=== PATIENT | male | born 1940 | race Caucasian/White ===

== ENCOUNTER 2016-09-06 14:10 | Inpatient (IN) | payer OTHER, MEDICARE ==
[~2016-09-06] VITALS: Ht 167.6 cm; Wt 117.9 kg
[~2016-09-06 14:10] MED LIST: ACTOS30 M1 PO; COMPAZINE10 M1 PO; FERROUS SULFAT325 M3 PO; FLOMAX0.4 M1 PO; FLUOCINONIDE15 G2 TOP; LIPITOR10 M1 PO; LOMOTIL 2.5-0.1 EACH PO; LUBRIDERM DAIL177 ML EXT; METFORMIN HCL1000 M1 PO; MICARDIS40 M1 PO; NYSTATIN15 G1 TOP; OMEPRAZOLE20 M2 PO; ZOFRAN8 M1 PO
--- NOTE | 2016-09-06 14:14 | ED DYSPNEA/ASTHMA COMPLAINT ---
History of Present Illness General Chief Complaint: Dyspnea (COPD, CHF, Other) Stated Complaint: BIBA FOR EVAL DIFF BREATHER Source: patient Exam Limitations: no limitations Vital Signs & Intake/Output Vital Signs & Intake/Output Vital Signs Date Time Temp Pulse Resp B/P Pulse O2 O2 Flow FiO2 Ox Delivery Rate 09/06 1815 97.6 104 18 128/68 99 Nasal 2.0L Cannula 09/06 1433 96 Nasal 2.0L Cannula 09/06 1418 98.8 103 18 123/63 97 Nasal 2.0L Cannula Allergies Coded Allergies: NO KNOWN ALLERGIES (11/29/15) Reconcile Medications Atorvastatin Calcium (Lipitor) 10 MG TABLET 1 TAB PO DAILY HIGH CHOLESTORL ( Reported) Calcium Carbonate/Vitamin D3 (Oyster Shell 500 MG + Vit D Tb) 500 MG-200 TABLET 1 TAB PO TID SUPPLEMENT (Reported) Doxycycline Hyclate 100 MG TABLET 1 TAB PO BID RASH (Reported) Emollient Combination No.92 (Lubriderm Daily Moisture) 177 ML LOTION 1 MEHUL EXT TID RASH/DRY SKIN Ferrous Sulfate 325 MG TABLET 1 TAB PO BID VITAMIN SUPPORT (Reported) Finasteride 5 MG TABLET 1 TAB PO DAILY PROSTATE (Reported) Fluocinonide 15 GM CREAM..G. 1 MEHUL TOP BID PSORIASIS/RASH Fluorometholone (Fml S.o.p.) 0.1 % OINT...G. 1 MEHUL OPH TID EYE (Reported) Magnesium Oxide (Magox 400) 400 MG TABLET 3 TAB PO BID SUPPLEMENT (Reported) Metformin HCl 1,000 MG TABLET 1 TAB PO BID DIABETES (Reported) Metronidazole 1 % GEL..GRAM. 1 MEHUL TOP DAILY RASH (Reported) Mupirocin 2 % OINT...G. 1 MEHUL TOP DAILY RASH (Reported) apply to affected area(s) Nystatin 15 GM CREAM..G. 1 MEHUL TOP BID SKIN FUNGAL INFECTION Ondansetron HCl (Zofran) 8 MG TABLET 1 TAB PO TID PRN NAUSEA/VOMITING ( Reported) Pioglitazone HCl (Actos) 30 MG TABLET 1 TAB PO DAILY DIABETES (Reported) Potassium Chloride (K-Tab ER) 10 MEQ TABLET.ER 1 TAB PO DAILY DEHYDRATION ( Reported) Tamsulosin HCl (Flomax) 0.4 MG CAP.ER.24H 1 CAP PO DAILY UNKNOWN (Reported) Telmisartan (Micardis) 40 MG TABLET 1 TAB PO DAILY HEART HEALTH (Reported) Triage Nurses Notes Reviewed? yes Onset: Gradual Duration: constant Timing: single episode today Severity: severe HPI: Patient is a 76-year-old male with a past medical history of BPH, diabetes type 2, hypertension, hyperlipidemia and colonic adenocarcinoma and sigmoid resection who is currently every other week receiving chemotherapy, oncologist is who states that for the past month patient has had a nonproductive persistent cough however last night while in bed patient was woke up with significant dyspnea. Patient states that the dyspnea has been worsened and has noted audible wheezing. Patient denies any fever, chills, chest pain arm pain jaw pain nausea vomiting but does have a gradual onset of a one-day history of left- sided lower extremity swelling. Denies any hemoptysis. It is noted that patient was brought in by ambulance for shortness of breath fingerstick glucose EMS states was 59 on arrival receiving D5 in which this improved to 103 on arrival. Patient does not have a significant history of smoking or RESPIRATORY disease (LAKEISHA LYN) Past History Travel History Traveled to [place] past 21 day No Medical History Any Pertinent Medical History? 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 No (LAKEISHA LYN) Review of Systems Review of Systems Constitutional: Reports: no symptoms. EENTM: Reports: no symptoms. Respiratory: Reports: see HPI, cough, short of breath, wheezing. Cardiovascular: Reports: see HPI, peripheral edema. GI: Reports: no symptoms. Genitourinary: Reports: no symptoms. Musculoskeletal: Reports: no symptoms. Skin: Reports: no symptoms. Neurological/Psychological: Reports: no symptoms. Hematologic/Endocrine: Reports: no symptoms. Immunologic/Allergic: Reports: no symptoms. All Other Systems: Reviewed and Negative (LAKEISHA LYN) Physical Exam Physical Exam General Appearance: no apparent distress, comfortable, obese Head: atraumatic Eyes: Bilateral: normal appearance. Ears, Nose, Throat: normal pharynx Neck: normal inspection Respiratory: no respiratory distress, wheezing Cardiovascular: regular rate/rhythm Peripheral Pulses: 2+ dorsalis pedis (R), 2+ dorsalis pedis (L) Gastrointestinal: normal bowel sounds, soft, non-tender Extremities: LEFT LOWER EXTREMITY +1 PITTING EDEMA Neurologic/Psych: no motor/sensory deficits Skin: intact, normal color, warm/dry Comments: Insert full exam Core Measures ACS in differential dx? Yes Severe Sepsis Present: No Septic Shock Present: No (LAKEISHA LYN) Progress Differential Diagnosis: asthma, AMI, bronchitis, costochondritis, CHF, COPD, musculoskeletal pain, pericarditis, pulmonary embolism, pneumonia, pneumothorax, rib fracture, unstable angina Diagnostic Imaging: Viewed by Me: Radiology Read, CT Scan, Ultrasound. CXR Impression: no acute abnormality Initial ED EKG: SINUS RHYTHM NOTED AT 95 BPM Prior EKG: unchanged Comments: PATIENT: ROSIO GRAFF PRESENT AGE: 76 PATIENT ACCOUNT NO: [id number] : 42 LOCATION: [facility] ORDERING PHYSICIAN: LAKEISHA SCOTT SERVICE DATE: 09/06/16 EXAM TYPE: CAT - CTA CHEST-PULMONARY EMBOLISM EXAMINATION: CT ANGIOGRAM OF THE CHEST WITH AND WITHOUT CONTRAST (CT PULMONARY ANGIOGRAM FOR PE) CLINICAL INFORMATION: Shortness of breath. Elevated d-dimer. History of colon cancer COMPARISON: Chest CT from 04/30/2013 TECHNIQUE: Prior to contrast administration, noncontrast localization images were obtained. Subsequently, multidetector volumetric imaging was performed from the thoracic inlet to below the diaphragms following the administration of 80 mL Omnipaque 350 intravenous contrast. No contrast reaction reported Sagittal, coronal, and MIP oblique sagittal reformatted images were obtained on the CT workstation, uploaded to PACS, and reviewed. Total exam dose-length product 573 mGy-cm FINDINGS: QUALITY OF STUDY/CONTRAST BOLUS: Suboptimal. The aorta is more densely opacified than the pulmonary arteries. PULMONARY ARTERIES: No central or segmental pulmonary emboli. THORACIC AORTA: No aneurysm or dissection. LUNG: There is mild diffuse peribronchial thickening. There is a 2 cm platelike opacity within the right base peripherally. There is a stable 2 mm nodule along the right minor fissure. PLEURA: No pleural effusion or pneumothorax. MEDIASTINUM: Normal heart size. No pericardial effusion. No hilar or mediastinal lymphadenopathy. No evidence of septal bowing or right heart strain. CHEST WALL/AXILLA: A left sided port is visualized with tip extending into the superior vena cava. OSSEOUS STRUCTURES: No compression deformities. There is multilevel spondylosis. No acute osseous abnormalities are evident. UPPER ABDOMEN: Unremarkable. No reflux of contrast into the hepatic veins to suggest elevated right heart pressures. IMPRESSION: Although the contrast bolus timing is slightly delayed, there is no evidence of central or segmental pulmonary embolism. There is mild diffuse peribronchial thickening as well as a platelike opacity in the periphery of the right lower lobe which may be atelectasis or scar although a small consolidative focus is not entirely excluded. Left-sided port with tip in the superior vena cava. VTE: negative PATIENT: ROSIO GRAFF PRESENT AGE: 76 PATIENT ACCOUNT NO: [id number] : 42 LOCATION: [facility] ORDERING PHYSICIAN: LAKEISHA SCOTT SERVICE DATE: 09/06/16 EXAM TYPE: CAT - CTA CHEST-PULMONARY EMBOLISM EXAMINATION: CT ANGIOGRAM OF THE CHEST WITH AND WITHOUT CONTRAST (CT PULMONARY ANGIOGRAM FOR PE) CLINICAL INFORMATION: Shortness of breath. Elevated d-dimer. History of colon cancer COMPARISON: Chest CT from 04/30/2013 TECHNIQUE: Prior to contrast administration, noncontrast localization images were obtained. Subsequently, multidetector volumetric imaging was performed from the thoracic inlet to below the diaphragms following the administration of 80 mL Omnipaque 350 intravenous contrast. No contrast reaction reported Sagittal, coronal, and MIP oblique sagittal reformatted images were obtained on the CT workstation, uploaded to PACS, and reviewed. Total exam dose-length product 573 mGy-cm FINDINGS: QUALITY OF STUDY/CONTRAST BOLUS: Suboptimal. The aorta is more densely opacified than the pulmonary arteries. PULMONARY ARTERIES: No central or segmental pulmonary emboli. THORACIC AORTA: No aneurysm or dissection. LUNG: There is mild diffuse peribronchial thickening. There is a 2 cm platelike opacity within the right base peripherally. There is a stable 2 mm nodule along the right minor fissure. PLEURA: No pleural effusion or pneumothorax. MEDIASTINUM: Normal heart size. No pericardial effusion. No hilar or mediastinal lymphadenopathy. No evidence of septal bowing or right heart strain. CHEST WALL/AXILLA: A left sided port is visualized with tip extending into the superior vena cava. OSSEOUS STRUCTURES: No compression deformities. There is multilevel spondylosis. No acute osseous abnormalities are evident. UPPER ABDOMEN: Unremarkable. No reflux of contrast into the hepatic veins to suggest elevated right heart pressures. IMPRESSION: Although the contrast bolus timing is slightly delayed, there is no evidence of central or segmental pulmonary embolism. There is mild diffuse peribronchial thickening as well as a platelike opacity in the periphery of the right lower lobe which may be atelectasis or scar although a small consolidative focus is not entirely excluded. Left-sided port with tip in the superior vena cava. VTE: negative PATIENT: ROSIO GRAFF PRESENT AGE: 76 PATIENT ACCOUNT NO: [id number] : 42 LOCATION: ER ORDERING PHYSICIAN: LAKEISHA SCOTT SERVICE DATE: 09/06/16 EXAM TYPE: RAD - XRY-PORTABLE CHEST XRAY EXAMINATION: XR PORTABLE CHEST CLINICAL INFORMATION: Shortness of breath. COMPARISON: CT chest with contrast 04/30/2013. TECHNIQUE: Portable AP view of the chest was obtained. FINDINGS: The lungs are hypoinflated, without focal airspace consolidation. No pleural effusions or pneumothoraces are identified. Cardiomediastinal contours are stable. There is a left subclavian Port-A-Cath, with the catheter tip visualized terminating in the mid SVC. Soft tissues are unremarkable. No acute osseous abnormality is identified. IMPRESSION: No acute pulmonary process. PATIENT: ROSIO GRAFF PRESENT AGE: 76 PATIENT ACCOUNT NO: [id number] : 42 LOCATION: ER ORDERING PHYSICIAN: LAKEISHA SCOTT SERVICE DATE: 09/06/16 EXAM TYPE: US - US-UNILATERAL VENOUS DOPPLER EXAMINATION: US TRIPLEX LOWER EXTREMITY, LEFT CLINICAL INFORMATION: Left lower extremity swelling. COMPARISON: None. TECHNIQUE: Color-flow triplex imaging with spectral analysis and compression Doppler were performed on the left lower extremity. FINDINGS: Respiratory variation, normal compression and augmented flow are noted throughout the lower extremity. The visualized common femoral vein, femoral vein, profunda femoral vein, popliteal vein and midcalf peroneal and posterior tibial venous segments show no evidence of deep venous thrombosis. There is no Chairez's cyst. IMPRESSION: Normal triplex scan without evidence of deep venous thrombosis involving the left lower extremity. (ROSAURA SCOTT,LAKEISHA) Plan of Care: Orders Procedure Date/time Status Heart Healthy Diet 09/07 B Active Admit to inpatient 09/06 1854 Active Patient Data 09/06 1854 Active Add-on Test (ER Only) 09/06 1633 Active PHOSPHORUS 09/06 1549 Complete EKG 09/06 1519 Active BLOOD CULTURE 09/06 1428 Active Telemetry/Arc Welder 09/06 1426 Active RAPID VIRAL INFLUENZA A 09/06 1426 Complete TROPONIN LEVEL 09/06 1426 Complete MAGNESIUM 09/06 1426 Complete D-DIMER 09/06 1426 Complete COMPREHENSIVE METABOLIC PANEL 09/06 1426 Complete CBC WITHOUT DIFFERENTIAL 09/06 142 Complete B-TYPE NATRIURETIC PEP (BNP) 09/06 142 Complete Current Medications Sig/Brennon Start time Last Medication Dose Stop Time Status Admin Magnesium Sulfate 1 GM ONCE ONE 09/06 1845 AC (Mag Sulfate in D5) 09/06 2244 Dextrose/Water 100 ML (D5W) Laboratory Tests 09/06/16 1549: Anion Gap 8, Estimated GFR > 60, BUN/Creatinine Ratio 17.5, Glucose 80, Calcium 7.3 L, Phosphorus 3.4, Magnesium 0.6 *L, Total Bilirubin 0.4, AST 14 L, ALT 25 , Alkaline Phosphatase 109, Troponin I < 0.01, Yfj-A-Rodugmajidv Pept 197 H, Total Protein 6.3, Albumin 2.9 L, Globulin 3.4, Albumin/Globulin Ratio 0.9 L, D-Dimer 673 H, CBC w Diff NO MAN DIFF REQ, RBC 3.84 L, MCV 94.3 H, MCH 29.8, RDW 15.5 H, MPV 9.3, Gran % 61.8, Lymphocytes % 21.5, Monocytes % 6.6, Eosinophils % 8.9 H, Basophils % 1.2, Absolute Granulocytes 4.5, Absolute Lymphocytes 1.6, Absolute Monocytes 0.5, Absolute Eosinophils 0.7, Absolute Basophils 0.1, PUBS MCHC 31.5 L Microbiology 09/06 1530 NASOPHARYN: Influenza Virus A & B Rapid Smear - COMP 09/06 1530 BLOOD: Blood Culture - RECD 09/06 1520 BLOOD: Blood Culture - RECD Patient currently is in no apparent distress however does have significant expiratory wheezing in bilateral lung morales. Patient was given 2 L of nasal cannula supplementation of oxygen in which he was satting at approximately 93% room air. No respiratory distress. Patient does have critical findings of hypo -magnesium which she does take outpatient magnesium supplementation and when he receives chemotherapy he receives IV magnesium afterwards however he has not received this in approximately 10 days. 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 CT scan currently is pending for rule out pulmonary embolism. Patient did have no improvement of wheezing in which a second albuterol will be administered Patient will receive IV magnesium for critical findings of hypo-magnesium Patient shows no EKG changes Dr. Trotter was made aware telemetry admission and agrees with disposition plan (LAKEISHA LYN) Departure Departure Disposition: STILL A PATIENT Condition: Guarded Clinical Impression Primary Impression: Hypomagnesemia Secondary Impressions: Wheezing Referrals: BRIGID BALLARD MD (PCP/Family) Departure Forms: Customer Survey General Discharge Information Admission Note Spoke With: CELSO DOOLEY MD Documentation of Exam: Documentation of any treatments & extenuating circumstances including Concerns Regarding Discharge (functional status, medication knowledge or non-compliance, living conditions, etc.) that warrant an admission rather than observation: [ Discussed patient with Dr. COLLINS who agrees a telemetry admission for concerns of hypo-magnesium. Patient cries IV magnesium, repeat labs, telemetry monitoring and repeat EKG. Patient also requires IV steroids and nebulizer treatments and pulmonary consultation for concerns of wheezing. Outpatient treatment at this time due to critical findings of hypo-magnesia would be medically harmful] (LAKEISHA LYN) PA/BODY AND FENDER WORKER Co-Sign Statement Statement: ED Attending supervision documentation- [X] I saw and evaluated the patient. I have also reviewed all the pertinent lab results and diagnostic results. I agree with the findings and the plan of care as documented in the PA's/BODY AND FENDER WORKER's documentation. [X] I have reviewed the ED Record and agree with the PA's/BODY AND FENDER WORKER's documentation. [] Additions or exceptions (if any) to the PAs/BODY AND FENDER WORKER's note and plan are summarized below: [Patient has chronic hypomagnesemia however today it is down to 0.6. Patient to be admitted for magnesium repletion via IV. Patient is also wheezing which is not normal for him. His CT CURIEL shows no pneumonia or evidence of metastatic disease. Patient should have a pulmonary consult. Patient to go to telemetry.] (JOSÉ PANDEY,ANGI Jin) Critical Care Note Critical Care Note Critical Care Time: 30-74 min (ROSAURA SCOTT,LAKEISHA)
--- NOTE | 2016-09-06 14:17 | NUR ---
76 Y/O MALE WITH HX OF COLON CA BIBA FOR SOB THRU THE NIGHT AND WITH EXERTION. 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 PT ARRIVES AND IS ON D5 DRIP BECAUSE OF HIS BS OF 59 AT HIS HOUSE AND NOW HIS GLUCOSE 103. PT IS ALSO ON 2L OF NC AND SATURATING AT 96%. PT STS SOME EDEMA TO YUE GIRON AND TYLER KAPLAN AT BEDSIDE TO EVAL PT THAT
[2016-09-06] MEDS ORDERED: FINASTERIDE5 M1 PO (14:33)
[2016-09-06] MEDS ORDERED: MAGOX 400400 MG PO (14:35)
[2016-09-06] MEDS ORDERED: FML S.O.P.3.5 GM OPH (14:35)
[2016-09-06] MEDS ORDERED: METRONIDAZOLE60 GM TOP (14:36)
[2016-09-06] MEDS ORDERED: MUPIROCIN22 GM TOP (14:37)
[2016-09-06] MEDS ORDERED: OYSTER SHELL 51 EACH PO (14:37)
[2016-09-06] MEDS ORDERED: K-TAB ER10 MEQ PO (14:38)
[2016-09-06] MEDS ORDERED: DOXYCYCLINE HY100 M4 PO (14:40)
--- NOTE | 2016-09-06 15:19 | RADIOLOGY REPORT ---
EXAMINATION: XR PORTABLE CHEST CLINICAL INFORMATION: Shortness of breath. COMPARISON: CT chest with contrast 04/30/2013. TECHNIQUE: Portable AP view of the chest was obtained. FINDINGS: The lungs are hypoinflated, without focal airspace consolidation. No pleural effusions or pneumothoraces are identified. Cardiomediastinal contours are stable. There is a left subclavian Port-A-Cath, with the catheter tip visualized terminating in the mid SVC. Soft tissues are unremarkable. No acute osseous abnormality is identified. IMPRESSION: No acute pulmonary process.
[2016-09-06 16:19] LABS: ABSOLUTE BASOPHIL COUNT 0.1 /CUMM (0.0-0.2); ABSOLUTE EOSINOPHIL COUNT 0.7 /CUMM (0.0-0.7); ABSOLUTE GRANULOCYTE CT 4.5 /CUMM (1.4-6.5); ABSOLUTE LYMPH COUNT 1.6 /CUMM (1.2-3.4); ABSOLUTE MONOCYTE COUNT 0.5 /CUMM (0.10-0.60); BASOPHIL % 1.2 % (0.0-2.0); EOSINOPHIL % 8.9 % (0-5); GRANULOCYTE % 61.8 % (42.2-75.2); HEMATOCRIT 36.2 % (42-52); MEAN CORPUSCULAR HGB 29.8 PG (27.0-31.0); MEAN CORPUSCULAR HGB CONC 31.5 G/DL (33.0-37.0); MEAN CORPUSCULAR VOLUME 94.3 FL (80.0-94.0); MEAN PLATELET VOLUME 9.3 FL (7.4-10.4); PLATELET COUNT 151 /CUMM (130-400); RBC DISTRIBUTION WIDTH 15.5 % (11.5-14.5); RED BLOOD CELL CT 3.84 /CUMM (4.70-6.10); WHITE BLOOD CELL COUNT 7.3 /CUMM (4.8-10.8)
--- NOTE | 2016-09-06 16:27 | NUR ---
CRITICAL TEST RESULTS [id number] ROSIO GRAFF 76 M TESTS AND RESULTS: MAGNESIUM 0.6 Results received and read back by: INDER WALSH Results received date and time: 09/06/16 9747 The following provider was notified of the results, and read the results back: TYLER KAPLAN Notified date and time: 09/06/16 at [id number]
--- NOTE | 2016-09-06 16:33 | ULTRASOUND REPORT ---
EXAMINATION: US TRIPLEX LOWER EXTREMITY, LEFT CLINICAL INFORMATION: Left lower extremity swelling. COMPARISON: None. TECHNIQUE: Color-flow triplex imaging with spectral analysis and compression Doppler were performed on the left lower extremity. FINDINGS: Respiratory variation, normal compression and augmented flow are noted throughout the lower extremity. The visualized common femoral vein, femoral vein, profunda femoral vein, popliteal vein and midcalf peroneal and posterior tibial venous segments show no evidence of deep venous thrombosis. There is no Chairez's cyst. IMPRESSION: Normal triplex scan without evidence of deep venous thrombosis involving the left lower extremity.
--- NOTE | 2016-09-06 17:55 | NUR ---
PER TYLER KAPLAN OK TO RUN MAG OVER 2HRS NOT 4 FOR BOTH
--- NOTE | 2016-09-06 18:03 | NUR ---
PT HAS IV MAG INFUSING AND SOLUMEDROL ADMINISTERED
--- NOTE | 2016-09-06 18:14 | NUR ---
PT ALSO GIVEN MEAL TRAY
--- NOTE | 2016-09-06 18:38 | CT SCAN REPORT ---
EXAMINATION: CT ANGIOGRAM OF THE CHEST WITH AND WITHOUT CONTRAST (CT PULMONARY ANGIOGRAM FOR PE) CLINICAL INFORMATION: Shortness of breath. Elevated d-dimer. History of colon cancer COMPARISON: Chest CT from 04/30/2013 TECHNIQUE: Prior to contrast administration, noncontrast localization images were obtained. Subsequently, multidetector volumetric imaging was performed from the thoracic inlet to below the diaphragms following the administration of 80 mL Omnipaque 350 intravenous contrast. No contrast reaction reported Sagittal, coronal, and MIP oblique sagittal reformatted images were obtained on the CT workstation, uploaded to PACS, and reviewed. Total exam dose-length product 573 mGy-cm FINDINGS: QUALITY OF STUDY/CONTRAST BOLUS: Suboptimal. The aorta is more densely opacified than the pulmonary arteries. PULMONARY ARTERIES: No central or segmental pulmonary emboli. THORACIC AORTA: No aneurysm or dissection. LUNG: There is mild diffuse peribronchial thickening. There is a 2 cm platelike opacity within the right base peripherally. There is a stable 2 mm nodule along the right minor fissure. PLEURA: No pleural effusion or pneumothorax. MEDIASTINUM: Normal heart size. No pericardial effusion. No hilar or mediastinal lymphadenopathy. No evidence of septal bowing or right heart strain. CHEST WALL/AXILLA: A left sided port is visualized with tip extending into the superior vena cava. OSSEOUS STRUCTURES: No compression deformities. There is multilevel spondylosis. No acute osseous abnormalities are evident. UPPER ABDOMEN: Unremarkable. No reflux of contrast into the hepatic veins to suggest elevated right heart pressures. IMPRESSION: Although the contrast bolus timing is slightly delayed, there is no evidence of central or segmental pulmonary embolism. There is mild diffuse peribronchial thickening as well as a platelike opacity in the periphery of the right lower lobe which may be atelectasis or scar although a small consolidative focus is not entirely excluded. Left-sided port with tip in the superior vena cava. VTE: negative
--- NOTE | 2016-09-06 18:55 | History & Physical ---
FAY HOBBS MD 09/06/16 8225: General Information and HPI MD Statement: I have seen and personally examined ROSIO GRAFF and documented this H&P. The patient is a 76 year old M who presented with a patient stated chief complaint of [shortness of breath ]. Source of Information: patient, old records Exam Limitations: no limitations History of Present Illness: This 76-year-old male with a past medical history of hypertension, hyperlipidemia, iron deficiency anemia, adenocarcinoma of the colon stage IV with metastatic lesions to the liver status post palliative sigmoid resection in September 2013, currently on chemotherapy with which is scheduled every 2 weeks [facility] under the supervision of Dr. Dash. The patient is done with 16 cycles of the chemotherapy so far and is scheduled for the next PRETTY therapy cycle on 09/10/2016 The patient has been having persistent shortness of breath and mild dyspnea which is more pronounced on exertion. He lives at an assisted living. He ambulates with a walker in his room and when he has to cross the other always he uses a scooter for ambulation. He denies any fever, chills, productive cough. He also denies any pulmonary or cardiac symptoms including chest pain, no internal dyspnea, orthopnea. Noticed 1+ leg swelling in the left leg without any tenderness. He recently had told inflammation and infection which was improved with topical antibiotics and he was completed the course of cephalexin for a total of 10 days in the last 2 weeks for the cellulitis. The patient takes doxycycline every day prophylactically as per the recommendations by the ONCOLOGIST Allergies/Medications Allergies: Coded Allergies: NO KNOWN ALLERGIES (11/29/15) Past History Travel History Traveled to [place] past 21 day No Medical History Neurological: NONE EENT: NONE Cardiovascular: hypertension, hyperlipidemia Respiratory: NONE Gastrointestinal: colon cancer with liver mets Hepatic: NONE Renal: NONE Musculoskeletal: NONE Psychiatric: NONE Endocrine: diabetes Blood Disorders: anemia Cancer(s): colon/rectal cancer RESOLUTE PROFESSIONAL/Reproductive: BPH Other Medical Hx: Psoriasis History of MRSA: No History of VRE: No History of CDIFF: No Influenza Vaccine: 05/14/11 Surgical History Surgical History: sigmoid resection 2013 Past Family/Social History Family History Relations & Conditions if any MOTHER FH: heart failure FH: hyperthyroidism FATHER FH: diabetes mellitus FH: heart failure MOTHER Psychosocial History Who Do You Live With? self Services at Home: None Primary Language: Ukrainian ETOH Use: denies use Illicit Drug Use: denies illicit drug use Functional Ability ADLs Independent: dressing, eating, toileting, bathing. Ambulation: cane, scooter Review of Systems Review of Systems Constitutional: Reports: see HPI. Cardiovascular: Reports: orthopena. Denies: see HPI, chest pain, edema, palpitations, peripheral edema. Exam & Diagnostic Data Last 24 Hrs of Vital Signs/I&O Vital Signs Date Time Temp Pulse Resp B/P Pulse O2 O2 Flow FiO2 Ox Delivery Rate 09/06 2001 98.0 100 18 130/70 99 Nasal 2.0L Cannula 09/06 1815 97.6 104 18 128/68 99 Nasal 2.0L Cannula 09/06 1433 96 Nasal 2.0L Cannula 09/06 1418 98.8 103 18 123/63 97 Nasal 2.0L Cannula Intake & Output 09/06 1600 09/06 0800 09/06 0000 Intake Total 100 Output Total Balance 100 Intake, IV 100 Patient 260 lb Weight Physical Exam General Appearance Alert, Oriented X3, Cooperative Skin DRY SCALY SKIN HEENT REDDNESS ADN MUCOPURULENT DISCHARGE FROM THE EYELIDS Neck No JVD, No thryomegaly Lymphatic Cervical nl Cardiovascular Normal S1, Normal S2 Lungs B/L EXPIRATORY WHEEZING Diagnostic Data EKG Results Normal sinus rhythm CXR Results No acute pulmonary process Assessment/Plan Assessment: This is a 76-year-old male with a past medical history of adenocarcinoma of the colon, hypertension, hyperlipidemia and diabetes mellitus who presents to the [facility] with persistent wheezing and shortness of breath. Vitals at the time of admission showed blood pressure of 110/70, respiration rate of 18, saturation of 92% on 2 L of oxygen, afebrile, Labs shows hypomagnesemia, 0.6 with the rest of the labs within normal limits No acute EKG changes Chest CTA done in the ER did not show any evidence of primary embolism or pneumonia Assessment 1. Hypomagnesemia 2. History of asbestos exposure in the past 3. History of adenocarcinoma of the colon 4. History of hypertension 5. History of diabetes mellitus 6. Currently on chemotherapy Plan Admit to telemetry floor due to persistent hypomagnesemia We will replete magnesium 4 g Recheck basic electrolyte panel and magnesium in the next 6 hours Solu-Medrol 40 mg every 8 Hold off azithromycin this point as the patient is on doxycycline prophylactically for the chemotherapy TRC nebulization Accu-Cheks 3 times a day at bedtime NovoLog sliding scale for the diabetes Pulmonology consult in the morning Oncology consult for Friday DVT prophylaxis with subcutaneous Lovenox FULL Code As Ranked By This Provider Problem List: 1. Hypomagnesemia 2. Wheezing 3. Colon cancer Core Measures/Miscellaneous Acute Coronary Syndrome ACS Diagnosis: No Cerebrovascular Accident CVA/TIA Diagnosis: No Congestive Heart Failure CHF Diagnosis: No Venous Thromboembolism VTE Risk Factors: Acute medical illness, Age > 40 VTE Prophylaxis Ordered Inpt: Pharm- Lovenox No Mech VTE prophylaxis d/t: No contraindications No VTE Pharm Prophylaxis d/t: No contraindications VTE Diagnosis: No VTE Type: NONE VTE Confirmed by (Test): NONE Severe Sepsis Severe Sepsis Present: No Septic Shock Septic Shock Present: No Miscellaneous Documentation Attending Case Discussed With: CELSO DOOLEY MD Primary Care Physician: BRIGID BALLARD MD Patient sees these Specialists [facility] Level of Patient Care: Telemetry ALEJANDRO DOOLEY MD 09/06/161923: General Information and HPI Allergies/Medications Home Med list Calcium Carbonate/Vitamin D3 (Oyster Shell 500 MG + Vit D Tb) 500 MG-200 TABLET 1 TAB PO TID SUPPLEMENT (Reported) Doxycycline Hyclate 100 MG TABLET 1 TAB PO BID RASH (Reported) Emollient Combination No.92 (Lubriderm Daily Moisture) 177 ML LOTION 1 MEHUL EXT TID RASH/DRY SKIN Ferrous Sulfate 325 MG TABLET 1 TAB PO BID VITAMIN SUPPORT (Reported) Finasteride 5 MG TABLET 1 TAB PO DAILY PROSTATE (Reported) Fluocinonide 15 GM CREAM..G. 1 MEHUL TOP BID PSORIASIS/RASH Fluorometholone (Fml S.o.p.) 0.1 % OINT...G. 1 MEHUL OPH TID EYE (Reported) Magnesium Oxide (Magox 400) 400 MG TABLET 3 TAB PO BID SUPPLEMENT (Reported) Metformin HCl 1,000 MG TABLET 1 TAB PO BID DIABETES (Reported) Metronidazole 1 % GEL..GRAM. 1 MEHUL TOP DAILY RASH (Reported) Mupirocin 2 % OINT...G. 1 MEHUL TOP DAILY RASH (Reported) apply to affected area(s) Nystatin 15 GM CREAM..G. 1 MEHUL TOP BID SKIN FUNGAL INFECTION Ondansetron HCl (Zofran) 8 MG TABLET 1 TAB PO TID PRN NAUSEA/VOMITING ( Reported) Pioglitazone HCl (Actos) 30 MG TABLET 1 TAB PO DAILY DIABETES (Reported) Potassium Chloride (K-Tab ER) 10 MEQ TABLET.ER 1 TAB PO DAILY DEHYDRATION ( Reported) Tamsulosin HCl (Flomax) 0.4 MG CAP.ER.24H 1 CAP PO DAILY UNKNOWN (Reported) Telmisartan (Micardis) 40 MG TABLET 1 TAB PO DAILY HEART HEALTH (Reported) Attending MD Review Statement Attending Statement Attending MD Statement: examined this patient, discuss w/resident/PA/TELEVISION NEWS PHOTOGRAPHER, agreed w/resident/PA/TELEVISION NEWS PHOTOGRAPHER Attending Assessment/Plan: 76 yo morbidly obese M, lives at [facility], with h/o colonic adenocarcinoma s/p sigmoid resection (2013) with liver mets now on chemo (previously was on Avastin/ Camptosar but developed severe THEO, now on Panitumumab Q2 weeks x 16 sessions), HTN, ROBERTO, pw 1 month h/o nonproductive cough, and significant dyspnea with wheezing that started 1 day prior to admission. No fever/ chills, chest discomfort or orthopnea. He has a h/o asbestos exposure worked part-time @ [employer] for almost 10 yrs when he was in college. Smoker for 4 years during college, but quit ever since. He reports good appetite. He has diffuse psoriatic skin rash all over the body. He has developed an eye allergy from the chemo with diffuse redness of the lower eyelids with mucopurulent discharge. Vitals stable except for tachycardia. Chest b/l expiratory wheeze, air entry good. Left chest port C/D/I. Labs: macrocytic anemia, K 4.8, Mag 0.6, trop neg, CXR neg, LE dopplers neg, CTA chest: no PE, mild diffuse peribronchial thickening and RLL atelectasis vs. Consolidation. EKG: SR. Flu swab nag. 1. Dyspnea, wheezing and nonproductive cough, with e/o peribronchial thickening on CT, ?chronic bronchitis. Aspiration and asbestosis are the other differentials. No evidence of PE or CHF. Tele admit, TRC nebs, O2 supplementation, incentive spirometry, IV steroids, no acute need for antibiotics. Patient is on Doxycycline per Onc, will continue with that. Pulm consult in AM. Rule out ACS with serial EKG and troponin. Check TSH, free T4. 2. Recurrent hypomagnesemia in the setting of chemotherapy. Patient receives magnesium repletion on the day of chemo. Continue repletion with IV mag, recheck in AM. Monitor for arrhythmias. 3. Adenocarcinoma of colon with liver mets. Oncology consult (Dr. Alvarado), patient is due to chemo on 09/10. 4. Decubitus stage 1 skin peeling. Local care with zinc oxide and vit A ointment. DVT ppx Lovenox. Full code.
--- NOTE | 2016-09-06 19:24 | Admission Certification ---
Admission Certification Certification Statement - As attending physician, I certify that at the time of - admission, based on clinical presentation, severity of - symptoms, need for further diagnostic testing and - therapeutic interventions, and risk of adverse outcomes - without in-hospital treatment, in my clinical assessment, - this patient requires an acute hospital stay for a minimum - of two nights or longer. I have also considered psychsocial - factors such as support system, advanced age, financial - issues, cognitive issues, and failed out-patient treatments, - past re-admission history, safety of patient, and lack of - compliance as applicable. Specific rationale supporting this admission is: Hypomagnesemia. Sudden onset dyspnea with wheezing needs further evaluation.
--- NOTE | 2016-09-06 19:44 | NUR ---
PT COMPLETED FIRST DOSE OF MAG AND SECOND INFUSING AT PRESENT AND HOUSE STAFF AT BEDSIDE TO LINDA PT
--- NOTE | 2016-09-06 20:38 | NUR ---
REPORT CALLED AND TRANSPORT NOTIFIED
--- NOTE | 2016-09-06 20:38 | NUR ---
PT ASSIGNED TO ROOM 180 BED 1
[2016-09-06 22:00] VITALS: BP 124/80
--- NOTE | 2016-09-07 07:09 | PN- Housestaff ---
Subjective Follow-up For: Hypomagnesemia Subjective: The patient is doing well. He remained asymptomatic overnight. No cardiac events noted on telemetry Review of Systems Constitutional: Reports: see HPI. EENTM: Reports: see HPI. Objective Last 24 Hrs of Vital Signs/I&O Vital Signs Date Time Temp Pulse Resp B/P Pulse O2 O2 Flow FiO2 Ox Delivery Rate 09/07 0000 Room Air 09/06 2199 Nasal 1.0L Cannula 09/06 2199 98.0 98 20 124/80 94 Room Air 09/06 2001 98.0 100 18 130/70 99 Nasal 2.0L Cannula 09/06 1815 97.6 104 18 128/68 99 Nasal 2.0L Cannula 09/06 1433 96 Nasal 2.0L Cannula 09/06 1418 98.8 103 18 123/63 97 Nasal 2.0L Cannula Intake & Output 09/07 0800 09/07 0000 09/06 1600 Intake Total 520 440 100 Output Total 300 400 Balance 220 40 100 Intake, IV 400 200 100 Intake, Oral 120 240 Output, Urine 300 400 Patient 260 lb 260 lb Weight Physical Exam General Appearance: Alert, Oriented X3, Cooperative Skin: No Rashes, No Breakdown HEENT: Atraumatic, PERRLA, EOMI Neck: Supple, No JVD, No thryomegaly Cardiovascular: Normal S1, Normal S2, No Murmurs Extremities: 1+ leg edema Assessment/Plan Assessment: This is a 76-year-old male with a past medical history of adenocarcinoma of the colon, currently Panitumumab therapy The patient is being admitted to the telemetry floor for hypomagnesemia on the labs but remained asymptomatic Assessment 1. Hypomagnesemia secondary to chemotherapy 2. 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 History of hypertension 4. History of diabetes mellitus 5. History of new onset bilateral blepharitis and conjunctivitis secondary to chemotherapy 6. History of asbestos exposures in the past Plan Continue telemetry monitoring until may need a level greater than 2 Recheck basic electrolyte panel and magnesium at 8 AM today, if all within normal limits and magnesium greater than 2 patient can be discontinued from telemetry monitoring Continue with by mouth doxycycline which is recommended by the oncologist for chemotherapy prophylaxis Continue with IV Solu-Medrol 40 mg every 8 and follow-up with pulmonology input and recommendations TRC evaluation Patient is full code Dvt to prophylaxis at all times Problem List: 1. Hypomagnesemia 2. Wheezing Pain Ratin Pain Location: back pain Pain Goal: Remain pain free Pain Plan: po tlenol as needed Tomorrow's Labs & Rationales: none
[2016-09-07 07:51] VITALS: BP 130/82
--- NOTE | 2016-09-07 10:44 | Cons- Pulmonary ---
See Addendum General Information and HPI Consulting Request Date of Consult: 09/07/16 Requested By: Dr. Mathew Reason for Consult: Dyspnea Source of Information: patient Exam Limitations: no limitations History of Present Illness: 76 year old man. History of colon ca. S/p 4 years of chemotherapy. Has had issues with questionable mucositis and eyelid inflammation. Has had persistent dyspnea primarily on exertion over past month. Has happened years ago and was treated with inhalers. Does not carry any pulmonary disease. Worked with asbestos in past. CT chest with evidence of peribronchial thickening suggestive of bronchitis and a miniscule atelectatic RLL area. No evidence of asbestos related or parenchymal lung disease. Off o2 this am. Overall significantly improved. At assisted living facility. Recent flu/viral outbreaks. No fevers, no n/v/d/c. No hemoptysis. Leg edema has been chronic as well. Remote smoking in 60's. 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 Allergies/Medications Allergies: Coded Allergies: NO KNOWN ALLERGIES (11/29/15) Home Med List: Calcium Carbonate/Vitamin D3 (Oyster Shell 500 MG + Vit D Tb) 500 MG-200 TABLET 1 TAB PO TID SUPPLEMENT (Reported) Doxycycline Hyclate 100 MG TABLET 1 TAB PO BID RASH (Reported) Emollient Combination No.92 (Lubriderm Daily Moisture) 177 ML LOTION 1 MEHUL EXT TID RASH/DRY SKIN Ferrous Sulfate 325 MG TABLET 1 TAB PO BID VITAMIN SUPPORT (Reported) Finasteride 5 MG TABLET 1 TAB PO DAILY PROSTATE (Reported) Fluocinonide 15 GM CREAM..G. 1 MEHUL TOP BID PSORIASIS/RASH Fluorometholone (Fml S.o.p.) 0.1 % OINT...G. 1 MEHUL OPH TID EYE (Reported) Magnesium Oxide (Magox 400) 400 MG TABLET 3 TAB PO BID SUPPLEMENT (Reported) Metformin HCl 1,000 MG TABLET 1 TAB PO BID DIABETES (Reported) Metronidazole 1 % GEL..GRAM. 1 MEHUL TOP DAILY RASH (Reported) Mupirocin 2 % OINT...G. 1 MEHUL TOP DAILY RASH (Reported) apply to affected area(s) Nystatin 15 GM CREAM..G. 1 MEHUL TOP BID SKIN FUNGAL INFECTION Ondansetron HCl (Zofran) 8 MG TABLET 1 TAB PO TID PRN NAUSEA/VOMITING ( Reported) Pioglitazone HCl (Actos) 30 MG TABLET 1 TAB PO DAILY DIABETES (Reported) Potassium Chloride (K-Tab ER) 10 MEQ TABLET.ER 1 TAB PO DAILY DEHYDRATION ( Reported) Tamsulosin HCl (Flomax) 0.4 MG CAP.ER.24H 1 CAP PO DAILY UNKNOWN (Reported) Telmisartan (Micardis) 40 MG TABLET 1 TAB PO DAILY HEART HEALTH (Reported) Current Medications: Current Medications Sig/Brennon Start time Last Medication Dose Route Stop Time Status Admin Acetaminophen 650 MG Q6P PRN 09/06 2014 AC PO Acetaminophen 1,000 MG Q6P PRN 09/06 2014 AC IV Albuterol Sulfate 3 ML ONCE ONE 09/06 1630 DC 09/06 INH 09/06 1631 1655 Albuterol Sulfate 3 ML ONCE ONE 09/06 1430 DC 09/06 INH 09/06 1431 1655 Doxycycline Hyclate 100 MG BID 09/06 2200 AC 09/07 PO 0928 Enoxaparin Sodium 40 MG DAILY 09/06 2030 AC 09/07 SC 0927 Ferrous Sulfate 325 MG BID 09/06 2200 AC 09/07 PO 0928 Finasteride 5 MG DAILY 09/07 1000 AC 09/07 PO 0928 Fluorometholone 0.1 ML TID 09/06 2330 AC 09/07 OPH 0927 Insulin Aspart 0 TIDAC 09/07 0800 AC 09/07 SC 0856 Ipratropium Petty 2.5 ML ONCE ONE 09/06 1430 DC 09/06 INH 09/06 1431 1655 Losartan Potassium 50 MG DAILY 09/07 1000 AC 09/07 PO 0928 Magnesium Sulfate 2 GM ONCE ONE 09/07 0430 CAN Dextrose/Water 250 ML IV 09/07 0829 Magnesium Sulfate 1 GM Q2H 09/07 0400 DC 09/07 Dextrose/Water 100 ML IV 09/07 0759 0639 Magnesium Sulfate 1 GM Q2H 09/06 1930 DC 09/06 Dextrose/Water 100 ML IV 09/06 2329 2348 Magnesium Sulfate 1 GM ONCE ONE 09/06 1845 DC 09/06 Dextrose/Water 100 ML IV 09/06 2244 1947 Magnesium Sulfate 1 GM ONCE ONE 09/06 1645 DC 09/06 Dextrose/Water 100 ML IV 09/06 2044 1802 Methylprednisolone 40 MG Q8 09/07 0600 AC 09/07 IV 0639 Methylprednisolone 0 .STK-MED ONE 09/06 1726 DC .ROUTE Methylprednisolone 125 MG ONCE ONE 09/06 1430 DC 09/06 IV 09/06 1431 1802 Mupirocin 1 MEHUL DAILY 09/07 1000 AC 09/07 TOP 0927 Nystatin 1 MEHUL BID 09/06 2200 AC 09/07 TOP 0933 Tamsulosin HCl 0.4 MG DAILY 09/07 1000 AC 09/07 PO 0928 Zinc Oxide 1 MEHUL BID 09/07 1000 AC 09/07 TOP 0927 Past History Travel History Traveled to [place] past 21 day No Medical History Blood Transfusion Hx: Yes Neurological: NONE EENT: NONE Cardiovascular: hypertension, hyperlipidemia Respiratory: NONE Gastrointestinal: colon cancer with liver mets Hepatic: NONE Renal: benign prost hyperplasia Musculoskeletal: NONE Psychiatric: NONE Endocrine: diabetes, PSORIASIS Blood Disorders: anemia Cancer(s): colon/rectal cancer 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 Assisted Living Who Do You Live With? self Services at Home: Nursing Primary Language: Icelandic Smoking Status: Former Smoker ETOH Use: denies use Illicit Drug Use: denies illicit drug use Functional Ability ADLs Independent: dressing, eating, toileting, bathing. Ambulation: cane, scooter Exam & Diagnostic Data Last 24 Hrs of Vital Signs/I&O Vital Signs Date Time Temp Pulse Resp B/P Pulse O2 O2 Flow FiO2 Ox Delivery Rate 09/07 0928 93 130/82 09/07 0928 93 130/82 09/07 0800 Room Air 09/07 0751 97.7 93 16 130/82 95 Room Air 09/07 0000 Room Air 09/06 2199 Nasal 1.0L Cannula 09/06 2199 98.0 98 20 124/80 94 Room Air 09/06 2001 98.0 100 18 130/70 99 Nasal 2.0L Cannula 09/06 1815 97.6 104 18 128/68 99 Nasal 2.0L Cannula 09/06 1433 96 Nasal 2.0L Cannula 09/06 1418 98.8 103 18 123/63 97 Nasal 2.0L Cannula Intake & Output 09/07 1600 09/07 0800 09/07 0000 Intake Total 520 440 Output Total 300 400 Balance 220 40 Intake, IV 400 200 Intake, Oral 120 240 Output, Urine 300 400 Patient 260 lb Weight Last 48 Hrs of Labs/Desmond: Laboratory Tests 09/07/16 0845: Anion Gap 9, Estimated GFR > 60, BUN/Creatinine Ratio 21.3, Magnesium 1.7, Troponin I < 0.01 09/07/16 0205: Anion Gap 7, Estimated GFR > 60, BUN/Creatinine Ratio 21.3, Magnesium 1.5 L, Troponin I < 0.01, TSH 1.210, Thyroxine (T4) 8.6 09/06/16 1549: Anion Gap 8, Estimated GFR > 60, BUN/Creatinine Ratio 17.5, Glucose 80, Calcium 7.3 L, Phosphorus 3.4, Magnesium 0.6 *L, Total Bilirubin 0.4, AST 14 L, ALT 25 , Alkaline Phosphatase 109, Troponin I < 0.01, Yaf-[id number]-Cjghnbmlqko Pept 197 H, Total Protein 6.3, Albumin 2.9 L, Globulin 3.4, Albumin/Globulin Ratio 0.9 L, D-Dimer 673 H, CBC w Diff NO MAN DIFF REQ, RBC 3.84 L, MCV 94.3 H, MCH 29.8, RDW 15.5 H, MPV 9.3, Gran % 61.8, Lymphocytes % 21.5, Monocytes % 6.6, Eosinophils % 8.9 H, Basophils % 1.2, Absolute Granulocytes 4.5, Absolute Lymphocytes 1.6, Absolute Monocytes 0.5, Absolute Eosinophils 0.7, Absolute Basophils 0.1, PUBS MCHC 31.5 L Microbiology 09/06 1530 NASOPHARYN: Influenza Virus A & B Rapid Smear - COMP Assessment/Plan Impression/Plan: Impression 76 year old man. History of colon ca. S/p 4 years of chemotherapy. Has had issues with questionable mucositis and eyelid inflammation. Has had persistent dyspnea primarily on exertion over past month. Has happened years ago and was treated with inhalers. Does not carry any pulmonary disease. Worked with asbestos in past. CT chest with evidence of peribronchial thickening suggestive of bronchitis and a miniscule atelectatic RLL area. No evidence of asbestos related or parenchymal lung disease. Off o2 this am. Overall significantly improved. At assisted living facility. Recent flu/viral outbreaks. No fevers, no n/v/d/c. No hemoptysis. Leg edema has been chronic as well. Remote smoking in s. 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 Dyspnea is significantly improved, likely underlying bronchitis, perhaps mucositis is not unreasonable, although there is no phlegm or hemoptysis. Given leg edema we can consider pulmonary htn. Plan -ECHO to rule out pulmonary htn -steroid taper to 40mg iv q12h solumedrol today -if does well prednisone 40mg starting tomorrow with a quick taper -TRC/Nebs -outpatient PFTs when better -incentive spirometry DVT prophylaxis at all times Consult Acknowledgment - Thank you for your consult request.
--- NOTE | 2016-09-07 11:25 | PN- Att Addend ---
Attending Addendum Attending Brief Note Patient seen and examined. Resting comfortably and not in any acute distress. No Events on telemetry overnight. Reports productive cough for states that this has been going on for about a month. Recently treated with antibiotics for cellulitis of the lower extremity. He is currently growing gram-positive cocci in 2 sets of cultures however he is afebrile with no leukocytosis. Vital Signs Date Time Temp Pulse Resp B/P Pulse O2 O2 Flow FiO2 Ox Delivery Rate 09/07 0928 93 130/82 09/07 0928 93 130/82 09/07 0800 Room Air 09/07 0751 97.7 93 16 130/82 95 Room Air 09/07 0000 Room Air 09/06 2200 Nasal 1.0L Cannula 09/06 220 98.0 98 20 124/80 94 Room Air 09/06 2002 98.0 100 18 130/70 99 Nasal 2.0L Cannula 09/06 1815 97.6 104 18 128/68 99 Nasal 2.0L Cannula 09/06 1433 96 Nasal 2.0L Cannula 09/06 1418 98.8 103 18 123/63 97 Nasal 2.0L Cannula Gen. appearance: Obese, not in acute distress Heart: S1-S2 regular Lungs: Good entry bilaterally, clear to auscultation Abdomen: Soft, nontender with normal bowel sounds. Extremities: Trace pedal edema bilaterally. Skin: Small perianal decubitus ulcer. Port site appears healthy with no erythema discharge or tenderness. Laboratory Tests 09/07/16 0845: Anion Gap 9, Estimated GFR > 60, BUN/Creatinine Ratio 21.3, Magnesium 1.7, Troponin I < 0.01 09/07/16 0205: Anion Gap 7, Estimated GFR > 60, BUN/Creatinine Ratio 21.3, Magnesium 1.5 L, Troponin I < 0.01, TSH 1.210, Thyroxine (T4) 8.6 09/06/16 1549: Anion Gap 8, Estimated GFR > 60, BUN/Creatinine Ratio 17.5, Glucose 80, Calcium 7.3 L, Phosphorus 3.4, Magnesium 0.6 *L, Total Bilirubin 0.4, AST 14 L, ALT 25 , Alkaline Phosphatase 109, Troponin I < 0.01, Ixt-W-Drcpszabxos Pept 197 H, Total Protein 6.3, Albumin 2.9 L, Globulin 3.4, Albumin/Globulin Ratio 0.9 L, D-Dimer 673 H, CBC w Diff NO MAN DIFF REQ, RBC 3.84 L, MCV 94.3 H, MCH 29.8, RDW 15.5 H, MPV 9.3, Gran % 61.8, Lymphocytes % 21.5, Monocytes % 6.6, Eosinophils % 8.9 H, Basophils % 1.2, Absolute Granulocytes 4.5, Absolute Lymphocytes 1.6, Absolute Monocytes 0.5, Absolute Eosinophils 0.7, Absolute Basophils 0.1, PUBS MCHC 31.5 L Microbiology 09/06 1530 NASOPHARYN: Influenza Virus A & B Rapid Smear - COMP 09/06 1530 BLOOD: Blood Culture - RES GRAM POSITIVE COCCI 09/06 1520 BLOOD: Blood Culture - RES GRAM POSITIVE COCCI Problems: 1. Bacteremia 2. Hypomagnesemia; resolved 3. Colon cancer 4. Chronic productive cough 5. Dyspnea on exertion. Plan: -Administer vancomycin 1 g daily. -Follow complete blood culture he reported. -Focus of infection is not Present. His port site though chronic looks healthy. There is no swelling erythema or tenderness. He does have ulcerations on the perineal area however they are healing with no significant opening. Recommend evaluation by the computer technical support specialist. -Further workup will be determined by results of the organism isolated from blood culture. -Magnesium level has been appropriately repleted. Discontinue telemetry and transfer patient to the general medical service. -Obtain echocardiogram for further evaluation of his dyspnea on exertion. -Please ensure that the patient's oncologist Israel Alvarado MD is aware of the patient's admission to the hospital. -Discontinue telemetry and transfer to the general medical floor.
[2016-09-07 15:43] VITALS: BP 138/80
[2016-09-08 00:12] VITALS: BP 126/76
[2016-09-08 07:41] VITALS: BP 120/80
[2016-09-08 08:11] LABS: ABSOLUTE BASOPHIL COUNT 0 /CUMM (0.0-0.2); ABSOLUTE EOSINOPHIL COUNT 0 /CUMM (0.0-0.7); ABSOLUTE GRANULOCYTE CT 11.5 /CUMM (1.4-6.5); ABSOLUTE LYMPH COUNT 0.8 /CUMM (1.2-3.4); ABSOLUTE MONOCYTE COUNT 0.3 /CUMM (0.10-0.60); BASOPHIL % 0 % (0.0-2.0); EOSINOPHIL % 0 % (0-5); GRANULOCYTE % 91.3 % (42.2-75.2); MEAN CORPUSCULAR HGB CONC 33.2 G/DL (33.0-37.0); MEAN CORPUSCULAR VOLUME 93.3 FL (80.0-94.0); MEAN PLATELET VOLUME 9.6 FL (7.4-10.4); PLATELET COUNT 154 /CUMM (130-400); RBC DISTRIBUTION WIDTH 14.9 % (11.5-14.5); RED BLOOD CELL CT 3.54 /CUMM (4.70-6.10)
[2016-09-08 09:26] LABS: WHITE BLOOD CELL COUNT 12.6 /CUMM (4.8-10.8)
--- NOTE | 2016-09-08 12:05 | PN- Att Addend ---
Attending Addendum Attending Brief Note Patient seen and examined. Resting comfortably and not in acute distress. He reports feeling better today. Denies any dyspnea at rest. Denies chest pain. No overnight events on telemetry monitoring. Blood cultures have returned positive for MRSA input sets. Blood was drawn peripherally. He remains afebrile. He remains hemodynamically stable. Vital Signs Date Time Temp Pulse Resp B/P Pulse O2 O2 Flow FiO2 Ox Delivery Rate 09/08 0929 90 120/80 09/08 0929 90 120/80 09/08 0800 Room Air 09/08 0741 97.7 90 16 120/80 94 Room Air 09/08 0012 97.6 100 20 126/76 94 Room Air 09/08 0000 Room Air 09/07 1543 96.8 113 16 138/80 95 Room Air Gen. appearance: Well-developed, not in acute distress Heart: S1-S2 regular Lungs: Good entry bilaterally, clear to auscultation. Port site is intact with no erythema or tenderness. Abdomen: Soft, nontender with normal bowel sounds Extremities: Trace peripheral edema. He has no erythematous macules on his palms or soles. He has no tender nodules on his digits. There are no hemorrhagic lesions on the pupils. He has extremely dry lower extremities with no open areas Problems: 1. Hypo-magnesium; resolved 2. MRSA bacteremia; unknown source. 3. Dyspnea on exertion. 4. Colon cancer. 5. Stage I decubitus ulcer. Recommendations: -Adjust vancomycin dose as recommended by the pharmacist to 1.5 mg IV twice daily. -Currently no obvious source of infection at present. He does have an implanted vascular access that has been present for a few years. Externally there is no presence of infection. -Follow-up echocardiogram initially ordered to assess his dyspnea on exertion. -Obtain ID consultation to discuss need for removal of his port. Case discussed with Dr Abhilash Alvarado who will se the patient in the am. -Apply moisturizer to lower extremities twice daily to prevent cracking of the skin and entry point for infection. -Repeat magnesium milligrams in a.m. Discontinue telemetry monitoring. -Follow-up with the wound service for management of his decubitus ulcer. -Pulmoinary follow up appreciatred. Dyspnea is probably due to bronchitis. Cotinue on steroid therapy.
--- NOTE | 2016-09-08 12:09 | PN- Pulmonary ---
See Addendum Subjective HPI/Critical Care Issues: pt seen and examined on room air saturating 94% leukocytosis likely steroid related feeling well and returning to respiratory baseline Objective Current Medications: Current Medications Sig/Brennon Start time Last Medication Dose Route Stop Time Status Admin Acetaminophen 650 MG Q6P PRN 09/06 2014 AC PO Acetaminophen 1,000 MG Q6P PRN 09/06 2014 AC IV Docusate Sodium 100 MG BID 09/08 1000 AC 09/08 PO 1117 Doxycycline Hyclate 100 MG BID 09/06 220 AC 09/08 PO 0930 Enoxaparin Sodium 40 MG DAILY 09/06 2030 AC 09/08 SC 0930 Ferrous Sulfate 325 MG BID 09/06 2200 AC 09/08 PO 0929 Finasteride 5 MG DAILY 09/07 1000 AC 09/08 PO 0929 Fluorometholone 0.1 ML TID 09/06 2330 AC 09/08 OPH 0930 Insulin Aspart 0 TIDAC 09/07 0800 AC 09/08 SC 0829 Losartan Potassium 50 MG DAILY 09/07 1000 AC 09/08 PO 0929 Methylprednisolone 40 MG Q12 09/07 2200 AC 09/08 IV 0930 Methylprednisolone 40 MG Q8 09/07 0600 DC 09/07 IV 1306 Mupirocin 1 MEHUL DAILY 09/07 1000 AC 09/08 TOP 0930 Nystatin 1 MEHUL BID 09/06 2200 AC 09/08 TOP 0931 Tamsulosin HCl 0.4 MG DAILY 09/07 1000 AC 09/08 PO 0929 Vancomycin HCl 1,500 MG Q12H 09/08 1100 AC Dextrose/Water 250 ML IV Vancomycin HCl 1,000 MG ONCE ONE 09/07 1130 DC 09/07 Dextrose/Water 250 ML IV 09/07 1229 1244 Zinc Oxide 1 MEHUL BID 09/07 1000 AC 09/08 TOP 0930 Vital Signs & I&O Last 24 Hrs of Vitals and I&O: Vital Signs Date Time Temp Pulse Resp B/P Pulse O2 O2 Flow FiO2 Ox Delivery Rate 09/08 09 90 120/80 09/08 09 90 120/80 09/08 0800 Room Air 09/08 0741 97.7 90 16 120/80 94 Room Air 09/08 0012 97.6 100 20 126/76 94 Room Air 09/08 0000 Room Air 09/07 1543 96.8 113 16 138/80 95 Room Air Intake & Output 09/08 1600 09/08 0800 09/08 0000 Intake Total 130 502 Output Total 300 525 Balance -170 -23 Intake, IV 10 22 Intake, Oral 120 480 Output, Urine 300 525 Exam Other Physical Findings: gen awake and alert heent ncat cvs s1, s2 lungs rare bibasilar rhonchi abd soft, bs+ ext trace edema Results Last 24 Hrs of Lab Results: Laboratory Tests 09/08/16 0656: Anion Gap 10, Estimated GFR > 60, BUN/Creatinine Ratio 27.8 H, CBC w Diff NO MAN DIFF REQ, RBC 3.54 L, MCV 93.3, MCH 31.0, RDW 14.9 H, MPV 9.6, Gran % 91.3 H, Lymphocytes % 6.3 L, Monocytes % 2.4, Eosinophils % 0, Basophils % 0 L, Absolute Granulocytes 11.5 H, Absolute Lymphocytes 0.8 L, Absolute Monocytes 0.3, Absolute Eosinophils 0, Absolute Basophils 0, PUBS MCHC 33.2 Impression/Plan Impression/Plan Impression/Plan: Impression 76 year old man. History of colon ca. Dyspnea is significantly improved, likely underlying bronchitis, perhaps mucositis is not unreasonable, although there is no phlegm or hemoptysis. Given leg edema we can consider pulmonary htn. Plan -ECHO to rule out pulmonary htn -dc solumedrol -begin prednisone 40mg x 5 days total and stop -TRC/Nebs -outpatient PFTs when better -incentive spirometry DVT prophylaxis at all times
[2016-09-08 15:56] VITALS: BP 118/68
[2016-09-09 00:36] VITALS: BP 128/72
[2016-09-09 07:59] LABS: ABSOLUTE BASOPHIL COUNT 0 /CUMM (0.0-0.2); ABSOLUTE EOSINOPHIL COUNT 0 /CUMM (0.0-0.7); ABSOLUTE LYMPH COUNT 1.8 /CUMM (1.2-3.4); ABSOLUTE MONOCYTE COUNT 0.6 /CUMM (0.10-0.60); BASOPHIL % 0.3 % (0.0-2.0); EOSINOPHIL % 0 % (0-5); GRANULOCYTE % 80.9 % (42.2-75.2); HEMATOCRIT 36.7 % (42-52); MEAN CORPUSCULAR HGB 30.5 PG (27.0-31.0); MEAN CORPUSCULAR HGB CONC 32.5 G/DL (33.0-37.0); MEAN CORPUSCULAR VOLUME 93.7 FL (80.0-94.0); MEAN PLATELET VOLUME 9.5 FL (7.4-10.4); PLATELET COUNT 160 /CUMM (130-400); RED BLOOD CELL CT 3.92 /CUMM (4.70-6.10); WHITE BLOOD CELL COUNT 12.3 /CUMM (4.8-10.8)
--- NOTE | 2016-09-09 07:59 | Cons- Oncology ---
General Information and HPI Consulting Request Date of Consult: 09/09/16 Requested By: SOUMYA PANDEY,CELSO History of Present Illness: 76-year-old man with stage IV rectal cancer early being treated with Vectibix complicated by echo hypomagnesemia now admitted with dyspnea and low magnesium. Patient is now found to have MRSA sepsis. The patient is no longer short of breath is generally well. Patient also has been treated sacral decubiti. Allergies/Medications Allergies: Coded Allergies: NO KNOWN ALLERGIES (11/29/15) Home Med List: Calcium Carbonate/Vitamin D3 (Oyster Shell 500 MG + Vit D Tb) 500 MG-200 TABLET 1 TAB PO TID SUPPLEMENT (Reported) Doxycycline Hyclate 100 MG TABLET 1 TAB PO BID RASH (Reported) Emollient Combination No.92 (Lubriderm Daily Moisture) 177 ML LOTION 1 MEHUL EXT TID RASH/DRY SKIN Ferrous Sulfate 325 MG TABLET 1 TAB PO BID VITAMIN SUPPORT (Reported) Finasteride 5 MG TABLET 1 TAB PO DAILY PROSTATE (Reported) Fluocinonide 15 GM CREAM..G. 1 MEHUL TOP BID PSORIASIS/RASH Fluorometholone (Fml S.o.p.) 0.1 % OINT...G. 1 MEHUL OPH TID EYE (Reported) Magnesium Oxide (Magox 400) 400 MG TABLET 3 TAB PO BID SUPPLEMENT (Reported) Metformin HCl 1,000 MG TABLET 1 TAB PO BID DIABETES (Reported) Metronidazole 1 % GEL..GRAM. 1 MEHUL TOP DAILY RASH (Reported) Mupirocin 2 % OINT...G. 1 MEHUL TOP DAILY RASH (Reported) apply to affected area(s) Nystatin 15 GM CREAM..G. 1 MEHUL TOP BID SKIN FUNGAL INFECTION Ondansetron HCl (Zofran) 8 MG TABLET 1 TAB PO TID PRN NAUSEA/VOMITING ( Reported) Pioglitazone HCl (Actos) 30 MG TABLET 1 TAB PO DAILY DIABETES (Reported) Potassium Chloride (K-Tab ER) 10 MEQ TABLET.ER 1 TAB PO DAILY DEHYDRATION ( Reported) Tamsulosin HCl (Flomax) 0.4 MG CAP.ER.24H 1 CAP PO DAILY UNKNOWN (Reported) Telmisartan (Micardis) 40 MG TABLET 1 TAB PO DAILY HEART HEALTH (Reported) Current Medications: Current Medications Sig/Brennon Start time Last Medication Dose Route Stop Time Status Admin Acetaminophen 650 MG Q6P PRN 09/06 2014 AC PO Acetaminophen 1,000 MG Q6P PRN 09/06 2014 AC IV Docusate Sodium 100 MG BID 09/08 1000 AC 09/08 PO 2105 Doxycycline Hyclate 100 MG BID 09/06 2200 AC 09/08 PO 2105 Enoxaparin Sodium 40 MG DAILY 09/06 2030 AC 09/08 SC 0930 Ferrous Sulfate 325 MG BID 09/06 2200 AC 09/08 PO 2105 Finasteride 5 MG DAILY 09/07 1000 AC 09/08 PO 0929 Fluorometholone 0.1 ML TID 09/06 2330 AC 09/08 OPH 2105 Insulin Aspart 0 TIDAC 09/07 0800 AC 09/08 SC 1659 Losartan Potassium 50 MG DAILY 09/07 1000 AC 09/08 PO 0929 Methylprednisolone 40 MG Q12 09/07 2200 DC 09/08 IV 0930 Mupirocin 1 MEHUL DAILY 09/07 1000 AC 09/08 TOP 0930 Nystatin 1 MEHUL BID 09/06 2200 AC 09/08 TOP 210 Prednisone 40 MG DAILY 09/09 1000 AC PO 09/13 1001 Tamsulosin HCl 0.4 MG DAILY 09/07 1000 AC 09/08 PO 0929 Vancomycin HCl 1,500 MG Q12H 09/09 0700 AC 09/09 Dextrose/Water 250 ML IV 0601 Vancomycin HCl 1,500 MG Q12H 09/08 1100 DC 09/08 Dextrose/Water 250 ML IV 1442 Zinc Oxide 1 MEHUL BID 09/07 1000 AC 09/08 TOP 2104 Review of Systems Review of Systems: Patient denies headaches or dizziness. denies chest pain or hemoptysis. Patient denies nausea vomiting abdominal pain or diarrhea. Patient denies new bone aches or focal neurologic deficit. Past History Travel History Traveled to [place] past 21 day No Medical History Blood Transfusion Hx: Yes Neurological: NONE EENT: NONE Cardiovascular: hypertension, hyperlipidemia Respiratory: NONE Gastrointestinal: colon cancer with liver mets Hepatic: NONE Renal: benign prost hyperplasia Musculoskeletal: NONE Psychiatric: NONE Endocrine: diabetes, PSORIASIS Blood Disorders: anemia Cancer(s): colon/rectal cancer PUMP TECHNICIAN/Reproductive: NONE Other Medical Hx: Psoriasis Surgical History Surgical History: sigmoid resection 2013 Family History Relations & Conditions If Any: MOTHER FH: heart failure FH: hyperthyroidism FATHER FH: diabetes mellitus FH: heart failure MOTHER Psychosocial History Where Do You Live? Assisted Living Who Do You Live With? self Services at Home: Nursing Primary Language: Chinese Smoking Status: Former Smoker ETOH Use: denies use Illicit Drug Use: denies illicit drug use Functional Ability ADLs Independent: dressing, eating, toileting, bathing. Ambulation: cane, scooter Exam & Diagnostic Data Vital Signs and I&O Vital Signs Date Time Temp Pulse Resp B/P Pulse O2 O2 Flow FiO2 Ox Delivery Rate 09/09 0036 97.8 95 16 128/72 95 Room Air 09/09 0000 96 09/08 1556 97.5 103 16 118/68 95 Room Air 09/08 0929 90 120/80 09/08 0929 90 120/80 09/08 0800 Room Air Intake & Output 09/09 0800 09/09 0000 09/08 1600 Intake Total 480 1015 900 Output Total 700 450 550 Balance -220 565 350 Intake, IV 295 Intake, Oral 480 720 900 Number 1 Bowel Movements Output, Urine 700 450 550 Gen.: in NAD ENT: Sclera anicteric, significant conjunctivitis bilaterally (chronic) Chest: Normal respiratory effort, clear breath sounds Cor: RRR, no extra sounds Abdomen: Soft, bowel sounds present, no tenderness, no rebound Extremities: Without clubbing, cyanosis, or asymmetric edema Neurology: Alert and oriented 3, no gross deficit Skin: No rashes, small decubitus, no port site erythema or tenderness Last 48 Hours of Lab Results: Laboratory Tests 09/09 09/08 09/07 0610 0656 0845 Chemistry Sodium (137 - 145 mmol/L) 144 142 142 Potassium (3.5 - 5.1 mmol/L) 4.8 4.9 4.8 Chloride (98 - 107 mmol/L) 109 H 107 106 Carbon Dioxide (22 - 30 mmol/L) 25 24 27 Anion Gap (5 - 16) 10 10 9 BUN (9 - 20 mg/dL) 29 H 25 H 17 Creatinine (0.7 - 1.2 mg/dL) 0.8 0.9 0.8 Estimated GFR (>60 ml/min) > 60 > 60 > 60 BUN/Creatinine Ratio (7 - 25 %) 36.3 H 27.8 H 21.3 Magnesium (1.6 - 2.3 mg/dL) Pending 1.7 Troponin I (<0.11 ng/ml) < 0.01 Coagulation PT Pending INR Pending APTT Pending Hematology CBC w Diff Pending NO MAN DIFF REQ WBC (4.8 - 10.8 /CUMM) Pending 12.6 H RBC (4.70 - 6.10 /CUMM) Pending 3.54 L Hgb (14.0 - 18.0 G/DL) Pending 10.9 L Hct (42 - 52 %) Pending 33.0 L MCV (80.0 - 94.0 FL) Pending 93.3 MCH (27.0 - 31.0 PG) Pending 31.0 RDW (11.5 - 14.5 %) Pending 14.9 H Plt Count (130 - 400 /CUMM) Pending 154 MPV (7.4 - 10.4 FL) Pending 9.6 Gran % (42.2 - 75.2 %) 91.3 H Lymphocytes % (20.5 - 51.1 %) 6.3 L Monocytes % (1.7 - 9.3 %) 2.4 Eosinophils % (0 - 5 %) 0 Basophils % (0.0 - 2.0 %) 0 L Absolute Granulocytes (1.4 - 6.5 /CUMM) 11.5 H Absolute Lymphocytes (1.2 - 3.4 /CUMM) 0.8 L Absolute Monocytes (0.10 - 0.60 /CUMM) 0.3 Absolute Eosinophils (0.0 - 0.7 /CUMM) 0 Absolute Basophils (0.0 - 0.2 /CUMM) 0 PUBS MCHC (33.0 - 37.0 G/DL) Pending 33.2 Imaging/Other Studies: CTA-no pulmonary emboli Blood culture-MRSA Assessment/Plan Assessment: 1. MRSA sepsis-unclear primary site of infection Recommend- ID to see patient and discussion regarding port removal 2. Stage IV rectal cancer-therapy on hold 3. Decrease magnesium-secondary to Vectibix 4. Conjunctivitis-chronic, secondary to Vectibix Recommendations: .. Consult Acknowledgment - Thank you for your consult request.
[2016-09-09 08:00] VITALS: BP 130/70
[2016-09-09 08:22] LABS: PT 11.8 SEC (9.4-12.5); PTT 27 SEC (25-37)
--- NOTE | 2016-09-09 10:34 | PN- Pulmonary ---
Subjective HPI/Critical Care Issues: pt seen and examined doing well on room air comfortable no dyspnea at rest Objective Current Medications: Current Medications Sig/Brennon Start time Last Medication Dose Route Stop Time Status Admin Acetaminophen 650 MG Q6P PRN 09/06 2014 AC PO Acetaminophen 1,000 MG Q6P PRN 09/06 2014 AC IV Docusate Sodium 100 MG BID 09/08 1000 AC 09/08 PO 2105 Doxycycline Hyclate 100 MG BID 09/06 220 AC 09/09 PO 0916 Enoxaparin Sodium 40 MG DAILY 09/06 2030 AC 09/09 SC 0916 Ferrous Sulfate 325 MG BID 09/06 2200 AC 09/09 PO 0915 Finasteride 5 MG DAILY 09/07 1000 AC 09/09 PO 0916 Fluorometholone 0.1 ML TID 09/06 2330 AC 09/09 OPH 0916 Insulin Aspart 0 TIDAC 09/07 0800 AC 09/08 SC 1659 Losartan Potassium 50 MG DAILY 09/07 1000 AC 09/09 PO 0915 Magnesium Oxide 1,200 MG BID 09/09 1021 UNVr PO Magnesium Sulfate 1 GM Q2H 09/09 0900 AC 09/09 Dextrose/Water 100 ML IV 09/09 1259 0937 Methylprednisolone 40 MG Q12 09/07 2200 DC 09/08 IV 0930 Mupirocin 1 MEHUL DAILY 09/07 1000 AC 09/09 TOP 0923 Nystatin 1 MEHUL BID 09/06 2200 AC 09/09 TOP 0923 Prednisone 40 MG DAILY 09/09 1000 AC 09/09 PO 09/13 1001 0916 Tamsulosin HCl 0.4 MG DAILY 09/07 1000 AC 09/09 PO 0916 Vancomycin HCl 1,500 MG Q12H 09/09 0700 AC 09/09 Dextrose/Water 250 ML IV 0601 Vancomycin HCl 1,500 MG Q12H 09/08 1100 DC 09/08 Dextrose/Water 250 ML IV 1442 Zinc Oxide 1 MEHUL BID 09/07 1000 AC 09/09 TOP 0923 Vital Signs & I&O Last 24 Hrs of Vitals and I&O: Vital Signs Date Time Temp Pulse Resp B/P Pulse O2 O2 Flow FiO2 Ox Delivery Rate 09/09 0916 98 130/70 09/09 0915 98 130/70 09/09 0800 Room Air 09/09 0800 97.9 98 18 130/70 99 Room Air 09/09 0036 97.8 95 16 128/72 95 Room Air 09/09 0000 96 09/08 1556 97.5 103 16 118/68 95 Room Air Intake & Output 09/09 1600 09/09 0800 09/09 0000 Intake Total 480 1015 Output Total 700 450 Balance -220 565 Intake, IV 295 Intake, Oral 480 720 Output, Urine 700 450 Exam Other Physical Findings: gen awake and alert heent ncat cvs s1, s2 lungs rare bibasilar rhonchi abd soft, bs+ ext trace edema Results Last 24 Hrs of Lab Results: Laboratory Tests 09/09/16 0610: Anion Gap 10, Estimated GFR > 60, BUN/Creatinine Ratio 36.3 H, Phosphorus 3.1, Magnesium 0.9 *L, PT 11.8, INR 1.13, APTT 27, CBC w Diff NO MAN DIFF REQ, RBC 3.92 L, MCV 93.7, MCH 30.5, RDW 15.0 H, MPV 9.5, Gran % 80.9 H, Lymphocytes % 14.2 L, Monocytes % 4.6, Eosinophils % 0, Basophils % 0.3, Absolute Granulocytes 10.0 H, Absolute Lymphocytes 1.8, Absolute Monocytes 0.6, Absolute Eosinophils 0, Absolute Basophils 0, PUBS MCHC 32.5 L Impression/Plan Impression/Plan Impression/Plan: Impression 76 year old man. History of colon ca. Dyspnea is significantly improved, likely underlying bronchitis, perhaps mucositis is not unreasonable, although there is no phlegm or hemoptysis. Given leg edema we can consider pulmonary htn. MRSA blood cultures Plan -ECHO to rule out pulmonary htn - AWAITING results -begin prednisone 40mg x 5 days total and stop -TRC/Nebs -outpatient PFTs when better -incentive spirometry -MRSA per primary team DVT prophylaxis at all times
--- NOTE | 2016-09-09 10:42 | PN- Housestaff ---
BLANCA GOMES 09/09/16 1041: Subjective Follow-up For: Hypomagnesemia MRSA bacteremia Adenocarcinoma Tele-Events Since Last Visit: No overnight events Subjective: Seen and examined patient, offers no complaints. Denies myalgias, confusion, chest pain, shortness of breath, palpitations Review of Systems Constitutional: Denies: chills, diaphoresis, fever, malaise, weakness, unexplained weight loss. Cardiovascular: Denies: chest pain, edema, orthopena, palpitations, peripheral edema, syncope. Respiratory: Denies: cough, hemoptysis, orthopnea, short of breath, sputum production, stridor, wheezing. Gastrointestinal: Denies: abdominal pain, bloating, constipation, diarrhea, distention, bowel incontinence, melena, nausea, bloody stool, changes in stool, vomiting, steatorrhea. Objective Last 24 Hrs of Vital Signs/I&O Vital Signs Date Time Temp Pulse Resp B/P Pulse O2 O2 Flow FiO2 Ox Delivery Rate 09/09 1643 97.8 86 18 112/64 97 Room Air 09/09 1119 Room Air 09/09 0916 98 130/70 09/09 0915 98 130/70 09/09 0800 Room Air 09/09 0800 97.9 98 18 130/70 99 Room Air 09/09 0036 97.8 95 16 128/72 95 Room Air 09/09 0000 96 Intake & Output 09/09 1600 09/09 0800 09/09 0000 Intake Total 2684 366 9410 Output Total 650 700 450 Balance 445 -220 565 Intake, IV 255 295 Intake, Oral 840 480 720 Number 1 Bowel Movements Output, Urine 650 700 450 Patient 260 lb Weight Physical Exam General Appearance: Alert, Oriented X3, Cooperative, No Acute Distress Skin: sliver scaly lesions over trunks, shakira-cath area, no increased warmth, erythema noted , reddish discoloration over b/l cubital fossa Cardiovascular: Regular Rate, Normal S1, Normal S2 Lungs: Clear to Auscultation, Normal Air Movement Abdomen: Normal Bowel Sounds, Soft, No Tenderness Current Medications: Current Medications Sig/Brennon Start time Last Medication Dose Route Stop Time Status Admin Acetaminophen 650 MG Q6P PRN 09/06 2014 AC PO Acetaminophen 1,000 MG Q6P PRN 09/06 2014 AC IV Docusate Sodium 100 MG BID 09/08 1000 AC 09/08 PO 2105 Doxycycline Hyclate 100 MG BID 09/06 2200 AC 09/09 PO 0916 Enoxaparin Sodium 40 MG DAILY 09/06 2030 DC 09/09 SC 0916 Ferrous Sulfate 325 MG BID 09/06 2200 AC 09/09 PO 0915 Finasteride 5 MG DAILY 09/07 1000 AC 09/09 PO 0916 Fluorometholone 0.1 ML TID 09/06 2330 AC 09/09 OPH 1635 Insulin Aspart 0 TIDAC 09/07 0800 AC 09/09 SC 1241 Losartan Potassium 50 MG DAILY 09/07 1000 AC 09/09 PO 0915 Magnesium Oxide 1,200 MG BID 09/09 1021 AC 09/09 PO 1241 Magnesium Sulfate 1 GM Q2H 09/09 0900 DC 09/09 Dextrose/Water 100 ML IV 09/09 1259 1122 Mupirocin 1 MEHUL DAILY 09/07 1000 AC 09/09 TOP 0923 Nystatin 1 MEHUL BID 09/06 2200 AC 09/09 TOP 0923 Prednisone 40 MG DAILY 09/09 1000 AC 09/09 PO 09/13 1001 0916 Tamsulosin HCl 0.4 MG DAILY 09/07 1000 AC 09/09 PO 0916 Vancomycin HCl 1,500 MG Q12H 09/09 0700 AC 09/09 Dextrose/Water 250 ML IV 0601 Vancomycin HCl 1,500 MG Q12H 09/08 1100 DC 09/08 Dextrose/Water 250 ML IV 1442 Zinc Oxide 1 MEHUL BID 09/07 1000 AC 09/09 TOP 0923 Last 24 Hrs of Lab/[place] Results Last 24 Hrs of Labs/Mics: Laboratory Tests 09/09/16 1000: Vancomycin Trough Cancelled 09/09/16 0610: Anion Gap 10, Estimated GFR > 60, BUN/Creatinine Ratio 36.3 H, Phosphorus 3.1, Magnesium 0.9 *L, PT 11.8, INR 1.13, APTT 27, CBC w Diff NO MAN DIFF REQ, RBC 3.92 L, MCV 93.7, MCH 30.5, RDW 15.0 H, MPV 9.5, Gran % 80.9 H, Lymphocytes % 14.2 L, Monocytes % 4.6, Eosinophils % 0, Basophils % 0.3, Absolute Granulocytes 10.0 H, Absolute Lymphocytes 1.8, Absolute Monocytes 0.6, Absolute Eosinophils 0, Absolute Basophils 0, PUBS MCHC 32.5 L Microbiology 09/09 1053 CATH TIP: Catheter Tip Culture - COLB 09/09 0937 BLOOD: Blood Culture - RECD Assessment/Plan Assessment: 76-year-old gentleman with a past medical history of adenocarcinoma of the colon on Panitumumab therapy found to be hypomagnesemic and positive for MRSA bacteremia. CTA of the chest revealed mild diffuse peribronchial thickening with platelike opacity in the periphery of the right lower lobe Continues to be afebrile, WBC 12.3 today. Assessment 1. Hypomagnesemia secondary to chemotherapy 2. 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 History of hypertension 4. History of diabetes mellitus 5. History of new onset bilateral blepharitis and conjunctivitis secondary to chemotherapy 6. History of asbestos exposures in the past 7. MRSA bacteremia 8. Psoriasis Plan: Hypermagnesemia secondary to chemotherapy Continue telemetry monitoring, magnesium level 0.9 today we'll replete with IV magnesium and continue to replete by mouth as well Continue with by mouth doxycycline, this is prescribed to him by his fruit grader. Multiple attempts made to contact his office as to the reason to continue. We'll continue to contact him. Pulmonary board appreciate recommendations, will transition to by mouth prednisone today, will get outpatient PFTs Continue IV vancomycin day 3, will obtain trough levels with 5th dose. ID on board appreciated recommendations, patient is nothing by mouth for removal of the Port-A-Cath tomorrow. Lovenox on hold for procedure Blood cultures, culture from Port-A-Cath from September 09 pending. Catheter tip to be sent for culture. Echo pending Continue losartan, Proscar Patient is full code. Dvt with mechanical ALPS Problem List: 1. Diabetes mellitus Pain Ratin Pain Location: na Pain Goal: Pain 4 or less Pain Plan: current regimen Tomorrow's Labs & Rationales: bep/cbc/mag/ca WHITNEY PANDEY,RENE 09/09/16 1117: Attending MD Review Statement Attending Statement Attending MD Statement: examined this patient, discuss w/resident/PA/FISH HATCHERY MANAGER, agreed w/resident/PA/FISH HATCHERY MANAGER, reviewed EMR data (avail), discussed with nursing, discussed with case mgmt Attending Assessment/Plan: Patient seen and examined. Plan of care discussed with the medical team and the patient. Available lab work and radiology test reports were reviewed. Patient feels much better and he is lying in bed comfortably. He denies any chest pain or difficulty breathing. No recent fevers been reported. He is currently afebrile with stable vital signs. He is currently on room air. Chest exam is clear. Abdomen soft nontender. Eyes show signs of chronic conjunctivitis. WBC count is 12.3. Chemistry labs are within normal limits except for a magnesium of 0.9. Assessment and plan * Severe hypomagnesemia still not improved- repeat IV mag dose today. In addition start oral magnesium 400-600 milligrams 3 times a day. * MRSA sepsis- agree with removing Port-A-Cath and sent for culture. Continue vancomycin. Await echocardiogram to rule out endocarditis. Patient may need KEE echocardiogram is negative. * Continue prednisone as recommended by Dr. Ford.
--- NOTE | 2016-09-09 11:03 | Cons- Infect Disease ---
General Information and HPI Consulting Request Date of Consult: 09/09/16 Requested By: SOUMYA PANDEY,CELSO Reason for Consult: Positive blood cultures for MRSA Source of Information: patient, old records History of Present Illness: This is a 76-year-old man with metastatic rectal cancer, maintained on Vectibex for the past 8 months, given every 2 weeks via a Port-A-Cath that was placed 3 years prior to admission, with complications of hypomagnesemia and conjunctivitis and maintained on Doxycycline prophylaxis, with history also positive for psoriasis and BPH, treated with a one week course of Keflex 2 weeks prior to admission by his engraver steel plate for a left ingrown toenail, admitted on September 06 with a one-month history of a cough, productive of yellow sputum, and the acute onset of shortness of breath with no chest pain. On admission he was afebrile with an O2 sat of 96% on 2 L. Laboratory data revealed a white blood cell count of 7000, BUN/creatinine 14 and 0.8, with normal liver enzymes. Chest x-ray was negative. Doppler of the left leg was negative. CTA of the chest revealed mild diffuse peribronchial thickening with platelike opacity in the periphery of the right lower lobe. He was begun on Solumedrol and followed off antibiotics. On September 07 blood cultures 2 were reported positive for gram-positive cocci in clusters and he was begun on Vancomycin. He has remained afebrile (on steroids) with white blood cell count up to 13,000 on September 08. He feels improved with no further shortness of breath and offers no complaints at this time. Allergies/Medications Allergies: Coded Allergies: NO KNOWN ALLERGIES (11/29/15) Home Med List: Calcium Carbonate/Vitamin D3 (Oyster Shell 500 MG + Vit D Tb) 500 MG-200 TABLET 1 TAB PO TID SUPPLEMENT (Reported) Doxycycline Hyclate 100 MG TABLET 1 TAB PO BID RASH (Reported) Emollient Combination No.92 (Lubriderm Daily Moisture) 177 ML LOTION 1 MEHUL EXT TID RASH/DRY SKIN Ferrous Sulfate 325 MG TABLET 1 TAB PO BID VITAMIN SUPPORT (Reported) Finasteride 5 MG TABLET 1 TAB PO DAILY PROSTATE (Reported) Fluocinonide 15 GM CREAM..G. 1 MEHUL TOP BID PSORIASIS/RASH Fluorometholone (Fml S.o.p.) 0.1 % OINT...G. 1 MEHUL OPH TID EYE (Reported) Magnesium Oxide (Magox 400) 400 MG TABLET 3 TAB PO BID SUPPLEMENT (Reported) Metformin HCl 1,000 MG TABLET 1 TAB PO BID DIABETES (Reported) Metronidazole 1 % GEL..GRAM. 1 MEHUL TOP DAILY RASH (Reported) Mupirocin 2 % OINT...G. 1 MEHUL TOP DAILY RASH (Reported) apply to affected area(s) Nystatin 15 GM CREAM..G. 1 MEHUL TOP BID SKIN FUNGAL INFECTION Ondansetron HCl (Zofran) 8 MG TABLET 1 TAB PO TID PRN NAUSEA/VOMITING ( Reported) Pioglitazone HCl (Actos) 30 MG TABLET 1 TAB PO DAILY DIABETES (Reported) Potassium Chloride (K-Tab ER) 10 MEQ TABLET.ER 1 TAB PO DAILY DEHYDRATION ( Reported) Tamsulosin HCl (Flomax) 0.4 MG CAP.ER.24H 1 CAP PO DAILY UNKNOWN (Reported) Telmisartan (Micardis) 40 MG TABLET 1 TAB PO DAILY HEART HEALTH (Reported) Past History Travel History Traveled to [place] past 21 day No Medical History Blood Transfusion Hx: Yes Neurological: NONE EENT: NONE Cardiovascular: hypertension, hyperlipidemia Respiratory: NONE Gastrointestinal: colon cancer with liver mets Hepatic: NONE Renal: benign prost hyperplasia Musculoskeletal: NONE Psychiatric: NONE Endocrine: diabetes Blood Disorders: anemia Cancer(s): colon/rectal cancer KEY ACCOUNT REPRESENTATIVE/Reproductive: NONE Other Medical Hx: Psoriasis History of MRSA: Yes History of VRE: No History of CDIFF: No Isolation History: Contact Influenza Vaccine: 05/14/16 Surgical History Surgical History: sigmoid resection 2013, Port-A-Cath placement left upper chest September 2012 Family History Relations & Conditions If Any: MOTHER FH: heart failure FH: hyperthyroidism FATHER FH: diabetes mellitus FH: heart failure MOTHER Psychosocial History Where Do You Live? Assisted Living Who Do You Live With? self Services at Home: Nursing Primary Language: [place]ian Smoking Status: Former Smoker ETOH Use: denies use Illicit Drug Use: denies illicit drug use Functional Ability ADLs Independent: dressing, eating, toileting, bathing. Ambulation: cane, scooter Review of Systems Review of Systems Cardiovascular: Denies: chest pain. Respiratory: Reports: cough (for 1 month). GI: Reports: no symptoms. Genitourinary: Reports: no symptoms. Skin: Reports: rash (breakdown of buttocks). All Other Systems: Reviewed and Negative Exam & Diagnostic Data Last 24 Hrs of Vital Signs/I&O Vital Signs Date Time Temp Pulse Resp B/P Pulse O2 O2 Flow FiO2 Ox Delivery Rate 09/09 0916 98 130/70 09/09 0915 98 130/70 09/09 0800 Room Air 09/09 0800 97.9 98 18 130/70 99 Room Air 09/09 0036 97.8 95 16 128/72 95 Room Air 09/09 0000 96 09/08 1556 97.5 103 16 118/68 95 Room Air Intake & Output 09/09 1600 09/09 0800 09/09 0000 Intake Total 480 1015 Output Total 700 450 Balance -220 565 Intake, IV 295 Intake, Oral 480 720 Output, Urine 700 450 Physical Exam Other Physical Findings: He is awake and alert in no acute distress. He is afebrile on steroids. Skin reveals psoriasis on his extremities and chest. HEENT exam is negative. Neck is supple with no adenopathy. Chest Port-A-Cath in the left upper chest with no inflammation at the site. Lungs are clear. Heart regular rhythm with no murmur. Abdomen is obese, soft, nontender with positive bowel sounds. Back no CVA tenderness; stage I decubiti both buttocks, with no surrounding inflammation. Extremities no cyanosis, clubbing or edema. Neuro is without focality. Last 24 Hours of Lab Results: Laboratory Tests 09/09 0610 Chemistry Sodium (137 - 145 mmol/L) 144 Potassium (3.5 - 5.1 mmol/L) 4.8 Chloride (98 - 107 mmol/L) 109 H Carbon Dioxide (22 - 30 mmol/L) 25 Anion Gap (5 - 16) 10 BUN (9 - 20 mg/dL) 29 H Creatinine (0.7 - 1.2 mg/dL) 0.8 Estimated GFR (>60 ml/min) > 60 BUN/Creatinine Ratio (7 - 25 %) 36.3 H Phosphorus (2.5 - 4.5 mg/dL) 3.1 Magnesium (1.6 - 2.3 mg/dL) 0.9 *L Coagulation PT (9.4 - 12.5 SEC) 11.8 INR (0.90 - 1.17) 1.13 APTT (25 - 37 SEC) 27 Hematology CBC w Diff NO MAN DIFF REQ WBC (4.8 - 10.8 /CUMM) 12.3 H RBC (4.70 - 6.10 /CUMM) 3.92 L Hgb (14.0 - 18.0 G/DL) 11.9 L Hct (42 - 52 %) 36.7 L MCV (80.0 - 94.0 FL) 93.7 MCH (27.0 - 31.0 PG) 30.5 RDW (11.5 - 14.5 %) 15.0 H Plt Count (130 - 400 /CUMM) 160 MPV (7.4 - 10.4 FL) 9.5 Gran % (42.2 - 75.2 %) 80.9 H Lymphocytes % (20.5 - 51.1 %) 14.2 L Monocytes % (1.7 - 9.3 %) 4.6 Eosinophils % (0 - 5 %) 0 Basophils % (0.0 - 2.0 %) 0.3 Absolute Granulocytes (1.4 - 6.5 /CUMM) 10.0 H Absolute Lymphocytes (1.2 - 3.4 /CUMM) 1.8 Absolute Monocytes (0.10 - 0.60 /CUMM) 0.6 Absolute Eosinophils (0.0 - 0.7 /CUMM) 0 Absolute Basophils (0.0 - 0.2 /CUMM) 0 PUBS MCHC (33.0 - 37.0 G/DL) 32.5 L Last 24 Hours of [place] Results: Blood cultures September 06 (venous) positive for MRSA Blood cultures September 08 (venous) negative so far Blood culture September 09 (drawn via the Port-A-Cath) pending Rapid flu swab September 06 negative Diagnostic Data Recent Imaging Findings: Chest x-ray September 06, personally reviewed, negative. Doppler of the left leg September 06 negative. CTA of the chest September 06 revealed mild diffuse peribronchial thickening with platelike opacity in the periphery of the right lower lobe. Assessment/Plan Assessment/Plan Impression: This is a 76-year-old man with metastatic rectal cancer, maintained on Vectibix over the past 8 months via a Port-A-Cath that has been in place for the past 3 years, admitted on September 06 with a one-month history of a cough and acute onset of shortness of breath, found to be afebrile with a normal white cell count, with blood cultures 2 positive for MRSA. The absence of fever and leukocytosis is unusual for infection, but this could be related to his immunocompromised status and, as MRSA would be an unusual contaminant, feel that this must be considered real and treated accordingly. He has no obvious source of sepsis; therefore the Port-A-Cath must be implicated and will need to be removed. He will require a minimum of 2 weeks of IV antibiotics and evaluation for endocarditis to help determine the optimal duration of treatment. He is apparently on Doxycycline for prophylaxis as part of a protocol for his Vectibix but this should be clarified. Suggestion: 1. Would have IR remove the Port-A-Cath and culture the tip 2. Echocardiogram 3. Obtain urinalysis 4. Vancomycin trough level with his fifth dose 5. Follow-up repeat blood cultures, with eventual placement of a PICC once they are negative 6. Continue steroid taper per Pulmonary 7. Clarify role of Doxycycline 8. Continue Vancomycin 1.5 g IV every 12 hours pending above Consult Acknowledgment - Thank you for your consult request.
[2016-09-09 16:43] VITALS: BP 112/64
--- NOTE | 2016-09-09 20:07 | ECHOCARDIOGRAM REPORT ---
ROSIO GRAFF Age: 76 : 1940 Gender: M Exam Date: 09/09/2016 15:32 Exam Location: [facility] Ht (in): 66 Wt (lb): 260 BSA: 2.40 BP: 130 / 70 Ordering Physician: FAY HOBBS MD Referring Physician: FAY HOBBS MD Technologist: Jackelyn James YIN Room Number: 181 Indications: HYPERTENSION Rhythm: Technical Quality: fair FINDINGS Left Ventricle Normal size left ventricle. Left ventricular wall thickness mildly increased. Normal left ventricular ejection fraction estimated at 60-65%. Right Ventricle Normal right ventricular size and function. Right Atrium Right atrium not well visualized, grossly normal. Left Atrium Left atrial size at the upper limits of normal. Mitral Valve Mild mitral annular calcification. Trace to mild mitral regurgitation. Aortic Valve Aortic valve not well visualized, grossly normal. Tricuspid Valve Tricuspid valve not well visualized, grossly normal. Trace to mild tricuspid regurgitation. Pulmonic Valve Pulmonic valve not well visualized, grossly normal. Pericardium No pericardial effusion. Great Vessels Normal size aortic root. CONCLUSIONS Normal left ventricular systolic function with mild concentric hypertrophy. Poor echo window.No significant valvular abnormalities noted. Alberto Guadalupe M.D. (Electronically Signed) Final Date: 09 September 2016 20:07 MEASUREMENTS (Male / Female) Normal Values 2D ECHO LV Diastolic Diameter PLAX 3.9 cm 4.2 - 5.9 / 3.9 - 5.3 cm LV Systolic Diameter PLAX 2.3 cm 2.1 - 4.0 cm LV Fractional Shortening PLAX 41.0 % 25 - 46 % LV Ejection Fraction 2D Teich 72.5 % IVS Diastolic Thickness 1.3 cm LVPW Diastolic Thickness 1.4 cm LV Relative Wall Thickness 0.7 RV Internal Dim ED PLAX 3.2 cm 1.9 - 3.8 cm LVOT Diameter 2.3 cm Aortic Root Diameter 3.8 cm LA Systolic Diameter LX 3.7 cm 3.0 - 4.0 / 2.7 - 3.8 cm LA Volume 44.0 cm 18 - 58 / 22 - 52 cm Ascending Aorta Diameter 3.2 cm DOPPLER AV Peak Velocity 151.0 cm/s AV Peak Gradient 9.1 mmHg AV Mean Velocity 103.0 cm/s AV Mean Gradient 5.0 mmHg AV Velocity Time Integral 29.0 cm LVOT Peak Velocity 140.0 cm/s LVOT Peak Gradient 7.8 mmHg LVOT Mean Velocity 90.8 cm/s LVOT Mean Gradient 4.0 mmHg LVOT Velocity Time Integral 26.2 cm LVOT Stroke Volume 108.9 cm AV Area Cont Eq vti 3.8 cm AV Area Cont Eq pk 3.9 cm MV Peak Velocity 113.0 cm/s MV Peak Gradient 5.1 mmHg MV Mean Velocity 64.4 cm/s MV Mean Gradient 2.0 mmHg Mitral E Point Velocity 59.7 cm/s Mitral A Point Velocity 94.8 cm/s Mitral E to A Ratio 0.6 MV PHT Velocity 90.8 cm/s MV Deceleration [place] 391.0 cm/s MV Pressure Half Time 69.7 ms MV Area PHT 3.2 cm MV Deceleration Time 217.0 ms PV Peak Velocity 135.0 cm/s PV Peak Gradient 7.3 mmHg PV Mean Velocity 92.5 cm/s PV Mean Gradient 4.0 mmHg PV Velocity Time Integral 23.9 cm LV E' Lateral Velocity 9.5 cm/s Mitral E to LV E' Lateral Ratio 6.3 LV E' Septal Velocity 6.7 cm/s Mitral E to LV E' Septal Ratio 8.9
[2016-09-09 23:03] VITALS: BP 110/68
--- NOTE | 2016-09-10 07:04 | PN- Oncology ---
Subjective Subjective: Feeling much better, back at baseline Review of Systems: 12 point review of systems otherwise negative Objective Vital Signs and I&Os Vital Signs Date Time Temp Pulse Resp B/P Pulse O2 O2 Flow FiO2 Ox Delivery Rate 09/09 2303 98.0 90 18 110/68 97 Room Air 09/09 1643 97.8 86 18 112/64 97 Room Air 09/09 1119 Room Air 09/09 0916 98 130/70 09/09 0915 98 130/70 09/09 0800 Room Air 09/09 0800 97.9 98 18 130/70 99 Room Air Intake & Output 09/10 0800 09/10 0000 09/09 1600 09/09 0800 09/09 0000 09/08 1600 Intake Total 60 1340 1756 178 0770 900 Output Total 500 675 650 700 450 550 Balance -440 665 445 -220 565 350 Intake, IV 10 380 255 295 Intake, Oral 50 960 840 480 720 900 Number 1 1 Bowel Movements Output, Urine 500 675 650 700 450 550 Patient 260 lb Weight Gen.: in NAD ENT: Sclera anicteric, conjunctivitis unchanged Chest: Normal respiratory effort, clear breath sounds Cor: RRR, no extra sounds Abdomen: Soft, bowel sounds present, no tenderness, no rebound Extremities: Without clubbing, cyanosis, or asymmetric edema Neurology: Alert and oriented 3, no gross deficit Current Medications: Current Medications Sig/Brennon Start time Last Medication Dose Route Stop Time Status Admin Acetaminophen 650 MG Q6P PRN 09/06 2014 AC PO Acetaminophen 1,000 MG Q6P PRN 09/06 2014 AC IV Docusate Sodium 100 MG BID 09/08 1000 AC 09/08 PO 210 Doxycycline Hyclate 100 MG BID 09/06 2199 AC 09/09 PO 2115 Enoxaparin Sodium 40 MG DAILY 09/06 2030 DC 09/09 SC 0916 Ferrous Sulfate 325 MG BID 09/06 2200 AC 09/09 PO 211 Finasteride 5 MG DAILY 09/07 1000 AC 09/09 PO 0916 Fluorometholone 0.1 ML TID 09/06 2330 AC 09/09 OPH 2115 Insulin Aspart 0 TIDAC 09/07 0800 AC 09/09 SC 1837 Losartan Potassium 50 MG DAILY 09/07 1000 AC 09/09 PO 0915 Magnesium Oxide 1,200 MG BID 09/09 1021 AC 09/09 PO 2116 Magnesium Sulfate 1 GM Q2H 09/09 0900 DC 09/09 Dextrose/Water 100 ML IV 09/09 1259 1122 Mupirocin 1 MEHUL DAILY 09/07 1000 AC 09/09 TOP 0923 Nystatin 1 MEHUL BID 09/06 2200 AC 09/09 TOP 2116 Prednisone 40 MG DAILY 09/09 1000 AC 09/09 PO 09/13 1001 0916 Tamsulosin HCl 0.4 MG DAILY 09/07 1000 AC 09/09 PO 0916 Vancomycin HCl 1,500 MG Q12H 09/09 0700 AC 09/10 Dextrose/Water 250 ML IV 0607 Zinc Oxide 1 MEHUL BID 09/07 1000 AC 09/09 TOP 2116 Results Last 24 Hours of Lab Results: Laboratory Tests 09/10 09/09 09/09 09/09 0610 1730 1722 1000 Chemistry Sodium Pending Potassium Pending Chloride Pending Carbon Dioxide Pending Anion Gap Pending BUN Pending Creatinine Pending BUN/Creatinine Ratio Pending Calcium Pending Magnesium Pending Hematology CBC w Diff Pending WBC Pending RBC Pending Hgb Pending Hct Pending MCV Pending MCH Pending RDW Pending Plt Count Pending MPV Pending PUBS MCHC Pending Toxicology Vancomycin Trough Cancelled Cancelled Digoxin Cancelled Assessment/Plan Assessment/Recommendations: 1. MRSA sepsis-patient has been on doxycycline as a result of dermatitis from Vectibix Recommend Agree with port removal As per ID 2. Metastatic rectal cancer-systemic therapy on hold 3. Decreased magnesium-secondary to Vectibix, replete
[2016-09-10 08:01] LABS: ABSOLUTE BASOPHIL COUNT 0 /CUMM (0.0-0.2); ABSOLUTE EOSINOPHIL COUNT 0 /CUMM (0.0-0.7); ABSOLUTE LYMPH COUNT 1.3 /CUMM (1.2-3.4); ABSOLUTE MONOCYTE COUNT 0.6 /CUMM (0.10-0.60)
--- NOTE | 2016-09-10 08:22 | PN- Housestaff ---
See Addendum Subjective Follow-up For: hypomag MRSA bacteremia Tele-Events Since Last Visit: SR, HR 67-83 Subjective: seen and examined patient, offer no complaints. Feels cold but states that he has been like that since starting chemotherapy. Denies fevers, chills. shortness of breath. Review of Systems Constitutional: Denies: chills, diaphoresis, fever, malaise, weakness, unexplained weight loss. Cardiovascular: Denies: chest pain, edema, orthopena, palpitations, peripheral edema, syncope. Respiratory: Denies: cough, hemoptysis, orthopnea, short of breath, sputum production, stridor, wheezing. Objective Last 24 Hrs of Vital Signs/I&O Vital Signs Date Time Temp Pulse Resp B/P Pulse O2 O2 Flow FiO2 Ox Delivery Rate 09/09 2303 98.0 90 18 110/68 97 Room Air 09/09 1643 97.8 86 18 112/64 97 Room Air 09/09 1119 Room Air 09/09 0916 98 130/70 09/09 0915 98 130/70 Intake & Output 09/10 1600 09/10 0800 09/10 0000 Intake Total 60 1340 Output Total 500 675 Balance -440 665 Intake, IV 10 380 Intake, Oral 50 960 Output, Urine 500 675 Physical Exam General Appearance: Alert, Oriented X3, Cooperative, No Acute Distress Cardiovascular: Regular Rate, Normal S1, Normal S2 Lungs: Clear to Auscultation, Normal Air Movement Abdomen: distended Extremities: No Edema Current Medications: Current Medications Sig/Brennon Start time Last Medication Dose Route Stop Time Status Admin Acetaminophen 650 MG Q6P PRN 09/06 2014 AC PO Acetaminophen 1,000 MG Q6P PRN 09/06 2014 AC IV Docusate Sodium 100 MG BID 09/08 1000 AC 09/08 PO 2104 Doxycycline Hyclate 100 MG BID 09/06 2199 AC 09/09 PO 2115 Enoxaparin Sodium 40 MG DAILY 09/06 2030 DC 09/09 SC 0916 Ferrous Sulfate 325 MG BID 09/06 2199 AC 09/09 PO 211 Finasteride 5 MG DAILY 09/07 1000 AC 09/09 PO 0916 Fluorometholone 0.1 ML TID 09/06 2330 AC 09/09 OPH 2115 Insulin Aspart 0 TIDAC 09/07 0800 AC 09/09 SC 1837 Losartan Potassium 50 MG DAILY 09/07 1000 AC 09/09 PO 0915 Magnesium Oxide 1,200 MG BID 09/09 1021 AC 09/09 PO 2116 Magnesium Sulfate 1 GM Q2H 09/09 0900 DC 09/09 Dextrose/Water 100 ML IV 09/09 1259 1122 Mupirocin 1 MEHUL DAILY 09/07 1000 AC 09/09 TOP 0923 Nystatin 1 MEHUL BID 09/06 2200 AC 09/09 TOP 211 Prednisone 40 MG DAILY 09/09 1000 AC 09/09 PO 09/13 1001 0916 Tamsulosin HCl 0.4 MG DAILY 09/07 1000 AC 09/09 PO 0916 Vancomycin HCl 1,500 MG Q12H 09/09 0700 AC 09/10 Dextrose/Water 250 ML IV 0607 Zinc Oxide 1 MEHUL BID 09/07 1000 AC 09/09 TOP 2115 Last 24 Hrs of Lab/[place] Results Last 24 Hrs of Labs/Mics: Laboratory Tests 09/10/16 0610: Anion Gap 3 L, Estimated GFR > 60, BUN/Creatinine Ratio 32.9 H, Calcium 7.6 L , Magnesium 1.1 L, CBC w Diff NO MAN DIFF REQ, RBC 3.29 L, MCV 93.5, MCH 30.3, RDW 15.4 H, MPV 9.5, Gran % 73.6, Lymphocytes % 18.3 L, Monocytes % 7.7, Eosinophils % 0.3, Basophils % 0.1, Absolute Granulocytes 5.4, Absolute Lymphocytes 1.3, Absolute Monocytes 0.6, Absolute Eosinophils 0, Absolute Basophils 0, PUBS MCHC 32.4 L 09/09/16 1730: Vancomycin Trough Cancelled 09/09/16 1722: Digoxin Cancelled 09/09/16 1000: Vancomycin Trough Cancelled Microbiology 09/09 1053 CATH TIP: Catheter Tip Culture - COLB 09/09 0937 BLOOD: Blood Culture - RES GRAM POSITIVE COCCI Assessment/Plan Assessment: 76-year-old gentleman with a past medical history of adenocarcinoma of the colon on Panitumumab therapy found to be hypomagnesemic and positive for MRSA bacteremia. CTA of the chest revealed mild diffuse peribronchial thickening with platelike opacity in the periphery of the right lower lobe Continues to be afebrile, WBC trended down to normal, Blood cultures from 09/06 growing MRSA, blood cultures from [facility] growing GPC in clusters, cultures from 09/08 prelim report show no growth. Assessment 1. Hypomagnesemia secondary to chemotherapy 2. 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 History of hypertension 4. History of diabetes mellitus 5. History of new onset bilateral blepharitis and conjunctivitis secondary to chemotherapy 6. History of asbestos exposures in the past 7. MRSA bacteremia 8. Psoriasis Plan: Hypermagnesemia secondary to chemotherapy Continue telemetry monitoring, magnesium level 1.1 today we'll replete with IV magnesium and continue to replete by mouth as well On mouth doxycycline, spoke to Dr. Lexa Zavlaa [phone] who stated that he did not start the doxycycline and is actually Dr. Etinene who prescribed it to him. Per [place] records he was started on doxycycline as he presented with dermatitis, a common side effect upon starting Vectibix and he will need to be on it till January 21 2017. Continue IV vancomycin day 4, will obtain trough levels with 5th dose. ID on board appreciate recommendations, patient is nothing by mouth for removal of the Port-A-Cath today. Echocardiogram shows no vegetation and normal EF of 60-65% Cardiology consulted for KEE Pulmonary on board appreciate recommendations, will transition to by mouth prednisone today, will get outpatient PFTs Continue losartan, Proscar Dvt prophylaxis subcutaneous Lovenox Patient is full code. Problem List: 1. Colon cancer 2. Hypomagnesemia 3. Psoriasis 4. MRSA bacteremia Pain Ratin Pain Location: na Pain Goal: Pain 4 or less Pain Plan: current regimen Tomorrow's Labs & Rationales: cbc/bep
[2016-09-10 08:28] LABS: ABSOLUTE GRANULOCYTE CT 5.4 /CUMM (1.4-6.5); BASOPHIL % 0.1 % (0.0-2.0); EOSINOPHIL % 0.3 % (0-5); GRANULOCYTE % 73.6 % (42.2-75.2); MEAN CORPUSCULAR HGB 30.3 PG (27.0-31.0); MEAN CORPUSCULAR HGB CONC 32.4 G/DL (33.0-37.0); MEAN CORPUSCULAR VOLUME 93.5 FL (80.0-94.0); MEAN PLATELET VOLUME 9.5 FL (7.4-10.4); PLATELET COUNT 123 /CUMM (130-400); RBC DISTRIBUTION WIDTH 15.4 % (11.5-14.5); RED BLOOD CELL CT 3.29 /CUMM (4.70-6.10); WHITE BLOOD CELL COUNT 7.4 /CUMM (4.8-10.8)
[2016-09-10 08:32] LABS: HEMATOCRIT 30.7 % (42-52)
[2016-09-10 09:02] VITALS: BP 108/62
--- NOTE | 2016-09-10 11:22 | PN- Infect Dx ---
Subjective Subjective: Afebrile. He feels well with no complaints. Objective Last 24 Hrs of Vital Signs/I&O Vital Signs Date Time Temp Pulse Resp B/P Pulse O2 O2 Flow FiO2 Ox Delivery Rate 09/10 0951 109 108/62 09/10 0951 109 108/62 09/10 0902 98.6 109 20 108/62 95 Room Air 09/10 0800 Room Air 09/09 2303 98.0 90 18 110/68 97 Room Air 09/09 1643 97.8 86 18 112/64 97 Room Air 09/09 1119 Room Air Intake & Output 09/10 1600 09/10 0800 09/10 0000 Intake Total 60 1340 Output Total 500 675 Balance -440 665 Intake, IV 10 380 Intake, Oral 50 960 Output, Urine 500 675 Physical Exam Other Physical Findings: He appears comfortable in no acute distress Lungs clear with mild audible wheezing Heart regular rhythm with no murmur Abdomen is obese, soft, nontender with positive bowel sounds Extremities no cyanosis, clubbing or edema Results Last 24 Hours of Lab Results: Laboratory Tests 09/10 09/09 09/09 0610 1730 1722 Chemistry Sodium (137 - 145 mmol/L) 143 Potassium (3.5 - 5.1 mmol/L) 4.0 Chloride (98 - 107 mmol/L) 110 H Carbon Dioxide (22 - 30 mmol/L) 30 Anion Gap (5 - 16) 3 L BUN (9 - 20 mg/dL) 23 H Creatinine (0.7 - 1.2 mg/dL) 0.7 Estimated GFR (>60 ml/min) > 60 BUN/Creatinine Ratio (7 - 25 %) 32.9 H Calcium (8.4 - 10.2 mg/dL) 7.6 L Magnesium (1.6 - 2.3 mg/dL) 1.1 L Hematology CBC w Diff NO MAN DIFF REQ WBC (4.8 - 10.8 /CUMM) 7.4 RBC (4.70 - 6.10 /CUMM) 3.29 L Hgb (14.0 - 18.0 G/DL) 10.0 L Hct (42 - 52 %) 30.7 L MCV (80.0 - 94.0 FL) 93.5 MCH (27.0 - 31.0 PG) 30.3 RDW (11.5 - 14.5 %) 15.4 H Plt Count (130 - 400 /CUMM) 123 L MPV (7.4 - 10.4 FL) 9.5 Gran % (42.2 - 75.2 %) 73.6 Lymphocytes % (20.5 - 51.1 %) 18.3 L Monocytes % (1.7 - 9.3 %) 7.7 Eosinophils % (0 - 5 %) 0.3 Basophils % (0.0 - 2.0 %) 0.1 Absolute Granulocytes (1.4 - 6.5 /CUMM) 5.4 Absolute Lymphocytes (1.2 - 3.4 /CUMM) 1.3 Absolute Monocytes (0.10 - 0.60 /CUMM) 0.6 Absolute Eosinophils (0.0 - 0.7 /CUMM) 0 Absolute Basophils (0.0 - 0.2 /CUMM) 0 PUBS MCHC (33.0 - 37.0 G/DL) 32.4 L Toxicology Vancomycin Trough Cancelled Digoxin Cancelled Last 24 Hours of [place] Results: Blood culture September 09 x 1 (drawn via the Port-A-Cath) positive for gram- positive cocci in clusters Blood cultures 2 September 08 (venous) negative Recent Imaging Studies: Echocardiogram September 09 negative Assessment/Plan Impression: MRSA bacteremia most likely secondary to the Port-A-Cath, which has been in for 3 years, with a repeat blood culture (drawn through the Port-A-Cath) positive today, but with repeat peripheral blood cultures, sent 2 days ago, after initiation of Vancomycin, remaining negative. He remains afebrile with white blood cell count now normal on Vancomycin. Given suspicion for line sepsis the Port-A-Cath will need to be removed, which is scheduled for later today. His echocardiogram was negative for any vegetations, but a KEE will likely be necessary for a more definitive diagnosis. Suggestion: 1. Await removal of the Port-A-Cath later today 2. Send Port-A-Cath tip for culture 3. Repeat blood cultures 2 today 4. Obtain urinalysis 5. Would pursue KEE 6. Vancomycin trough level with next dose of Vancomycin 7. Eventual placement of a PICC once blood cultures are negative 8. Clarify role of Doxycycline 9. Continue Vancomycin 1.5 grams IV every 12 hours pending above
--- NOTE | 2016-09-10 11:23 | PN- Pulmonary ---
Subjective HPI/Critical Care Issues: pt doing well afebrile at respiratory baseline awaitin removal of port Objective Current Medications: Current Medications Sig/Brennon Start time Last Medication Dose Route Stop Time Status Admin Acetaminophen 650 MG Q6P PRN 09/06 2014 AC PO Acetaminophen 1,000 MG Q6P PRN 09/06 2014 AC IV Bupivacaine HCl 0 .STK-MED ONE 09/10 1116 DC .ROUTE Docusate Sodium 100 MG BID 09/08 1000 AC 09/10 PO 0951 Doxycycline Hyclate 100 MG BID 09/06 2200 AC 09/10 PO 0951 Enoxaparin Sodium 40 MG DAILY 09/06 2030 DC 09/09 SC 0916 Ferrous Sulfate 325 MG BID 09/06 2200 AC 09/10 PO 0951 Finasteride 5 MG DAILY 09/07 1000 AC 09/10 PO 0951 Fluorometholone 0.1 ML TID 09/06 2330 AC 09/10 OPH 0952 Insulin Aspart 0 TIDAC 09/07 0800 AC 09/09 SC 1837 Lidocaine 0 .STK-MED ONE 09/10 1122 DC .ROUTE Lidocaine 0 .STK-MED ONE 09/10 1116 DC .ROUTE Lidocaine/Epinephrine 0 .STK-MED ONE 09/10 1122 DC .ROUTE Losartan Potassium 50 MG DAILY 09/07 1000 AC 09/10 PO 0951 Magnesium Oxide 1,200 MG BID 09/09 1021 AC 09/10 PO 0951 Magnesium Sulfate 1 GM Q2H 09/10 0930 AC 09/10 Dextrose/Water 100 ML IV 09/10 1329 1028 Magnesium Sulfate 1 GM Q2H 09/09 0900 DC 09/09 Dextrose/Water 100 ML IV 09/09 1259 1122 Methylprednisolone 0 .STK-MED ONE 09/10 1116 DC .ROUTE Mupirocin 1 MEHUL DAILY 09/07 1000 AC 09/10 TOP 0945 Nystatin 1 MEHUL BID 09/06 2200 AC 09/10 TOP 0945 Prednisone 40 MG DAILY 09/09 1000 AC 09/10 PO 09/13 1001 0951 Sodium Chloride 0 .STK-MED ONE 09/10 1116 DC IV Tamsulosin HCl 0.4 MG DAILY 09/07 1000 AC 09/10 PO 0951 Vancomycin HCl 1,500 MG Q12H 09/09 0700 AC 09/10 Dextrose/Water 250 ML IV 0607 Zinc Oxide 1 MEHUL BID 09/07 1000 AC 09/10 TOP 0945 Vital Signs & I&O Last 24 Hrs of Vitals and I&O: Vital Signs Date Time Temp Pulse Resp B/P Pulse O2 O2 Flow FiO2 Ox Delivery Rate 09/10 0951 109 108/62 09/10 0951 109 108/62 09/10 0902 98.6 109 20 108/62 95 Room Air 09/10 0800 Room Air 09/09 2303 98.0 90 18 110/68 97 Room Air 09/09 1643 97.8 86 18 112/64 97 Room Air Intake & Output 09/10 1600 09/10 0800 09/10 0000 Intake Total 60 1340 Output Total 500 675 Balance -440 665 Intake, IV 10 380 Intake, Oral 50 960 Output, Urine 500 675 Exam Other Physical Findings: General - Alert, awake and oriented HEENT - normocephalic, atraumatic, no thrush Cardiovascular - S1, S2 Lungs - ctab Abdomen - soft, bowel sounds positive, no tenderness Extremities - trace edema Results Last 24 Hrs of Lab Results: Laboratory Tests 09/10/16 0610: Anion Gap 3 L, Estimated GFR > 60, BUN/Creatinine Ratio 32.9 H, Calcium 7.6 L , Magnesium 1.1 L, CBC w Diff NO MAN DIFF REQ, RBC 3.29 L, MCV 93.5, MCH 30.3, RDW 15.4 H, MPV 9.5, Gran % 73.6, Lymphocytes % 18.3 L, Monocytes % 7.7, Eosinophils % 0.3, Basophils % 0.1, Absolute Granulocytes 5.4, Absolute Lymphocytes 1.3, Absolute Monocytes 0.6, Absolute Eosinophils 0, Absolute Basophils 0, PUBS MCHC 32.4 L 09/09/16 1730: Vancomycin Trough Cancelled 09/09/16 1722: Digoxin Cancelled Impression/Plan Impression/Plan Impression/Plan: Impression 76 year old man. History of colon ca. Dyspnea is significantly improved, likely underlying bronchitis, perhaps mucositis is not unreasonable, although there is no phlegm or hemoptysis. Given leg edema we can consider pulmonary htn. MRSA blood cultures Plan -plan for KEE, ID follow up -would stop steroids -TRC/Nebs -outpatient PFTs when better -incentive spirometry -MRSA per primary team DVT prophylaxis at all times
--- NOTE | 2016-09-10 13:43 | INTERVENTIONAL RADIOLOGY RPT ---
PROCEDURE PERFORMED: LEFT CHEST PORT REMOVAL HISTORY: Report has been in place for 4 years now with sepsis VASCULAR \T\ INTERVENTIONAL RADIOLOGIST: Pepe Gonzalez MD CONSENT: Informed consent was obtained from the patient prior to the procedure. During this process, the procedure and potential alternatives were explained, along with the intended outcome and benefits. The risks of the procedure, as well as the risks of not doing the procedure, were discussed. The patient was given the opportunity to ask questions regarding the procedure and appeared competent to make medical decisions. A signed consent form which documents this discussion was placed in the medical record. PROCEDURES DESCRIPTION: 1. The patient was placed in a supine position on the angiographic table 2. A multicut line operator image of the left chest was performed 3. The skin overlying the left chest wall was then prepped and draped using maximal sterile barrier technique. 4. 1% lidocaine with epinephrine was used for local anesthesia. 5. An incision was made with a #15 blade over the prior incision 6. Using sharp as well as blunt dissection, the chest port and catheter were removed in their entirety. 7. The subcutaneous pocket was then lavaged with normal saline. 8. The subcutaneous tissues were then closed using 3.0 Vicryl suture material. The skin was closed using Dermabond glue. 9. A post procedure multicut line operator image of the left chest region was then obtained documenting no retained foreign bodies. 10. The tip of the port was sent for culture and sensitivity COMPLICATIONS: None CONSCIOUS SEDATION: The patient received intravenous conscious sedation under my direct supervision. A registered nurse monitored the patient and the patient's vital signs throughout the procedure. The total sedation time was 15 minutes. A total of 1 mg of Versed and 50 mcg fentanyl was given for good effect. MEDICATIONS: The procedure was performed with conscious sedation and analgesia under my direct supervision administered by a registered interventional radiology nurse. In addition, lidocaine with epinephrine for local anesthesia RADIATION: 2.6 micro-darren per meter squared FLUOROSCOPY: 7 seconds IMPRESSION: Successful removal of implanted left chest wall port. The tip of the port was sent for culture.
[2016-09-10 15:30] VITALS: BP 138/70
[2016-09-10 22:57] VITALS: BP 124/70
[2016-09-11 08:08] VITALS: BP 144/92
[2016-09-11 08:11] LABS: ABSOLUTE BASOPHIL COUNT 0 /CUMM (0.0-0.2); ABSOLUTE EOSINOPHIL COUNT 0.1 /CUMM (0.0-0.7); ABSOLUTE GRANULOCYTE CT 6.4 /CUMM (1.4-6.5); ABSOLUTE MONOCYTE COUNT 0.7 /CUMM (0.10-0.60); BASOPHIL % 0.2 % (0.0-2.0); EOSINOPHIL % 1.4 % (0-5); GRANULOCYTE % 69.7 % (42.2-75.2); HEMATOCRIT 34.3 % (42-52); MEAN CORPUSCULAR HGB 30.6 PG (27.0-31.0); MEAN CORPUSCULAR VOLUME 92.6 FL (80.0-94.0); MEAN PLATELET VOLUME 9.4 FL (7.4-10.4); PLATELET COUNT 142 /CUMM (130-400); RBC DISTRIBUTION WIDTH 15.2 % (11.5-14.5); WHITE BLOOD CELL COUNT 9.2 /CUMM (4.8-10.8)
--- NOTE | 2016-09-11 11:37 | PN- Pulmonary ---
See Addendum Subjective HPI/Critical Care Issues: pt seen and examinded doing well no dyspnea port removed Objective Current Medications: Current Medications Sig/Brennon Start time Last Medication Dose Route Stop Time Status Admin Acetaminophen 650 MG Q6P PRN 09/06 2014 AC PO Acetaminophen 1,000 MG Q6P PRN 09/06 2014 AC IV Docusate Sodium 100 MG BID 09/08 1000 AC 09/10 PO 0951 Doxycycline Hyclate 100 MG BID 09/06 2200 DC 09/10 PO 2201 Enoxaparin Sodium 40 MG DAILY 09/10 1445 AC 09/11 SC 1108 Fentanyl Citrate 0 .STK-MED ONE 09/10 1146 DC .ROUTE Ferrous Sulfate 325 MG BID 09/06 2200 AC 09/11 PO 1113 Finasteride 5 MG DAILY 09/07 1000 AC 09/11 PO 1113 Fluorometholone 0.1 ML TID 09/06 2330 AC 09/11 OPH 1123 Glycerin/Mineral Oil 1 MEHUL TID PRN 09/10 1415 AC 09/10 TOP 1619 Insulin Aspart 0 TIDAC 09/07 0800 AC 09/10 SC 1800 Losartan Potassium 50 MG DAILY 09/07 1000 AC 09/11 PO 1113 Magnesium Oxide 1,200 MG BID 09/09 1021 AC 09/11 PO 1113 Magnesium Sulfate 1 GM Q2H 09/11 1015 AC Dextrose/Water 100 ML IV 09/11 1414 Magnesium Sulfate 1 GM Q2H 09/10 0930 DC 09/10 Dextrose/Water 100 ML IV 09/10 1329 1424 Midazolam HCl 0 .STK-MED ONE 09/10 1146 DC .ROUTE Mupirocin 1 MEHUL DAILY 09/07 1000 AC 09/11 TOP 1123 Nystatin 1 MEHUL BID 09/06 2200 DC 09/10 TOP 0945 Patient Medication 1 ED ONE ONE 09/10 1400 DC 09/10 Teaching ED 09/10 1401 1425 Prednisone 40 MG DAILY 09/09 1000 DC 09/10 PO 09/13 1001 0951 Tamsulosin HCl 0.4 MG DAILY 09/07 1000 AC 09/11 PO 1113 Vancomycin HCl 1,500 MG Q12H 09/09 0700 AC 09/11 Dextrose/Water 250 ML IV 0611 Zinc Oxide 1 MEHUL BID 09/07 1000 AC 09/11 TOP 1123 Vital Signs & I&O Last 24 Hrs of Vitals and I&O: Vital Signs Date Time Temp Pulse Resp B/P Pulse O2 O2 Flow FiO2 Ox Delivery Rate 09/11 1113 144/92 09/11 1113 144/92 09/11 0808 98.1 81 16 144/92 97 Room Air 09/11 0000 97 Room Air 09/10 2257 98.2 96 21 124/70 97 Room Air 09/10 1530 98.1 72 18 138/70 95 Room Air Intake & Output 09/11 1600 09/11 0800 09/11 0000 Intake Total 580 1475 Output Total 450 850 Balance 130 625 Intake, IV 100 170 Intake, Oral 480 1305 Number 0 Bowel Movements Output, Urine 450 850 Results Last 24 Hrs of Lab Results: Laboratory Tests 09/11/16 0620: Anion Gap 7, Estimated GFR > 60, BUN/Creatinine Ratio 30.0 H, Magnesium 1.2 L, CBC w Diff NO MAN DIFF REQ, RBC 3.70 L, MCV 92.6, MCH 30.6, RDW 15.2 H, MPV 9.4, Gran % 69.7, Lymphocytes % 21.4, Monocytes % 7.3, Eosinophils % 1.4, Basophils % 0.2, Absolute Granulocytes 6.4, Absolute Lymphocytes 2.0, Absolute Monocytes 0.7 H, Absolute Eosinophils 0.1, Absolute Basophils 0, PUBS MCHC 33.0 09/10/16 1726: Vancomycin Trough 19.8 09/10/16 1600: Urinalysis LIGHT H, Urine Color YEL, Urine Clarity HAZY H, Urine pH 7.0, Ur Specific Vincent 1.020, Urine Protein NEG, Urine Ketones NEG, Urine Nitrite NEG, Urine Bilirubin NEG, Urine Urobilinogen 0.2, Ur Leukocyte Esterase NEG, Ur Microscopic SEDIMENT EXAMINED, Urine RBC 15-25 H, Urine WBC 1-3 H, Ur Epithelial Cells FEW, Urine Hemoglobin MOD H, Urine Glucose NEG Impression/Plan Impression/Plan Impression/Plan: Impression 76 year old man. History of colon ca. Dyspnea is significantly improved, likely underlying bronchitis, perhaps mucositis is not unreasonable, although there is no phlegm or hemoptysis. Given leg edema we can consider pulmonary htn. MRSA blood cultures Plan -ID follow up, s/p port removal -off steroids -TRC/Nebs -outpatient PFTs when better -incentive spirometry -MRSA per primary team DVT prophylaxis at all times
--- NOTE | 2016-09-11 12:16 | PN- Att Addend ---
Attending Addendum Attending Brief Note 76M PMH colon cancer s/p sigmoidectomy now with liver metastases on panalimumab presenting with shortness of breath and dyspnea on exertion, found to have severe hypomagnesemia with initial Mg 0.6, has recently been 1.1-1.2 despite daily IV and PO supplementation. Found to incidentally have mRSA bacteremia. Had chemotherapy port but has been removed yesterday. Blood cultures from 09/09 continue to be positive for GPC. Afebrile, stable vitals, no complaints. AFVSS NAD Supple RRR CTAB Soft, NTND No c/c/e Pulses intact A&Ox3 no focal deficits Intake & Output 09/11 1600 09/11 0800 09/11 0000 Intake Total 580 1475 Output Total 450 850 Balance 130 625 Intake, IV 100 170 Intake, Oral 480 1305 Number 0 Bowel Movements Output, Urine 450 850 Current Medications Sig/Brennon Start time Last Medication Dose Route Stop Time Status Admin Acetaminophen 650 MG Q6P PRN 09/06 2014 AC PO Acetaminophen 1,000 MG Q6P PRN 09/06 2014 AC IV Docusate Sodium 100 MG BID 09/08 1000 AC 09/10 PO 0951 Doxycycline Hyclate 100 MG BID 09/06 2200 RI 09/10 PO 2201 Enoxaparin Sodium 40 MG DAILY 09/10 1445 09/11 SC 1108 Ferrous Sulfate 325 MG BID 09/06 2200 AC 09/11 PO 1113 Finasteride 5 MG DAILY 09/07 1000 AC 09/11 PO 1113 Fluorometholone 0.1 ML TID 09/06 2330 AC 09/11 OPH 1123 Glycerin/Mineral Oil 1 MEHUL TID PRN 09/10 1415 09/10 TOP 1619 Insulin Aspart 0 TIDAC 09/07 0800 09/10 SC 1800 Losartan Potassium 50 MG DAILY 09/07 1000 AC 09/11 PO 1113 Magnesium Oxide 1,200 MG BID 09/09 1021 AC 09/11 PO 1113 Magnesium Sulfate 1 GM Q2H 09/11 1015 AC Dextrose/Water 100 ML IV 09/11 1414 Magnesium Sulfate 1 GM Q2H 09/10 0930 RI 09/10 Dextrose/Water 100 ML IV 09/10 1329 1424 Mupirocin 1 MEHUL DAILY 09/07 1000 AC 09/11 TOP 1123 Nystatin 1 MEHUL BID 09/06 2200 DC 09/10 TOP 0945 Patient Medication 1 ED ONE ONE 09/10 1400 DC 09/10 Teaching ED 09/10 1401 1425 Prednisone 40 MG DAILY 09/09 1000 DC 09/10 PO 09/13 1001 0951 Tamsulosin HCl 0.4 MG DAILY 09/07 1000 AC 09/11 PO 1113 Vancomycin HCl 1,500 MG Q12H 09/09 0700 AC 09/11 Dextrose/Water 250 ML IV 0611 Zinc Oxide 1 MEHUL BID 09/07 1000 AC 09/11 TOP 1123 1. mRSA bacteremia 2. Hypomagnesemia 3. Stage IV colon cancer with liver metastases 4. Shortness of breath Plan - May go to general medicine when bed is available - Obtain KEE - Follow ID, oncology, cardiology recommendations - Follow culture results - IF fever spike, re-culture blood - Continue Magnesium repletion - Continue home medications - DVT PPx
--- NOTE | 2016-09-11 12:22 | PN- Infect Dx ---
Subjective Subjective: Afebrile without complaints Objective Last 24 Hrs of Vital Signs/I&O Vital Signs Date Time Temp Pulse Resp B/P Pulse O2 O2 Flow FiO2 Ox Delivery Rate 09/11 1113 144/92 09/11 1113 14492 09/11 0808 98.1 81 16 144/92 97 Room Air 09/11 0000 97 Room Air 09/10 2257 98.2 96 21 124/70 97 Room Air 09/10 1530 98.1 72 18 138/70 95 Room Air Intake & Output 09/11 1600 09/11 0800 09/11 0000 Intake Total 580 1475 Output Total 450 850 Balance 130 625 Intake, IV 100 170 Intake, Oral 480 1305 Number 0 Bowel Movements Output, Urine 450 850 Physical Exam Other Physical Findings: He appears comfortable in no acute distress Skin macular, nonpruritic rash on the extremities in addition to his psoriatic rash Lungs are clear Heart regular rhythm with no murmur Extremities no cyanosis, clubbing or edema Results Last 24 Hours of Lab Results: Laboratory Tests 09/11 09/10 0620 1726 Chemistry Sodium (137 - 145 mmol/L) 141 Potassium (3.5 - 5.1 mmol/L) 4.3 Chloride (98 - 107 mmol/L) 106 Carbon Dioxide (22 - 30 mmol/L) 27 Anion Gap (5 - 16) 7 BUN (9 - 20 mg/dL) 21 H Creatinine (0.7 - 1.2 mg/dL) 0.7 Estimated GFR (>60 ml/min) > 60 BUN/Creatinine Ratio (7 - 25 %) 30.0 H Magnesium (1.6 - 2.3 mg/dL) 1.2 L Hematology CBC w Diff NO MAN DIFF REQ WBC (4.8 - 10.8 /CUMM) 9.2 RBC (4.70 - 6.10 /CUMM) 3.70 L Hgb (14.0 - 18.0 G/DL) 11.3 L Hct (42 - 52 %) 34.3 L MCV (80.0 - 94.0 FL) 92.6 MCH (27.0 - 31.0 PG) 30.6 RDW (11.5 - 14.5 %) 15.2 H Plt Count (130 - 400 /CUMM) 142 MPV (7.4 - 10.4 FL) 9.4 Gran % (42.2 - 75.2 %) 69.7 Lymphocytes % (20.5 - 51.1 %) 21.4 Monocytes % (1.7 - 9.3 %) 7.3 Eosinophils % (0 - 5 %) 1.4 Basophils % (0.0 - 2.0 %) 0.2 Absolute Granulocytes (1.4 - 6.5 /CUMM) 6.4 Absolute Lymphocytes (1.2 - 3.4 /CUMM) 2.0 Absolute Monocytes (0.10 - 0.60 /CUMM) 0.7 H Absolute Eosinophils (0.0 - 0.7 /CUMM) 0.1 Absolute Basophils (0.0 - 0.2 /CUMM) 0 PUBS MCHC (33.0 - 37.0 G/DL) 33.0 Toxicology Vancomycin Trough (10.0 - 20.0 ug/mL) 19.8 09/10 1600 Urines Urinalysis LIGHT H Urine Color (YEL,AMB,STR) YEL Urine Clarity (CLEAR) HAZY H Urine pH (5.0 - 8.0) 7.0 Ur Specific [place] (1.001 - 1.035) 1.020 Urine Protein (NEG,<30 MG/DL) NEG Urine Ketones (NEG) NEG Urine Nitrite (NEG) NEG Urine Bilirubin (NEG) NEG Urine Urobilinogen (0.1 - 1.0 EU/dl) 0.2 Ur Leukocyte Esterase (NEG) NEG Ur Microscopic SEDIMENT EXAMINED Urine RBC (0 - 5 /HPF) 15-25 H Urine WBC (0 - 2 /HPF) 1-3 H Ur Epithelial Cells (NONE,FEW) FEW Urine Hemoglobin (NEG) MOD H Urine Glucose (N MG/DL) NEG Last 24 Hours of [place] Results: Blood cultures September 06 positive for MRSA and diphtheroids Blood culture September 09 (from the Port-A-Cath) positive for MRSA and coag- negative Staph Blood cultures September 08 (venous) negative Blood cultures September 10 (venous) negative Port-A-Cath tip culture September 10 less than 15 colonies of mixed alondra Urine culture September 10 negative Assessment/Plan Impression: Polymicrobial bacteremia, with MRSA, diphtheroids and coag-negative Staph isolated from several blood cultures, most likely secondary to the Port-A-Cath, with the tip culture so far less than 15 colonies, possibly due to the antibiotics he received prior to the removal of the Port-A-Cath. He remains afebrile with white blood cell count normal on Vancomycin. His Vancomycin trough level is borderline high and his dose should be adjusted. His echocardiogram was negative for any vegetations, but a KEE will be necessary to more definitively rule out endocarditis. His new rash is nonpruritic and he attributes it to Lubriderm. Suggestion: 1. Follow-up final Port-A-Cath tip culture 2. Would pursue KEE 3. Would pursue placement of PICC in the a.m. if recent blood cultures remain negative 4. Decrease Vancomycin to 1.25 grams IV every 12 hours
--- NOTE | 2016-09-11 13:02 | PN- Housestaff ---
See Addendum Subjective Follow-up For: hypomag MRSA bacteremia Subjective: Seen and examined patient offers no complaints. He status post Port-A-Cath removal from yesterday. Denies fever, chills, weakness, nausea , vomiting Review of Systems Constitutional: Denies: chills, diaphoresis, fever, malaise, weakness, unexplained weight loss. Cardiovascular: Denies: chest pain, edema, orthopena, palpitations, peripheral edema, syncope. Respiratory: Denies: cough, hemoptysis, orthopnea, short of breath, sputum production, stridor, wheezing. Gastrointestinal: Denies: abdominal pain, bloating, constipation, diarrhea, distention, bowel incontinence, melena, nausea, bloody stool, changes in stool, vomiting, steatorrhea. Objective Last 24 Hrs of Vital Signs/I&O Vital Signs Date Time Temp Pulse Resp B/P Pulse O2 O2 Flow FiO2 Ox Delivery Rate 09/11 1113 144/92 09/11 1113 144/92 09/11 0808 98.1 81 16 144/92 97 Room Air 09/11 0000 97 Room Air 09/10 2257 98.2 96 21 124/70 97 Room Air 09/10 1530 98.1 72 18 138/70 95 Room Air Intake & Output 09/11 1600 09/11 0800 09/11 0000 Intake Total 580 1475 Output Total 450 850 Balance 130 625 Intake, IV 100 170 Intake, Oral 480 1305 Number 0 Bowel Movements Output, Urine 450 850 Physical Exam General Appearance: Alert, Oriented X3, Cooperative, No Acute Distress Skin: psoriatic rash over trunk, site of catheter removal looks clean Cardiovascular: Regular Rate, Normal S1, Normal S2 Lungs: Clear to Auscultation, Normal Air Movement Current Medications: Current Medications Sig/Brennon Start time Last Medication Dose Route Stop Time Status Admin Acetaminophen 650 MG Q6P PRN 09/06 2014 AC PO Acetaminophen 1,000 MG Q6P PRN 09/06 2014 AC IV Docusate Sodium 100 MG BID 09/08 1000 AC 09/10 PO 0951 Doxycycline Hyclate 100 MG BID 09/06 2199 DC 09/10 PO 220 Enoxaparin Sodium 40 MG DAILY 09/10 1445 AC 09/11 SC 1108 Ferrous Sulfate 325 MG BID 09/06 2199 AC 09/11 PO 111 Finasteride 5 MG DAILY 09/07 1000 AC 09/11 PO 1113 Fluorometholone 0.1 ML TID 09/06 2330 AC 09/11 OPH 1123 Glycerin/Mineral Oil 1 MEHUL TID PRN 09/10 1415 AC 09/10 TOP 1619 Insulin Aspart 0 TIDAC 09/07 0800 AC 09/11 SC 1245 Losartan Potassium 50 MG DAILY 09/07 1000 AC 09/11 PO 1113 Magnesium Oxide 1,200 MG BID 09/09 1021 AC 09/11 PO 1113 Magnesium Sulfate 1 GM Q2H 09/11 1015 DC 09/11 Dextrose/Water 100 ML IV 09/11 1414 1405 Mupirocin 1 MEHUL DAILY 09/07 1000 AC 09/11 TOP 1123 Nystatin 1 MEHUL BID 09/06 2200 DC 09/10 TOP 0945 Tamsulosin HCl 0.4 MG DAILY 09/07 1000 AC 09/11 PO 1113 Vancomycin HCl 1,250 MG Q12H 09/11 1900 AC Dextrose/Water 250 ML IV Vancomycin HCl 1,500 MG Q12H 09/09 0700 AC 09/11 Dextrose/Water 250 ML IV 09/11 1859 0611 Zinc Oxide 1 MEHUL BID 09/07 1000 AC 09/11 TOP 1123 Last 24 Hrs of Lab/[place] Results Last 24 Hrs of Labs/Mics: Laboratory Tests 09/11/16 0620: Anion Gap 7, Estimated GFR > 60, BUN/Creatinine Ratio 30.0 H, Magnesium 1.2 L, CBC w Diff NO MAN DIFF REQ, RBC 3.70 L, MCV 92.6, MCH 30.6, RDW 15.2 H, MPV 9.4, Gran % 69.7, Lymphocytes % 21.4, Monocytes % 7.3, Eosinophils % 1.4, Basophils % 0.2, Absolute Granulocytes 6.4, Absolute Lymphocytes 2.0, Absolute Monocytes 0.7 H, Absolute Eosinophils 0.1, Absolute Basophils 0, PUBS MCHC 33.0 09/10/16 1726: Vancomycin Trough 19.8 09/10/16 1600: Urinalysis LIGHT H, Urine Color YEL, Urine Clarity HAZY H, Urine pH 7.0, Ur Specific [place] 1.020, Urine Protein NEG, Urine Ketones NEG, Urine Nitrite NEG, Urine Bilirubin NEG, Urine Urobilinogen 0.2, Ur Leukocyte Esterase NEG, Ur Microscopic SEDIMENT EXAMINED, Urine RBC 15-25 H, Urine WBC 1-3 H, Ur Epithelial Cells FEW, Urine Hemoglobin MOD H, Urine Glucose NEG Microbiology 09/10 1600 URINE ROUT: Urine Culture - RES Assessment/Plan Assessment: 76-year-old gentleman with a past medical history of adenocarcinoma of the colon on Panitumumab therapy found to be hypomagnesemic and positive for MRSA bacteremia. CTA of the chest revealed mild diffuse peribronchial thickening with platelike opacity in the periphery of the right lower lobe Continues to be afebrile, WBC trended down to normal, Blood cultures from 09/06 growing MRSA, blood cultures from [facility] growing GPC in clusters, cultures from 09/08 and 09/10 prelim report show no growth. Assessment 1. Hypomagnesemia secondary to chemotherapy 2. 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 History of hypertension 4. History of diabetes mellitus 5. History of new onset bilateral blepharitis and conjunctivitis secondary to chemotherapy 6. History of asbestos exposures in the past 7. MRSA bacteremia 8. Psoriasis Plan: Hypermagnesemia secondary to chemotherapy Continue telemetry monitoring, magnesium level 1.2 today we'll replete with IV magnesium and continue to replete by mouth as well On mouth doxycycline, for dermatitis he will need to be on it till January 21 2017. Continue IV vancomycin day 5, trough levels therapeutic. ID on board appreciate r Echocardiogram shows no vegetation and normal EF of 60-65% PICC to be placed kleechi. Cardiology consulted for KEE, will be NPO on for KEE on friday Pulmonary on board appreciate recommendations, will transition to by mouth prednisone today, will get outpatient PFTs Continue losartan, Proscar Dvt prophylaxis subcutaneous Lovenox Patient is full code. Telemonitoring to be discontinued and currently gen med hold. Problem List: 1. MRSA bacteremia 2. Hypomagnesemia Pain Ratin Pain Location: na Pain Goal: Pain 4 or less Pain Plan: current regimen Tomorrow's Labs & Rationales: cbc/bep/mg
--- NOTE | 2016-09-11 14:39 | Cons- Cardiology ---
General Information and HPI Consulting Request Date of Consult: 09/11/16 Requested By: SOUMYA PANDEY,CELSO Reason for Consult: Bacteremia, need for transesophageal echocardiogram. Source of Information: patient, old records Exam Limitations: no limitations History of Present Illness: The patient is a 76-year-old man who is receiving chemotherapy for metastatic colon cancer. He came in with generalized weakness and was noted to be severely hypomagnesemic, which has been somewhat refractory. He also has MRSA sepsis. His chemotherapy port was removed as the probable cause of this. Infectious disease has requested a transesophageal echocardiogram to rule out endocarditis, which will help determine the duration of his antibiotic therapy. The patient tells me he has had no underlying heart disease and is on no cardiac medications. He did already have a transthoracic echocardiogram which was a somewhat poor study but did not show any significant abnormalities. Allergies/Medications Allergies: Coded Allergies: chlorhexidine (Severe, RASH, SWELLING 09/09/16) Home Med List: Calcium Carbonate/Vitamin D3 (Oyster Shell 500 MG + Vit D Tb) 500 MG-200 TABLET 1 TAB PO TID SUPPLEMENT (Reported) Doxycycline Hyclate 100 MG TABLET 1 TAB PO BID RASH (Reported) Emollient Combination No.92 (Lubriderm Daily Moisture) 177 ML LOTION 1 MEHUL EXT TID RASH/DRY SKIN Ferrous Sulfate 325 MG TABLET 1 TAB PO BID VITAMIN SUPPORT (Reported) Finasteride 5 MG TABLET 1 TAB PO DAILY PROSTATE (Reported) Fluocinonide 15 GM CREAM..G. 1 MEHUL TOP BID PSORIASIS/RASH Fluorometholone (Fml S.o.p.) 0.1 % OINT...G. 1 MEHUL OPH TID EYE (Reported) Magnesium Oxide (Magox 400) 400 MG TABLET 3 TAB PO BID SUPPLEMENT (Reported) Metformin HCl 1,000 MG TABLET 1 TAB PO BID DIABETES (Reported) Metronidazole 1 % GEL..GRAM. 1 MEHUL TOP DAILY RASH (Reported) Mupirocin 2 % OINT...G. 1 MEHUL TOP DAILY RASH (Reported) apply to affected area(s) Nystatin 15 GM CREAM..G. 1 MEHUL TOP BID SKIN FUNGAL INFECTION Ondansetron HCl (Zofran) 8 MG TABLET 1 TAB PO TID PRN NAUSEA/VOMITING ( Reported) Pioglitazone HCl (Actos) 30 MG TABLET 1 TAB PO DAILY DIABETES (Reported) Potassium Chloride (K-Tab ER) 10 MEQ TABLET.ER 1 TAB PO DAILY DEHYDRATION ( Reported) Tamsulosin HCl (Flomax) 0.4 MG CAP.ER.24H 1 CAP PO DAILY UNKNOWN (Reported) Telmisartan (Micardis) 40 MG TABLET 1 TAB PO DAILY HEART HEALTH (Reported) Vancomycin/0.9 % Sod Chloride (Vanco 1.25 Gm/250 Ml-0.9% NaCl) 1.25 GRAM/250 ML PLAST..BAG 1 BAG IV Q12 MRSA BACTERIMIA COMPLETE THE ANTIBIOTICS TILL 09/24/16 vancomycin trough required on 09/14/16 Current Medications: Current Medications Sig/Brennon Start time Last Medication Dose Route Stop Time Status Admin Acetaminophen 650 MG Q6P PRN 09/06 2014 AC PO Acetaminophen 1,000 MG Q6P PRN 09/06 2014 AC IV Docusate Sodium 100 MG BID 09/08 1000 AC 09/10 PO 0951 Doxycycline Hyclate 100 MG BID 09/06 2200 DC 09/10 PO 2201 Enoxaparin Sodium 40 MG DAILY 09/10 1445 AC 09/11 SC 1108 Ferrous Sulfate 325 MG BID 09/06 2200 AC 09/11 PO 1113 Finasteride 5 MG DAILY 09/07 1000 AC 09/11 PO 1113 Fluorometholone 0.1 ML TID 09/06 2330 AC 09/11 OPH 1123 Glycerin/Mineral Oil 1 MEHUL TID PRN 09/10 1415 AC 09/10 TOP 1619 Insulin Aspart 0 TIDAC 09/07 0800 AC 09/11 SC 1245 Losartan Potassium 50 MG DAILY 09/07 1000 AC 09/11 PO 1113 Magnesium Oxide 1,200 MG BID 09/09 1021 AC 09/11 PO 1113 Magnesium Sulfate 1 GM Q2H 09/11 1015 DC Dextrose/Water 100 ML IV 09/11 1414 Mupirocin 1 MEHUL DAILY 09/07 1000 AC 09/11 TOP 1123 Nystatin 1 MEHUL BID 09/06 2200 DC 09/10 TOP 0945 Tamsulosin HCl 0.4 MG DAILY 09/07 1000 AC 09/11 PO 1113 Vancomycin HCl 1,250 MG Q12H 09/11 1900 AC Dextrose/Water 250 ML IV Vancomycin HCl 1,500 MG Q12H 09/09 0700 AC 09/11 Dextrose/Water 250 ML IV 09/11 1859 0611 Zinc Oxide 1 MEHUL BID 09/07 1000 AC 09/11 TOP 1123 Review of Systems Review of Systems: He is feeling much better and has no complaints in the review of systems at this time Past History Travel History Traveled to [place] past 21 day No Medical History Blood Transfusion Hx: Yes Neurological: NONE EENT: NONE Cardiovascular: hypertension, hyperlipidemia Respiratory: NONE Gastrointestinal: colon cancer with liver mets Hepatic: NONE Renal: benign prost hyperplasia Musculoskeletal: NONE Psychiatric: NONE Endocrine: diabetes Blood Disorders: anemia Cancer(s): colon/rectal cancer [employer]ING [employer]ENDER/Reproductive: NONE Other Medical Hx: Psoriasis Surgical History Surgical History: sigmoid resection 2013 Port-A-Cath placement left upper chest September 2012 Family History Relations & Conditions If Any: MOTHER FH: heart failure FH: hyperthyroidism FATHER FH: diabetes mellitus FH: heart failure MOTHER Psychosocial History Where Do You Live? Assisted Living Who Do You Live With? self Services at Home: Nursing Primary Language: Omani Smoking Status: Former Smoker ETOH Use: denies use Illicit Drug Use: denies illicit drug use Functional Ability ADLs Independent: dressing, eating, toileting, bathing. Ambulation: cane, scooter Exam & Diagnostic Data Vital Signs and I&O Vital Signs Date Time Temp Pulse Resp B/P Pulse O2 O2 Flow FiO2 Ox Delivery Rate 09/11 1113 144/92 09/11 1113 144/92 09/11 0808 98.1 81 16 144/92 97 Room Air 09/11 0000 97 Room Air 09/10 2257 98.2 96 21 124/70 97 Room Air 09/10 1530 98.1 72 18 138/70 95 Room Air Intake & Output 09/11 1600 09/11 0800 09/11 0000 09/10 1600 09/10 0800 09/10 0000 Intake Total 580 1475 179 41 3226 Output Total 450 850 425 500 675 Balance 130 625 -75 -440 665 Intake, IV 100 170 110 10 380 Intake, Oral 480 1305 240 50 960 Number 0 Bowel Movements Output, Urine 450 850 425 500 675 Physical Exam: He is an overweight late middle-aged male in no acute distress HEENT exam is normal Chest is clear Heart Reveals soft heart sounds, regular rhythm, no murmurs Extremities no edema, good pulses Labs/[place] Results: Laboratory Tests 09/11 09/10 0620 1726 Chemistry Sodium (137 - 145 mmol/L) 141 Potassium (3.5 - 5.1 mmol/L) 4.3 Chloride (98 - 107 mmol/L) 106 Carbon Dioxide (22 - 30 mmol/L) 27 Anion Gap (5 - 16) 7 BUN (9 - 20 mg/dL) 21 H Creatinine (0.7 - 1.2 mg/dL) 0.7 Estimated GFR (>60 ml/min) > 60 BUN/Creatinine Ratio (7 - 25 %) 30.0 H Magnesium (1.6 - 2.3 mg/dL) 1.2 L Hematology CBC w Diff NO MAN DIFF REQ WBC (4.8 - 10.8 /CUMM) 9.2 RBC (4.70 - 6.10 /CUMM) 3.70 L Hgb (14.0 - 18.0 G/DL) 11.3 L Hct (42 - 52 %) 34.3 L MCV (80.0 - 94.0 FL) 92.6 MCH (27.0 - 31.0 PG) 30.6 RDW (11.5 - 14.5 %) 15.2 H Plt Count (130 - 400 /CUMM) 142 MPV (7.4 - 10.4 FL) 9.4 Gran % (42.2 - 75.2 %) 69.7 Lymphocytes % (20.5 - 51.1 %) 21.4 Monocytes % (1.7 - 9.3 %) 7.3 Eosinophils % (0 - 5 %) 1.4 Basophils % (0.0 - 2.0 %) 0.2 Absolute Granulocytes (1.4 - 6.5 /CUMM) 6.4 Absolute Lymphocytes (1.2 - 3.4 /CUMM) 2.0 Absolute Monocytes (0.10 - 0.60 /CUMM) 0.7 H Absolute Eosinophils (0.0 - 0.7 /CUMM) 0.1 Absolute Basophils (0.0 - 0.2 /CUMM) 0 PUBS MCHC (33.0 - 37.0 G/DL) 33.0 Toxicology Vancomycin Trough (10.0 - 20.0 ug/mL) 19.8 09/10 09/10 1600 0610 Chemistry Sodium (137 - 145 mmol/L) 143 Potassium (3.5 - 5.1 mmol/L) 4.0 Chloride (98 - 107 mmol/L) 110 H Carbon Dioxide (22 - 30 mmol/L) 30 Anion Gap (5 - 16) 3 L BUN (9 - 20 mg/dL) 23 H Creatinine (0.7 - 1.2 mg/dL) 0.7 Estimated GFR (>60 ml/min) > 60 BUN/Creatinine Ratio (7 - 25 %) 32.9 H Calcium (8.4 - 10.2 mg/dL) 7.6 L Magnesium (1.6 - 2.3 mg/dL) 1.1 L Hematology CBC w Diff NO MAN DIFF REQ WBC (4.8 - 10.8 /CUMM) 7.4 RBC (4.70 - 6.10 /CUMM) 3.29 L Hgb (14.0 - 18.0 G/DL) 10.0 L Hct (42 - 52 %) 30.7 L MCV (80.0 - 94.0 FL) 93.5 MCH (27.0 - 31.0 PG) 30.3 RDW (11.5 - 14.5 %) 15.4 H Plt Count (130 - 400 /CUMM) 123 L MPV (7.4 - 10.4 FL) 9.5 Gran % (42.2 - 75.2 %) 73.6 Lymphocytes % (20.5 - 51.1 %) 18.3 L Monocytes % (1.7 - 9.3 %) 7.7 Eosinophils % (0 - 5 %) 0.3 Basophils % (0.0 - 2.0 %) 0.1 Absolute Granulocytes (1.4 - 6.5 /CUMM) 5.4 Absolute Lymphocytes (1.2 - 3.4 /CUMM) 1.3 Absolute Monocytes (0.10 - 0.60 /CUMM) 0.6 Absolute Eosinophils (0.0 - 0.7 /CUMM) 0 Absolute Basophils (0.0 - 0.2 /CUMM) 0 PUBS MCHC (33.0 - 37.0 G/DL) 32.4 L Urines Urinalysis LIGHT H Urine Color (YEL,AMB,STR) YEL Urine Clarity (CLEAR) HAZY H Urine pH (5.0 - 8.0) 7.0 Ur Specific [place] (1.001 - 1.035) 1.020 Urine Protein (NEG,<30 MG/DL) NEG Urine Ketones (NEG) NEG Urine Nitrite (NEG) NEG Urine Bilirubin (NEG) NEG Urine Urobilinogen (0.1 - 1.0 EU/dl) 0.2 Ur Leukocyte Esterase (NEG) NEG Ur Microscopic SEDIMENT EXAMINED Urine RBC (0 - 5 /HPF) 15-25 H Urine WBC (0 - 2 /HPF) 1-3 H Ur Epithelial Cells (NONE,FEW) FEW Urine Hemoglobin (NEG) MOD H Urine Glucose (N MG/DL) NEG 09/09 09/09 1730 1722 Toxicology Vancomycin Trough Cancelled Digoxin Cancelled Diagnostic Data EKG Results EKG on admission shows sinus rhythm rate of 95 with generalized low voltage, otherwise unremarkable electrocardiogram. CXR Results PATIENT: ROSIO GRAFF PRESENT AGE: 76 PATIENT ACCOUNT NO: [id number] : 42 LOCATION: [facility] ORDERING PHYSICIAN: LAKEISHA SCOTT SERVICE DATE: 09/06/16 EXAM TYPE: RAD - XRY-PORTABLE CHEST XRAY EXAMINATION: XR PORTABLE CHEST CLINICAL INFORMATION: Shortness of breath. COMPARISON: CT chest with contrast 04/30/2013. TECHNIQUE: Portable AP view of the chest was obtained. FINDINGS: The lungs are hypoinflated, without focal airspace consolidation. No pleural effusions or pneumothoraces are identified. Cardiomediastinal contours are stable. There is a left subclavian Port-A-Cath, with the catheter tip visualized terminating in the mid SVC. Soft tissues are unremarkable. No acute osseous abnormality is identified. IMPRESSION: No acute pulmonary process. DICTATED BY: SERA SAUCEDA MD DATE/TIME DICTATED:09/06/161513 SEASONAL GREENERY BUNDLER:EMILY DATE/TIME TRANSCRIBED:09/06/161513 CONFIDENTIAL, DO NOT COPY WITHOUT APPROPRIATE AUTHORIZATION. <Electronically signed in Other Vendor System> SIGNED BY: SERA SAUCEDA MD 09/06/16 [id number] Other Results CONCLUSIONS Normal left ventricular systolic function with mild concentric hypertrophy. Poor echo window.No significant valvular abnormalities noted. Alberto Guadalupe M.D. (Electronically Signed) Final Date: 09 September 2016 20:07 Assessment/Plan Assessment/Plan This unfortunate patient has MRSA sepsis in the setting of hypomagnesemia. He is on chemotherapy for metastatic colon cancer. His transthoracic echocardiogram was unremarkable but not high quality. He has no obvious underlying heart disease except hypertension and dyslipidemia. A transesophageal echocardiogram is indicated to look at his valves for evidence of endocarditis, which would probably have been seeded by the chemotherapy port, which is now removed. Because his transthoracic echocardiogram was of poor quality this will be very helpful in ruling out endocarditis. We will schedule this for September 13. Please keep the patient nothing by mouth after midnight tomorrow. Consult Acknowledgment - Thank you for your consult request.
[2016-09-11 15:46] VITALS: BP 114/69
[2016-09-12 00:26] VITALS: BP 132/80
[2016-09-12 08:01] LABS: ABSOLUTE BASOPHIL COUNT 0 /CUMM (0.0-0.2); ABSOLUTE EOSINOPHIL COUNT 0.8 /CUMM (0.0-0.7); ABSOLUTE GRANULOCYTE CT 5.9 /CUMM (1.4-6.5); ABSOLUTE LYMPH COUNT 1.4 /CUMM (1.2-3.4); ABSOLUTE MONOCYTE COUNT 0.6 /CUMM (0.10-0.60); BASOPHIL % 0.4 % (0.0-2.0); EOSINOPHIL % 9.6 % (0-5); GRANULOCYTE % 67.4 % (42.2-75.2); HEMATOCRIT 34.9 % (42-52); MEAN CORPUSCULAR HGB 30.6 PG (27.0-31.0); MEAN CORPUSCULAR HGB CONC 32.9 G/DL (33.0-37.0); MEAN CORPUSCULAR VOLUME 92.9 FL (80.0-94.0); MEAN PLATELET VOLUME 9.3 FL (7.4-10.4); PLATELET COUNT 152 /CUMM (130-400); RBC DISTRIBUTION WIDTH 14.9 % (11.5-14.5); RED BLOOD CELL CT 3.76 /CUMM (4.70-6.10); WHITE BLOOD CELL COUNT 8.7 /CUMM (4.8-10.8)
--- NOTE | 2016-09-12 08:07 | PN- Housestaff ---
KATIE GOMESTASHABiju 09/12/16 0807: Subjective Follow-up For: hypomag MRSA bacteremia Subjective: Seen and examined patient offers no complaints. Denies fever, chills, weakness , nausea , vomiting Review of Systems Constitutional: Denies: chills, diaphoresis, fever, malaise, weakness, unexplained weight loss. Cardiovascular: Denies: chest pain, edema, orthopena, palpitations, peripheral edema, syncope. Respiratory: Denies: cough, hemoptysis, orthopnea, short of breath, sputum production, stridor, wheezing. Objective Last 24 Hrs of Vital Signs/I&O Vital Signs Date Time Temp Pulse Resp B/P Pulse O2 O2 Flow FiO2 Ox Delivery Rate 09/12 08 99.5 93 18 152/88 97 Room Air 09/12 0026 97.8 96 17 132/80 96 Room Air 09/12 0000 Room Air 09/11 1546 97.9 89 16 114/69 95 Room Air 09/11 1113 144/92 09/11 1113 144/92 Intake & Output 09/12 1600 09/12 0800 09/12 0000 Intake Total 400 480 Output Total 600 375 Balance -200 105 Intake, IV 250 Intake, Oral 150 480 Output, Urine 600 375 Physical Exam General Appearance: Alert, Oriented X3, Cooperative, No Acute Distress Cardiovascular: Regular Rate, Normal S1, Normal S2 Lungs: Clear to Auscultation, Normal Air Movement Current Medications: Current Medications Sig/Brennon Start time Last Medication Dose Route Stop Time Status Admin Acetaminophen 650 MG Q6P PRN 09/06 2014 AC PO Acetaminophen 1,000 MG Q6P PRN 09/06 2014 AC IV Docusate Sodium 100 MG BID 09/08 1000 AC 09/10 PO 0951 Enoxaparin Sodium 40 MG DAILY 09/10 1445 AC 09/11 GA 1108 Ferrous Sulfate 325 MG BID 09/06 2200 AC 09/11 PO 2226 Finasteride 5 MG DAILY 09/07 1000 AC 09/11 PO 1113 Fluorometholone 0.1 ML TID 09/06 2330 AC 09/11 OPH 2227 Glycerin/Mineral Oil 1 MEHUL TID PRN 09/10 1415 AC 09/11 TOP 1757 Insulin Aspart 0 TIDAC 09/07 0800 AC 09/11 SC 1656 Losartan Potassium 50 MG DAILY 09/07 1000 AC 09/11 PO 1113 Magnesium Oxide 1,200 MG BID 09/09 1021 AC 09/11 PO 2226 Magnesium Sulfate 1 GM Q2H 09/11 1015 DC 09/11 Dextrose/Water 100 ML IV 09/11 1414 1612 Mupirocin 1 MEHUL DAILY 09/07 1000 AC 09/11 TOP 1123 Tamsulosin HCl 0.4 MG DAILY 09/07 1000 AC 09/11 PO 1113 Vancomycin HCl 1,250 MG 0900,2100 09/12 0900 AC 09/12 Dextrose/Water 250 ML IV 0821 Vancomycin HCl 1,250 MG Q12H 09/11 1900 DC 09/11 Dextrose/Water 250 ML IV 2226 Vancomycin HCl 1,500 MG Q12H 09/09 0700 DC 09/11 Dextrose/Water 250 ML IV 09/11 1859 0611 Zinc Oxide 1 MEHUL BID 09/07 1000 AC 09/11 TOP 2227 Last 24 Hrs of Lab/[place] Results Last 24 Hrs of Labs/Mics: Laboratory Tests 09/12/16 0635: Anion Gap 7, Estimated GFR > 60, BUN/Creatinine Ratio 26.3 H, Magnesium 1.1 L, CBC w Diff NO MAN DIFF REQ, RBC 3.76 L, MCV 92.9, MCH 30.6, RDW 14.9 H, MPV 9.3, Gran % 67.4, Lymphocytes % 15.9 L, Monocytes % 6.7, Eosinophils % 9.6 H, Basophils % 0.4, Absolute Granulocytes 5.9, Absolute Lymphocytes 1.4, Absolute Monocytes 0.6, Absolute Eosinophils 0.8, Absolute Basophils 0, PUBS MCHC 32.9 L Assessment/Plan Assessment: 76-year-old gentleman with a past medical history of adenocarcinoma of the colon on Panitumumab therapy found to be hypomagnesemic and positive for MRSA bacteremia. CTA of the chest revealed mild diffuse peribronchial thickening with platelike opacity in the periphery of the right lower lobe Continues to be afebrile, WBC trended down to normal, Blood cultures from 09/06 growing MRSA, blood cultures from [facility] growing GPC in clusters, cultures from 09/08 and 09/10 prelim report show no growth. Assessment 1. Hypomagnesemia secondary to chemotherapy 2. 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 History of hypertension 4. History of diabetes mellitus 5. History of new onset bilateral blepharitis and conjunctivitis secondary to chemotherapy 6. History of asbestos exposures in the past 7. MRSA bacteremia 8. Psoriasis Plan: Hypermagnesemia secondary to chemotherapy Continue telemetry monitoring, magnesium level 1.2 today mag 1.1 we'll replete with IV magnesium and continue to replete by mouth as well On mouth doxycycline, for dermatitis he will need to be on it till January 21 2017. Continue IV vancomycin day 6, trough levels therapeutic. ID on board appreciate recomendation Echocardiogram shows no vegetation and normal EF of 60-65% PICC to be placed Cardiology on board, appreciate recomendations, will be NPO on for KEE on friday Pulmonary on board appreciate recommendations, will get outpatient PFTs Continue losartan, Proscar Dvt prophylaxis subcutaneous Lovenox Patient is full code. Currently gen med hold. Problem List: 1. Hypomagnesemia 2. MRSA bacteremia 3. Colon cancer metastasized to liver Pain Ratin Pain Location: na Pain Goal: Pain 4 or less Pain Plan: current regimen Tomorrow's Labs & Rationales: BEP,MAG CECY PANDEY,[place] 09/12/16 1316: Attending MD Review Statement Attending Statement Attending MD Statement: examined this patient, discuss w/resident/PA/HEALTH CARE LEGAL ASSISTANT, agreed w/resident/PA/HEALTH CARE LEGAL ASSISTANT, reviewed EMR data (avail) Attending Assessment/Plan: 76M PMH colon cancer s/p sigmoidectomy now with liver metastases on panalimumab presenting with shortness of breath and dyspnea on exertion, found to have severe hypomagnesemia with initial Mg 0.6, has recently been 1.1-1.2 despite daily IV and PO supplementation. Found to incidentally have mRSA bacteremia. Had chemotherapy port but has been removed yesterday. Blood cultures from 09/09 continue to be positive for GPC. Afebrile, stable vitals, no complaints. AFVSS NAD Supple RRR CTAB Soft, NTND No c/c/e Pulses intact A&Ox3 no focal deficits 1. mRSA bacteremia 2. Hypomagnesemia 3. Stage IV colon cancer with liver metastases 4. Shortness of breath Plan - PICC line placed without complication - Obtain KEE, scheduled for tomorrow morning - NPO after midnight - Follow ID, oncology, cardiology recommendations - Follow culture results - IF fever spike, re-culture blood - Continue Magnesium repletion - Continue home medications - DVT PPx
[2016-09-12 08:19] VITALS: BP 152/88
--- NOTE | 2016-09-12 10:54 | PN- Pulmonary ---
Subjective HPI/Critical Care Issues: pt seen and examined awaiting picc line placement stable from respiratory perspective no new events no n/v/d/c Objective Current Medications: Current Medications Sig/Brennon Start time Last Medication Dose Route Stop Time Status Admin Acetaminophen 650 MG Q6P PRN 09/06 2014 AC PO Acetaminophen 1,000 MG Q6P PRN 09/06 2014 AC IV Docusate Sodium 100 MG BID 09/08 1000 AC 09/10 PO 0951 Enoxaparin Sodium 40 MG DAILY 09/10 1445 09/11 SC 1108 Ferrous Sulfate 325 MG BID 09/06 2200 AC 09/11 PO 2226 Finasteride 5 MG DAILY 09/07 1000 AC 09/11 PO 1113 Fluorometholone 0.1 ML TID 09/06 2330 AC 09/11 OPH 2227 Glycerin/Mineral Oil 1 MEHUL TID PRN 09/10 1415 09/11 TOP 1757 Insulin Aspart 0 TIDAC 09/07 0800 AC 09/11 SC 1656 Losartan Potassium 50 MG DAILY 09/07 1000 AC 09/11 PO 1113 Magnesium Oxide 1,200 MG BID 09/09 1021 AC 09/11 PO 2226 Magnesium Sulfate 1 GM Q2H 09/12 0845 AC Dextrose/Water 100 ML IV 09/12 1244 Magnesium Sulfate 1 GM Q2H 09/11 1015 DC 09/11 Dextrose/Water 100 ML IV 09/11 1414 1612 Mupirocin 1 MEHUL DAILY 09/07 1000 AC 09/11 TOP 1123 Tamsulosin HCl 0.4 MG DAILY 09/07 1000 AC 09/11 PO 1113 Vancomycin HCl 1,250 MG 0900,2100 09/12 0900 AC 09/12 Dextrose/Water 250 ML IV 0821 Vancomycin HCl 1,250 MG Q12H 09/11 1900 OK 09/11 Dextrose/Water 250 ML IV 2226 Vancomycin HCl 1,500 MG Q12H 09/09 0700 DC 09/11 Dextrose/Water 250 ML IV 09/11 1859 0611 Zinc Oxide 1 MEHUL BID 09/07 1000 09/11 TOP 2227 Vital Signs & I&O Last 24 Hrs of Vitals and I&O: Vital Signs Date Time Temp Pulse Resp B/P Pulse O2 O2 Flow FiO2 Ox Delivery Rate 09/12 0932 Room Air 1.0L 09/12 0914 Room Air 1.0L 09/12 0819 99.5 93 18 152/88 97 Room Air 09/12 0026 97.8 96 17 132/80 96 Room Air 09/12 0000 Room Air 09/11 1546 97.9 89 16 114/69 95 Room Air 09/11 1113 144/92 09/11 1113 144/92 Intake & Output 09/12 1600 / 0800 03 0000 Intake Total 400 480 Output Total 600 375 Balance -200 105 Intake, IV 250 Intake, Oral 150 480 Output, Urine 600 375 Exam Other Physical Findings: General - Alert, awake and oriented HEENT - normocephalic, atraumatic, no thrush Cardiovascular - S1, S2 Lungs - ctab Abdomen - soft, bowel sounds positive, no tenderness Extremities - trace edema Results Last 24 Hrs of Lab Results: Laboratory Tests 09/12/16 0635: Anion Gap 7, Estimated GFR > 60, BUN/Creatinine Ratio 26.3 H, Magnesium 1.1 L, CBC w Diff NO MAN DIFF REQ, RBC 3.76 L, MCV 92.9, MCH 30.6, RDW 14.9 H, MPV 9.3, Gran % 67.4, Lymphocytes % 15.9 L, Monocytes % 6.7, Eosinophils % 9.6 H, Basophils % 0.4, Absolute Granulocytes 5.9, Absolute Lymphocytes 1.4, Absolute Monocytes 0.6, Absolute Eosinophils 0.8, Absolute Basophils 0, PUBS MCHC 32.9 L Impression/Plan Impression/Plan Impression/Plan: Impression 76 year old man. History of colon ca. Dyspnea is significantly improved, likely underlying bronchitis, perhaps mucositis is not unreasonable, although there is no phlegm or hemoptysis. Given leg edema we can consider pulmonary htn. MRSA blood cultures Plan -ID follow up, s/p port removal, picc line placement pending -off steroids -TRC/Nebs -outpatient PFTs when better -incentive spirometry -MRSA per primary team DVT prophylaxis at all times
--- NOTE | 2016-09-12 11:23 | PN- Infect Dx ---
Subjective Subjective: Afebrile. He feels well with no complaints Objective Last 24 Hrs of Vital Signs/I&O Vital Signs Date Time Temp Pulse Resp B/P Pulse O2 O2 Flow FiO2 Ox Delivery Rate 09/12 0932 Room Air 1.0L 09/12 0914 Room Air 1.0L 09/12 818 99.5 93 18 152/88 97 Room Air 09/12 0026 97.8 96 17 132/80 96 Room Air 09/12 0000 Room Air 09/11 1546 97.9 89 16 114/69 95 Room Air Intake & Output 09/12 1600 09/12 0800 09/12 0000 Intake Total 400 480 Output Total 600 375 Balance -200 105 Intake, IV 250 Intake, Oral 150 480 Output, Urine 600 375 Physical Exam Other Physical Findings: He appears well in no acute distress Skin diffuse psoriatic lesions Lungs are clear Heart regular rhythm with no murmur Extremities no cyanosis, clubbing or edema Results Last 24 Hours of Lab Results: Laboratory Tests 09/12 0635 Chemistry Sodium (137 - 145 mmol/L) 141 Potassium (3.5 - 5.1 mmol/L) 4.2 Chloride (98 - 107 mmol/L) 105 Carbon Dioxide (22 - 30 mmol/L) 29 Anion Gap (5 - 16) 7 BUN (9 - 20 mg/dL) 21 H Creatinine (0.7 - 1.2 mg/dL) 0.8 Estimated GFR (>60 ml/min) > 60 BUN/Creatinine Ratio (7 - 25 %) 26.3 H Magnesium (1.6 - 2.3 mg/dL) 1.1 L Hematology CBC w Diff NO MAN DIFF REQ WBC (4.8 - 10.8 /CUMM) 8.7 RBC (4.70 - 6.10 /CUMM) 3.76 L Hgb (14.0 - 18.0 G/DL) 11.5 L Hct (42 - 52 %) 34.9 L MCV (80.0 - 94.0 FL) 92.9 MCH (27.0 - 31.0 PG) 30.6 RDW (11.5 - 14.5 %) 14.9 H Plt Count (130 - 400 /CUMM) 152 MPV (7.4 - 10.4 FL) 9.3 Gran % (42.2 - 75.2 %) 67.4 Lymphocytes % (20.5 - 51.1 %) 15.9 L Monocytes % (1.7 - 9.3 %) 6.7 Eosinophils % (0 - 5 %) 9.6 H Basophils % (0.0 - 2.0 %) 0.4 Absolute Granulocytes (1.4 - 6.5 /CUMM) 5.9 Absolute Lymphocytes (1.2 - 3.4 /CUMM) 1.4 Absolute Monocytes (0.10 - 0.60 /CUMM) 0.6 Absolute Eosinophils (0.0 - 0.7 /CUMM) 0.8 Absolute Basophils (0.0 - 0.2 /CUMM) 0 PUBS MCHC (33.0 - 37.0 G/DL) 32.9 L Last 24 Hours of [place] Results: Blood cultures 2 September 10 negative Port-A-Cath tip culture September 10 less than 15 colonies of mixed organisms Assessment/Plan Impression: Polymicrobial bacteremia, with MRSA, diphtheroids and coag-negative Staph isolated from several blood cultures, most likely secondary to the Port-A-Cath, with the tip culture less than 15 colonies, possibly due to the antibiotics he received prior to the removal of the Port-A-Cath. He remains afebrile with white blood cell count normal on Vancomycin. He is scheduled for a KEE in the a.m. which will be helpful in determining the optimal duration of therapy. Suggestion: 1. Await KEE in am 2. Proceed with placement of PICC 3. Continue Vancomycin
--- NOTE | 2016-09-12 11:49 | RADIOLOGY REPORT ---
EXAMINATION: XR PORTABLE CHEST CLINICAL INFORMATION: PICC line placement. COMPARISON: Chest 09/06/2016. TECHNIQUE: Portable AP view of the chest was obtained. FINDINGS: Left PICC line has been removed. A new right PICC line insertion with its tip in mid SVC. The lungs are expanded and clear. The heart size and pulmonary vascularity is normal. No gross bony abnormality seen. IMPRESSION: Left PICC line has been removed. New right PICC line tip is in mid SVC. The lungs are clear.
[2016-09-12 16:22] VITALS: BP 122/64
[2016-09-12 23:28] VITALS: BP 108/70
--- NOTE | 2016-09-13 07:28 | PN- Housestaff ---
KATIE GOMESTASHABiju 09/13/16 0728: Subjective Follow-up For: hypomag MRSA bacteremia Subjective: Seen and examined patient. Stated that he was tired today because he was unable to sleep last night due to some discomfort from his PICC line dressing, had come off yesterday, after it was redressed his arm feels better. Denies fevers, chills, shortness of breath. As far as his dermatitis is concerned he states that he is okay with having the emollient does not wish anything more. Review of Systems Constitutional: Denies: chills, diaphoresis, fever, malaise, weakness, unexplained weight loss. Cardiovascular: Denies: chest pain, edema, orthopena, palpitations, peripheral edema, syncope. Respiratory: Denies: cough, hemoptysis, orthopnea, short of breath, sputum production, stridor, wheezing. Objective Last 24 Hrs of Vital Signs/I&O Vital Signs Date Time Temp Pulse Resp B/P Pulse O2 O2 Flow FiO2 Ox Delivery Rate 09/13 0813 97.6 97 18 142/98 09/13 0813 97.6 97 18 142/98 09/13 0752 97.6 97 18 142/98 96 Room Air / 2328 97.5 72 18 108/70 97 Room Air / 1622 97.5 86 18 122/64 98 Room Air 09/12 1228 76 132/80 03/ 1228 76 132/80 09/12 0932 Room Air 1.0L 09/12 0914 Room Air 1.0L Intake & Output 09/13 1600 09/13 0800 09/13 0000 Intake Total 0 930 Output Total 300 600 Balance -300 330 Intake, IV 250 Intake, Oral 0 680 Number 1 Bowel Movements Output, Urine 300 600 Physical Exam General Appearance: Alert, Oriented X3, Cooperative Skin: dermatitis over trunk and upper extremities, PICC line in left arm Cardiovascular: Regular Rate, Normal S1, Normal S2 Lungs: Clear to Auscultation, Normal Air Movement Current Medications: Current Medications Sig/Brennon Start time Last Medication Dose Route Stop Time Status Admin Acetaminophen 650 MG Q6P PRN 09/06 2014 AC PO Acetaminophen 1,000 MG Q6P PRN 09/06 2014 AC IV Docusate Sodium 100 MG BID 09/08 1000 AC 09/13 PO 0813 Enoxaparin Sodium 40 MG DAILY 09/10 1445 AC 09/12 MN 1229 Ferrous Sulfate 325 MG BID 09/06 2200 AC 09/13 PO 0812 Finasteride 5 MG DAILY 09/07 1000 AC 09/13 PO 0813 Fluorometholone 0.1 ML TID 09/06 2330 AC 09/13 OPH 0814 Glycerin/Mineral Oil 1 MEHUL TID PRN 09/10 1415 AC 09/11 TOP 1757 Insulin Aspart 0 TIDAC 09/07 0800 AC 09/12 SC 1748 Losartan Potassium 50 MG DAILY 09/07 1000 AC 09/13 PO 0813 Magnesium Oxide 1,200 MG BID 09/09 1021 AC 09/13 PO 0813 Magnesium Sulfate 1 GM Q2H 09/12 0845 DC 09/12 Dextrose/Water 100 ML IV 09/12 1244 1447 Mupirocin 1 MEHUL DAILY 09/07 1000 AC 09/13 TOP 0818 Patient Medication 1 ED .STK-MED ONE 09/12 1348 SC Teaching ED 09/12 1349 Tamsulosin HCl 0.4 MG DAILY 09/07 1000 AC 09/13 PO 0813 Vancomycin HCl 1,250 MG 09,09/12 0900 AC 09/13 Dextrose/Water 250 ML IV 0753 Zinc Oxide 1 MEHUL BID 09/07 1000 AC 09/12 TOP 2056 Last 24 Hrs of Lab/[place] Results Last 24 Hrs of Labs/Mics: Laboratory Tests 09/13/16 0815: Sodium Pending, Potassium Pending, Chloride Pending, Carbon Dioxide Pending, Anion Gap Pending, BUN Pending, Creatinine Pending, BUN/Creatinine Ratio Pending , Magnesium Pending Assessment/Plan Assessment: 76-year-old gentleman with a past medical history of adenocarcinoma of the colon on Panitumumab therapy found to be hypomagnesemic and positive for MRSA bacteremia. CTA of the chest revealed mild diffuse peribronchial thickening with platelike opacity in the periphery of the right lower lobe Continues to be afebrile, WBC trended down to normal, Blood cultures from 09/06 growing MRSA, blood cultures from [facility] growing GPC in clusters, cultures from 09/08 and 09/10 prelim report show no growth. Assessment 1. Hypomagnesemia secondary to chemotherapy 2. 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 History of hypertension 4. History of diabetes mellitus 5. History of new onset bilateral blepharitis and conjunctivitis secondary to chemotherapy 6. History of asbestos exposures in the past 7. MRSA bacteremia 8. ? Dermatitis va Psoriasis Plan: Hypermagnesemia secondary to chemotherapy magnesium level, pending we'll replete with IV magnesium and continue to replete by mouth accordingly On mouth doxycycline, for dermatitis he will need to be on it till January 21 2017. Continue IV vancomycin day 7. ID on board appreciate recomendations: will Continue Vancomycin to complete a two-week course (until September 24), Vancomycin trough level with next dose, Recheck CBC, BUN/creatinine and Vancomycin trough level in the middle of next week Echocardiogram shows no vegetation and normal EF of 60-65%, KEE is negative for any vegetations s/p PICC placement. Cardiology on board, appreciate recomendations. Pulmonary on board appreciate recommendations, will get outpatient PFTs Continue losartan, Proscar Dvt prophylaxis subcutaneous Lovenox Patient is full code. Currently gen med hold. Problem List: 1. Diabetes mellitus 2. Hypomagnesemia 3. MRSA bacteremia Pain Ratin Pain Location: na Pain Goal: Pain 4 or less Pain Plan: current regimen Tomorrow's Labs & Rationales: none required ALEX SAM MD 09/13/16 1131: Attending MD Review Statement Attending Statement Attending MD Statement: examined this patient, discuss w/resident/PA/INTRAMURAL DIRECTOR, agreed w/resident/PA/INTRAMURAL DIRECTOR, reviewed EMR data (avail) Attending Assessment/Plan: 76M PMH colon cancer s/p sigmoidectomy now with liver metastases on panalimumab presenting with shortness of breath and dyspnea on exertion, found to have severe hypomagnesemia with initial Mg 0.6, has recently been 1.1-1.2 despite daily IV and PO supplementation. Found to incidentally have mRSA bacteremia. Had chemotherapy port but has been removed yesterday. Blood cultures from 09/09 continue to be positive for mRSA. Afebrile, stable vitals, no complaints. AFVSS NAD Supple RRR CTAB Soft, NTND No c/c/e Pulses intact A&Ox3 no focal deficits 1. mRSA bacteremia 2. Hypomagnesemia 3. Stage IV colon cancer with liver metastases 4. Shortness of breath Plan - PICC line placed, had to be repositioned, still in place and functional - KEE today - May resume diet after procedure - Follow ID, oncology, cardiology recommendations - Follow culture results - IF fever spike, re-culture blood - Continue Magnesium repletion, would increase PO dose - Continue home medications - DVT PPx - Pending KEE results, patient may be discharged to [facility] later today or tomorrow morning. Will defer to ID for duration of antibiotic treatment following KEE
--- NOTE | 2016-09-13 07:49 | NUR ---
WOUND CARE: PT SEEN 09/12/16 FOR AREAS OF SKIN ALTERATION PRESENT ON ADMISSION - HX OBTAINED FROM PT - PT REPORTS PSORIASIS WITH RECENT FLARE UP CAUSING ITCHING AND FLAKING WITH REDNESS - PT REFUSING WASHING, INCONTINTNENT CARE, AND REPOSITION REPORTED BY NURSING STAFF - AFTER EDUCATION OF RISKS TO INC EXPOSURE, PT AGREED TO WASHING - LARGE AMOUNT OF URINE INCONT. - INC CARE PROVIDED - BUTTOCKS NOTED WITH INCONT ASSOCIATED DERMATITIS WITH MACERATION OF TISSUE AND SUPERFICIAL PINPOINT AREAS OF BREAKDOWN WITH REDNESS - NO C/O VOICED RECOMMENDATION: CONT TO ENCOURAGE INC CARE TWICE PER SHIFT AND PRN - APPLY DESITIN OINTMENT TO BUTTOCKS AND COCCYX QS AND PRN AFTER INC EPISODES PLEASE - REMAIN ON SIZE ANGULO MATTRESS -
[2016-09-13 07:52] VITALS: BP 142/98
--- NOTE | 2016-09-13 09:16 | Patient Discharge Instructions ---
Discharge Instructions General Discharge Information Special Instructions: PLEASE CONTINUE ANTIBIOTICS TILL 09/24/16 pLEASE CHECK VANCO TROUGH LEVEL ON 09/14/16 AND ADJUST DOSE ACCORDIGLY IF REQUIRED. Please follow up with your PCP within 7 days of discharge Please follow up with Dr. Alvarado upon discharge Acute Coronary Syndrome Inclusion Criteria At DC or during hospital stay patient has or had the following: ACS DIAGNOSIS No Discharge Core Measures Meds if any: Prescribed or Continued at Discharge Meds if any: NOT Prescribed or Continued at Discharge Congestive Heart Failure Inclusion Criteria At DC or during hospital stay patient has or had the following: CHF DIAGNOSIS No Discharge Core Measures Meds if any: Prescribed or Continued at Discharge Meds if any: NOT Prescribed or Continued at Discharge Cerebrovascular accident Inclusion Criteria At DC or during hospital stay patient has or had the following: CVA/TIA Diagnosis No Discharge Core Measures Meds if any: Prescribed or Continued at Discharge Meds if any: NOT Prescribed or Continued at Discharge Venous thromboembolism Inclusion Criteria VTE Diagnosis No VTE Type NONE VTE Confirmed by (Test) NONE Discharge Core Measures - Per Current guidelines, there needs to be overlap - treatment for the first 5 days of Warfarin therapy. - If discharged on Warfarin prior to 5 days of - overlap therapy, the patient will need to be - assessed for post discharge needs including - *Post discharge parental anticoagulation - *Warfarin and/or parental anticoagulation education - *Follow up date to check INR post discharge At least 5 days overlap therapy as Inpatient No Meds if any: Prescribed or Continued at Discharge Note: Overlap Therapy is Warfarin and Anticoagulant Meds if any: NOT Prescribed or Continued at Discharge
--- NOTE | 2016-09-13 09:21 | Discharge Summary ---
Visit Information Visit Dates Admission Date: 09/06/16 Discharge Date: 09/13/16 Hospital Course Course Attending Physician: CELSO DOOLEY MD Primary Care Physician: BRIGID BALLARD MD Hospital Course: Patient is 76-year-old male with a past medical history of hypertension, hyperlipidemia, iron deficiency anemia, adenocarcinoma of the colon stage IV with metastatic lesions to the liver status post palliative sigmoid resection in September 2013, currently on chemotherapy with which is scheduled every 2 weeks [facility] [place] and [facility] [place] under the supervision of Dr. Dash (HELD INPATIENT). The patient is done with 16 cycles of the chemotherapy so far and is scheduled for the next PRETTY therapy cycle on 09/10/2016 On the day of presentation, the patient was having persistent shortness of breath and mild dyspnea which was more pronounced on exertion. He came from an assisted living. He ambulates with a walker in his room and when he has to cross the other always he uses a scooter for ambulation. Imaging on admission CTA of the chest revealed mild diffuse peribronchial thickening with platelike opacity in the periphery of the right lower lobe WBC trended down to normal, Blood cultures from 09/06 growing MRSA, Blood cultures from Shakira-cath growing GPC in clusters, Blood cultures from 09/08 and 09/10 no growth till 09/13/16. Patient was treated for the following conditions; MRSA bacteremia, the source was found to be Shakira Cath which was removed. Patient stated that he had the shakira cath since 4 years for chemotherapy for rectal cancer. Patient was staretd on IV vancomycin for MRSA bacterimia which resulted in resolution of leukocytosis. After removal of Portocath, blood cultures from 09/10 were negative for bacterimeia so patient ahd a PICC line inserted. TTE was done with was negative for any vegitations. His KEE is also negative for any vegetations; therefore he should only require a two-week course of antibiotics till September 24. He is on Vancomycin 1250 mg BID. Hypomagnesemia secondary to chemotherapy- Patient was repeatedly repleted with IV magnesium and PO magensium. Mg improved from 0.6 to 1.1. He continues to be on 1200 mg of Mg at home that will be continued. Adenocarcinoma of the colon with metastatic lesions to the liver currently on Panitumumab therapy. His chemotherapy was held as an inpatient by Dr. Christine who is his Oncologist. Please follow up with Dr. Christine upon discharge for decision on restaring chemotherapy. History of hypertension Patient was continued on his home dose of anti hypertensives, Losartan 50 mg daily. History of diabetes mellitus, patient was continued on Novolog SS as inpatient. He would be continued on Metformin and Pioglitazone as an outpatient History of new onset bilateral blepharitis and conjunctivitis secondary to chemotherapy, Patient was continued on his prophylactic dose of doxycycline. Dermatitis va Psoriasis probably secondary to chemotherapy. Allyn void topical steorids due to an immunosupressive state secondary to chemotherapy. Lubiderm that he uses ta home was continued. Please request evaluation by dermatology as an outpatient is rash worsens. Allergies: Coded Allergies: chlorhexidine (Severe, RASH, SWELLING 09/09/16) Disposition Summary Disposition Principal Diagnosis: MRRSA bactermia secondary to Shakira cath Additional Diagnosis: Hypomagnesemia Discharge Disposition: SNF Discharge Instructions General Discharge Information Code Status: Full Code Patient's Diet: Heart healthy Patient's Activity: as tolerated Follow-Up Instructions/Appts: Please get Vanco trough level checked on 09/14 and dose vanco accordingly. Please complete antibiotics course till 09/24. Please follow up with Dr. Christine within 7 days post discharge regarding when to re-start chemotherapy. Please follow up with PCP within 7 days of discharge. Medications at Discharge Discharge Medications: Continue taking these medications: Ferrous Sulfate (Ferrous Sulfate) 325 MG TABLET 1 Tablet ORAL TWICE DAILY Comments: Last Taken: 09/13/16 Time:8:13A.M Metformin HCl (Metformin HCl) 1,000 MG TABLET 1 Tablet ORAL TWICE DAILY Comments: NOT GIVEN IN HOSPITAL Ondansetron HCl (Zofran) 8 MG TABLET 1 Tablet ORAL THREE TIMES DAILY as needed for NAUSEA/VOMITING Comments: NOT GIVEN IN HOSPITAL Pioglitazone HCl (Actos) 30 MG TABLET 1 Tablet ORAL DAILY Comments: NOT GIVEN IN HOSPITAL Tamsulosin HCl (Flomax) 0.4 MG CAP.ER.24H 1 Capsule ORAL DAILY Comments: Last Taken: 09/13/16 Time: 08:13A.M Telmisartan (Micardis) 40 MG TABLET 1 Tablet ORAL DAILY Comments: NOT GIVEN IN HOSPITAL Nystatin (Nystatin) 15 GM CREAM..G. 1 Application On the skin TWICE DAILY Days = 30 Comments: Last Taken: 12/01/15 Time: 9AM Fluocinonide (Fluocinonide) 15 GM CREAM..G. 1 Application On the skin TWICE DAILY Days = 30 Comments: Last Taken: NOT GIVEN THIS ADMISSION Time: Emollient Combination No.92 (Lubriderm Daily Moisture) 177 ML LOTION 1 Application ON SKIN THREE TIMES DAILY Days = 30 Comments: Last Taken: 09/13/16 Time: 1200 Finasteride (Finasteride) 5 MG TABLET 1 Tablet ORAL DAILY Qty = 30 Comments: Last Taken:09/13/16 Time:8:13A.M Fluorometholone (Fml S.o.p.) 0.1 % OINT...G. 1 Application In the eye THREE TIMES DAILY Comments: Last Taken:09/13/16 Time:8:13A.M Magnesium Oxide (Magox 400) 400 MG TABLET 3 Tablet ORAL TWICE DAILY Comments: Last Taken:09/13/16 Time:8:13A.M Metronidazole (Metronidazole) 1 % GEL..GRAM. 1 Application On the skin DAILY Qty = 60 Comments: Last Taken:NOT GIVEN THIS ADMISSION Time: Mupirocin (Mupirocin) 2 % OINT...G. 1 Application On the skin DAILY Qty = 22 Instructions: apply to affected area(s) Calcium Carbonate/Vitamin D3 (Oyster Shell 500 MG + Vit D Tb) 500 MG-200 TABLET 1 Tablet ORAL THREE TIMES DAILY Comments: Last Taken:NOT GIVEN THIS ADMISSION Time: Potassium Chloride (K-Tab ER) 10 MEQ TABLET.ER 1 Tablet ORAL DAILY Comments: Last Taken:NOT GIVEN THIS ADMISSION Time: Doxycycline Hyclate (Doxycycline Hyclate) 100 MG TABLET 1 Tablet ORAL TWICE DAILY Qty = 60 Comments: Last Taken:NOT GIVEN THIS ADMISSION Time: Start taking the following new medications: Vancomycin/0.9 % Sod Chloride (Vanco 1.25 Gm/250 Ml-0.9% NaCl) 1.25 GRAM/250 ML PLAST..BAG 1 Bag INTRAVEN EVERY 12 HOURS Qty = 22 No Refills Instructions: COMPLETE THE ANTIBIOTICS TILL 09/24/16 vancomycin trough required on 09/14/16 Comments: Last Taken:09/13/16 Time:08:00A.M Copies To: CECY PANDEY,RUBEN CHRISTINE MD,KELSI Aguilera; NELLIE PANDEY,BRIGID Bone
--- NOTE | 2016-09-13 10:00 | NUR ---
PHYSICAL THERAPY: RECIEVED CONSULT ORDERS, REVIEWED CHART, ATTEMPTED TO EVALUATE PATIENT THIS A.M. PATIENT CURRENTLY JUANA; WILL F/U APPROPRIATE.
--- NOTE | 2016-09-13 13:36 | PN- Infect Dx ---
Subjective Subjective: Afebrile without complaints Objective Last 24 Hrs of Vital Signs/I&O Vital Signs Date Time Temp Pulse Resp B/P Pulse O2 O2 Flow FiO2 Ox Delivery Rate 09/13 1229 Room Air 1.0L 09/13 0813 97.6 97 18 142/98 09/13 0813 97.6 97 18 142/98 09/13 0752 97.6 97 18 142/98 96 Room Air 09/12 2328 97.5 72 18 108/70 97 Room Air 09/12 1622 97.5 86 18 122/64 98 Room Air Intake & Output 09/13 1600 09/13 0800 09/13 0000 Intake Total 0 930 Output Total 300 600 Balance -300 330 Intake, IV 250 Intake, Oral 0 680 Number 1 Bowel Movements Output, Urine 300 600 Physical Exam Other Physical Findings: He appears comfortable in no acute distress Lungs are clear Heart regular rhythm with no murmur Extremities PICC in place in the left upper extremity Results Last 24 Hours of Lab Results: Laboratory Tests 09/13 814 Chemistry Sodium (137 - 145 mmol/L) 141 Potassium (3.5 - 5.1 mmol/L) 4.4 Chloride (98 - 107 mmol/L) 106 Carbon Dioxide (22 - 30 mmol/L) 29 Anion Gap (5 - 16) 6 BUN (9 - 20 mg/dL) 17 Creatinine (0.7 - 1.2 mg/dL) 0.7 Estimated GFR (>60 ml/min) > 60 BUN/Creatinine Ratio (7 - 25 %) 24.3 Magnesium (1.6 - 2.3 mg/dL) 1.2 L Last 24 Hours of Desmond Results: Blood cultures 2 September 10 remain negative Recent Imaging Studies: KEE, performed today, negative for any vegetations Assessment/Plan Impression: Stable on Vancomycin for polymicrobial bacteremia (MRSA, coag-negative Staph and diphtheroids) most likely secondary to the Port-A-Cath, status post removal 3 days ago, with temperatures and white blood cell count remaining normal and with blood cultures from September 10 remaining negative. His KEE is negative for any vegetations; therefore he should only require a two-week course of antibiotics. Suggestion: 1. Continue Vancomycin to complete a two-week course (until September 24) 2. Recheck Vancomycin trough level with next dose 3. Recheck CBC, BUN/creatinine and Vancomycin trough level in the middle of next week
--- NOTE | 2016-09-13 13:37 | NUR ---
Physical Therapy: Orders for evaluation recieved. Chart reviewed. Patient refused PT, saying that he is going home today. Will reattempt as appropriate.
[2016-09-13] MEDS ORDERED: VANCO 1.251.25 GM/25 IV (13:51)
--- NOTE | 2016-09-13 15:03 | ECHOCARDIOGRAM REPORT ---
ROSIO GRAFF Age: 76 : Gender: M Exam Date: 09/13/2016 09:16 Exam Location: Outpatient Ht (in): 66 Wt (lb): 260 BSA: 2.40 BP: 128 / 68 Ordering Physician: SIDNEY FITZGERALD MD Referring Physician: SIDNEY FITZGERALD MD Technologist: Sin Fritz RDCS Room Number: Indications: INFECTIVE ENDOCARDITIS Rhythm: Sinus Technical Quality: Good Medications Propofol administered by Anesthesiology. Ease of Transducer Insertion No Difficulty Complications None. Technical Difficulty none FINDINGS Left Ventricle Normal left ventricular wall motion. Right Ventricle Normal right ventricular size and function. Right Atrium Normal right atrial size. Left Atrium Normal left atrial size. LA Appendage Normal left atrial appendage. IA Septum Normal interatrial septum. No shunting across the interatrial septum by color-flow imaging. Mitral Valve Structurally normal mitral valve. There is some hypermobility of the chordae tendineae but no definite vegetations are seen on the valve. Trace to mild mitral regurgitation. Aortic Valve The aortic valve is trileaflet. There is minimal thickening of the aortic valve leaflets. There is no evidence of vegetations on the aortic valve. trace aortic regurgitation. Tricuspid Valve Structurally normal tricuspid valve. Trace tricuspid regurgitation. No vegetations seen. Pulmonic Valve Structurally normal pulmonic valve. There is no evidence of vegetations on the pulmonic valve. Pericardium No pericardial or pleural effusion. Great Vessels There is grade 1 plaquing of the descending aorta. CONCLUSIONS Structurally normal mitral valve. There is some hypermobility of the chordae tendineae but no definite vegetations are seen on the valve. There is minimal thickening of the aortic valve leaflets. There is no evidence of vegetations on the aortic valve. No significant chamber abnormalities. Physiologic valvular regurgitation. No evidence of vegetations on the cardiac valves. Sidney Fitzgerald M.D. (Electronically Signed) Final Date: 13 September 2016 15:03 MEASUREMENTS (Male / Female) Normal Values
[2016-09-13 15:49] VITALS: BP 142/98
[2016-10-29] MEDS ORDERED: ACTOS15 M1 PO (09:27)
== END 2016-09-13 16:40 | DRG 314 ==
LOC: ENRESERVDT → ENRESERVTM → ERH 14:10 → ENPENDDIS 18:54 → ERHI 18:54 → 1NO 18:54
PROVIDERS: Internal Medicine; Internal Medicine Nephrology; Physician Assistant; Radiology Diagnostic Radiology; ADMIT Student in an Organized Health Care Education/Training Program
PROC: B246ZZ4 Ultrasonography of Right and Left Heart, Transesophageal (ICD-10-PCS; principal; 2016-09-13)
DX: T80.211A Bloodstream infection due to central venous catheter, initial encounter (principal); A41.02 Sepsis due to Methicillin resistant Staphylococcus aureus; L89.311 Pressure ulcer of right buttock, stage 1; C78.7 Secondary malignant neoplasm of liver and intrahepatic bile duct; L89.321 Pressure ulcer of left buttock, stage 1; E11.9 Type 2 diabetes mellitus without complications; E83.42 Hypomagnesemia; Z68.41 Body mass index [BMI] 40.0-44.9, adult; D64.9 Anemia, unspecified; I10 Essential (primary) hypertension; E78.5 Hyperlipidemia, unspecified; E66.01 Morbid (severe) obesity due to excess calories; N40.0 Benign prostatic hyperplasia without lower urinary tract symptoms; H10.409 Unspecified chronic conjunctivitis, unspecified eye; Z87.891 Personal history of nicotine dependence; Z85.038 Personal history of other malignant neoplasm of large intestine; L40.9 Psoriasis, unspecified; J40 Bronchitis, not specified as acute or chronic; Z79.84 Long term (current) use of oral hypoglycemic drugs
CPT/HCPCS: 04007; 1NP; 1NSP; 87070; 87184; 87205; 36415; 81001; 82436; 87040; 87071; 87086; 87147; 87804; 87804-59; 93005; 93010; 93325; 96365; 96366; 96375; 96376; 99291; C1769; C8929; J1030; J1650; J2920; J2930; J3370; J7060; Q9957

== ENCOUNTER → 2016-11-01 | Day surgery (SDC) | payer OTHER, MEDICARE ==
[~2016-11-01] VITALS: Ht 167.6 cm; Wt 115.7 kg
[~2016-11-01] MED LIST changes: +ACTOS15 M1 PO; +DOXYCYCLINE HY100 M4 PO; +FINASTERIDE5 M1 PO; +FML S.O.P.3.5 GM OPH; +K-TAB ER10 MEQ PO; +LUBRIDERM DAIL177 ML TOP; +MAGOX 400400 MG PO; +METRONIDAZOLE60 GM TOP; +MUPIROCIN22 GM TOP; +OYSTER SHELL 51 EACH PO; +PROAIR HFA8.5 GM INH; +VANCO 1.251.25 GM/25 IV
--- NOTE | 2016-11-01 16:09 | RADIOLOGY REPORT ---
EXAMINATION: XR PORTABLE CHEST CLINICAL INFORMATION: Post Port-A-Cath COMPARISON: 09/12/2016 TECHNIQUE: Portable AP view of the chest was obtained. FINDINGS: catheter terminating in the region of the superior vena cava, however it appears curled over the right apex. This would be in the region of the brachiocephalic vein. The lung volumes are low. There is no pneumothorax. Laterally the port appears in the axillary region and there may be another area of kinking overlying the scapula. IMPRESSION: There is no pneumothorax. Findings as described above. Catheter tip in superior vena cava. Catheter appears curled at the level of the lung apex which may be in the brachiocephalic vein and in addition the proximal port overlies the right axillary scapular region and there may be a kink proximally as well. Suggest repeat film as soft tissue from the chin is in the region and therefore the catheter is not completely defined at the level of the right lung apex This critical result was discussed with Dr. Zamora at 4:00 PM on 11/01/2016 and it was ascertained that the content and urgency of the report was understood at the time of direct communication.
--- NOTE | 2016-11-01 16:14 | RADIOLOGY REPORT ---
EXAMINATION:\H\ \N\XR CHEST CLINICAL INFORMATION: Port-A-Cath placement COMPARISON: Chest x-ray 09/12/2016 TECHNIQUE: Frontal view of the chest was obtained. FINDINGS: Interval placement of right-sided Port-A-Cath. The tip terminates within the distal SVC. The apex of the catheter is obscured by the patient's chin, however, there appears to be some redundancy before the catheters insertion into the SVC. Stable cardiac silhouette. Prominent central pulmonary vasculature without overt edema. Low lung volumes. No focal consolidation. No pneumothorax. IMPRESSION: Interval placement of right-sided Port-A-Cath with some redundancy of the catheter before its insertion into the SVC. This area is obscured by the patient's chin. If indicated, a repeat chest x-ray may be obtained. No pneumothorax.
--- NOTE | 2016-11-01 16:36 | Operative Report ---
Operative/Inv Procedure Report Surgery Date: 11/01/16 Name of Procedure: right internal jugular portacath placement with fluoroscopic and ultrasound guidance Pre-Operative Diagnosis: colon cancer Post-Operative Diagnosis: same Estimated Blood Loss: scant Surgeon/Assisted Living Coordinator: RADHA PANDEY,WILFRED Mclain Anesthesia: local monitored anesthesi Implants: power port Operative/Procedure Note Note: After consent, brought to OR and laid supine. sedation obtained and chest and neck prepped and draped. Using ultrasound the axillary portion of the subclavian vein was identified and attempt at percutaneous access carried out but was unsuccessful. Inadvertent subclavian arterial puncture created and hemostasis achieved with direct pressure. I then aborted the subclavian and went to jugular vein. It was very large by ultrasound and puncture obtained without difficulty. Wire placed to atrium and confirmed with fluoroscopy. An incision was made below the clavical and pocket created bluntly. The catheter was tunnelled to neck and measured under fluoro to 30cm. The dilator placed under fluoro. The catheter was placed into it and peel away sheath removed. Final fluoro images showed it was in the atrium. He went into atrial flutter during placement of the sheath to hr150 and persisted after removal. It responed to esmolol and carotid massage with conversion to sinus 80bpm. I retracted the catheter to SVC. Port aspirated and flushed with concentrated heparin. Port anchored to deep tissues with 0 vicryl. Skin closed in layers of vicryl. Steri strips applied and sterile dressing.
== END ==
LOC: STS 01:45
DX: C18.9 Malignant neoplasm of colon, unspecified (principal); E11.9 Type 2 diabetes mellitus without complications; Z79.84 Long term (current) use of oral hypoglycemic drugs; E78.00 Pure hypercholesterolemia, unspecified; I10 Essential (primary) hypertension; Z22.322 Carrier or suspected carrier of Methicillin resistant Staphylococcus aureus
CPT/HCPCS: C1788; J1644; J2250; J3370; J7040

== ENCOUNTER 2016-12-24 14:53 | Inpatient (IN) | payer OTHER, MEDICARE ==
[~2016-12-24] VITALS: Ht 167.6 cm; Wt 111.1 kg
[~2016-12-24 14:53] MED LIST changes: -LUBRIDERM DAIL177 ML TOP; -PROAIR HFA8.5 GM INH
--- NOTE | 2016-12-24 14:59 | NUR ---
PT BIBA FROM [facility]. PT SIB [facility] FOR WOUND CHECK ON HIS SCROTUM AND BUTTOCKS
--- NOTE | 2016-12-24 15:01 | NUR ---
PER [facility] PT SENT IN FOR INCREASED WEAKNESS AND WOUNDS THAT ARE BLEEDING
[2016-12-24] MEDS ORDERED: LUBRIDERM DAIL177 ML TOP (15:41)
[2016-12-24] MEDS ORDERED: PROAIR HFA8.5 GM INH (15:44)
--- NOTE | 2016-12-24 15:55 | NUR ---
LABS OBTAINED (BC #1, SST AND LAV) PT IS A DIFFICULT STICK. UNABLE TO FULLY FILL THE LAV TOP AND WAS UNABLE TO OBTAIN THE ANTUNEZ FOR A LACTIC ACID NURSE AWARE
[2016-12-24 16:11] LABS: ABSOLUTE BASOPHIL COUNT 0 /CUMM (0.0-0.2); ABSOLUTE EOSINOPHIL COUNT 0.2 /CUMM (0.0-0.7); ABSOLUTE GRANULOCYTE CT 13.5 /CUMM (1.4-6.5); ABSOLUTE LYMPH COUNT 1.1 /CUMM (1.2-3.4); ABSOLUTE MONOCYTE COUNT 1.3 /CUMM (0.10-0.60); BASOPHIL % 0.2 % (0.0-2.0); EOSINOPHIL % 1.1 % (0-5); GRANULOCYTE % 83.8 % (42.2-75.2); MEAN CORPUSCULAR HGB 27.1 PG (27.0-31.0); MEAN CORPUSCULAR HGB CONC 32.7 G/DL (33.0-37.0); MEAN CORPUSCULAR VOLUME 82.8 FL (80.0-94.0); MEAN PLATELET VOLUME 9.9 FL (7.4-10.4); PLATELET COUNT 173 /CUMM (130-400); RBC DISTRIBUTION WIDTH 18.8 % (11.5-14.5); WHITE BLOOD CELL COUNT 16.1 /CUMM (4.8-10.8)
--- NOTE | 2016-12-24 16:29 | ED GENERAL ADULT ---
See Addendum History of Present Illness General Chief Complaint: General Adult Stated Complaint: WOUND CHECK Source: patient, old records, EMS Exam Limitations: no limitations Vital Signs & Intake/Output Vital Signs & Intake/Output Vital Signs Date Time Temp Pulse Resp B/P B/P Pulse O2 O2 Flow FiO2 Mean Ox Delivery Rate 12/24 1843 98.3 118 20 141/84 95 Room Air 12/24 1659 98.4 117 24 98/60 97 Room Air 12/24 1509 95 Room Air 12/24 1504 97.8 113 24 84/56 99 Room Air Allergies Coded Allergies: chlorhexidine (Severe, RASH, SWELLING 09/09/16) Reconcile Medications Albuterol Sulfate (Proair Hfa) 90 MCG HFA.AER.AD 2 PUF INH AD PRN RESPIRATORY (Reported) Calcium Carbonate/Vitamin D3 (Oyster Shell 500 MG + Vit D Tb) 500 MG-200 TABLET 1 TAB PO TID SUPPLEMENT (Reported) Emollient Combination No.92 (Lubriderm Daily Moisture) 177 ML LOTION 1 MEHUL TOP PRN SKIN (Reported) Ferrous Sulfate 325 MG TABLET 1 TAB PO BID VITAMIN SUPPORT (Reported) Finasteride 5 MG TABLET 1 TAB PO DAILY PROSTATE (Reported) Magnesium Oxide (Magox 400) 400 MG TABLET 3 TAB PO BID SUPPLEMENT (Reported) Metformin HCl 1,000 MG TABLET 1 TAB PO BID DIABETES (Reported) Pioglitazone HCl (Actos) 30 MG TABLET 1 TAB PO DAILY DIABETES (Reported) Potassium Chloride (K-Tab ER) 10 MEQ TABLET.ER 1 TAB PO DAILY DEHYDRATION ( Reported) Tamsulosin HCl (Flomax) 0.4 MG CAP.ER.24H 1 CAP PO DAILY UNKNOWN (Reported) Telmisartan (Micardis) 40 MG TABLET 1 TAB PO DAILY HEART HEALTH (Reported) Triage Note: [facility] FROM [facility]. PT SIB [facility] FOR WOUND CHECK ON HIS SCROTUM AND BUTTOCKS Triage Nurses Notes Reviewed? yes Onset: Abrupt Duration: week(s):, constant, getting worse Timing: recent history Severity: moderate, severe No Modifying Factors: none HPI: 76-year-old male comes into emergency room for open wounds and pain to his genital and low back. Patient has had these wounds for months that started after his motor in his recliner chair was not functioning properly. Patient was sent in by his wound care nurse. He denies any chest pain shortness of breath cough. Denies any abdominal pain. Severe pain to private area. Patient has a history of colon cancer and was recently told by his cancer doctor that he has some new spots in the liver in the lungs. (KAYKAY JEONG) Past History Travel History Traveled to [place] past 21 day No Medical History Any Pertinent Medical History? see below for history Neurological: NONE EENT: NONE Cardiovascular: hypertension, hyperlipidemia Respiratory: NONE Gastrointestinal: colon cancer with liver mets Hepatic: NONE Renal: benign prost hyperplasia Musculoskeletal: NONE Psychiatric: NONE Endocrine: diabetes Blood Disorders: anemia Cancer(s): colon/rectal cancer CAB STARTER/Reproductive: NONE Other Medical Hx: Psoriasis History of MRSA: Yes History of VRE: No History of CDIFF: No Surgical History Surgical History: sigmoid resection 2013 Port-A-Cath placement left upper chest September 2012 Psychosocial History Who do you live with [facility] What is your primary language Georgian Tobacco Use: Quit >30 days ago ETOH Use: denies use Illicit Drug Use: denies illicit drug use Family History Family History, If Any: MOTHER FH: heart failure FH: hyperthyroidism FATHER FH: diabetes mellitus FH: heart failure MOTHER Hx Contributory? No (KAYKAY JEONG) Review of Systems Review of Systems Constitutional: Reports: see HPI. EENTM: Reports: no symptoms. Respiratory: Reports: no symptoms. Cardiovascular: Reports: no symptoms. GI: Reports: no symptoms. Genitourinary: Reports: no symptoms. Musculoskeletal: Reports: see HPI. Skin: Reports: see HPI. Neurological/Psychological: Reports: no symptoms. Hematologic/Endocrine: Reports: no symptoms. Immunologic/Allergic: Reports: no symptoms. All Other Systems: Reviewed and Negative (KAYKAY JEONG) Physical Exam Physical Exam General Appearance: mild distress, obese Head: atraumatic Eyes: Bilateral: normal appearance. Ears, Nose, Throat: normal ENT inspection Neck: normal inspection Respiratory: no respiratory distress Cardiovascular: regular rate/rhythm, tachycardia Gastrointestinal: soft, non-tender Back: open sores to rear end, open sores to genitalia, some associated bleeding, no black tissue, tenderness with palpation, Extremities: pedal edema, swelling, tenderness Neurologic/Psych: awake, alert, oriented x 3 Skin: rash (see above) Core Measures ACS in differential dx? Yes CVA/TIA Diagnosis: No Severe Sepsis Present: Yes BC x2: Yes Lactic Acid x2: Yes IV ABX Broad Spectrum: Yes NS/LR Started: Yes Septic Shock Present: No (KAYKAY JEONG) ED Sepsis Exam Date of Focused Sepsis Exam: 12/24/16 Time of Focused Sepsis Exam: 1743 Sepsis Cardiac Exam: Tachycardia Sepsis Resp Exam: CTA Sepsis Cap Refill Exam: <2 Sec Sepsis Peripheral Pulse Exam: Weak Sepsis Peripheral Pulse Location: Radial Sepsis Skin Color Exam: Normal for Ethnicity Skin Temp/Moisture Exam: Cool/Dry (KAYKAY JEONG) Progress Differential Diagnoses I considered the following diagnoses in my evaluation of the patient: Sepsis, necrotizing fasciitis, cellulitis, UTI, pneumonia, dehydration, metastatic colon cancer, Plan of Care: Orders Procedure Date/time Status VANCOMYCIN (VANCOCIN) LEVEL 12/25 0600 Active CBC WITHOUT DIFFERENTIAL 12/25 0600 Active BASIC ELECTROLYTES PLUS BUN&CR 12/25 0600 Active MAGNESIUM 12/25 0200 Active Consistent Carbohydrate 3 12/24 D Active LACTIC ACID 12/24 2200 Active Vital Signs 12/24 2114 Active Teach/Educate 12/24 2114 Active Pain Treatment and Response 12/24 2114 Active Nutritional Intake, Monitor 12/24 2114 Active Isolation 12/24 2114 Active Intake & Output 12/24 2114 Active Patient Care Conference 12/24 2114 Active Activity/Ambulation 12/24 2114 Active Pathway - chart 12/24 210 Active Code Status 12/24 210 Active Add-on Test (ER Only) 12/24 1933 Active LACTIC ACID 12/24 1821 Complete ED Holding Orders 12/24 1805 Active Admit to inpatient 12/24 1805 Active Vital Signs 12/24 1805 Active Patient Data 12/24 1737 Active LACTIC ACID 12/24 1603 Complete PHOSPHORUS 12/24 1550 Complete MAGNESIUM 12/24 1550 Complete CREATINE PHOSPHOKINASE 12/24 1550 Complete BLOOD CULTURE 12/24 1521 Active C-REACTIVE PROTEIN 12/24 1521 Complete COMPREHENSIVE METABOLIC PANEL 12/24 1521 Complete CBC WITHOUT DIFFERENTIAL 12/24 1521 Complete EKG 12/24 1521 Active Intake & Output 12/24 1508 Active House Staff 12/24 UNK Active FingerStick- Glucose 12/24 UNK Active Current Medications Sig/Brennon Start time Last Medication Dose Stop Time Status Admin Finasteride 5 MG DAILY 12/25 1000 AC (Proscar) Insulin Aspart 0 TIDAC 12/25 0800 AC (NovoLOG) Heparin Sodium 5,000 UNIT Q8 12/24 2199 AC (Porcine) Insulin Aspart 0 AT BEDTIME 12/24 2199 AC (NovoLOG) Acetaminophen 650 MG Q6 PRN 12/24 2100 AC (Tylenol) Magnesium Sulfate 1 GM Q2H 12/24 2030 AC (Mag Sulfate in D5) 12/25 0029 Dextrose/Water 100 ML (D5W) Sodium Chloride 1,000 ML ONCE ONE 12/24 1944 AC (Normal Saline 0.9%) 12/25 0224 Albuterol Sulfate 2 PUF Q4P PRN 12/24 1929 AC (Ventolin) Ampicillin Sodium/ 3,000 MG Q6 12/24 1929 AC Sulbactam Sodium (Unasyn) Sodium Chloride 100 ML (Normal Saline 0.9%) Laboratory Tests 12/24/16 1825: Lactic Acid 3.3 H 12/24/16 161: Lactic Acid 4.5 H 12/24/16 1550: Anion Gap 16, Estimated GFR 23 L, BUN/Creatinine Ratio 15.6, Glucose 139 H, Calcium 6.9 L, Phosphorus 4.2, Magnesium 0.7 *L, Total Bilirubin 1.6 H, AST 220 H, ALT 72, Alkaline Phosphatase 263 H, Creatine Kinase 255 H, C-Reactive Prot, Quant > 9.0 H, Total Protein 5.8 L, Albumin 2.4 L, Globulin 3.4, Albumin/Globulin Ratio 0.7 L, CBC w Diff NO MAN DIFF REQ, RBC 2.90 L, MCV 82.8 , MCH 27.1, RDW 18.8 H, MPV 9.9, Gran % 83.8 H, Lymphocytes % 7.1 L, Monocytes % 7.8, Eosinophils % 1.1, Basophils % 0.2, Absolute Granulocytes 13.5 H, Absolute Lymphocytes 1.1 L, Absolute Monocytes 1.3 H, Absolute Eosinophils 0.2, Absolute Basophils 0, PUBS MCHC 32.7 L Microbiology 12/24 161 BLOOD: Blood Culture - RECD 12/24 1549 BLOOD: Blood Culture - RECD PATIENT AND RESULTS DISCUSSED WITH DR CHRISTINE WHO WILL CONSULT ON THE PATIENT. IMPROVED BLOOD PRESSURE AFTER FLUID RESUSSCITATION. WILL ADMIT TO UNDER DR SAM SERVICE. (TORI PANDEY,NADIYA) Initial ED EKG: normal sinus rhythm, rate (118), nonspecific ST T wave chg (MARIANA SCOTT,KAYKAY) Differential Diagnoses I considered the following diagnoses in my evaluation of the patient: Comments: PATIENT: ROSIO GRAFF PRESENT AGE: 76 PATIENT ACCOUNT NO: [id number] : 42 LOCATION: [facility] ORDERING PHYSICIAN: KAYKAY SCOTT SERVICE DATE: 12/24/16 EXAM TYPE: CAT - CT ABD & PELVIS W/O IV CONTRAS EXAMINATION: CT ABDOMEN AND PELVIS WITHOUT CONTRAST CLINICAL INFORMATION: Rolled and scrotal region and lower buttocks. Evaluate for necrotizing fasciitis. COMPARISON: CT abdomen and pelvis 11/27/2015. CTA chest 09/06/2016. TECHNIQUE: Multidetector volumetric imaging was performed from the superior aspect of the liver through the pubic symphysis. Sagittal and coronal reformatted images were obtained on the technologist's workstation. DLP: 1503 mGy-cm FINDINGS: Limited evaluation of the solid abdominal viscera in the absence of intravenous contrast. LUNG BASES: Interval development of multiple pulmonary nodules within the bilateral lung bases, suspicious for pulmonary metastases. Specifically, there are multiple subpleural and parenchymal pulmonary nodules within the right lung base visualized measuring up to 1.8 x 2.4 cm along the right hemidiaphragm (series 2, image 12). There is a new pulmonary nodule within the left lower lobe measuring 1 cm (series 2, image 13). No pleural effusions. Trace pericardial effusion. LIVER, GALLBLADDER, AND BILIARY TREE: Evaluation of the liver parenchyma is again notable for diffuse heterogeneity within the liver, notably within the left hepatic lobe. Specifically, there are several ill-defined hypoattenuating lesions which are visualized scattered throughout the left hepatic lobe as well as within the right hepatic lobe. These lesions are difficult to accurately measure given lack of intravenous contrast but are suspicious for widespread liver metastases. There is a new ill-defined hypoattenuating lesion within the posterior right hepatic lobe measuring approximately 1.5 x 2.0 cm (series 2, image 35). The liver is normal in size but lobular in contour. No intrahepatic or extrahepatic biliary ductal dilatation is identified. The gallbladder is physiologically distended without gallstones, gallbladder wall thickening or pericholecystic inflammatory changes. PANCREAS: Unremarkable. SPLEEN: Unremarkable. ADRENAL GLANDS: Unremarkable. KIDNEYS AND URETERS: Mild bilateral renal cortical atrophy. Rodlike calcifications within the bilateral kidneys may reflect vascular calcifications versus nephrolithiasis. No appreciable hydroureteronephrosis of either kidney or renal collecting system. BLADDER: Unremarkable. GASTROINTESTINAL TRACT: Evaluation of the gastrointestinal system demonstrates postsurgical changes related to prior distal colonic surgery and anastomosis. Abdominal and pelvic bowel loops are normal in caliber, without findings indicative of small bowel obstruction or ileus. There is a minimal amount of retained stool within the cecum and ascending colon. No organizing intra-abdominal or pelvic fluid collections are identified and there is no free intraperitoneal air. A normal-appearing appendix is present within the right lower quadrant of the abdomen. ABDOMINAL WALL: Evaluation of the abdominal wall is notable for a small fat-containing umbilical hernia. There are moderate to large bilateral fat-containing inguinal scrotal hernia is. No loops of bowel are visualized within these inguinal scrotal hernias. LYMPH NODES: No significant abdominal or pelvic adenopathy. VASCULAR: Normal course and caliber of the abdominal aorta and its branching vessels, without aneurysmal dilatation. Limited evaluation for vascular patency in the absence of intravenous contrast. PELVIC VISCERA: The bilateral buttocks are included in the [id number]. However, the most caudal extent of the scrota are not included in the [id number]. There is a moderate amount of subcutaneous edema and soft tissue swelling involving the bilateral scrotum. There are no scattered foci of subcutaneous emphysema. There are no visible fluid collections within the imaged scrotum or within the bilateral buttocks. OSSEOUS STRUCTURES: No acute osseous abnormality. Moderate degenerative changes involving the bilateral hip joints. Moderate to severe multilevel degenerative disc disease and facet arthrosis of the thoracolumbar spine. Incidental note is made of a stable focal lucency within the L3 vertebral body measuring approximately 1.5 cm. IMPRESSION: 1. The bilateral buttocks are included in the [id number]. However, the most caudal extent of the bilateral scrota are excluded from the [id number]. There is a moderate amount of subcutaneous edema, soft tissue swelling and skin thickening involving the imaged portions of the bilateral scrota. There are no visible scattered foci of subcutaneous emphysema. There are no visible organizing fluid collections within the imaged portions of the scrota or within the bilateral buttocks. 2. Interval development of multiple pulmonary nodules within the bilateral lung bases, suspicious for pulmonary metastases given the patient's history of metastatic colon cancer. 3. Diffuse heterogeneity of the liver parenchyma, notably the left hepatic lobe, suspicious for liver metastases. Interval development of ill-defined hypoattenuating lesions within the right hepatic lobe, suspicious for worsening metastatic disease within the liver. 4. Moderate to large bilateral fat-containing inguinal hernias. Small fat-containing umbilical hernia. This critical result was discussed with Dr. Kaykay Gomez at 6:55 PM on 12/24/2016 and it was ascertained that the content and urgency of the report was understood at the time of direct communication. DICTATED BY: SERA SAUCEDA MD DATE/TIME DICTATED:12/24/161827 ROOM WORKER:EMILY DATE/TIME TRANSCRIBED:12/24/161827 CONFIDENTIAL, DO NOT COPY WITHOUT APPROPRIATE AUTHORIZATION. <Electronically signed in Other Vendor System> SIGNED BY: SERA SAUCEDA MD 12/24/16 1900 (NADIYA VALLE MD) Departure Departure Disposition: STILL A PATIENT Condition: Stable Clinical Impression Primary Impression: Sepsis Secondary Impressions: Acute renal failure, Colon cancer metastasized to liver Referrals: BRIGID BALLARD MD (PCP/Family) Departure Forms: Customer Survey General Discharge Information Admission Note Spoke With: ALEX SAM MD Documentation of Exam: Documentation of any treatments & extenuating circumstances including Concerns Regarding Discharge (functional status, medication knowledge or non-compliance, living conditions, etc.) that warrant an admission rather than observation: Patient will require IV fluids. IV antibiotics. Repeat labs. Oncology consultation. Wound care consultation. Patient was hypotensive. Elevated white count. Meets criteria for sepsis. Patient would do poorly as an outpatient. (KAYKAY JEONG) PA/BANANA RIPENING ROOM SUPERVISOR Co-Sign Statement Statement: ED Attending supervision documentation- [X] I saw and evaluated the patient. I have also reviewed all the pertinent lab results and diagnostic results. I agree with the findings and the plan of care as documented in the PA's/BANANA RIPENING ROOM SUPERVISOR's documentation. [X] I have reviewed the ED Record and agree with the PA's/BANANA RIPENING ROOM SUPERVISOR's documentation. [] Additions or exceptions (if any) to the PAs/BANANA RIPENING ROOM SUPERVISOR's note and plan are summarized below: [] (NADIYA VALLE MD) Critical Care Note Critical Care Note Critical Care Time: 30-74 min (45) (MARIANA SCOTT,KAYKAY)
--- NOTE | 2016-12-24 16:30 | NUR ---
SEVERAL NURSES UNABLE TO OBTAIN ACCESS, DR VALLE AT BEDSIDE, VERBAL TO ACCESS PORT. TO RIGHT CHEST WALL, SINGLE LUMEN. PORT ACCESSED WITH RODRIGUEZ NEEDLE, 20G X 0.75INCH. + BR,ACCESSED UNDER STERILE FIELD, PT TOLERATED PROCEDURE WELL. LABS OBTAINED.
--- NOTE | 2016-12-24 17:26 | NUR ---
CRITICAL TEST RESULTS [id number] ROSIO GRAFF 76 M TESTS AND RESULTS: LACTIC 4.5 Results received and read back by: OLGA LEUNG Results received date and time: 12/24/16 1727 The following provider was notified of the results, and read the results back: TYLER MCCRACKEN Notified date and time: 12/24/16 at 1700
--- NOTE | 2016-12-24 18:05 | NUR ---
PT TO CT
--- NOTE | 2016-12-24 18:17 | NUR ---
PT RETURNED FROM CT
--- NOTE | 2016-12-24 18:32 | NUR ---
PT HAS BED ASSIGNMENT 221-1. RN NOTIFIED.
--- NOTE | 2016-12-24 18:58 | NUR ---
CRITICAL TEST RESULTS [id number] ROSIO GRAFF 76 M TESTS AND RESULTS: LACTIC 3.3 Results received and read back by: OLGA LEUNG Results received date and time: 12/24/16 1858 The following provider was notified of the results, and read the results back: DR HATCH Notified date and time: 12/24/16 at 1900
--- NOTE | 2016-12-24 19:00 | CT SCAN REPORT ---
EXAMINATION: CT ABDOMEN AND PELVIS WITHOUT CONTRAST CLINICAL INFORMATION: Rolled and scrotal region and lower buttocks. Evaluate for necrotizing fasciitis. COMPARISON: CT abdomen and pelvis 11/27/2015. CTA chest 09/06/2016. TECHNIQUE: Multidetector volumetric imaging was performed from the superior aspect of the liver through the pubic symphysis. Sagittal and coronal reformatted images were obtained on the technologist's workstation. DLP: 1503 mGy-cm FINDINGS: Limited evaluation of the solid abdominal viscera in the absence of intravenous contrast. LUNG BASES: Interval development of multiple pulmonary nodules within the bilateral lung bases, suspicious for pulmonary metastases. Specifically, there are multiple subpleural and parenchymal pulmonary nodules within the right lung base visualized measuring up to 1.8 x 2.4 cm along the right hemidiaphragm (series 2, image 12). There is a new pulmonary nodule within the left lower lobe measuring 1 cm (series 2, image 13). No pleural effusions. Trace pericardial effusion. LIVER, GALLBLADDER, AND BILIARY TREE: Evaluation of the liver parenchyma is again notable for diffuse heterogeneity within the liver, notably within the left hepatic lobe. Specifically, there are several ill-defined hypoattenuating lesions which are visualized scattered throughout the left hepatic lobe as well as within the right hepatic lobe. These lesions are difficult to accurately measure given lack of intravenous contrast but are suspicious for widespread liver metastases. There is a new ill-defined hypoattenuating lesion within the posterior right hepatic lobe measuring approximately 1.5 x 2.0 cm (series 2, image 35). The liver is normal in size but lobular in contour. No intrahepatic or extrahepatic biliary ductal dilatation is identified. The gallbladder is physiologically distended without gallstones, gallbladder wall thickening or pericholecystic inflammatory changes. PANCREAS: Unremarkable. SPLEEN: Unremarkable. ADRENAL GLANDS: Unremarkable. KIDNEYS AND URETERS: Mild bilateral renal cortical atrophy. Rodlike calcifications within the bilateral kidneys may reflect vascular calcifications versus nephrolithiasis. No appreciable hydroureteronephrosis of either kidney or renal collecting system. BLADDER: Unremarkable. GASTROINTESTINAL TRACT: Evaluation of the gastrointestinal system demonstrates postsurgical changes related to prior distal colonic surgery and anastomosis. Abdominal and pelvic bowel loops are normal in caliber, without findings indicative of small bowel obstruction or ileus. There is a minimal amount of retained stool within the cecum and ascending colon. No organizing intra-abdominal or pelvic fluid collections are identified and there is no free intraperitoneal air. A normal-appearing appendix is present within the right lower quadrant of the abdomen. ABDOMINAL WALL: Evaluation of the abdominal wall is notable for a small fat-containing umbilical hernia. There are moderate to large bilateral fat-containing inguinal scrotal hernia is. No loops of bowel are visualized within these inguinal scrotal hernias. LYMPH NODES: No significant abdominal or pelvic adenopathy. VASCULAR: Normal course and caliber of the abdominal aorta and its branching vessels, without aneurysmal dilatation. Limited evaluation for vascular patency in the absence of intravenous contrast. PELVIC VISCERA: The bilateral buttocks are included in the [id number]. However, the most caudal extent of the scrota are not included in the [id number]. There is a moderate amount of subcutaneous edema and soft tissue swelling involving the bilateral scrotum. There are no scattered foci of subcutaneous emphysema. There are no visible fluid collections within the imaged scrotum or within the bilateral buttocks. OSSEOUS STRUCTURES: No acute osseous abnormality. Moderate degenerative changes involving the bilateral hip joints. Moderate to severe multilevel degenerative disc disease and facet arthrosis of the thoracolumbar spine. Incidental note is made of a stable focal lucency within the L3 vertebral body measuring approximately 1.5 cm. IMPRESSION: 1. The bilateral buttocks are included in the [id number]. However, the most caudal extent of the bilateral scrota are excluded from the [id number]-[id number]. There is a moderate amount of subcutaneous edema, soft tissue swelling and skin thickening involving the imaged portions of the bilateral scrota. There are no visible scattered foci of subcutaneous emphysema. There are no visible organizing fluid collections within the imaged portions of the scrota or within the bilateral buttocks. 2. Interval development of multiple pulmonary nodules within the bilateral lung bases, suspicious for pulmonary metastases given the patient's history of metastatic colon cancer. 3. Diffuse heterogeneity of the liver parenchyma, notably the left hepatic lobe, suspicious for liver metastases. Interval development of ill-defined hypoattenuating lesions within the right hepatic lobe, suspicious for worsening metastatic disease within the liver. 4. Moderate to large bilateral fat-containing inguinal hernias. Small fat-containing umbilical hernia. This critical result was discussed with Dr. Rupert Gomez at 6:55 PM on 12/24/2016 and it was ascertained that the content and urgency of the report was understood at the time of direct communication.
--- NOTE | 2016-12-24 19:30 | History & Physical ---
SONALI PANDEY,[facility] 12/24/161928: General Information and HPI MD Statement: I have seen and personally examined ROSIO STEELE and documented this H&P. The patient is a 76 year old M who presented with a patient stated chief complaint of weakness Source of Information: patient, family, old records Exam Limitations: no limitations History of Present Illness: Mr Steele is a 76-year-old male with a past medical history of hypertension, hyperlipidemia, iron deficiency anemia, adenocarcinoma of the colon stage IV with metastatic lesions to the liver status post palliative sigmoid resection in September 2013, who presented to the emergency department on the evening of 2016 after the patient found that he was unable to stand upright during the day. Over the last 6 months the patient who has an automated chair has developed chronic ulcers in the coccxy and scrotum area. Patient states since his automated chair was no longer functional he has had to get in and out of bed using his manual strength. As a result of this scrapes to his back and scrotum area have gradually worsened and over the last 3 months this is become noticeably uncomfortable. This afternoon prior to admission the patient noted a few drops of blood from his chronic wounds which when were being changed by the visiting nurse. He felt that while the dressing was being changed the prolonged duration of standing made him feel lightheaded and had to sit down multiple times. At the assisting living he requested for an ambulance to be called. Two nurses came to evaluate him and felt that there was no reason for him to come to the ER however he subsequently insisted that he should and was brought in for further workup. The patient is a patient of Dr. Dash and is currently taking break from chemotherapy. He recently had a PET scan at [facility]. He also has a PICC line in place. Allergies/Medications Allergies: Coded Allergies: chlorhexidine (Severe, RASH, SWELLING 09/09/16) Home Med list Albuterol Sulfate (Proair Hfa) 90 MCG HFA.AER.AD 2 PUF INH AD PRN RESPIRATORY (Reported) Calcium Carbonate/Vitamin D3 (Oyster Shell 500 MG + Vit D Tb) 500 MG-200 TABLET 1 TAB PO TID SUPPLEMENT (Reported) Emollient Combination No.92 (Lubriderm Daily Moisture) 177 ML LOTION 1 MEHUL TOP PRN SKIN (Reported) Ferrous Sulfate 325 MG TABLET 1 TAB PO BID VITAMIN SUPPORT (Reported) Finasteride 5 MG TABLET 1 TAB PO DAILY PROSTATE (Reported) Magnesium Oxide (Magox 400) 400 MG TABLET 3 TAB PO BID SUPPLEMENT (Reported) Metformin HCl 1,000 MG TABLET 1 TAB PO BID DIABETES (Reported) Pioglitazone HCl (Actos) 30 MG TABLET 1 TAB PO DAILY DIABETES (Reported) Potassium Chloride (K-Tab ER) 10 MEQ TABLET.ER 1 TAB PO DAILY DEHYDRATION ( Reported) Tamsulosin HCl (Flomax) 0.4 MG CAP.ER.24H 1 CAP PO DAILY UNKNOWN (Reported) Telmisartan (Micardis) 40 MG TABLET 1 TAB PO DAILY HEART HEALTH (Reported) Compliance With Home Meds: GOOD Past History Travel History Traveled to [place] past 21 day No Medical History Neurological: NONE EENT: NONE Cardiovascular: hypertension, hyperlipidemia Respiratory: NONE Gastrointestinal: colon cancer with liver mets Hepatic: NONE Renal: benign prost hyperplasia Musculoskeletal: NONE Psychiatric: NONE Endocrine: diabetes Blood Disorders: anemia Cancer(s): colon/rectal cancer SENIOR ASIC DESIGN ENGINEER/Reproductive: NONE Other Medical Hx: Psoriasis History of MRSA: Yes History of VRE: No History of CDIFF: No Surgical History Surgical History: sigmoid resection 2013 Port-A-Cath placement left upper chest September 2012 Past Family/Social History Family History Relations & Conditions if any MOTHER FH: heart failure FH: hyperthyroidism FATHER FH: diabetes mellitus FH: heart failure MOTHER Psychosocial History Where do you live? Extended Care Facility Who Do You Live With? self Services at Home: Nursing Primary Language: Setswana ETOH Use: denies use Illicit Drug Use: denies illicit drug use Functional Ability ADLs Independent: dressing, eating, toileting, bathing. Ambulation: cane, scooter Review of Systems Review of Systems Constitutional: Reports: malaise, weakness. Denies: chills, diaphoresis, fever. Cardiovascular: Denies: chest pain, edema, orthopena, palpitations, peripheral edema. Respiratory: Reports: short of breath. Denies: hemoptysis, orthopnea, sputum production, stridor. GI: Denies: abdominal pain, bloating, constipation, diarrhea. Genitourinary: Denies: discharge, dysuria, frequency, hematuria, hesitation. Musculoskeletal: Reports: back pain (WOund Site ). Exam & Diagnostic Data Last 24 Hrs of Vital Signs/I&O Vital Signs Date Time Temp Pulse Resp B/P B/P Pulse O2 O2 Flow FiO2 Mean Ox Delivery Rate 12/24 1843 98.3 118 20 141/84 95 Room Air 12/24 1659 98.4 117 24 98/60 97 Room Air 12/24 1509 95 Room Air 12/24 1504 97.8 113 24 84/56 99 Room Air Intake & Output 12/24 1600 12/24 0800 12/24 0000 Intake Total Output Total Balance Patient 111.13 kg Weight Weight Reported by Patient Measurement Method Physical Exam General Appearance Alert, Mild Distress Skin Stage III decubitous ulcer present on admission. Dressing over it. Multiple shallow ulcers oozing serosanguinous fluid. Extremetly tender. Skin Temp/Moisture Exam: Warm/Dry Sepsis Skin Exam (color): Normal for Ethnicity, Flushed Cardiovascular Normal S1, Normal S2, Tachycardic Lungs Clear to Auscultation, Normal Air Movement, Limited Exams due to body habitus Abdomen Normal Bowel Sounds, Soft, Distended Neurological Normal Speech Extremities Edema 2+ Vascular Normal Pulses Sepsis Peripheral Pulse Location: Dorsalis Pedis Sepsis Peripheral Pulse Exam: Normal Sepsis Cap Refill Exam: >2 sec Last 24 Hrs of Labs/Desmond: Laboratory Tests 12/24/16 1825: Lactic Acid 3.3 H 12/24/16 1615: Lactic Acid 4.5 H 12/24/16 1550: Anion Gap 16, Estimated GFR 23 L, BUN/Creatinine Ratio 15.6, Glucose 139 H, Calcium 6.9 L, Phosphorus 4.2, Magnesium 0.7 *L, Total Bilirubin 1.6 H, AST 220 H, ALT 72, Alkaline Phosphatase 263 H, Creatine Kinase 255 H, C-Reactive Prot, Quant > 9.0 H, Total Protein 5.8 L, Albumin 2.4 L, Globulin 3.4, Albumin/Globulin Ratio 0.7 L, CBC w Diff NO MAN DIFF REQ, RBC 2.90 L, MCV 82.8 , MCH 27.1, RDW 18.8 H, MPV 9.9, Gran % 83.8 H, Lymphocytes % 7.1 L, Monocytes % 7.8, Eosinophils % 1.1, Basophils % 0.2, Absolute Granulocytes 13.5 H, Absolute Lymphocytes 1.1 L, Absolute Monocytes 1.3 H, Absolute Eosinophils 0.2, Absolute Basophils 0, PUBS MCHC 32.7 L Microbiology 12/24 1615 BLOOD: Blood Culture - RECD 12/24 1550 BLOOD: Blood Culture - RECD Diagnostic Data EKG Results Rate 118 QTC 466 KS 140 Sinus Tachycardia Other Results SERVICE DATE: 12/24/16 EXAM TYPE: CAT - CT ABD & PELVIS W/O IV CONTRAS EXAMINATION: CT ABDOMEN AND PELVIS WITHOUT CONTRAST CLINICAL INFORMATION: Rolled and scrotal region and lower buttocks. Evaluate for necrotizing fasciitis. COMPARISON: CT abdomen and pelvis 11/27/2015. CTA chest 09/06/2016. TECHNIQUE: Multidetector volumetric imaging was performed from the superior aspect of the liver through the pubic symphysis. Sagittal and coronal reformatted images were obtained on the technologist's workstation. DLP: 1503 mGy-cm FINDINGS: Limited evaluation of the solid abdominal viscera in the absence of intravenous contrast. LUNG BASES: Interval development of multiple pulmonary nodules within the bilateral lung bases, suspicious for pulmonary metastases. Specifically, there are multiple subpleural and parenchymal pulmonary nodules within the right lung base visualized measuring up to 1.8 x 2.4 cm along the right hemidiaphragm (series 2, image 12). There is a new pulmonary nodule within the left lower lobe measuring 1 cm (series 2, image 13). No pleural effusions. Trace pericardial effusion. LIVER, GALLBLADDER, AND BILIARY TREE: Evaluation of the liver parenchyma is again notable for diffuse heterogeneity within the liver, notably within the left hepatic lobe. Specifically, there are several ill-defined hypoattenuating lesions which are visualized scattered throughout the left hepatic lobe as well as within the right hepatic lobe. These lesions are difficult to accurately measure given lack of intravenous contrast but are suspicious for widespread liver metastases. There is a new ill-defined hypoattenuating lesion within the posterior right hepatic lobe measuring approximately 1.5 x 2.0 cm (series 2, image 35). The liver is normal in size but lobular in contour. No intrahepatic or extrahepatic biliary ductal dilatation is identified. The gallbladder is physiologically distended without gallstones, gallbladder wall thickening or pericholecystic inflammatory changes. PANCREAS: Unremarkable. SPLEEN: Unremarkable. ADRENAL GLANDS: Unremarkable. KIDNEYS AND URETERS: Mild bilateral renal cortical atrophy. Rodlike calcifications within the bilateral kidneys may reflect vascular calcifications versus nephrolithiasis. No appreciable hydroureteronephrosis of either kidney or renal collecting system. BLADDER: Unremarkable. GASTROINTESTINAL TRACT: Evaluation of the gastrointestinal system demonstrates postsurgical changes related to prior distal colonic surgery and anastomosis. Abdominal and pelvic bowel loops are normal in caliber, without findings indicative of small bowel obstruction or ileus. There is a minimal amount of retained stool within the cecum and ascending colon. No organizing intra-abdominal or pelvic fluid collections are identified and there is no free intraperitoneal air. A normal-appearing appendix is present within the right lower quadrant of the abdomen. ABDOMINAL WALL: Evaluation of the abdominal wall is notable for a small fat-containing umbilical hernia. There are moderate to large bilateral fat-containing inguinal scrotal hernia is. No loops of bowel are visualized within these inguinal scrotal hernias. LYMPH NODES: No significant abdominal or pelvic adenopathy. VASCULAR: Normal course and caliber of the abdominal aorta and its branching vessels, without aneurysmal dilatation. Limited evaluation for vascular patency in the absence of intravenous contrast. PELVIC VISCERA: The bilateral buttocks are included in the [id number]. However, the most caudal extent of the scrota are not included in the [id number]. There is a moderate amount of subcutaneous edema and soft tissue swelling involving the bilateral scrotum. There are no scattered foci of subcutaneous emphysema. There are no visible fluid collections within the imaged scrotum or within the bilateral buttocks. OSSEOUS STRUCTURES: No acute osseous abnormality. Moderate degenerative changes involving the bilateral hip joints. Moderate to severe multilevel degenerative disc disease and facet arthrosis of the thoracolumbar spine. Incidental note is made of a stable focal lucency within the L3 vertebral body measuring approximately 1.5 cm. IMPRESSION: 1. The bilateral buttocks are included in the [id number]. However, the most caudal extent of the bilateral scrota are excluded from the [id number]. There is a moderate amount of subcutaneous edema, soft tissue swelling and skin thickening involving the imaged portions of the bilateral scrota. There are no visible scattered foci of subcutaneous emphysema. There are no visible organizing fluid collections within the imaged portions of the scrota or within the bilateral buttocks. 2. Interval development of multiple pulmonary nodules within the bilateral lung bases, suspicious for pulmonary metastases given the patient's history of metastatic colon cancer. 3. Diffuse heterogeneity of the liver parenchyma, notably the left hepatic lobe, suspicious for liver metastases. Interval development of ill-defined hypoattenuating lesions within the right hepatic lobe, suspicious for worsening metastatic disease within the liver. 4. Moderate to large bilateral fat-containing inguinal hernias. Small fat-containing umbilical hernia. Assessment/Plan Assessment: Mr Steele is a 76-year-old male with a past medical history of hypertension, hyperlipidemia, iron deficiency anemia, adenocarcinoma of the colon stage IV with metastatic lesions to the liver status post palliative sigmoid resection in September 2013, who presented to the emergency department complaining of weakness and lethargy and unable to stand. At the time of admission patient did meet sepsis criteria with white cell count been 16.1. Hypotension of 84/56, respiratory rate of 24 and pulse rate of 113. In emergency department the patient was given vancomycin and ceftazidime. Sepsis, source sacral and scrotal wound Begin the patient on vancomycin and Unasyn. Patient has had no history of pseudomonal growth coverage can be held for now. White cell at the time of admission 16.1. Repeat CBC in a.m. Patient did have an elevated lactic acid on admission. These have been trended. Continue trending till trend down. Ensure mean arterial pressure was maintained above 65. Patient becomes hypotensive consider transfer to ICU. May require pressors if does not respond well to fluids. Check BP, magnesium, phosphate, CPK in a.m. Check LFTs in a.m. Follow up Blood cultures. Strict I and Os. Hypomagnesemia. Level at the time of admission was 0.7. Patient does have a history of chronic hypomagnesemia. Repeat level at 10 PM. Aggressive magnesium repletion History of hypertension Blood pressure on admission: 84/56, has responded to fluid hydration and is currently BP 141/84. Hold antihypertensives. May consider resuming once patient's pressure is more elevated. History of diabetes Begin patient on insulin sliding scale. Maintain blood sugar between 140 and 180. Hold Metformin Sacral and scrotum wounds over last 6 months. Obtain wound consult in a.m. Obtain surgical consult to assess need for surgical intervention of wound. CT scan was negative for necrotizing fasciitis in the emergency department. History of adenocarcinoma of the colon. Courtesy call to Dr Alvarado in am that the patient has been admitted. DVT prophylaxis Subcutaneous Lovenox. Code Full code As Ranked By This Provider Problem List: 1. Sepsis 2. Acute renal failure 3. Shock 4. Renal failure 5. Colon cancer metastasized to liver Core Measures/Miscellaneous Acute Coronary Syndrome ACS Diagnosis: No Cerebrovascular Accident CVA/TIA Diagnosis: No Congestive Heart Failure CHF Diagnosis: No VTE (View Protocol) VTE Risk Factors: Acute medical illness, Age > 40 No Mech VTE prophylaxis d/t: LE Edema No VTE Pharm Prophylaxis d/t: No contraindications VTE Diagnosis: No VTE Type: NONE VTE Confirmed by (Test): NONE Sepsis (View Protocol) Severe Sepsis Present: Yes BC x2: Yes Lactic Acid x2: Yes IV ABX Broad Spectrum: Yes NS/LR Started: Yes Septic Shock Septic Shock Present: No Miscellaneous Documentation Attending Case Discussed With: Dr Kaufman Primary Care Physician: BRIGID BALLARD MD Patient sees these Specialists Dr Alvarado Level of Patient Care: General Medicine NAIDA PANDEY,[facility] 12/24/161935: Resident Review Statement Resident Statement: examined this patient, discussed with music industry intern, agreed with music industry intern Other Findings: Mr. Cormier is 76-year-old man with a past medical history of MRSA bacteremia with line sepsis in the past, hypertension, hyperlipidemia, iron deficiency anemia, adenocarcinoma of the colon stage IV with metastatic lesions to the liver status post palliative sigmoid resection in September 2013, and status post chemotherapy (PRETTY), with Dr. Alvarado. His oncologist recently discovered a new liver and pulmonary metastasis on follow, up and he was being planned for immunotherapy (?Vectibix). He is ambulant with a walker at baseline. He lives at an assisted living facility and has a sacral decubitus ulcer which was being dressed by a visiting nurse. However, for the past 3 months he has been experiencing recurrent trauma/ scraping to his buttock area whenever he tried to get up from his reclining chair (His chair recliner motor broke 3 months ago and could no longer go up from a reclining position to help him to stand up). However, he started to feel some generalized weakness over the past 3 weeks. He subsequently experienced some skin peeling and bleeding from his scrotum and groin region today when he was standing up for his visiting nurse to dress his sacral wound. In addition, he felt very weak and felt short of breath on standing up. He denied cough, wheeze, fevers, chills, nausea, vomiting, diarrhea, dysuria. On account of his weakness and shortness of breath he requested the staff at the assisted living bring him to the ER for evaluation. Vital signs on admission show temperature of 97.8F, pulse of 113 bpm, respiratory rate of 24, blood pressure of 84/56 mmHg, pulse oximetry of 99 on room air. Physical Exam General: Appearance Alert, Cooperative, Morbidly obese with generalized dry flaky skin/icthyosis HEENT: EOMI, Mucous Membranes moist Neck: Full range of motion Cardiovascular: Normal S1, Normal S2, no murmurs Lungs: Normal Air Movement, Diminshed breath sounds in the lung bases bilaterally Abdomen: Obese, soft, No Tenderness, Normal Bowel Sounds Back/groin: Decubitus ulcer stage 3 present on admission with duoderm dressing over it. Scrotum is edematous and inflamed with several shallow ulcers with oozing serosanguinous fluid Neurological: Nomal Speech, Strength 4/5 in bilateral lower and upper limbs. Extremities: Mild +1 bilateral pitting edema up to mid dove Vascular: Pulses Symmetrical, Skin is warm to touch Significant labs at admission CBC: WBC 16.1, No bands, hemoglobin 7.9, hematocrit 24%, platelet 173. Sodium 135, potassium 4.4, carbon dioxide 19, anion gap 19, BUN 42, creatinine 2.7, lactic acid 4.5 (Trended to 3.3 after IV fluids), magnesium 0.7, Total bili 1.6, AST 220, ALT 7, creatine Kinase 255.. Urinalysis-Pending Imaging CT abdomen: No subcutaneous emphysema. Moderate amount of subcutaneous edema, soft tissue swelling and skin thickening involving the imaged portions of the bilateral scrota.multiple pulmonary nodules (?mets) and and hepatic lesions suspicious for metastases. Patient received 3.55 L of IV normal saline in the ED along with IV vancomycin 1 gram. Problem list 1. Sepsis with hypotension likely secondary to perinea/scrotal l wound 2. Sacral decubitus ulcer present at admission 3. Hypomagnesemia 4. Metastatic colon cancer involving lungs and liver 5. Acute kidney injury 6. Diabetes mellitus 7. History of hypertension Plan * Admit to Gen Med * Blood cultures X2 * IV normal saline at 150 mL an hour * Check random vancomycin level in AM and redose IV vancomycin 1 g daily to keep vanco level btwn 15-20. Please adjust according to renal funcgtion * Begin IV Unasyn 3 g Q 6 hours for additional anerobic coverage * Trend lactic acid * Monitor blood pressure and vital signs closely * Hold antihypertensives (Micardis) due to hypotension * Monitor fluid input and output closely * Monitor BEP/Creatinine for improvement in renal function with hydration * Recheck magnesium and replete as needed * CT abdomen was negative for necrotizing fasciitis. * General surgery consult for debridement * Wound care consult * Please inform cam's engineering instructor, Dr. Alvaardo in the AM * Hold pioglitazone home medication * Accucheks TIDAC/HS * Novolog sliding scale TIDAC/HS * DVT prophylaxis with subcutaneous heparin * Patient is Full CODE STATUS NATHALY SPICER 12/25/16 0425: Attending MD Review Statement Attending Statement Attending MD Statement: examined this patient, discuss w/resident/PA/JET PIERCER OPERATOR, agreed w/resident/PA/JET PIERCER OPERATOR, reviewed EMR data (avail), reviewed images, amended to note Attending Assessment/Plan: Cc: Scrotum and buttock wound PMH:Cancer S/P sigmoid resection, chemotherapy, HTN, DM, and iron deficiency anemia Patient came to ER from assisted living for nonhealing wound on scrotum and buttocks. Patient states that his motorized recliner chair was not working since last 3 months so he had to get in and out of the chair often which scraped his bottom and developed a wound. He is pain getting care from visiting nurse with daily dressings. Today visiting nurse came in and observed that he had some bleeding around that wound the scrotum and buttocks so she suggested him to go to ER. He has severe pain in scrotum. States that he was feeling hot at home but did not check temperature. When the nurse was changing dressing for longer time, patient was getting very distressed, and shortness of breath. Otherwise he denies any chest pain, chest tightness, wheezing, cough, expectoration, loss of consciousness or trauma. Patient was discharged in September after treatment with MRSA bacteremia, removal of Port-A-Cath, followed by total 2 weeks of IV antibiotics outpatient which patient completed. Followed by it patient underwent another Port-A-Cath insertion on the right side. Patient has not re-started chemotherapy yet. He recently underwent PET scan and was found to have "spots in the lung and liver". Vitals: T max 98.4, pulse 113, RR 24, blood pressure 84/56 upon arrival, improved to 140/84, saturating well on room air. On exam: A O 3, cooperative, mild distress due to pain, neck supple, JVD normal , no lymphadenopathy, mucosa dry, no new focal neurological deficit, bilaterally lower extremity decreased strength, bilaterally pedal pitting edema, skin dry diffuse redness, CVS: S1-S2, RRR. RS: Clear to auscultate bilaterally. Abdomen: Soft, NT, ND, bowel sounds present. exam: Excoriated scrotum with multiple ulcers, sacral wound stage III. Peripheral pulses perfusion normal Labs: WBC 16.1, neutrophils 83%, hemoglobin 7.9, hematocrit 24.0, platelet 174, bicarbonate 19, anion gap 16, BUN 42, creatinine 2.7 (increased from 0.8), glucose 139, calcium 6.9, lactate 4.5, magnesium 0.7, total bilirubin 1.6, AST 220, ALT 76, alkaline phosphatase 263, albumin 2.4 CT abdomen and pelvis: 1. The bilateral buttocks are included in the [id number]. However, the most caudal extent of the bilateral scrota are excluded from the [id number]. There is a moderate amount of subcutaneous edema, soft tissue swelling and skin thickening involving the imaged portions of the bilateral scrota. There are no visible scattered foci of subcutaneous emphysema. There are no visible organizing fluid collections within the imaged portions of the scrota or within the bilateral buttocks. 2. Interval development of multiple pulmonary nodules within the bilateral lung bases, suspicious for pulmonary metastases given the patient's history of metastatic colon cancer. 3. Diffuse heterogeneity of the liver parenchyma, notably the left hepatic lobe, suspicious for liver metastases. Interval development of ill-defined hypoattenuating lesions within the right hepatic lobe, suspicious for worsening metastatic disease within the liver. 4. Moderate to large bilateral fat-containing inguinal hernias. Small fat-containing umbilical hernia. A and P 76-year-old male with a medical history significant for colon cancer status post sigmoid resection with recent development of liver and lung metastases, presented in ER for sacral and buttock wound after the bleeding. Patient had significant leukocytosis in ER with low blood pressure and lactic acidosis. He had multiple superficial wounds on scrotum with macerated appearance and stage [address] scan does not show any subcutaneous emphysema, no crepitus but very tender on examination. Patient responded to fluids in ER blood pressure improved, lactic acid trending down. Patient is also having acute kidney injury probably secondary to sepsis. + Sepsis secondary to scrotal and sacral wound + Hypomagnesemia + Acute kidney injury + Chronic anemia + Metabolic acidosis secondary to lactic acidosis + Transaminitis + History of hypertension and diabetes - Admit to general med - Continue vancomycin and Unasyn - Continue maintenance fluid at 150 after fourth liter of bolus if blood pressure maintaining - If blood pressure drops continue boluses and low threshold to transfer to ICU - Trend lactate - Adequate pain control - Wound care consult, surgical consult - Inform Dr. Dash about patient being here - Blood culture - CPK - Strict I's and O's - Repeat CBC, BMP, LFT in a.m. - Hold metformin, telmisartan - Replace magnesium - Continue sliding scale insulin - DVT prophylaxis with Alps: Patient is bleeding from scrotal and sacral wound.
--- NOTE | 2016-12-24 19:54 | NUR ---
report called to raul au. REPORTED THAT PT HAS DUODERM TO COCCYX ALONG WITH WOUNDS TO SCROTUM AND RED SPIDER VIENS TO BLAIR LOWER EXTREMITIES.
--- NOTE | 2016-12-24 20:23 | NUR ---
CRITICAL TEST RESULTS [id number] ROSIO GRAFF 76 M TESTS AND RESULTS: MAG 0.7 Results received and read back by: OLGA LEUNG Results received date and time: 12/24/162023 The following provider was notified of the results, and read the results back: DR ULLOA Notified date and time: 12/24/16 at 2024
[2016-12-24 23:02] VITALS: BP 90/40
[2016-12-25 04:00] VITALS: BP 60/40
--- NOTE | 2016-12-25 04:27 | Admission Certification ---
Admission Certification Certification Statement - As attending physician, I certify that at the time of - admission, based on clinical presentation, severity of - symptoms, need for further diagnostic testing and - therapeutic interventions, and risk of adverse outcomes - without in-hospital treatment, in my clinical assessment, - this patient requires an acute hospital stay for a minimum - of two nights or longer. I have also considered psychsocial - factors such as support system, advanced age, financial - issues, cognitive issues, and failed out-patient treatments, - past re-admission history, safety of patient, and lack of - compliance as applicable. Specific rationale supporting this admission is: Sepsis secondary to infected scrotal and sacral wound
[2016-12-25 05:10] LABS: ABSOLUTE BASOPHIL COUNT 0 /CUMM (0.0-0.2); ABSOLUTE EOSINOPHIL COUNT 0.3 /CUMM (0.0-0.7); ABSOLUTE GRANULOCYTE CT 10.8 /CUMM (1.4-6.5); ABSOLUTE MONOCYTE COUNT 0.9 /CUMM (0.10-0.60); BASOPHIL % 0.2 % (0.0-2.0); EOSINOPHIL % 2.4 % (0-5); GRANULOCYTE % 83.1 % (42.2-75.2); HEMATOCRIT 20.9 % (42-52); MEAN CORPUSCULAR HGB 26.9 PG (27.0-31.0); MEAN CORPUSCULAR HGB CONC 32.3 G/DL (33.0-37.0); MEAN CORPUSCULAR VOLUME 83.2 FL (80.0-94.0); MEAN PLATELET VOLUME 9.6 FL (7.4-10.4); PLATELET COUNT 155 /CUMM (130-400); RBC DISTRIBUTION WIDTH 18.8 % (11.5-14.5); RED BLOOD CELL CT 2.51 /CUMM (4.70-6.10)
--- NOTE | 2016-12-25 05:26 | NUR ---
NURSING NOTE: CRITICAL LAB VALUE TAKEN. H/H 6.7/20.9. THIS RN REPORTED LAB VALUE TO ASSIGNED RN ANTHONY Erwin. PER ANTHONY, SHE WILL NOTIFY MD AND ENTER LAB VALUE.
[2016-12-25 06:00] VITALS: BP 60/38
--- NOTE | 2016-12-25 06:28 | Event Note ---
Event Note Event Note: Around 3:30 AM we were alerted by nursing staff that patient's blood pressure had dropped down to 60/40. Patient was seen and examined at bedside. He was awake, alert, and oriented x3, in no acute distress and mentating well. Per attending Dr. John's recommendations, 1 L bolus of normal saline was ordered. 1 unit of pRBCs was ordered as well. Later patient's H/H at 4:45 AM came back at 6.7/20.9. The unit of blood was hung at 6:20 AM per nursing notes. Patient was rolled over with the assistance of nursing staff and the buttock area was inspected. He was noted to have pressure ulcers on his buttocks and scrotum. The larger one on the buttocks was at least stage 3. Patient's blood pressure remained low despite receiving the 1 L bolus. He continued to mentate well. Decision was made to transfer him to the ICU. Attempts were made to contact patient's cousin Ellen Debbie but were unsuccessful.
--- NOTE | 2016-12-25 07:37 | NUR ---
LATE ENTRY: PT ARRIVED TO FLOOR AT 2034 ACCOMPAINED BY HIS FAMILY. A&OX3, 2LNC, IN ER RCW PORT WAS ACCESSED. PT HAS WOUNDS TO HIS BUTTOCKS AND SCROTUM. SEE WOUND ASSESSMENT. COMPLAINING OF 8/10 PAIN, MEDICATED PER EMAR. ORIENTED TO ROOM, CALLBELL AND RN. 0200 ROUNDING ON PT, PT APPEARS TO BE SLEEPING, NO S/SX OF DISTRESS 0330 AWOKEN PT TO RECHECK BP AND TURN AND REPOSITION, BP 60/40, MD HORN AWARE. NS BOLUS ORDERED AND GIVEN. BLOOD TAKEN AND SENT TO LAB. DRESSING CHANGED ON BUTTOCKS. PT A&O, DENIES PAIN, DENIES DIZZINESS. MEDICATED PER EMAR WITH FLUID BOLUS. 0530 1 UNIT OF BLOOD ORDERED AND HUNG @0620. TRANSFER ORDER IN TO ICU. PT AWARE OR EVENTS. REPORT GIVEN TO SHAISTA IN ICU
--- NOTE | 2016-12-25 07:43 | Cons- CRCU ---
CHRISSY PANDEY,[facility] 12/25/16 0742: General Information and HPI Consulting Request Date of Consult: 12/25/16 Requested By: SRIDHAR TEMPLETON MD Reason for Consult: Hypotension refractory to Fluid resuscitation Source of Information: patient History of Present Illness: This is a 76-year-old very pleasant gentleman with a known past medical history of stage IV rectal cancer with recent PET scans showing progression with hepatic and pulmonary metastatic involvement, recently on therapy with Vectibix complicated by persistent skin breakdown around the perianal region, hypertension, hyperlipidemia, iron deficiency anemia, was admitted after presenting with complaints of generalized weakness and worsening sacral and scrotum wounds. His home visiting nurse who performs daily dressing noted that on the day of admission patient had some bleeding around the chronic ulcerated areas of the scrotum and sacral. Patient was in septic condition with blood pressure on admission being charted as 84/56, tachycardic with heart rates of 113 and elevated lactic acid. Even though patient was not afebrile at the ED, he is reported to having filling hot/staffing mgr the past few days at home. Patient SBP remianed low receiving a total of 6 L normal saline boluses, he was also started on vancomycin and Unasyn for possible sepsis presumed to be secondary to sacral and scrotal skin area. Patient was also found to be anemic (hgb 6.7) and was given 1 unit of PRBC. Patient blood pressure remained low despite aggressive IV hydration and therefore decision was made to transfer to ICU for pressor support. Allergies/Medications Allergies: Coded Allergies: chlorhexidine (Severe, RASH, SWELLING 09/09/16) Home Med List: Albuterol Sulfate (Proair Hfa) 90 MCG HFA.AER.AD 2 PUF INH AD PRN RESPIRATORY (Reported) Calcium Carbonate/Vitamin D3 (Oyster Shell 500 MG + Vit D Tb) 500 MG-200 TABLET 1 TAB PO TID SUPPLEMENT (Reported) Emollient Combination No.92 (Lubriderm Daily Moisture) 177 ML LOTION 1 MEHUL TOP PRN SKIN (Reported) Ferrous Sulfate 325 MG TABLET 1 TAB PO BID VITAMIN SUPPORT (Reported) Finasteride 5 MG TABLET 1 TAB PO DAILY PROSTATE (Reported) Magnesium Oxide (Magox 400) 400 MG TABLET 3 TAB PO BID SUPPLEMENT (Reported) Metformin HCl 1,000 MG TABLET 1 TAB PO BID DIABETES (Reported) Pioglitazone HCl (Actos) 30 MG TABLET 1 TAB PO DAILY DIABETES (Reported) Potassium Chloride (K-Tab ER) 10 MEQ TABLET.ER 1 TAB PO DAILY DEHYDRATION ( Reported) Tamsulosin HCl (Flomax) 0.4 MG CAP.ER.24H 1 CAP PO DAILY UNKNOWN (Reported) Telmisartan (Micardis) 40 MG TABLET 1 TAB PO DAILY HEART HEALTH (Reported) Review of Systems Review of Systems Constitutional: Reports: weakness. EENTM: Reports: no symptoms. Denies: blurred vision, double vision, visual changes. Cardiovascular: Denies: chest pain, edema, orthopena, palpitations. Respiratory: Denies: cough, hemoptysis, orthopnea. GI: Denies: abdominal pain, bloating, constipation. Genitourinary: Denies: discharge, dysuria, frequency, hematuria, pain. Musculoskeletal: Denies: joint pain, joint swelling. Skin: Reports: see HPI. Neurological/Psychological: Denies: cognitive dysfunction, depressed, dementia. Hematologic/Endocrine: Reports: bleeding. Immunologic/Allergic: Reports: no symptoms. Past History Travel History Traveled to [place] past 21 day No Medical History Blood Transfusion Hx: No Neurological: NONE EENT: NONE Cardiovascular: hypertension, hyperlipidemia Respiratory: NONE Gastrointestinal: colon cancer with liver mets Hepatic: NONE Renal: benign prost hyperplasia Musculoskeletal: NONE Psychiatric: NONE Endocrine: diabetes Blood Disorders: anemia Cancer(s): colon/rectal cancer FINANCIAL SYSTEMS ADMINISTRATOR/Reproductive: NONE Other Medical Hx: Psoriasis Surgical History Surgical History: sigmoid resection 2013 Port-A-Cath placement left upper chest September 2012 Family History Relations & Conditions If Any: MOTHER FH: heart failure FH: hyperthyroidism FATHER FH: diabetes mellitus FH: heart failure MOTHER Psychosocial History Where Do You Live? Extended Care Facility Who Do You Live With? self Services at Home: Nursing Primary Language: Nicarag[place] Smoking Status: Former Smoker ETOH Use: denies use Illicit Drug Use: denies illicit drug use Functional Ability ADLs Independent: dressing, eating, toileting, bathing. Ambulation: cane, scooter Exam & Diagnostic Data Last 24 Hrs of Vital Signs/I&O Vital Signs Date Time Temp Pulse Resp B/P B/P Pulse O2 O2 Flow FiO2 Mean Ox Delivery Rate 12/25 1019 104 87/51 12/25 0814 103 68/44 12/25 0810 105 51/44 12/25 0800 97.9 103 20 76/48 100 Nasal 2.0L Cannula 06/14 0000 Nasal 2.0L Cannula 12/24 2302 98.4 120 20 90/40 98 Nasal 2.0L Cannula 12/24 2215 98 Nasal 2.0L Cannula 12/24 1843 98.3 118 20 141/84 95 Room Air 12/24 1659 98.4 117 24 98/60 97 Room Air 12/24 1509 95 Room Air 12/24 1504 97.8 113 24 84/56 99 Room Air Intake & Output 12/25 1600 12/25 0800 12/25 0000 Intake Total 1740 2450 Output Total 125 Balance 1615 2450 Intake, IV 1500 2450 Intake, Oral 240 Number 1 Bowel Movements Output, Urine 125 Patient 111.13 kg Weight Weight Reported by Patient Measurement Method Physical Exam General Appearance: no apparent distress, alert, awake Other Physical Findings: Skin Stage III decubitous ulcer present on admission. Dressing over it. Multiple shallow ulcers oozing serosanguinous fluid. Extremetly tender. Skin Temp/Moisture Exam: Warm/Dry Sepsis Skin Exam (color): Normal for Ethnicity, Flushed Cardiovascular Normal S1, Normal S2, Tachycardic Lungs Clear to Auscultation, Normal Air Movement, Limited Exams due to body habitus Abdomen Normal Bowel Sounds, Soft, Distended Neurological Normal Speech Extremities Edema 2+ Vascular Normal Pulses Last 48 Hrs of Labs/[place]: Laboratory Tests 12/25/16 1200: Urinalysis MOD H, Urine Color KING, Urine Clarity CLDY H, Urine pH 5.5, Ur Specific Brice >= 1.030, Urine Protein 30 H, Urine Ketones TRACE H, Urine Nitrite NEG, Urine Bilirubin NEG, Urine Urobilinogen 0.2, Ur Leukocyte Esterase SMALL H, Ur Microscopic SEDIMENT EXAMINED, Urine RBC 1-3, Urine WBC 1-3 H, Ur Epithelial Cells MOD H, Urine Bacteria FEW H, Hyaline Casts 1-3 H, Urine Mucus RARE, Urine Hemoglobin MOD H, Urine Glucose NEG 12/25/16 1145: PT 26.9 H, INR 2.59 H, CBC w Diff MAN DIFF ORDERED, RBC 3.33 L, MCV 86.3, MCH 28.0, RDW 17.3 H, MPV 9.5, Gran % 86.6 H, Lymphocytes % 5.1 L, Monocytes % 6.6, Eosinophils % 1.6, Basophils % 0.1, Absolute Granulocytes 13.7 H, Segmented Neutrophils Pending, Absolute Lymphocytes 0.8 L, Absolute Monocytes 1.0 H, Absolute Eosinophils 0.2, Absolute Basophils 0, PUBS MCHC 32.5 L 12/25/16 0445: Anion Gap 10, Estimated GFR 25 L, BUN/Creatinine Ratio 17.2, Magnesium 1.3 L, Total Bilirubin 1.1, Direct Bilirubin 0.8 H, AST 173 H, ALT 59, Alkaline Phosphatase 203 H, Total Protein 4.7 L, Albumin 1.8 L, CBC w Diff MAN DIFF ORDERED, RBC 2.51 L, MCV 83.2, MCH 26.9 L, RDW 18.8 H, MPV 9.6, Gran % 83.1 H, Lymphocytes % 7.6 L, Monocytes % 6.7, Eosinophils % 2.4, Basophils % 0.2, Absolute Granulocytes 10.8 H, Segmented Neutrophils 71, Band Neutrophils 10 H, Absolute Lymphocytes 1.0 L, Lymphocytes 12 L, Monocytes 1 L, Absolute Monocytes 0.9 H, Eosinophils 5, Absolute Eosinophils 0.3, Absolute Basophils 0, Metamyelocytes 1, Platelet Estimate ADEQUATE, Polychromasia 1+, Hypochromic- Microcytic 1+, Poikilocytosis 2+, Target Cells 1+, Ovalocytes 1+, PUBS MCHC 32.3 L, Fld Total RBCs Counted 100, Random Vancomycin 6.8 12/25/16 0225: Magnesium 1.3 L 12/25/16 0225: Lactic Acid 1.7 12/24/16 2233: Urine Color Cancelled, Urine Clarity Cancelled, Urine pH Cancelled, Ur Specific Brice Cancelled, Urine Protein Cancelled, Urine Ketones Cancelled, Urine Nitrite Cancelled, Urine Bilirubin Cancelled, Urine Urobilinogen Cancelled, Ur Leukocyte Esterase Cancelled, Ur Microscopic Cancelled, Urine Hemoglobin Cancelled, Urine Glucose Cancelled 12/24/16 2200: Lactic Acid Cancelled 12/24/16 1825: Lactic Acid 3.3 H 12/24/16 1615: Lactic Acid 4.5 H 12/24/16 1550: Anion Gap 16, Estimated GFR 23 L, BUN/Creatinine Ratio 15.6, Glucose 139 H, Calcium 6.9 L, Phosphorus 4.2, Magnesium 0.7 *L, Total Bilirubin 1.6 H, AST 220 H, ALT 72, Alkaline Phosphatase 263 H, Creatine Kinase 255 H, C-Reactive Prot, Quant > 9.0 H, Total Protein 5.8 L, Albumin 2.4 L, Globulin 3.4, Albumin/Globulin Ratio 0.7 L, CBC w Diff NO MAN DIFF REQ, RBC 2.90 L, MCV 82.8 , MCH 27.1, RDW 18.8 H, MPV 9.9, Gran % 83.8 H, Lymphocytes % 7.1 L, Monocytes % 7.8, Eosinophils % 1.1, Basophils % 0.2, Absolute Granulocytes 13.5 H, Absolute Lymphocytes 1.1 L, Absolute Monocytes 1.3 H, Absolute Eosinophils 0.2, Absolute Basophils 0, PUBS MCHC 32.7 L Assessment/Plan Impression/Plan: This is a 76-year-old very pleasant gentleman with a medical history significant for 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 At admission patient's vitals were remarkable for hypertension and tachycardia with labs showing lactic acidosis. His worsening of his chronic sacral and testicular ulcers were thought to be the most likely source of his septic condition. Patient was also found to have acute drop in his H/H. Was started on vancomycin and Unasyn, 1 unit PRBC transfused, and fluid resuscitation of 6 L of normal saline. Patient had persistent hypotension despite the aggressive fluid resuscitation and was therefore transferred to ICU for pressor support. Impression and plan #Septic shock Refractory to about 6 L of normal saline requiring initiation of Levophed. currently running at 16mcg per hour with MAP at goal > 65. Started on vancomycin and Unasyn for possible skin infection around the sacral and scrotal area as the source of infection. His CXR unremarkable, blood cultures and UA pending. Examination of the skin area today, does not appear to be infected, however the scrotal area is tender on movement, will await ultrasound findings. Will defer to ID on the changes to antibiotic regimen and identification of source of infection (appreciated). #Acute on chronic anemia Very possibly secondary to acute blood loss as reported by patient's home nurse that the sacral and scrotum area recently were noted to be oozing blood. His anemia is also multifactorial with malignancy and iron deficiency(noncompliant with therapy) being contributory. Will receive a total of 2 units of PRBC will trend CBC. #Hypomagnesemia Patient is noted to have a history of hyperglycemia with his chemotherapy the possible cause. We'll continue to replenish and keep at all of 2 and above. #Skin ulcerations Patient has multiple stage III decubitus ulcer, and some skin maceration of the scrotum all present on admission. Wound consult was obtained and recommended [facility], . Surgery was consulted and did not recommend any emergent intervention because the affected area did not have any evidence of necrosis or deep infection. Will await scrotal ultrasound results. #History of colorectal cancer with metastasis Oncology was contacted, recommended to continue with the current medical plan. Consult Acknowledgment - Thank you for your consult request. RAYMUNDO BELL MD 12/25/16 1041: Assessment/Plan Other Findings/Comments: Raymundo Erwin M.D. have examined this patient, reviewed available EMR data, personally reviewed images, discussed with resident/PA/[employer], discussed management plan with housestaff and nursing staff, discussed managment plan all of healthcare providers, discussed management plan with patient and/or family, agreed with resident/PA/[employer]. The past history and parts of the chart have been autopopulated. Impression 76-year-old man * septic shock requiring iv vasopressors * blood loss anemia - likely multifactorial causes * hypomagnesemia * stage IV rectal ca Plan -f/u ID, surgical, oncology recommendations -cont abx -wound care consultation is appreciated -check coags, cxr, scrotal usg -replete magnesium -vasopressors - titrate to map of 65 DVT prophylaxis - ALPS given anemia TTS 50 min Consult Acknowledgment - Thank you for your consult request.
[2016-12-25 08:00] VITALS: BP 76/48
--- NOTE | 2016-12-25 08:12 | Cons- Oncology ---
General Information and HPI Consulting Request Date of Consult: 12/25/16 Requested By: ALEX SAM MD History of Present Illness: The patient is a 76-year-old gentleman well-known to me with stage IV rectal cancer. His most recent therapy has been Vectibix. This is been complicated by significant conjunctivitis, found hypomagnesemia and persistent skin breakdown in the perianal region. His recent past is also been complicated MRSA sepsis. Recent PET scan revealed progression of his disease with increased hepatic and pulmonary metastatic disease. The patient is anticipating beginning Regarofaneb next month. Patient is now admitted with hypotension and renal insufficiency. Currently his biggest complaint is perineal irritation. Allergies/Medications Allergies: Coded Allergies: chlorhexidine (Severe, RASH, SWELLING 09/09/16) Home Med List: Albuterol Sulfate (Proair Hfa) 90 MCG HFA.AER.AD 2 PUF INH AD PRN RESPIRATORY (Reported) Calcium Carbonate/Vitamin D3 (Oyster Shell 500 MG + Vit D Tb) 500 MG-200 TABLET 1 TAB PO TID SUPPLEMENT (Reported) Emollient Combination No.92 (Lubriderm Daily Moisture) 177 ML LOTION 1 MEHUL TOP PRN SKIN (Reported) Ferrous Sulfate 325 MG TABLET 1 TAB PO BID VITAMIN SUPPORT (Reported) Finasteride 5 MG TABLET 1 TAB PO DAILY PROSTATE (Reported) Magnesium Oxide (Magox 400) 400 MG TABLET 3 TAB PO BID SUPPLEMENT (Reported) Metformin HCl 1,000 MG TABLET 1 TAB PO BID DIABETES (Reported) Pioglitazone HCl (Actos) 30 MG TABLET 1 TAB PO DAILY DIABETES (Reported) Potassium Chloride (K-Tab ER) 10 MEQ TABLET.ER 1 TAB PO DAILY DEHYDRATION ( Reported) Tamsulosin HCl (Flomax) 0.4 MG CAP.ER.24H 1 CAP PO DAILY UNKNOWN (Reported) Telmisartan (Micardis) 40 MG TABLET 1 TAB PO DAILY HEART HEALTH (Reported) Current Medications: Current Medications Sig/Brennon Start time Last Medication Dose Route Stop Time Status Admin Acetaminophen 650 MG Q6 PRN 12/24 2100 AC PO Albuterol Sulfate 2 PUF Q4P PRN 12/24 1929 AC INH Ampicillin Sodium/ 3,000 MG Q6 12/24 1930 AC 12/25 Sulbactam Sodium IV 0519 Sodium Chloride 100 ML Ceftazidime 0 .STK-MED ONE 12/24 1642 DC .ROUTE Ceftazidime 1,000 MG ONCE ONE 12/24 1530 DC 12/24 IV 12/24 1531 1653 Finasteride 5 MG DAILY 12/25 1000 AC PO Heparin Sodium 5,000 UNIT Q8 12/24 2200 DC 12/25 (Porcine) SC 0520 Insulin Aspart 0 TIDAC 12/25 0800 AC SC Insulin Aspart 0 AT BEDTIME 12/24 2200 AC SC Magnesium Oxide 400 MG ONE ONE 12/25 0330 DC 12/25 PO 12/25 0331 0520 Magnesium Oxide 800 MG ONE ONE 12/24 2130 DC 12/24 PO 12/24 2131 2151 Magnesium Sulfate 1 GM Q2H 12/24 2030 DC 12/24 Dextrose/Water 100 ML IV 12/25 0029 2236 Morphine Sulfate 2 MG Q4P PRN 12/24 2100 DC IV Norepinephrine 4 MG Q24H 12/25 0800 AC Sodium Chloride 250 ML IV Sodium Chloride 1,000 ML BOLUS ONE 12/25 0415 DC 12/25 IV 12/25 0514 0440 Sodium Chloride 1,000 ML ONCE ONE 12/24 1945 DC 12/25 IV 12/25 0224 0014 Sodium Chloride 1,000 ML BOLUS ONE 12/24 1745 DC 12/24 IV 12/24 1844 1927 Sodium Chloride 500 ML BOLUS ONE 12/24 1745 DC 12/24 IV 12/24 1844 2152 Sodium Chloride 1,000 ML BOLUS ONE 12/24 1530 DC 12/24 IV 12/24 1629 1635 Sodium Chloride 1,000 ML BOLUS ONE 12/24 1530 DC 12/24 IV 12/24 1629 1738 Tramadol HCl 50 MG Q6 PRN 12/24 2245 AC 12/24 PO 2330 Vancomycin HCl 1,000 MG DAILY 12/25 1000 UNir Sodium Chloride 250 ML IV Vancomycin HCl 0 .STK-MED ONE 12/24 1642 DC .ROUTE Vancomycin HCl 1,000 MG ONCE ONE 12/24 1530 DC 12/24 Sodium Chloride 250 ML IV 12/24 1629 1706 Review of Systems Review of Systems: Patient denies headaches and has orthostatic dizziness. Patient denies new shortness of breath cough chest pain or hemoptysis. Patient denies nausea vomiting abdominal pain. Patient denies dysuria or hematuria. 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 Extended Care Facility Who Do You Live With? self Services at Home: Nursing Primary Language: Croatian Smoking Status: Former Smoker ETOH Use: denies use Illicit Drug Use: denies illicit drug use Functional Ability ADLs Independent: dressing, eating, toileting, bathing. Ambulation: cane, scooter Exam & Diagnostic Data Vital Signs and I&O Vital Signs Date Time Temp Pulse Resp B/P B/P Pulse O2 O2 Flow FiO2 Mean Ox Delivery Rate 12/25 0000 Nasal 2.0L Cannula 12/24 2302 98.4 120 20 90/40 98 Nasal 2.0L Cannula 12/24 2215 98 Nasal 2.0L Cannula 12/24 1843 98.3 118 20 141/84 95 Room Air 12/24 1659 98.4 117 24 98/60 97 Room Air 12/24 1509 95 Room Air 12/24 1504 97.8 113 24 84/56 99 Room Air Intake & Output 12/25 1600 12/25 0800 12/25 0000 Intake Total 1740 2450 Output Total 125 Balance 1615 2450 Intake, IV 1500 2450 Intake, Oral 240 Number 1 Bowel Movements Output, Urine 125 Patient 245 lb Weight Weight Reported by Patient Measurement Method Gen.: in NAD, on vasopressor agents ENT: Sclera anicteric, improved bilateral conjunctivitis Chest: Normal respiratory effort, decreased breath sounds Cor: RRR, no extra sounds Abdomen: Soft, bowel sounds present, no tenderness, no rebound Extremities: Without clubbing, cyanosis, or asymmetric edema Neurology: Alert and oriented 3, no gross deficit Skin: Significant perianal ulceration Last 48 Hours of Lab Results: Laboratory Tests 12/25 12/25 12/25 0445 0225 0225 Chemistry Sodium (137 - 145 mmol/L) 137 Potassium (3.5 - 5.1 mmol/L) 4.1 Chloride (98 - 107 mmol/L) 107 Carbon Dioxide (22 - 30 mmol/L) 20 L Anion Gap (5 - 16) 10 BUN (9 - 20 mg/dL) 43 H Creatinine (0.7 - 1.2 mg/dL) 2.5 H Estimated GFR (>60 ml/min) 25 L BUN/Creatinine Ratio (7 - 25 %) 17.2 Lactic Acid (0.7 - 2.1 mmol/L) 1.7 Magnesium (1.6 - 2.3 mg/dL) 1.3 L 1.3 L Total Bilirubin (0.2 - 1.3 mg/dL) 1.1 Direct Bilirubin (< 0.4 mg/dL) 0.8 H AST (17 - 59 U/L) 173 H ALT (21 - 72 U/L) 59 Alkaline Phosphatase (< 127 U/L) 203 H Total Protein (6.3 - 8.2 g/dL) 4.7 L Albumin (3.5 - 5.0 g/dL) 1.8 L Hematology CBC w Diff MAN DIFF ORDERED WBC (4.8 - 10.8 /CUMM) 13.0 H RBC (4.70 - 6.10 /CUMM) 2.51 L Hgb (14.0 - 18.0 G/DL) 6.7 *L Hct (42 - 52 %) 20.9 L MCV (80.0 - 94.0 FL) 83.2 MCH (27.0 - 31.0 PG) 26.9 L RDW (11.5 - 14.5 %) 18.8 H Plt Count (130 - 400 /CUMM) 155 MPV (7.4 - 10.4 FL) 9.6 Gran % (42.2 - 75.2 %) 83.1 H Lymphocytes % (20.5 - 51.1 %) 7.6 L Monocytes % (1.7 - 9.3 %) 6.7 Eosinophils % (0 - 5 %) 2.4 Basophils % (0.0 - 2.0 %) 0.2 Absolute Granulocytes (1.4 - 6.5 /CUMM) 10.8 H Segmented Neutrophils (42.2 - 75.2 %) 71 Band Neutrophils (0.0 - 5.0 %) 10 H Absolute Lymphocytes (1.2 - 3.4 /CUMM) 1.0 L Lymphocytes (20.5 - 51.1 %) 12 L Monocytes (1.7 - 9.3 %) 1 L Absolute Monocytes (0.10 - 0.60 /CUMM) 0.9 H Eosinophils (0 - 5.0 %) 5 Absolute Eosinophils (0.0 - 0.7 /CUMM) 0.3 Absolute Basophils (0.0 - 0.2 /CUMM) 0 Metamyelocytes (0.0 - 1.0 %) 1 Platelet Estimate (ADEQUATE) ADEQUATE Polychromasia 1+ Hypochromic-Microcytic 1+ Poikilocytosis 2+ Target Cells 1+ Ovalocytes 1+ PUBS MCHC (33.0 - 37.0 G/DL) 32.3 L Other Body Source Fld Total RBCs Counted (%) 100 Toxicology Random Vancomycin (ug/ml) 6.8 12/24 12/24 12/24 2200 1825 1615 Chemistry Lactic Acid (0.7 - 2.1 mmol/L) Cancelled 3.3 H 4.5 H 12/24 1550 Chemistry Sodium (137 - 145 mmol/L) 135 L Potassium (3.5 - 5.1 mmol/L) 4.4 Chloride (98 - 107 mmol/L) 100 Carbon Dioxide (22 - 30 mmol/L) 19 L Anion Gap (5 - 16) 16 BUN (9 - 20 mg/dL) 42 H Creatinine (0.7 - 1.2 mg/dL) 2.7 H Estimated GFR (>60 ml/min) 23 L BUN/Creatinine Ratio (7 - 25 %) 15.6 Glucose (65 - 99 mg/dL) 139 H Calcium (8.4 - 10.2 mg/dL) 6.9 L Phosphorus (2.5 - 4.5 mg/dL) 4.2 Magnesium (1.6 - 2.3 mg/dL) 0.7 *L Total Bilirubin (0.2 - 1.3 mg/dL) 1.6 H AST (17 - 59 U/L) 220 H ALT (21 - 72 U/L) 72 Alkaline Phosphatase (< 127 U/L) 263 H Creatine Kinase (55 - 170 U/L) 255 H C-Reactive Prot, Quant (<1.0 mg/dL) > 9.0 H Total Protein (6.3 - 8.2 g/dL) 5.8 L Albumin (3.5 - 5.0 g/dL) 2.4 L Globulin (1.9 - 4.2 gm/dL) 3.4 Albumin/Globulin Ratio (1.1 - 2.2 %) 0.7 L Hematology CBC w Diff NO MAN DIFF REQ WBC (4.8 - 10.8 /CUMM) 16.1 H RBC (4.70 - 6.10 /CUMM) 2.90 L Hgb (14.0 - 18.0 G/DL) 7.9 L Hct (42 - 52 %) 24.0 L MCV (80.0 - 94.0 FL) 82.8 MCH (27.0 - 31.0 PG) 27.1 RDW (11.5 - 14.5 %) 18.8 H Plt Count (130 - 400 /CUMM) 173 MPV (7.4 - 10.4 FL) 9.9 Gran % (42.2 - 75.2 %) 83.8 H Lymphocytes % (20.5 - 51.1 %) 7.1 L Monocytes % (1.7 - 9.3 %) 7.8 Eosinophils % (0 - 5 %) 1.1 Basophils % (0.0 - 2.0 %) 0.2 Absolute Granulocytes (1.4 - 6.5 /CUMM) 13.5 H Absolute Lymphocytes (1.2 - 3.4 /CUMM) 1.1 L Absolute Monocytes (0.10 - 0.60 /CUMM) 1.3 H Absolute Eosinophils (0.0 - 0.7 /CUMM) 0.2 Absolute Basophils (0.0 - 0.2 /CUMM) 0 PUBS MCHC (33.0 - 37.0 G/DL) 32.7 L Imaging/Other Studies: CT-abdomen pelvis-no subcutaneous emphysema Assessment/Plan Assessment: 1. Presumed sepsis-patient on aggressive antibiotics and pressor support 2. Stage IV rectal cancer-patient has had recent documentation of progression 3. Anemia-likely multifactorial-agree with vigorous red cell transfusion support 4. Hypomagnesemia-the patient has been resistant both IV and oral supplementation, continue IV repletion 5. Bilateral conjunctivitis-drug related and improving Overall-the patient has a very poor prognosis and we have discussed this today as well as in the past. At this point, he wishes full resuscitation. Recommendations: .. Consult Acknowledgment - Thank you for your consult request.
--- NOTE | 2016-12-25 09:38 | Cons- Wound Care ---
General Information and HPI Consulting Request Date of Consult: 12/25/16 Requested By: ALEX SAM MD Reason for Consult: Multiple pressure injury ulcers present on admission of both buttocks and scrotum History of Present Illness: Patient is 76-year-old with metastatic colon cancer admitted with evidence of sepsis leukocytosis hypotension bandemia and lactic acidosis, as well he has acute anemia, consultation is requested for evaluation of multiple pressure injury ulcers, review of his abdominal pelvis CT shows significant edema of the scrotum which was incompletely visualized, Allergies/Medications Allergies: Coded Allergies: chlorhexidine (Severe, RASH, SWELLING 09/09/16) Home Med List: Albuterol Sulfate (Proair Hfa) 90 MCG HFA.AER.AD 2 PUF INH AD PRN RESPIRATORY (Reported) Calcium Carbonate/Vitamin D3 (Oyster Shell 500 MG + Vit D Tb) 500 MG-200 TABLET 1 TAB PO TID SUPPLEMENT (Reported) Emollient Combination No.92 (Lubriderm Daily Moisture) 177 ML LOTION 1 MEHUL TOP PRN SKIN (Reported) Ferrous Sulfate 325 MG TABLET 1 TAB PO BID VITAMIN SUPPORT (Reported) Finasteride 5 MG TABLET 1 TAB PO DAILY PROSTATE (Reported) Magnesium Oxide (Magox 400) 400 MG TABLET 3 TAB PO BID SUPPLEMENT (Reported) Metformin HCl 1,000 MG TABLET 1 TAB PO BID DIABETES (Reported) Pioglitazone HCl (Actos) 30 MG TABLET 1 TAB PO DAILY DIABETES (Reported) Potassium Chloride (K-Tab ER) 10 MEQ TABLET.ER 1 TAB PO DAILY DEHYDRATION ( Reported) Tamsulosin HCl (Flomax) 0.4 MG CAP.ER.24H 1 CAP PO DAILY UNKNOWN (Reported) Telmisartan (Micardis) 40 MG TABLET 1 TAB PO DAILY HEART HEALTH (Reported) Review of Systems Review of Systems: See above Past History Travel History Traveled to [place] past 21 day No Medical History Blood Transfusion Hx: No Neurological: NONE EENT: NONE Cardiovascular: hypertension, hyperlipidemia Respiratory: NONE Gastrointestinal: rectal cancer Hepatic: NONE Renal: benign prost hyperplasia Musculoskeletal: NONE Psychiatric: NONE Endocrine: diabetes Blood Disorders: anemia Cancer(s): 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 Extended Care Facility Who Do You Live With? self Services at Home: Nursing Primary Language: Ghanaian Smoking Status: Former Smoker ETOH Use: denies use Illicit Drug Use: denies illicit drug use Functional Ability ADLs Independent: dressing, eating, toileting, bathing. Ambulation: cane, scooter Exam & Diagnostic Data Vital Signs and I&O Vital Signs Result Date Time B/P 68/44 12/25 0814 Pulse 103 12/25 0814 O2 Delivery Nasal Cannula 12/25 0000 O2 Flow Rate 2.0L 12/25 0000 Pulse Ox 98 12/24 2302 Temp 98.4 12/24 2302 Resp 20 12/24 2302 Intake & Output 12/25 0000 12/24 1600 12/24 0800 Intake Total 2450 Output Total Balance 2450 Intake, IV 2450 Patient 245 lb 245 lb Weight Weight Reported by Patient Reported by Patient Measurement Method Exam of the right buttock shows there to be a stage III pressure ulcer present on admission approximately 4 x 1.5 cm this is combination of stage III and unstageable. Over the left buttock is a stage III pressure ulcer of approximately 3.5 x 1 cm it has a depth of 2-3 mm with 100% red fill there is bloody drainage. Over the scrotum there is extensive stage III ulceration measuring approximately 8 x 4 cm the scrotum is boggy slightly erythematous. Assessment/Plan Impression/Plan: 76-year-old with progressive metastatic colon cancer admitted with acute anemia and suspected sepsis of uncertain origin. He has multiple stage III pressure ulcers present on admission. The bogginess of the scrotum and incomplete visualization on CAT scan raises the possibility Fourniers gangrene surgical consultation has been requested. Recommend aggressive offloading. Wound care can be Aquacel Ag. Await surgical determination regarding the need for further imaging to exclude localized soft tissue infection. Discuss with primary care team Consult Acknowledgment - Thank you for your consult request.
--- NOTE | 2016-12-25 11:35 | RADIOLOGY REPORT ---
EXAMINATION: XR PORTABLE CHEST CLINICAL INFORMATION: Sepsis. Respiratory infection. COMPARISON: Chest x-ray 11/01/2016. TECHNIQUE: Portable AP upright view of the chest was obtained. FINDINGS: The study demonstrates a right-sided central venous catheter with a port over the right lateral chest. The catheter is relatively coiled in the right supraclavicular region. The tip of the catheter at the cavoatrial junction. There are multiple monitor leads overlying the chest. The lung morales are hyperexpanded bilaterally, but appear clear. The cardiac silhouette appears prominent, but this may be due to technique. There are no pleural effusions or pneumothorax. The central pulmonary vasculature is normal. The hilar regions appear normal. There are no acute osseous findings. There are new well-defined densities projected over the right shoulder, of uncertain etiology. IMPRESSION: 1. The lungs are hypoexpanded bilaterally. 2. There are are no acute cardiopulmonary findings. 3. The right central venous catheter has a portion which appears to be coiled in the right supraclavicular region.
--- NOTE | 2016-12-25 12:04 | Cons- General Surgery ---
General Information and HPI Consulting Request Date of Consult: 12/25/16 Requested By: ALEX SAM MD Reason for Consult: scrotal wound History of Present Illness: Patient known to me from port placement for cancer/chemotherapy a few months ago. now admitted with sepsis, anemia. found to have perineal ulcers. pain in scrotum. Allergies/Medications Allergies: Coded Allergies: chlorhexidine (Severe, RASH, SWELLING 09/09/16) Home Med List: Albuterol Sulfate (Proair Hfa) 90 MCG HFA.AER.AD 2 PUF INH AD PRN RESPIRATORY (Reported) Calcium Carbonate/Vitamin D3 (Oyster Shell 500 MG + Vit D Tb) 500 MG-200 TABLET 1 TAB PO TID SUPPLEMENT (Reported) Emollient Combination No.92 (Lubriderm Daily Moisture) 177 ML LOTION 1 MEHUL TOP PRN SKIN (Reported) Ferrous Sulfate 325 MG TABLET 1 TAB PO BID VITAMIN SUPPORT (Reported) Finasteride 5 MG TABLET 1 TAB PO DAILY PROSTATE (Reported) Magnesium Oxide (Magox 400) 400 MG TABLET 3 TAB PO BID SUPPLEMENT (Reported) Metformin HCl 1,000 MG TABLET 1 TAB PO BID DIABETES (Reported) Pioglitazone HCl (Actos) 30 MG TABLET 1 TAB PO DAILY DIABETES (Reported) Potassium Chloride (K-Tab ER) 10 MEQ TABLET.ER 1 TAB PO DAILY DEHYDRATION ( Reported) Tamsulosin HCl (Flomax) 0.4 MG CAP.ER.24H 1 CAP PO DAILY UNKNOWN (Reported) Telmisartan (Micardis) 40 MG TABLET 1 TAB PO DAILY HEART HEALTH (Reported) Current Medications: Current Medications Sig/Brennon Start time Last Medication Dose Route Stop Time Status Admin Acetaminophen 650 MG Q6 PRN 12/24 2100 AC PO Albuterol Sulfate 2 PUF Q4P PRN 12/24 1930 AC INH Ampicillin Sodium/ 3,000 MG Q12H 12/25 1800 AC Sulbactam Sodium IV Sodium Chloride 100 ML Ampicillin Sodium/ 3,000 MG Q6 12/24 1930 DC 12/25 Sulbactam Sodium IV 0519 Sodium Chloride 100 ML Ceftazidime 0 .STK-MED ONE 12/24 1642 DC .ROUTE Ceftazidime 1,000 MG ONCE ONE 12/24 1530 DC 12/24 IV 12/24 1531 1653 Finasteride 5 MG DAILY 12/25 1000 AC PO Heparin Sodium 5,000 UNIT Q8 12/24 2200 DC 12/25 (Porcine) SC 0520 Insulin Aspart 0 TIDAC 12/25 0800 AC SC Insulin Aspart 0 AT BEDTIME 12/24 2200 AC SC Magnesium Oxide 400 MG ONE ONE 12/25 0330 DC 12/25 PO 12/25 0331 0520 Magnesium Oxide 800 MG ONE ONE 12/24 2130 DC 12/24 PO 12/24 2131 2151 Magnesium Sulfate 1 GM Q2H 12/25 0915 AC 12/25 Dextrose/Water 100 ML IV 12/25 1314 1129 Magnesium Sulfate 1 GM Q2H 12/24 2030 DC 12/24 Dextrose/Water 100 ML IV 12/25 0029 2236 Morphine Sulfate 2 MG Q4P PRN 12/24 2100 DC IV Norepinephrine 4 MG Q4H 12/25 1000 AC 12/25 Sodium Chloride 250 ML IV 1019 Norepinephrine 4 MG Q24H 12/25 0830 DC 12/25 Sodium Chloride 250 ML IV 0810 Norepinephrine 4 MG Q24H 12/25 0800 DC 12/25 Sodium Chloride 250 ML IV 0814 Sodium Chloride 1,000 ML Q10H 12/25 0845 AC 12/25 IV 0848 Sodium Chloride 1,000 ML BOLUS ONE 12/25 0415 DC 12/25 IV 12/25 0514 0440 Sodium Chloride 1,000 ML ONCE ONE 12/24 1945 DC 12/25 IV 12/25 0224 0014 Sodium Chloride 1,000 ML BOLUS ONE 12/24 1745 DC 12/24 IV 12/24 1844 1927 Sodium Chloride 500 ML BOLUS ONE 12/24 1745 DC 12/24 IV 12/24 1844 2152 Sodium Chloride 1,000 ML BOLUS ONE 12/24 1530 DC 12/24 IV 12/24 1629 1635 Sodium Chloride 1,000 ML BOLUS ONE 12/24 1530 DC 12/24 IV 12/24 1629 1738 Tramadol HCl 50 MG Q6 PRN 12/24 2245 AC 12/24 PO 2330 Vancomycin HCl 1,500 MG DAILY 12/25 1000 AC 12/25 Sodium Chloride 250 ML IV 1018 Vancomycin HCl 0 .STK-MED ONE 12/24 1642 DC .ROUTE Vancomycin HCl 1,000 MG ONCE ONE 12/24 1530 DC 12/24 Sodium Chloride 250 ML IV 12/24 1629 1706 Past History Medical History Blood Transfusion Hx: No Neurological: NONE EENT: NONE Cardiovascular: hypertension, hyperlipidemia Respiratory: NONE Gastrointestinal: rectal cancer Hepatic: NONE Renal: benign prost hyperplasia Musculoskeletal: NONE Psychiatric: NONE Endocrine: diabetes Blood Disorders: anemia 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 Extended Care Facility Who Do You Live With? self Services at Home: Nursing Primary Language: Tuvaluan Smoking Status: Former Smoker ETOH Use: denies use Illicit Drug Use: denies illicit drug use Functional Ability ADLs Independent: dressing, eating, toileting, bathing. Ambulation: cane, scooter Review of Systems Review of Systems: perineal pain. no chest pain or dyspnea. fatigue. chronic skin condition/eczema Exam & Diagnostic Data Vital Signs and I&O Vital Signs Date Time Temp Pulse Resp B/P B/P Pulse O2 O2 Flow FiO2 Mean Ox Delivery Rate 12/25 1019 104 87/51 12/25 0814 103 68/44 12/25 0810 105 51/44 12/25 0800 97.9 103 20 76/48 100 Nasal 2.0L Cannula 12/25 0000 Nasal 2.0L Cannula 12/24 2302 98.4 120 20 90/40 98 Nasal 2.0L Cannula 12/24 2215 98 Nasal 2.0L Cannula 12/24 1843 98.3 118 20 141/84 95 Room Air 12/24 1659 98.4 117 24 98/60 97 Room Air 12/24 1509 95 Room Air 12/24 1504 97.8 113 24 84/56 99 Room Air Intake & Output 12/25 1600 12/25 0800 12/25 0000 12/24 1600 12/24 0800 12/24 0000 Intake Total 1740 2450 Output Total 125 Balance 1615 2450 Intake, IV 1500 2450 Intake, Oral 240 Number 1 Bowel Movements Output, Urine 125 Patient 245 lb 245 lb Weight Weight Reported by Patient Reported by Patient Measurement Method Physical Exam: gen; obese nad. looks older than age heent; anicteric, perrl. eomi scrotum; superficial epidermal loss. minimal edema. no induration. abd; soft, nt. nd. Assessment/Plan Assessment/Plan superficial epidermal loss of scrotum skin. No evidence for necrosis or deep infection requiring emergent intervention. recomment scrotal elevation, xeroform to skin daily and as needed. ok to eat. Consult Acknowledgment - Thank you for your consult request.
[2016-12-25 12:59] LABS: ABSOLUTE BASOPHIL COUNT 0 /CUMM (0.0-0.2); ABSOLUTE EOSINOPHIL COUNT 0.2 /CUMM (0.0-0.7); ABSOLUTE GRANULOCYTE CT 13.7 /CUMM (1.4-6.5); ABSOLUTE LYMPH COUNT 0.8 /CUMM (1.2-3.4); BASOPHIL % 0.1 % (0.0-2.0); EOSINOPHIL % 1.6 % (0-5); GRANULOCYTE % 86.6 % (42.2-75.2); MEAN CORPUSCULAR HGB CONC 32.5 G/DL (33.0-37.0); MEAN CORPUSCULAR VOLUME 86.3 FL (80.0-94.0); MEAN PLATELET VOLUME 9.5 FL (7.4-10.4); PLATELET COUNT 166 /CUMM (130-400); RBC DISTRIBUTION WIDTH 17.3 % (11.5-14.5); WHITE BLOOD CELL COUNT 15.8 /CUMM (4.8-10.8)
[2016-12-25 13:01] LABS: HEMATOCRIT 28.7 % (42-52); RED BLOOD CELL CT 3.33 /CUMM (4.70-6.10)
[2016-12-25 13:10] LABS: PT 26.9 SEC (9.4-12.5)
--- NOTE | 2016-12-25 13:22 | ULTRASOUND REPORT ---
EXAMINATION: US SCROTUM CLINICAL INFORMATION: Swollen, macerated scrotum. Assess for 4 years. COMPARISON: CT scan of the abdomen and pelvis 12/24/2016. TECHNIQUE: A sonogram of the scrotum was performed assessing garland-scale appearance and color Doppler flow. FINDINGS: RIGHT: The right testis measures 3.0 x 1.5 x 2.3 cm, volume 7.4 mL. Parenchymal echotexture is normal. No focal testicular parenchymal lesions are visualized. Normal symmetric intratesticular flow is visualized. The right epididymal head is normal in size. No right hydrocele or varicocele is seen. LEFT: The left testis measures 2.7 x 2.0 x 2.5 cm, volume 9.6 mL. Parenchymal echotexture is normal. No focal testicular parenchymal lesions are visualized. Normal symmetric intratesticular flow is visualized. The left epididymal head is normal in size. No left hydrocele or varicocele is seen. There is diffuse scrotal wall edema. There are no discrete fluid collections. IMPRESSION: 1. The testes appear normal bilaterally. 2. There is diffuse thickening of the scrotal wall without discrete fluid collections.
--- NOTE | 2016-12-25 14:27 | NUR ---
Wound Care Assessment: Patient presents with multiple areas of skin breakdown that were present on admission. The left buttock wound measures 4.5 X 1.5cm- wound bed contains predominately moist red tissue with very scant areas of moist yellow slough- unstageable pressure injury presumed stage 3- The right buttock wound measures approx 2.8 X 1.3 cm with 100% moist clean red tissue- presumed stage 3 pressure injury- Both wounds are draining a moderate amount of serosangenous drainage. Dr. Kearns has been consulted and recommended for aquacell to be applied. Periwound is excoriated and is a dark red and pruple in color and is non blancahle. Multiple areas of denuded and excoriated skin are noted to be extending from the coccyx and bilateral buttocks measuring approx 30X 20cm- This area is also a dark purple and red in color and is non blanchable presenting as what appears as a DTI- His scrotum is swollen with multiple areas of excoriation and partial thickness wounds. Dr. Zamora in to evaluate at this time. History was reviewed with patient who states that he lives in an assisted living home and has visiting nurses that come daily. The wound was noticed approx 4 months ago and was caused from him sitting in his recliner chair. A wound nurse comes to the house daily for dressing changes. Impression: Unstageable injury to the left buttock however is a presumed stage 3- Stage 3 pressure injury to the r. buttock. ?evolving area of DTI to the buttocks and the coccyx. Multiple desmond of denudement and exocriation. Partial thickness wounds to the scrotum with some areas of excoration. Recommendations: Buttocks wounds were cleansed with normal saline and patted dry. Aquacell Fb DPDwas applied to the buttocks wounds per Dr. Kearns's recommendations. Aloe cream/ Vitamin A+D applied to the excoriated and denuded areas to the coccyx and buttocks as well as the scrotu. Scrotum elevated and abd pads applied to help with the moisture. Patient to be placed on a catergory 2 mattress. Nutrition has been consulted. Encourage frequent turning and repositioning. Education was provided to patient- Please follow all additional pressure injury guidelines.
--- NOTE | 2016-12-25 14:47 | Cons- Infect Disease ---
General Information and HPI Consulting Request Date of Consult: 12/25/16 Requested By: ALEX SAM MD Reason for Consult: Rule out sepsis Source of Information: patient, old records History of Present Illness: This is a 76-year-old man with a history of hypertension, diabetes, psoriasis, BPH, Stage IV rectal cancer, status post sigmoid resection 3 years prior to admission, treated until recently with Vectbix, hospitalized nearly 4 months prior to admission with MRSA sepsis attributed to a Port-A-Cath, which was removed on that admission, treated with a two-week course of Vancomycin after a negative KEE, with a new Port-A-Cath placed 2 months prior to admission, with a recent PET scan revealing progression of his liver metastasis and new pulmonary metastasis, admitted on December 24 from his assisted living facility because of increasing discomfort in the scrotum and buttocks over the past 3 months, attributed to pressure and constant irritation from moving in and out of his chair, decreased po intake and increasing weakness. On admission he was afebrile, with a blood pressure of 84/56. Laboratory data revealed a white blood cell count of 16,000, H&H 8 and 24, BUN/creatinine 42 and 2.7, bilirubin 1.6, alkaline phosphatase 263, AST/ALT 220 and 72, CPK 255, lactic acid 4.5. CT of the abdomen and pelvis revealed a moderate amount of subcutaneous edema, soft tissue swelling and skin thickness involving the imaged portions of the bilateral scrota, with no foci of subcutaneous emphysema and no organizing fluid collections; interval development of multiple pulmonary nodules suspicious for metastatic disease; diffuse heterogeneity of the liver parenchyma, notably the left hepatic lobe, suspicious for liver metastasis with ill-defined lesions within the right hepatic lobe, suspicious for worsening metastatic disease within the liver. He was given Vancomycin and Ceftazidime in the emergency room and was then changed to Vancomycin and Unasyn. He was given 3 L of fluid but remained hypotensive and was transferred to the ICU overnight and begun on Levophed. His hematocrit dropped to 20 overnight and he has been transfused 2 units of blood. He has remained afebrile overnight. At present he offers no new complaints and denies any chest pain, shortness of breath, GI or symptoms. Allergies/Medications Allergies: Coded Allergies: chlorhexidine (Severe, RASH, SWELLING 09/09/16) Home Med List: Albuterol Sulfate (Proair Hfa) 90 MCG HFA.AER.AD 2 PUF INH AD PRN RESPIRATORY (Reported) Calcium Carbonate/Vitamin D3 (Oyster Shell 500 MG + Vit D Tb) 500 MG-200 TABLET 1 TAB PO TID SUPPLEMENT (Reported) Emollient Combination No.92 (Lubriderm Daily Moisture) 177 ML LOTION 1 MEHUL TOP PRN SKIN (Reported) Ferrous Sulfate 325 MG TABLET 1 TAB PO BID VITAMIN SUPPORT (Reported) Finasteride 5 MG TABLET 1 TAB PO DAILY PROSTATE (Reported) Magnesium Oxide (Magox 400) 400 MG TABLET 3 TAB PO BID SUPPLEMENT (Reported) Metformin HCl 1,000 MG TABLET 1 TAB PO BID DIABETES (Reported) Pioglitazone HCl (Actos) 30 MG TABLET 1 TAB PO DAILY DIABETES (Reported) Potassium Chloride (K-Tab ER) 10 MEQ TABLET.ER 1 TAB PO DAILY DEHYDRATION ( Reported) Tamsulosin HCl (Flomax) 0.4 MG CAP.ER.24H 1 CAP PO DAILY UNKNOWN (Reported) Telmisartan (Micardis) 40 MG TABLET 1 TAB PO DAILY HEART HEALTH (Reported) Past History Travel History Traveled to [place] past 21 day No Medical History Blood Transfusion Hx: No Neurological: NONE EENT: NONE Cardiovascular: hypertension, hyperlipidemia Respiratory: NONE Gastrointestinal: rectal cancer Hepatic: NONE Renal: benign prost hyperplasia Musculoskeletal: NONE Psychiatric: NONE Endocrine: diabetes Blood Disorders: anemia Cancer(s): colon/rectal cancer PRESIDENT & FOUNDER/Reproductive: NONE Other Medical Hx: Psoriasis History of MRSA: Yes History of VRE: No History of CDIFF: No Isolation History: Contact Surgical History Surgical History: sigmoid resection 2013 Port-A-Cath placement right upper chest 10/2016 Family History Relations & Conditions If Any: MOTHER FH: heart failure FH: hyperthyroidism FATHER FH: diabetes mellitus FH: heart failure MOTHER Psychosocial History Where Do You Live? Extended Care Facility Who Do You Live With? self Services at Home: Nursing Primary Language: Kyrgyz Smoking Status: Former Smoker ETOH Use: denies use Illicit Drug Use: denies illicit drug use Functional Ability ADLs Independent: dressing, eating, toileting, bathing. Ambulation: cane, scooter Review of Systems Review of Systems All Other Systems: Reviewed and Negative Exam & Diagnostic Data Last 24 Hrs of Vital Signs/I&O Vital Signs Date Time Temp Pulse Resp B/P B/P Pulse O2 O2 Flow FiO2 Mean Ox Delivery Rate 12/25 1200 99 Nasal 2.0L Cannula 12/25 1019 104 87/51 12/25 0814 103 68/44 12/25 0810 105 51/44 12/25 0800 97.9 103 20 76/48 100 Nasal 2.0L Cannula 12/25 0000 Nasal 2.0L Cannula 12/24 2302 98.4 120 20 90/40 98 Nasal 2.0L Cannula 12/24 2215 98 Nasal 2.0L Cannula 12/24 1843 98.3 118 20 141/84 95 Room Air 12/24 1659 98.4 117 24 98/60 97 Room Air 12/24 1509 95 Room Air 12/24 1504 97.8 113 24 84/56 99 Room Air Intake & Output 12/25 1600 12/25 0800 12/25 0000 Intake Total 3390 1740 2450 Output Total 100 125 Balance 3290 1615 2450 Intake, IV 3290 1500 2450 Intake, Oral 100 240 Number 1 Bowel Movements Output, Urine 100 125 Patient 245 lb Weight Weight Reported by Patient Measurement Method Physical Exam Other Physical Findings: He is awake and alert in no acute distress. He is afebrile. Blood pressure is increased on Levophed. Skin reveals diffuse scaliness. HEENT exam dry oral mucosa. Neck is supple with no adenopathy. Chest Port-A-Cath in the right upper chest with no inflammation at the site. Lungs are clear. Heart regular rhythm with no murmur. Abdomen is obese, soft, nontender with positive bowel sounds. Back no CVA tenderness; stage III bilateral buttock decubiti reportedly clean with no surrounding inflammation. Extremities no cyanosis, clubbing or edema. Neuro is without focality. scrotum with superficial epidermal loss, with minimal edema and no necrosis or induration reported; Fiore catheter is in place. Last 24 Hours of Lab Results: Laboratory Tests 12/25 1200 Urines Urinalysis MOD H Urine Color (YEL,AMB,STR) KING Urine Clarity (CLEAR) CLDY H Urine pH (5.0 - 8.0) 5.5 Ur Specific [place] (1.001 - 1.035) >= 1.030 Urine Protein (NEG,<30 MG/DL) 30 H Urine Ketones (NEG) TRACE H Urine Nitrite (NEG) NEG Urine Bilirubin (NEG) NEG Urine Urobilinogen (0.1 - 1.0 EU/dl) 0.2 Ur Leukocyte Esterase (NEG) SMALL H Ur Microscopic SEDIMENT EXAMINED Urine RBC (0 - 5 /HPF) 1-3 Urine WBC (0 - 2 /HPF) 1-3 H Ur Epithelial Cells (NONE,FEW) MOD H Urine Bacteria (NEG/NONE) FEW H Hyaline Casts (0/LPF) 1-3 H Urine Mucus (FEW,NONE) RARE Urine Hemoglobin (NEG) MOD H Urine Glucose (N MG/DL) NEG 12/25 12/25 1145 0445 Chemistry Sodium (137 - 145 mmol/L) 137 Potassium (3.5 - 5.1 mmol/L) 4.1 Chloride (98 - 107 mmol/L) 107 Carbon Dioxide (22 - 30 mmol/L) 20 L Anion Gap (5 - 16) 10 BUN (9 - 20 mg/dL) 43 H Creatinine (0.7 - 1.2 mg/dL) 2.5 H Estimated GFR (>60 ml/min) 25 L BUN/Creatinine Ratio (7 - 25 %) 17.2 Magnesium (1.6 - 2.3 mg/dL) 1.3 L Total Bilirubin (0.2 - 1.3 mg/dL) 1.1 Direct Bilirubin (< 0.4 mg/dL) 0.8 H AST (17 - 59 U/L) 173 H ALT (21 - 72 U/L) 59 Alkaline Phosphatase (< 127 U/L) 203 H Total Protein (6.3 - 8.2 g/dL) 4.7 L Albumin (3.5 - 5.0 g/dL) 1.8 L Coagulation PT (9.4 - 12.5 SEC) 26.9 H INR (0.90 - 1.17) 2.59 H Hematology CBC w Diff MAN DIFF ORDERED MAN DIFF ORDERED WBC (4.8 - 10.8 /CUMM) 15.8 H 13.0 H RBC (4.70 - 6.10 /CUMM) 3.33 L 2.51 L Hgb (14.0 - 18.0 G/DL) 9.3 L 6.7 *L Hct (42 - 52 %) 28.7 L 20.9 L MCV (80.0 - 94.0 FL) 86.3 83.2 MCH (27.0 - 31.0 PG) 28.0 26.9 L RDW (11.5 - 14.5 %) 17.3 H 18.8 H Plt Count (130 - 400 /CUMM) 166 155 MPV (7.4 - 10.4 FL) 9.5 9.6 Gran % (42.2 - 75.2 %) 86.6 H 83.1 H Lymphocytes % (20.5 - 51.1 %) 5.1 L 7.6 L Monocytes % (1.7 - 9.3 %) 6.6 6.7 Eosinophils % (0 - 5 %) 1.6 2.4 Basophils % (0.0 - 2.0 %) 0.1 0.2 Absolute Granulocytes (1.4 - 6.5 /CUMM) 13.7 H 10.8 H Segmented Neutrophils (42.2 - 75.2 %) 69 71 Band Neutrophils (0.0 - 5.0 %) 20 H 10 H Absolute Lymphocytes (1.2 - 3.4 /CUMM) 0.8 L 1.0 L Lymphocytes (20.5 - 51.1 %) 4 L 12 L Monocytes (1.7 - 9.3 %) 5 1 L Absolute Monocytes (0.10 - 0.60 /CUMM) 1.0 H 0.9 H Eosinophils (0 - 5.0 %) 2 5 Absolute Eosinophils (0.0 - 0.7 /CUMM) 0.2 0.3 Absolute Basophils (0.0 - 0.2 /CUMM) 0 0 Metamyelocytes (0.0 - 1.0 %) 1 Platelet Estimate (ADEQUATE) VERIFIED BY SMEAR ADEQUATE Polychromasia 1+ 1+ Hypochromic-Microcytic 1+ Poikilocytosis 1+ 2+ Anisocytosis 1+ Target Cells 1+ Ovalocytes 1+ PUBS MCHC (33.0 - 37.0 G/DL) 32.5 L 32.3 L Other Body Source Fld Total RBCs Counted (%) 100 Toxicology Random Vancomycin (ug/ml) 6.8 12/25 12/25 12/24 12/24 12/24 0225 0225 2233 2200 1825 Chemistry Lactic Acid (0.7 - 2.1 mmol/L) 1.7 Cancelled 3.3 H Magnesium (1.6 - 2.3 mg/dL) 1.3 L Urines Urine Color Cancelled Urine Clarity Cancelled Urine pH Cancelled Ur Specific [place] Cancelled Urine Protein Cancelled Urine Ketones Cancelled Urine Nitrite Cancelled Urine Bilirubin Cancelled Urine Urobilinogen Cancelled Ur Leukocyte Esterase Cancelled Ur Microscopic Cancelled Urine Hemoglobin Cancelled Urine Glucose Cancelled 12/24 12/24 1615 1550 Chemistry Sodium (137 - 145 mmol/L) 135 L Potassium (3.5 - 5.1 mmol/L) 4.4 Chloride (98 - 107 mmol/L) 100 Carbon Dioxide (22 - 30 mmol/L) 19 L Anion Gap (5 - 16) 16 BUN (9 - 20 mg/dL) 42 H Creatinine (0.7 - 1.2 mg/dL) 2.7 H Estimated GFR (>60 ml/min) 23 L BUN/Creatinine Ratio (7 - 25 %) 15.6 Glucose (65 - 99 mg/dL) 139 H Lactic Acid (0.7 - 2.1 mmol/L) 4.5 H Calcium (8.4 - 10.2 mg/dL) 6.9 L Phosphorus (2.5 - 4.5 mg/dL) 4.2 Magnesium (1.6 - 2.3 mg/dL) 0.7 *L Total Bilirubin (0.2 - 1.3 mg/dL) 1.6 H AST (17 - 59 U/L) 220 H ALT (21 - 72 U/L) 72 Alkaline Phosphatase (< 127 U/L) 263 H Creatine Kinase (55 - 170 U/L) 255 H C-Reactive Prot, Quant (<1.0 mg/dL) > 9.0 H Total Protein (6.3 - 8.2 g/dL) 5.8 L Albumin (3.5 - 5.0 g/dL) 2.4 L Globulin (1.9 - 4.2 gm/dL) 3.4 Albumin/Globulin Ratio (1.1 - 2.2 %) 0.7 L Hematology CBC w Diff NO MAN DIFF REQ WBC (4.8 - 10.8 /CUMM) 16.1 H RBC (4.70 - 6.10 /CUMM) 2.90 L Hgb (14.0 - 18.0 G/DL) 7.9 L Hct (42 - 52 %) 24.0 L MCV (80.0 - 94.0 FL) 82.8 MCH (27.0 - 31.0 PG) 27.1 RDW (11.5 - 14.5 %) 18.8 H Plt Count (130 - 400 /CUMM) 173 MPV (7.4 - 10.4 FL) 9.9 Gran % (42.2 - 75.2 %) 83.8 H Lymphocytes % (20.5 - 51.1 %) 7.1 L Monocytes % (1.7 - 9.3 %) 7.8 Eosinophils % (0 - 5 %) 1.1 Basophils % (0.0 - 2.0 %) 0.2 Absolute Granulocytes (1.4 - 6.5 /CUMM) 13.5 H Absolute Lymphocytes (1.2 - 3.4 /CUMM) 1.1 L Absolute Monocytes (0.10 - 0.60 /CUMM) 1.3 H Absolute Eosinophils (0.0 - 0.7 /CUMM) 0.2 Absolute Basophils (0.0 - 0.2 /CUMM) 0 PUBS MCHC (33.0 - 37.0 G/DL) 32.7 L Last 24 Hours of [place] Results: Blood cultures 2 December 24 negative Urine culture December 25 pending Diagnostic Data Recent Imaging Findings: CT of the abdomen and pelvis December 24 revealed a moderate amount of subcutaneous edema, soft tissue swelling and skin thickness involving the imaged portions of the bilateral scrota, with no foci of subcutaneous emphysema and no organizing fluid collections; interval development of multiple pulmonary nodules suspicious for metastatic disease; diffuse heterogeneity of the liver parenchyma, notably the left hepatic lobe, suspicious for liver metastasis with ill-defined lesions within the right hepatic lobe, suspicious for worsening metastatic disease within the liver. Chest x-ray December 25 no acute findings; the right central venous catheter has a portion which appears to be coiled in the right supraclavicular region Testicular ultrasound December 25 reveals diffuse thickening of the scrotal wall without discrete fluid collections Assessment/Plan Assessment/Plan Impression: This is a 76-year-old man with a history of diabetes, hypertension, BPH and Stage IV rectal cancer, with recent PET scan revealing progression of his disease, admitted on December 24 with increasing discomfort in the scrotum and buttocks secondary to pressure ulcerations, found to be afebrile and hypotensive with a leukocytosis and severe anemia but with no obvious focus of infection. His persistent hypotension despite fluids is of some concern, and he is currently on pressors, but I do suspect that the hypotension may be secondary to intravascular depletion, particularly given his acute renal failure. Am concerned about his severe anemia, which is a new problem and, though it may be multifactorial, would rule out a GI bleed particularly given his hypotension. His elevated liver enzymes are likely related to his metastatic disease, with no other abnormalities noted on the recent CT scan. Note his chest x-ray reveals the Port-A-Cath coiled in the right supraclavicular region and this should be reevaluated by Surgery. Suggestion: 1. Stool guaiacs 2. Ensure adequate fluids 3. Surgical follow-up regarding the position of the Port-A-Cath 4. Further management of his scrotal and buttock wounds per Surgery 5. Follow-up recent cultures 6. Discontinue Vancomycin and Unasyn and follow off antibiotics pending above Consult Acknowledgment - Thank you for your consult request.
[2016-12-25 16:00] VITALS: BP 102/58
--- NOTE | 2016-12-25 16:30 | NUR ---
Patient is alert and oriented x's 3, able to follow commands and answer questions appropriately. NSR-ST on tele monitor, HR= 90-100's. SBP: 90-100's and a levo gtt is infusing at 17mcg/min. On 2L nc, lungs clear and diminished at the bases. O2 sats 96-99% Abdomen is soft and non tender with + bowel sounds. He is obese. Remains NPO but can have ice chips. Fiore in place draining clear yellow urine with low output approx 10-25mls/hr and Dr. Cormier is aware. Stage 3's are noted to the bilateral buttocks- see wound care notes- Aquacell placed and dressing is clean dry and intact. A evolving DTI is noted to the coccyx and buttocks- Scrotum is excoriated and denuded with +1 edema. Partial thickness wounds are also noted- A testicular ultrasound was completed at the bedside. +3 edema is noted to the BLE- RCW Port is accessed and site is WNL. NS infusing @ 100mls/hr. IV abx per order. Dr. Zamora in to assess and no surgical intervention is needed. He is s/p 2 units of prbc and repeat CBC stable. Vitals are currently stable and pt currently denies pain. Will continue to closely monitor patient.
[2016-12-26] VITALS: BP 90/56
[2016-12-26 04:58] LABS: HEMATOCRIT 28.5 % (42-52); MEAN CORPUSCULAR HGB 27.9 PG (27.0-31.0); MEAN CORPUSCULAR HGB CONC 32.7 G/DL (33.0-37.0); MEAN CORPUSCULAR VOLUME 85.2 FL (80.0-94.0); MEAN PLATELET VOLUME 8.8 FL (7.4-10.4); PLATELET COUNT 169 /CUMM (130-400); RBC DISTRIBUTION WIDTH 18.1 % (11.5-14.5); RED BLOOD CELL CT 3.34 /CUMM (4.70-6.10); WHITE BLOOD CELL COUNT 13.7 /CUMM (4.8-10.8)
--- NOTE | 2016-12-26 06:00 | NUR ---
PT AROUSES READILY FROM SLEEP. MOMITOR NSR AT RATE OF 92 LEVOPHED AT 18 MCG/MIN. MANUAL BP=94/60.NASAL O2 ON AT 2L.SAT=99%.PERDOMO CATHETER DRAINING KING URINE. TURNED AND REPOSITIONED. ABDOMINAL DRESSING TO COCCYX DRY AND INTACT. SCROTUM WITH EXCORIATED AREAS.TRIPLE CARE CREAM APPLIED.
--- NOTE | 2016-12-26 07:27 | PN- Oncology ---
Subjective Subjective: feeling better, no specific complaints Review of Systems: 12 point review of systems otherwise unchanged Objective Vital Signs and I&Os Vital Signs Date Time Temp Pulse Resp B/P B/P Pulse O2 O2 Flow FiO2 Mean Ox Delivery Rate 12/26 0448 98.1 76 22 82/43 12/26 0400 98 Nasal 2.0L Cannula 12/26 0031 83 20 85/45 12/26 0000 97.4 89 22 90/56 98 Nasal 2.0L Cannula 12/25 2000 99 Nasal 2.0L Cannula 12/25 1600 98.6 95 20 102/58 98 Nasal 2.0L Cannula 12/25 1600 98 Nasal 2.0L Cannula 12/25 1539 Nasal 2.0L Cannula 12/25 1200 99 Nasal 2.0L Cannula 12/25 1019 104 87/51 12/25 0814 103 68/44 12/25 0810 105 51/44 12/25 0800 97.9 103 20 76/48 100 Nasal 2.0L Cannula Intake & Output 12/26 0800 12/26 0000 12/25 1600 12/25 0800 12/25 0000 12/24 1600 Intake Total 1260 3390 1740 2450 Output Total 180 100 125 Balance 1080 3290 1615 2450 Intake, IV 1260 3290 1500 2450 Intake, Oral 100 240 Number 1 Bowel Movements Output, Urine 180 100 125 Patient 245 lb 245 lb Weight Weight Reported by Patient Reported by Patient Measurement Method Remains on pressors Gen.: in NAD ENT: Sclera anicteric, conjunctiva improved Chest: Normal respiratory effort, decreased breath sounds Cor: RRR, no extra sounds Abdomen: Soft, bowel sounds present, no tenderness, no rebound Extremities: Without clubbing, cyanosis, or edema Neurology: Alert and oriented 3, no gross deficit Skin: Unchanged Current Medications: Current Medications Sig/Brennon Start time Last Medication Dose Route Stop Time Status Admin Acetaminophen 650 MG Q6 PRN 12/24 2100 AC PO Albuterol Sulfate 2 PUF Q4P PRN 12/24 1930 AC INH Ampicillin Sodium/ 3,000 MG Q12H 12/25 1800 CAN Sulbactam Sodium IV Sodium Chloride 100 ML Ampicillin Sodium/ 3,000 MG Q6 12/24 1930 DC 12/25 Sulbactam Sodium IV 0519 Sodium Chloride 100 ML Finasteride 5 MG DAILY 12/25 1000 AC PO Heparin Sodium 5,000 UNIT Q8 12/24 2200 DC 12/25 (Porcine) SC 0520 Insulin Aspart 0 TIDAC 12/25 0800 DC SC Insulin Aspart 0 AT BEDTIME 12/24 2200 DC SC Insulin Human Regular 0 Q6 12/25 1247 AC 12/26 SC 0618 Magnesium Sulfate 1 GM Q2H 12/26 0600 AC 12/26 Dextrose/Water 100 ML IV 12/26 0959 0618 Magnesium Sulfate 1 GM Q2H 12/25 0915 DC 12/25 Dextrose/Water 100 ML IV 12/25 1314 1129 Norepinephrine 4 MG Q4H 12/25 1000 AC 12/26 Sodium Chloride 250 ML IV 0448 Norepinephrine 4 MG Q24H 12/25 0830 DC 12/25 Sodium Chloride 250 ML IV 0810 Norepinephrine 4 MG Q24H 12/25 0800 DC 12/25 Sodium Chloride 250 ML IV 0814 Potassium Chloride 10 MEQ ONCE ONE 12/26 0600 DC IV 12/26 0601 Sodium Chloride 1,000 ML Q10H 12/25 0845 AC 12/26 IV 0623 Tramadol HCl 50 MG Q6 PRN 12/24 2245 AC 12/24 PO 2330 Vancomycin HCl 1,500 MG DAILY 12/25 1000 DC 12/25 Sodium Chloride 250 ML IV 1018 Results Last 24 Hours of Lab Results: Laboratory Tests 12/26 12/25 0430 1200 Chemistry Sodium (137 - 145 mmol/L) 140 Potassium (3.5 - 5.1 mmol/L) 3.6 Chloride (98 - 107 mmol/L) 109 H Carbon Dioxide (22 - 30 mmol/L) 19 L Anion Gap (5 - 16) 11 BUN (9 - 20 mg/dL) 40 H Creatinine (0.7 - 1.2 mg/dL) 2.0 H Estimated GFR (>60 ml/min) 33 L Glucose (65 - 99 mg/dL) 169 H Calcium (8.4 - 10.2 mg/dL) 6.5 L Phosphorus (2.5 - 4.5 mg/dL) 4.5 Magnesium (1.6 - 2.3 mg/dL) 1.6 Total Bilirubin (0.2 - 1.3 mg/dL) 1.8 H AST (17 - 59 U/L) 107 H ALT (21 - 72 U/L) 57 Albumin (3.5 - 5.0 g/dL) 1.9 L Hematology CBC w Diff MAN DIFF ORDERED WBC (4.8 - 10.8 /CUMM) 13.7 H RBC (4.70 - 6.10 /CUMM) 3.34 L Hgb (14.0 - 18.0 G/DL) 9.3 L Hct (42 - 52 %) 28.5 L MCV (80.0 - 94.0 FL) 85.2 MCH (27.0 - 31.0 PG) 27.9 RDW (11.5 - 14.5 %) 18.1 H Plt Count (130 - 400 /CUMM) 169 MPV (7.4 - 10.4 FL) 8.8 Segmented Neutrophils (42.2 - 75.2 %) 80 H Band Neutrophils (0.0 - 5.0 %) 8 H Lymphocytes (20.5 - 51.1 %) 7 L Monocytes (1.7 - 9.3 %) 4 Eosinophils (0 - 5.0 %) 1 Platelet Estimate (ADEQUATE) ADEQUATE Polychromasia 1+ Hypochromic-Microcytic 1+ Poikilocytosis 1+ Ovalocytes 1+ PUBS MCHC (33.0 - 37.0 G/DL) 32.7 L Other Body Source Fld Total RBCs Counted (%) 100 Urines Urinalysis MOD H Urine Color (YEL,AMB,STR) KING Urine Clarity (CLEAR) CLDY H Urine pH (5.0 - 8.0) 5.5 Ur Specific [place] (1.001 - 1.035) >= 1.030 Urine Protein (NEG,<30 MG/DL) 30 H Urine Ketones (NEG) TRACE H Urine Nitrite (NEG) NEG Urine Bilirubin (NEG) NEG Urine Urobilinogen (0.1 - 1.0 EU/dl) 0.2 Ur Leukocyte Esterase (NEG) SMALL H Ur Microscopic SEDIMENT EXAMINED Urine RBC (0 - 5 /HPF) 1-3 Urine WBC (0 - 2 /HPF) 1-3 H Ur Epithelial Cells (NONE,FEW) MOD H Urine Bacteria (NEG/NONE) FEW H Hyaline Casts (0/LPF) 1-3 H Urine Mucus (FEW,NONE) RARE Urine Hemoglobin (NEG) MOD H Urine Glucose (N MG/DL) NEG 12/25 1145 Coagulation PT (9.4 - 12.5 SEC) 26.9 H INR (0.90 - 1.17) 2.59 H Hematology CBC w Diff MAN DIFF ORDERED WBC (4.8 - 10.8 /CUMM) 15.8 H RBC (4.70 - 6.10 /CUMM) 3.33 L Hgb (14.0 - 18.0 G/DL) 9.3 L Hct (42 - 52 %) 28.7 L MCV (80.0 - 94.0 FL) 86.3 MCH (27.0 - 31.0 PG) 28.0 RDW (11.5 - 14.5 %) 17.3 H Plt Count (130 - 400 /CUMM) 166 MPV (7.4 - 10.4 FL) 9.5 Gran % (42.2 - 75.2 %) 86.6 H Lymphocytes % (20.5 - 51.1 %) 5.1 L Monocytes % (1.7 - 9.3 %) 6.6 Eosinophils % (0 - 5 %) 1.6 Basophils % (0.0 - 2.0 %) 0.1 Absolute Granulocytes (1.4 - 6.5 /CUMM) 13.7 H Segmented Neutrophils (42.2 - 75.2 %) 69 Band Neutrophils (0.0 - 5.0 %) 20 H Absolute Lymphocytes (1.2 - 3.4 /CUMM) 0.8 L Lymphocytes (20.5 - 51.1 %) 4 L Monocytes (1.7 - 9.3 %) 5 Absolute Monocytes (0.10 - 0.60 /CUMM) 1.0 H Eosinophils (0 - 5.0 %) 2 Absolute Eosinophils (0.0 - 0.7 /CUMM) 0.2 Absolute Basophils (0.0 - 0.2 /CUMM) 0 Platelet Estimate (ADEQUATE) VERIFIED BY SMEAR Polychromasia 1+ Poikilocytosis 1+ Anisocytosis 1+ PUBS MCHC (33.0 - 37.0 G/DL) 32.5 L Assessment/Plan Assessment/Recommendations: 1. Hypotension-patient remains on pressors, cultures negative, as per ID- antibiotics have been held. Patient's hematocrit has improved after treatment red cell transfusion-it would seem unlikely that bleeding would cause persistent hypotension-at this juncture-no gross bleeding has been discovered- 2. Stage IV rectal cancer 3. Metabolic-magnesium improved, creatinine improved 4. Ulcers-as per surgery and wound care 5. Port-A-Cath placement issue
--- NOTE | 2016-12-26 10:12 | PN- Infect Dx ---
Subjective Subjective: Afebrile. He feels much improved today Objective Last 24 Hrs of Vital Signs/I&O Vital Signs Date Time Temp Pulse Resp B/P B/P Pulse O2 O2 Flow FiO2 Mean Ox Delivery Rate 12/26 0738 100 20 97/51 12/26 0448 98.1 76 22 82/43 12/26 0400 98 Nasal 2.0L Cannula 12/26 0031 83 20 85/45 12/26 0000 97.4 89 22 90/56 98 Nasal 2.0L Cannula 12/26 0000 95 Nasal 2.0L Cannula 12/25 2000 99 Nasal 2.0L Cannula 12/25 1600 98.6 95 20 102/58 98 Nasal 2.0L Cannula 12/25 1600 98 Nasal 2.0L Cannula 12/25 1539 Nasal 2.0L Cannula 12/25 1200 99 Nasal 2.0L Cannula 12/25 1019 104 87/51 Intake & Output 12/26 1600 12/26 0800 12/26 0000 Intake Total 1803 1260 Output Total 225 180 Balance 1578 1080 Intake, IV 1563 1260 Intake, Oral 240 Output, Urine 225 180 Physical Exam Other Physical Findings: He appears comfortable in no acute distress Lungs are clear Chest Port-A-Cath in the right upper chest with no inflammation at the site Heart regular rhythm with no murmur Abdomen is obese, soft, nontender with positive bowel sounds Extremities 2+ edema both lower extremities scrotum with the dressing in place; Fiore catheter remains in place Results Last 24 Hours of Lab Results: Laboratory Tests 12/26 12/25 0430 1200 Chemistry Sodium (137 - 145 mmol/L) 140 Potassium (3.5 - 5.1 mmol/L) 3.6 Chloride (98 - 107 mmol/L) 109 H Carbon Dioxide (22 - 30 mmol/L) 19 L Anion Gap (5 - 16) 11 BUN (9 - 20 mg/dL) 40 H Creatinine (0.7 - 1.2 mg/dL) 2.0 H Estimated GFR (>60 ml/min) 33 L Glucose (65 - 99 mg/dL) 169 H Calcium (8.4 - 10.2 mg/dL) 6.5 L Phosphorus (2.5 - 4.5 mg/dL) 4.5 Magnesium (1.6 - 2.3 mg/dL) 1.6 Total Bilirubin (0.2 - 1.3 mg/dL) 1.8 H AST (17 - 59 U/L) 107 H ALT (21 - 72 U/L) 57 Albumin (3.5 - 5.0 g/dL) 1.9 L Hematology CBC w Diff MAN DIFF ORDERED WBC (4.8 - 10.8 /CUMM) 13.7 H RBC (4.70 - 6.10 /CUMM) 3.34 L Hgb (14.0 - 18.0 G/DL) 9.3 L Hct (42 - 52 %) 28.5 L MCV (80.0 - 94.0 FL) 85.2 MCH (27.0 - 31.0 PG) 27.9 RDW (11.5 - 14.5 %) 18.1 H Plt Count (130 - 400 /CUMM) 169 MPV (7.4 - 10.4 FL) 8.8 Segmented Neutrophils (42.2 - 75.2 %) 80 H Band Neutrophils (0.0 - 5.0 %) 8 H Lymphocytes (20.5 - 51.1 %) 7 L Monocytes (1.7 - 9.3 %) 4 Eosinophils (0 - 5.0 %) 1 Platelet Estimate (ADEQUATE) ADEQUATE Polychromasia 1+ Hypochromic-Microcytic 1+ Poikilocytosis 1+ Ovalocytes 1+ PUBS MCHC (33.0 - 37.0 G/DL) 32.7 L Other Body Source Fld Total RBCs Counted (%) 100 Urines Urinalysis MOD H Urine Color (YEL,AMB,STR) KING Urine Clarity (CLEAR) CLDY H Urine pH (5.0 - 8.0) 5.5 Ur Specific [place] (1.001 - 1.035) >= 1.030 Urine Protein (NEG,<30 MG/DL) 30 H Urine Ketones (NEG) TRACE H Urine Nitrite (NEG) NEG Urine Bilirubin (NEG) NEG Urine Urobilinogen (0.1 - 1.0 EU/dl) 0.2 Ur Leukocyte Esterase (NEG) SMALL H Ur Microscopic SEDIMENT EXAMINED Urine RBC (0 - 5 /HPF) 1-3 Urine WBC (0 - 2 /HPF) 1-3 H Ur Epithelial Cells (NONE,FEW) MOD H Urine Bacteria (NEG/NONE) FEW H Hyaline Casts (0/LPF) 1-3 H Urine Mucus (FEW,NONE) RARE Urine Hemoglobin (NEG) MOD H Urine Glucose (N MG/DL) NEG 12/25 1145 Coagulation PT (9.4 - 12.5 SEC) 26.9 H INR (0.90 - 1.17) 2.59 H Hematology CBC w Diff MAN DIFF ORDERED WBC (4.8 - 10.8 /CUMM) 15.8 H RBC (4.70 - 6.10 /CUMM) 3.33 L Hgb (14.0 - 18.0 G/DL) 9.3 L Hct (42 - 52 %) 28.7 L MCV (80.0 - 94.0 FL) 86.3 MCH (27.0 - 31.0 PG) 28.0 RDW (11.5 - 14.5 %) 17.3 H Plt Count (130 - 400 /CUMM) 166 MPV (7.4 - 10.4 FL) 9.5 Gran % (42.2 - 75.2 %) 86.6 H Lymphocytes % (20.5 - 51.1 %) 5.1 L Monocytes % (1.7 - 9.3 %) 6.6 Eosinophils % (0 - 5 %) 1.6 Basophils % (0.0 - 2.0 %) 0.1 Absolute Granulocytes (1.4 - 6.5 /CUMM) 13.7 H Segmented Neutrophils (42.2 - 75.2 %) 69 Band Neutrophils (0.0 - 5.0 %) 20 H Absolute Lymphocytes (1.2 - 3.4 /CUMM) 0.8 L Lymphocytes (20.5 - 51.1 %) 4 L Monocytes (1.7 - 9.3 %) 5 Absolute Monocytes (0.10 - 0.60 /CUMM) 1.0 H Eosinophils (0 - 5.0 %) 2 Absolute Eosinophils (0.0 - 0.7 /CUMM) 0.2 Absolute Basophils (0.0 - 0.2 /CUMM) 0 Platelet Estimate (ADEQUATE) VERIFIED BY SMEAR Polychromasia 1+ Poikilocytosis 1+ Anisocytosis 1+ PUBS MCHC (33.0 - 37.0 G/DL) 32.5 L Last 24 Hours of [place] Results: Blood cultures 2 December 24 negative Urine culture December 25 negative Assessment/Plan Impression: Improving with temperatures remaining normal and white blood cell count decreasing off antibiotics with cultures remaining negative. His scrotal and buttock wounds appear to be responding to local therapy, with no evidence for superinfection. His renal function is improving and his liver enzymes are decreasing, other than the bilirubin, which has increased. His H&H is stable status post blood transfusions yesterday. Suggestion: 1. Continue local wound care of his scrotal and buttock wounds per Surgery 2. Follow-up recent cultures 3. Remove Fiore catheter in the a.m. December 27 4. Continue to follow off antibiotics pending above
--- NOTE | 2016-12-26 13:22 | PN- Resident CRCU ---
See Addendum Subjective HPI/CRCU Issues: Shock requiring pressors Acute on chronic anemia 2/2 acute blood loss THEO History of malignancy with metastases 24 Hour Events: Seen and examined at bedside. Patient does not endorse any acute complaints including chest pain, palpitation, dizziness, shortness of breath,nausea, vomiting, abdominal pain or dysuria. He continues to need Levophed to maintain MAP >65. Vital signs stable, hemoglobin stable status post 2 units of transfusion. No acute overnight events reported by nursing staff, no telemetry events reported either. Objective Vital Signs & I&O Last 8 Hrs of Vitals and I&O: Vital Signs Date Time Temp Pulse Resp B/P B/P Pulse O2 O2 Flow FiO2 Mean Ox Delivery Rate 12/26 0738 100 20 97/51 12/26 0448 98.1 76 22 82/43 12/26 0400 98 Nasal 2.0L Cannula 12/26 0031 83 20 85/45 12/26 0000 97.4 89 22 90/56 98 Nasal 2.0L Cannula 12/26 0000 95 Nasal 2.0L Cannula 12/25 2000 99 Nasal 2.0L Cannula 12/25 1600 98.6 95 20 102/58 98 Nasal 2.0L Cannula 12/25 1600 98 Nasal 2.0L Cannula 12/25 1539 Nasal 2.0L Cannula Intake & Output 12/26 1600 12/26 0800 12/26 0000 Intake Total 1803 1260 Output Total 225 180 Balance 1578 1080 Intake, IV 1563 1260 Intake, Oral 240 Output, Urine 225 180 Patient 111.13 kg Weight Exam General Appearance: alert, awake, comfortable Other Physical Findings: Skin Stage III decubitous ulcer present on admission. Dressing over it. Multiple shallow ulcers oozing serosanguinous fluid. Extremetly tender. Skin Temp/Moisture Exam: Warm/Dry Sepsis Skin Exam (color): Normal for Ethnicity, Flushed Cardiovascular Normal S1, Normal S2, Tachycardic Lungs Clear to Auscultation, Normal Air Movement, Limited Exams due to body habitus Abdomen Normal Bowel Sounds, Soft, Distended Neurological Normal Speech Extremities Edema +2 Vascular Normal Pulses Current Medications: Current Medications Sig/Brennon Start time Last Medication Dose Route Stop Time Status Admin Acetaminophen 650 MG Q6 PRN 12/24 2100 AC PO Albuterol Sulfate 2 PUF Q4P PRN 12/24 1930 AC INH Finasteride 5 MG DAILY 12/25 1000 AC 12/26 PO 1000 Insulin Human Regular 6 UNITS .STK-MED ONE 12/26 1840 DC IV 12/26 1841 Insulin Human Regular 0 Q6 12/25 1247 AC 12/27 SC 0602 Magnesium Sulfate 1 GM Q2H 12/26 0600 DC 12/26 Dextrose/Water 100 ML IV 12/26 0959 1000 Norepinephrine 4 MG Q4H 12/25 1000 AC 12/26 Sodium Chloride 250 ML IV 2319 Sodium Chloride 1,000 ML BOLUS ONE 12/26 1030 DC 12/26 IV 15 1129 1100 Sodium Chloride 1,000 ML Q10H 12/25 0845 AC 12/27 IV 0000 Tramadol HCl 50 MG Q6 PRN 12/24 2245 AC 12/24 PO 2330 Impression/Plan Impression/Problem List Impression: This is a 76-year-old very pleasant gentleman with a medical history significant for 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 At admission patient's vitals were remarkable for hypertension and tachycardia with labs showing lactic acidosis. His worsening of his chronic sacral and testicular ulcers were thought to be the most likely source of his septic condition. Patient was also found to have acute drop in his H/H. Was started on vancomycin and Unasyn, 1 unit PRBC transfused, and fluid resuscitation of 6 L of normal saline. Patient had persistent hypotension despite the aggressive fluid resuscitation and was therefore transferred to ICU for pressor support. Impression and plan # shock Initially Refractory to about 6 L of normal saline requiring initiation of Levophed. currently running at 16mcg per hour with MAP at goal > 65. Continue to hold of ABX, question if this was septic shock. BUN/CR suggestive of prerenal azotemia for hypovolemia. Will give 1 L NS Bolus and taper or titrate levophed accordingly (MAP 65) #Acute on chronic anemia Stable today. Very possibly secondary to acute blood loss as reported by patient's home nurse that the sacral and scrotum area recently were noted to be oozing blood. His anemia is also multifactorial with malignancy and iron deficiency(noncompliant with therapy) being contributory. Will receive a total of 2 units of PRBC will trend CBC. #Hypomagnesemia Patient is noted to have a history of hyperglycemia with his chemotherapy the possible cause. We'll continue to replenish and keep at all of 2 and above. #Skin ulcerations Patient has multiple stage III decubitus ulcer, and some skin maceration of the scrotum all present on admission. Wound consult was obtained and recommended [employer], . Surgery was consulted and did not recommend any emergent intervention because the affected area did not have any evidence of necrosis or deep infection. Will await scrotal ultrasound results. #History of colorectal cancer with metastasis Oncology was contacted, recommended to continue with the current medical plan. Problem List: 1. Acute renal failure 2. Shock Pain Ratin Tomorrow's Labs & Rationales: ICU BUNDLE CBC Plan DVT/Prophylaxis: mechanical, pharmacological
--- NOTE | 2016-12-26 13:39 | RADIOLOGY REPORT ---
EXAMINATION: XR PORTABLE CHEST CLINICAL INFORMATION: Follow-up chest x-ray on Port-A-Cath coiling. COMPARISON: Several prior chest x-rays, most recent of which is dated 12/25/2016. TECHNIQUE: Portable AP semierect view of the chest was obtained. FINDINGS: Right subclavian Port-A-Cath is again seen with portions of the mid catheter extending into and coiling in the lower neck. This is incompletely the included on this exam. The tip is at the cavoatrial junction. Multiple EKG leads overlie the mid and lower chest. The cardiomediastinal silhouette is within normal limits in size allowing for portable technique and extremely low lung volumes. Heart contour is somewhat globular, consistent with small pericardial effusion seen on recent CT scan. Low lung volumes are seen with bibasilar subsegmental atelectasis. No focal consolidation or significant effusion or pneumothorax is seen. Several calcific densities are seen in the right shoulder joint, adjacent to the inferior glenohumeral margin, possibly loose bodies in the joint. Moderate degenerative changes are seen in the mid and lower thoracic spine. IMPRESSION: 1. No interval change in the coiled appearance of the mid segment of the right Port-A-Cath in the lower neck. The tip of the catheter remains at the cavoatrial junction. 2. Low lung volumes with mild bibasilar subsegmental atelectasis. 3. Possible loose bodies within the right shoulder joint.
[2016-12-26 16:00] VITALS: BP 98/65
--- NOTE | 2016-12-26 17:42 | ECHOCARDIOGRAM REPORT ---
ROSIO GRAFF Age: 76 : 1940 Gender: M Exam Date: 12/26/2016 11:24 Exam Location: [facility] Ht (in): 66 Wt (lb): 245 BSA: 2.33 BP: 97 / 51 Ordering Physician: SHIMA LOWE MD Referring Physician: SHIMA LOWE MD Technologist: Sin Fritz RDCS Room Number: 108 Indications: HYPOTENSION Rhythm: Sinus Technical Quality: fair FINDINGS Left Ventricle Normal global left ventricular size, wall thickness, systolic function with no obvious regional wall motion abnormalities. Normal left ventricular ejection fraction estimated at 60-65%. Right Ventricle Normal right ventricular size and function. Right Atrium Normal right atrial size. Left Atrium Normal left atrial size. Mitral Valve Mild mitral annular calcification. Trace mitral regurgitation. Aortic Valve Aortic valve is normal in structure and function. Tricuspid Valve Tricuspid valve is normal in structure and function. Trace to mild tricuspid regurgitation. Right ventricular systolic pressure estimated to be within the normal range at 20 mmHg. Pulmonic Valve Pulmonic valve not well visualized, grossly normal. Pericardium Minimal pericardial effusion (normal variant). Great Vessels Normal size aortic root. CONCLUSIONS Normal left and right ventricular systolic function. No significant valvular abnormalities noted. lAberto Guadalupe M.D. (Electronically Signed) Final Date: 26 December 2016 17:42 MEASUREMENTS (Male / Female) Normal Values 2D ECHO LV Diastolic Diameter PLAX 5.5 cm 4.2 - 5.9 / 3.9 - 5.3 cm LV Systolic Diameter PLAX 4.0 cm 2.1 - 4.0 cm LV Fractional Shortening PLAX 27.3 % 25 - 46 % LV Ejection Fraction 2D Teich 52.5 % IVS Diastolic Thickness 0.9 cm LVPW Diastolic Thickness 1.1 cm LV Relative Wall Thickness 0.4 RV Internal Dim ED PLAX 3.7 cm 1.9 - 3.8 cm LVOT Diameter 2.3 cm Aortic Root Diameter 3.6 cm LA Systolic Diameter LX 2.6 cm 3.0 - 4.0 / 2.7 - 3.8 cm Ascending Aorta Diameter 3.3 cm DOPPLER AV Peak Velocity 163.0 cm/s AV Peak Gradient 10.6 mmHg AV Mean Velocity 113.0 cm/s AV Mean Gradient 6.0 mmHg AV Velocity Time Integral 32.5 cm LVOT Peak Velocity 120.0 cm/s LVOT Peak Gradient 5.8 mmHg LVOT Mean Velocity 68.8 cm/s LVOT Mean Gradient 2.0 mmHg LVOT Velocity Time Integral 24.5 cm LVOT Stroke Volume 101.8 cm AV Area Cont Eq vti 3.1 cm AV Area Cont Eq pk 3.1 cm MV Peak Velocity 95.1 cm/s MV Peak Gradient 3.6 mmHg MV Mean Velocity 60.9 cm/s MV Mean Gradient 2.0 mmHg Mitral E Point Velocity 83.9 cm/s Mitral A Point Velocity 80.5 cm/s Mitral E to A Ratio 1.0 MV PHT Velocity 99.1 cm/s MV Deceleration Ada 391.0 cm/s MV Pressure Half Time 76.0 ms MV Area PHT 2.9 cm MV Deceleration Time 275.0 ms TR Peak Velocity 140.0 cm/s TR Peak Gradient 7.8 mmHg Right Atrial Pressure 5.0 mmHg Pulmonary Artery Systolic Pressu 12.8 mmHg Right Ventricular Systolic Press 12.8 mmHg PV Peak Velocity 167.0 cm/s PV Peak Gradient 11.2 mmHg PV Mean Velocity 79.9 cm/s PV Mean Gradient 3.0 mmHg PV Velocity Time Integral 25.5 cm LV E' Lateral Velocity 9.9 cm/s Mitral E to LV E' Lateral Ratio 8.4 LV E' Septal Velocity 6.6 cm/s Mitral E to LV E' Septal Ratio 12.7
--- NOTE | 2016-12-26 22:00 | NUR ---
PATIENT ALERT AND ORIENTED. MONITOR SINUS RHYTHM AT RATE OF 83. BP=92/50 WITH LEVOPHED DRIP AT RATE OF 11 MG/HR.URINE OYEJIW=179NB FOR SHIFT.REPORTED TO .IVF AT 100 ML/HR.PT REQUESTED COPY OF CT SCAN OF ABDOMEN AND PELVIS DONE ON ADMISSION.DISCUSSED WITH .COPY GIVEN
[2016-12-27] VITALS: BP 100/60
[2016-12-27 05:34] LABS: ABSOLUTE BASOPHIL COUNT 0.1 /CUMM (0.0-0.2); ABSOLUTE EOSINOPHIL COUNT 0.3 /CUMM (0.0-0.7); ABSOLUTE GRANULOCYTE CT 11.2 /CUMM (1.4-6.5); ABSOLUTE LYMPH COUNT 0.8 /CUMM (1.2-3.4); ABSOLUTE MONOCYTE COUNT 0.9 /CUMM (0.10-0.60); BASOPHIL % 0.4 % (0.0-2.0); EOSINOPHIL % 2.2 % (0-5); GRANULOCYTE % 84.3 % (42.2-75.2); HEMATOCRIT 30.1 % (42-52); MEAN CORPUSCULAR HGB 28.1 PG (27.0-31.0); MEAN CORPUSCULAR HGB CONC 32.7 G/DL (33.0-37.0); MEAN CORPUSCULAR VOLUME 85.8 FL (80.0-94.0); MEAN PLATELET VOLUME 8.9 FL (7.4-10.4); PLATELET COUNT 165 /CUMM (130-400); RBC DISTRIBUTION WIDTH 18.3 % (11.5-14.5); RED BLOOD CELL CT 3.51 /CUMM (4.70-6.10); WHITE BLOOD CELL COUNT 13.3 /CUMM (4.8-10.8)
--- NOTE | 2016-12-27 07:44 | PN- Wound Care ---
Subjective Subjective: She feels improved though continues to require low-dose pressors Objective Vital Signs and I&Os Vital Signs Result Date Time Pulse Ox 97 12/27 0000 B/P 100/60 12/27 0000 O2 Delivery Nasal Cannula 12/27 O2 Flow Rate 2.0L 12/27 0000 Temp 97.7 12/27 0000 Pulse 86 12/27 0000 Resp 20 12/27 0000 Intake & Output 12/27 0000 12/26 1600 12/26 0800 Intake Total 1321 2434 1803 Output Total 195 275 225 Balance 1126 2159 1578 Intake, IV 1146 2209 1563 Intake, Oral 175 225 240 Number 0 Bowel Movements Output, Urine 195 275 225 Patient 245 lb Weight Exam of multiple pressure ulcers shows them to be improving. The left buttock ulcers coming to surface and appears smaller there areas of new skin growth over the scrotum. Impression/Plan Impression/Plan Impression/Plan: 76-year-old with progressive metastatic colon cancer admitted with acute anemia and suspected sepsis of uncertain origin. He has multiple stage III pressure ulcers present on admission. Wounds appear to be improving with offloading and wound care can continue [employer] Ag and offloading. Address nutritional deficiency
--- NOTE | 2016-12-27 07:50 | PN- Resident CRCU ---
CHRISSY PANDEY,AMARA 12/27/16 0749: Subjective HPI/CRCU Issues: Shock requiring pressors Acute on chronic anemia 2/2 acute blood loss THEO History of malignancy with metastases 24 Hour Events: Day 2 of pressors .Seen and examined at bedside. Overnight improvement in blood pressures noted with titration of Levophed to 4 mcg/hr. patient denies any chest pain, palpitation, shortness of breath, focal neurological deficit, fever, chills, nausea vomiting, abdominal pain or dysuria. No acute overnight event reported by nursing on telemetry monitoring. Objective Vital Signs & I&O Last 8 Hrs of Vitals and I&O: Laboratory Tests 12/27/16 0500: Anion Gap 8, Estimated GFR 42 L, Glucose 125 H, Calcium 7.3 L, Phosphorus 3.5 , Magnesium 1.7, Total Bilirubin 2.1 H, AST 62 H, ALT 44, Albumin 1.7 L, CBC w Diff MAN DIFF ORDERED, RBC 3.51 L, MCV 85.8, MCH 28.1, RDW 18.3 H, MPV 8.9, Gran % 84.3 H, Lymphocytes % 6.4 L, Monocytes % 6.7, Eosinophils % 2.2, Basophils % 0.4, Absolute Granulocytes 11.2 H, Segmented Neutrophils 75, Band Neutrophils 9 H, Absolute Lymphocytes 0.8 L, Lymphocytes 7 L, Monocytes 6, Absolute Monocytes 0.9 H, Eosinophils 3, Absolute Eosinophils 0.3, Absolute Basophils 0.1, Platelet Estimate ADEQUATE, Polychromasia 1+, Hypochromic- Microcytic 1+, Poikilocytosis 1+, Ovalocytes 1+, PUBS MCHC 32.7 L, Fld Total RBCs Counted 100 12/26/16 1815: Anion Gap 9, Estimated GFR 37 L, Glucose 172 H, Calcium 7.1 L, Phosphorus 3.6 , Magnesium 1.8, Total Bilirubin 2.1 H, AST 74 H, ALT 54, Albumin 1.9 L Vital Signs Date Time Temp Pulse Resp B/P B/P Pulse O2 O2 Flow FiO2 Mean Ox Delivery Rate 12/27 1643 100 90/50 12/27 1519 Nasal 2.0L Cannula 12/27 1200 96 Nasal 2.0L Cannula 12/27 0948 4 82/50 12/27 0800 96 Nasal 2.0L Cannula 12/27 0800 98.0 102 20 104/50 96 Nasal 2.0L Cannula 12/27 0400 98 Nasal 2.0L Cannula 12/27 0000 97.7 86 20 100/60 97 Nasal 2.0L Cannula 12/27 0000 97 Nasal 2.0L Cannula 12/26 2319 67 22 90/49 12/26 2000 98 Nasal 2.0L Cannula 12/26 1859 104 18 99/68 Intake & Output 12/27 1600 12/27 0800 12/27 0000 Intake Total 1360 1321 Output Total 255 195 Balance 1105 1126 Intake, IV 1120 1146 Intake, Oral 240 175 Output, Urine 255 195 Exam General Appearance: no apparent distress, alert, awake, obese Other Physical Findings: General Appearance: alert, awake, comfortable Other Physical Findings: Skin Stage III decubitous ulcer present on admission. Dressing over it. Multiple shallow ulcers oozing serosanguinous fluid. Extremetly tender. Skin Temp/Moisture Exam: Warm/Dry Sepsis Skin Exam (color): Normal for Ethnicity, Flushed Cardiovascular Normal S1, Normal S2, Tachycardic Lungs Clear to Auscultation, Normal Air Movement, Limited Exams due to body habitus Abdomen Normal Bowel Sounds, Soft, Distended Neurological Normal Speech Extremities Edema +2 Vascular Normal Pulses Current Medications: Current Medications Sig/Brennon Start time Last Medication Dose Route Stop Time Status Admin Acetaminophen 650 MG Q6 PRN 12/24 2100 AC PO Albuterol Sulfate 2 PUF Q4P PRN 12/24 1930 AC INH Finasteride 5 MG DAILY 12/25 1000 AC 12/27 PO 1123 Glycerin/Mineral Oil 1 MEHUL TIDPRN PRN 12/27 1430 AC TOP Insulin Human Regular 2 UNITS .STK-MED ONE 12/27 0601 DC IV 12/27 0602 Insulin Human Regular 2 UNITS .STK-MED ONE 12/27 0056 DC IV 12/27 0057 Insulin Human Regular 6 UNITS .STK-MED ONE 12/26 1840 DC IV 12/26 1841 Insulin Human Regular 0 Q6 12/25 1247 AC 12/27 SC 1809 Magnesium Sulfate 1 GM Q2H 12/27 0900 DC 12/27 Dextrose/Water 100 ML IV 12/27 1259 1253 Norepinephrine 4 MG Q4H 12/25 1000 AC 12/27 Sodium Chloride 250 ML IV 1643 Potassium Chloride 10 MEQ Q1H 12/27 0900 DC 12/27 IV 12/27 1101 1531 Sodium Chloride 1,000 ML Q10H 12/25 0845 AC 12/27 IV 0000 Tramadol HCl 50 MG Q6 PRN 12/24 2245 AC 12/27 PO 0750 Impression/Plan Impression/Problem List Impression: This is a 76-year-old very pleasant gentleman with a medical history significant for 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 At admission patient's vitals were remarkable for hypertension and tachycardia with labs showing lactic acidosis. His worsening of his chronic sacral and testicular ulcers were thought to be the most likely source of his septic condition. Patient was also found to have acute drop in his H/H. Was started on vancomycin and Unasyn, 1 unit PRBC transfused, and fluid resuscitation of 6 L of normal saline. Patient had persistent hypotension despite the aggressive fluid resuscitation and was therefore transferred to ICU for pressor support. Impression and plan # shock Interval improvement in BP compared to yesterday resulting in tapering off Levophed from 18 g per hour to 8 g per hour. Patient reported today that at baseline his systolic is around early 90. Etiology still not clear, most likely cause is probably hypovolemia. Septic shock was initially entertained however, no source of infection was later identified, blood cultures were negative, skin temperature was normal, and patient condition did not escalate once antibiotics were stopped. Less likely to be cardiogenic, echo showed normal EF. Acute on chronic anemia. Status post 2 units of PRBC during admission date. Stable today. Very possibly secondary to acute blood loss as reported by patient's home nurse that the sacral and scrotum area recently were noted to be oozing blood. His anemia is also multifactorial with malignancy and iron deficiency(noncompliant with therapy) being contributory. #Hypomagnesemia Patient is noted to have a history of hyperglycemia with his chemotherapy the possible cause. We'll continue to replenish and keep at all of 2 and above. #Skin ulcerations Patient has multiple stage III decubitus ulcer, and some skin maceration of the scrotum all present on admission. Wound consult was obtained and recommended [facility], . Surgery was consulted and did not recommend any emergent intervention because the affected area did not have any evidence of necrosis or deep infection. Will await scrotal ultrasound results. Nutrition assessment on board will provide adequate nutrition to increase albumin levels as this is crucial in wound healing, #History of colorectal cancer with metastasis Oncology was contacted, recommended to continue with the current medical plan. Problem List: 1. Shock 2. Acute renal failure Pain Ratin Tomorrow's Labs & Rationales: icu Plan DVT/Prophylaxis: mechanical, pharmacological RAYMUNDO BELL MD 12/27/16 0901: Attending MD Review Statement Attending Sign Off Attending Cosign Statement: I have: examined this patient, reviewed avalbl EMR data, personally reviewd images, discussd w/resident/PA/ROLL ON MAN, discussed mgmt plan w/carmella, discussed mgmt plan w/CM, discussed mgmt plan w/pt, agreed w/resident/PA/ROLL ON MAN, amended to note. Other Findings: IRaymundo M.D. have examined this patient, reviewed available EMR data, personally reviewed images, discussed with resident/PA/ROLL ON MAN, discussed management plan with housestaff and nursing staff, discussed managment plan all of healthcare providers, discussed management plan with patient and/or family, agreed with resident/PA/ROLL ON MAN. The past history and parts of the chart have been autopopulated. Impression 76-year-old man * septic shock requiring iv vasopressors * blood loss anemia - likely multifactorial causes * hypomagnesemia * stage IV rectal ca Plan -f/u ID, surgical, oncology recommendations -cont abx -wound care consultation is appreciated -check coags, cxr, scrotal usg -replete magnesium -vasopressors - titrate to map of 65 DVT prophylaxis - ALPS given anemia TTS 35 min
[2016-12-27 08:00] VITALS: BP 104/50
--- NOTE | 2016-12-27 10:34 | PN- Infect Dx ---
Subjective Subjective: Afebrile. Blood pressure remains low, requiring Levophed. He feels fatigued but offers no specific complaints. Objective Last 24 Hrs of Vital Signs/I&O Vital Signs Date Time Temp Pulse Resp B/P B/P Pulse O2 O2 Flow FiO2 Mean Ox Delivery Rate 12/27 0948 4 82/50 12/27 0400 98 Nasal 2.0L Cannula 12/27 0000 97.7 86 20 100/60 97 Nasal 2.0L Cannula 12/27 0000 97 Nasal 2.0L Cannula 12/26 2319 67 22 90/49 12/26 2000 98 Nasal 2.0L Cannula 12/26 1859 104 18 99/68 12/26 1642 85 18 100/50 12/26 1600 96 Nasal 2.0L Cannula 12/26 1600 97.5 90 24 98/65 98 Nasal 2.0L Cannula Intake & Output 12/27 1600 12/27 0800 12/27 0000 Intake Total 1360 1321 Output Total 255 195 Balance 1105 1126 Intake, IV 1120 1146 Intake, Oral 240 175 Output, Urine 255 195 Physical Exam Other Physical Findings: He appears comfortable in no acute distress Chest Port-A-Cath in the right upper chest with no inflammation at the site Lungs are clear Heart regular rhythm with no murmur Abdomen is obese, soft, mildly tender on palpation of the right upper quadrant, with positive bowel sounds Extremities no cyanosis, clubbing or edema scrotal erythema improved; Fiore catheter remains in place Results Last 24 Hours of Lab Results: Laboratory Tests 12/27 12/26 0500 1815 Chemistry Sodium (137 - 145 mmol/L) 141 139 Potassium (3.5 - 5.1 mmol/L) 3.4 L 3.5 Chloride (98 - 107 mmol/L) 113 H 110 H Carbon Dioxide (22 - 30 mmol/L) 19 L 19 L Anion Gap (5 - 16) 8 9 BUN (9 - 20 mg/dL) 37 H 37 H Creatinine (0.7 - 1.2 mg/dL) 1.6 H 1.8 H Estimated GFR (>60 ml/min) 42 L 37 L Glucose (65 - 99 mg/dL) 125 H 172 H Calcium (8.4 - 10.2 mg/dL) 7.3 L 7.1 L Phosphorus (2.5 - 4.5 mg/dL) 3.5 3.6 Magnesium (1.6 - 2.3 mg/dL) 1.7 1.8 Total Bilirubin (0.2 - 1.3 mg/dL) 2.1 H 2.1 H AST (17 - 59 U/L) 62 H 74 H ALT (21 - 72 U/L) 44 54 Albumin (3.5 - 5.0 g/dL) 1.7 L 1.9 L Hematology CBC w Diff MAN DIFF ORDERED WBC (4.8 - 10.8 /CUMM) 13.3 H RBC (4.70 - 6.10 /CUMM) 3.51 L Hgb (14.0 - 18.0 G/DL) 9.9 L Hct (42 - 52 %) 30.1 L MCV (80.0 - 94.0 FL) 85.8 MCH (27.0 - 31.0 PG) 28.1 RDW (11.5 - 14.5 %) 18.3 H Plt Count (130 - 400 /CUMM) 165 MPV (7.4 - 10.4 FL) 8.9 Gran % (42.2 - 75.2 %) 84.3 H Lymphocytes % (20.5 - 51.1 %) 6.4 L Monocytes % (1.7 - 9.3 %) 6.7 Eosinophils % (0 - 5 %) 2.2 Basophils % (0.0 - 2.0 %) 0.4 Absolute Granulocytes (1.4 - 6.5 /CUMM) 11.2 H Segmented Neutrophils (42.2 - 75.2 %) 75 Band Neutrophils (0.0 - 5.0 %) 9 H Absolute Lymphocytes (1.2 - 3.4 /CUMM) 0.8 L Lymphocytes (20.5 - 51.1 %) 7 L Monocytes (1.7 - 9.3 %) 6 Absolute Monocytes (0.10 - 0.60 /CUMM) 0.9 H Eosinophils (0 - 5.0 %) 3 Absolute Eosinophils (0.0 - 0.7 /CUMM) 0.3 Absolute Basophils (0.0 - 0.2 /CUMM) 0.1 Platelet Estimate (ADEQUATE) ADEQUATE Polychromasia 1+ Hypochromic-Microcytic 1+ Poikilocytosis 1+ Ovalocytes 1+ PUBS MCHC (33.0 - 37.0 G/DL) 32.7 L Other Body Source Fld Total RBCs Counted (%) 100 Last 24 Hours of [place] Results: Urine culture December 25 negative Blood cultures 2 December 24 negative Assessment/Plan Impression: Improving, though remains on pressors for unexplained hypotension, with temperatures remaining normal and white blood cell count continuing to decrease off antibiotics with cultures negative and with no evidence of infection. His scrotal and buttock wounds appear to be responding to local therapy, with no evidence for superinfection. His renal function continues to improve and his liver enzymes are decreasing. Suggestion: 1. Continue local wound care of his scrotal and buttock wounds per Surgery 2. Remove Fiore catheter as soon as feasible 3. Continue to follow off antibiotics
--- NOTE | 2016-12-27 11:00 | PN- General Surgery ---
Subjective Subjective: LESS PAIN. Objective Vital Signs and I&Os Vital Signs Date Time Temp Pulse Resp B/P B/P Pulse O2 O2 Flow FiO2 Mean Ox Delivery Rate 12/27 0948 4 82/50 12/27 0400 98 Nasal 2.0L Cannula 12/27 0000 97.7 86 20 100/60 97 Nasal 2.0L Cannula 12/27 0000 97 Nasal 2.0L Cannula 12/26 2319 67 22 90/49 12/26 2000 98 Nasal 2.0L Cannula 12/26 1859 104 18 99/68 12/26 1642 85 18 100/50 12/26 1600 96 Nasal 2.0L Cannula 12/26 1600 97.5 90 24 98/65 98 Nasal 2.0L Cannula Intake & Output 12/27 1600 12/27 0800 12/27 0000 12/26 1600 12/26 0800 12/26 0000 Intake Total 1360 1321 2434 1803 1260 Output Total 255 195 275 225 180 Balance 1105 1126 2159 1578 1080 Intake, IV 1120 1146 2209 1563 1260 Intake, Oral 240 175 225 240 Number 0 Bowel Movements Output, Urine 255 195 275 225 180 Patient 245 lb Weight Physical Exam: SCROTUM WITH LESS EDEMA. NO PURULENCE. 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 Results Last 48 Hours of Labs: Laboratory Tests 12/27 12/26 0500 1815 Chemistry Sodium (137 - 145 mmol/L) 141 139 Potassium (3.5 - 5.1 mmol/L) 3.4 L 3.5 Chloride (98 - 107 mmol/L) 113 H 110 H Carbon Dioxide (22 - 30 mmol/L) 19 L 19 L Anion Gap (5 - 16) 8 9 BUN (9 - 20 mg/dL) 37 H 37 H Creatinine (0.7 - 1.2 mg/dL) 1.6 H 1.8 H Estimated GFR (>60 ml/min) 42 L 37 L Glucose (65 - 99 mg/dL) 125 H 172 H Calcium (8.4 - 10.2 mg/dL) 7.3 L 7.1 L Phosphorus (2.5 - 4.5 mg/dL) 3.5 3.6 Magnesium (1.6 - 2.3 mg/dL) 1.7 1.8 Total Bilirubin (0.2 - 1.3 mg/dL) 2.1 H 2.1 H AST (17 - 59 U/L) 62 H 74 H ALT (21 - 72 U/L) 44 54 Albumin (3.5 - 5.0 g/dL) 1.7 L 1.9 L Hematology CBC w Diff MAN DIFF ORDERED WBC (4.8 - 10.8 /CUMM) 13.3 H RBC (4.70 - 6.10 /CUMM) 3.51 L Hgb (14.0 - 18.0 G/DL) 9.9 L Hct (42 - 52 %) 30.1 L MCV (80.0 - 94.0 FL) 85.8 MCH (27.0 - 31.0 PG) 28.1 RDW (11.5 - 14.5 %) 18.3 H Plt Count (130 - 400 /CUMM) 165 MPV (7.4 - 10.4 FL) 8.9 Gran % (42.2 - 75.2 %) 84.3 H Lymphocytes % (20.5 - 51.1 %) 6.4 L Monocytes % (1.7 - 9.3 %) 6.7 Eosinophils % (0 - 5 %) 2.2 Basophils % (0.0 - 2.0 %) 0.4 Absolute Granulocytes (1.4 - 6.5 /CUMM) 11.2 H Segmented Neutrophils (42.2 - 75.2 %) 75 Band Neutrophils (0.0 - 5.0 %) 9 H Absolute Lymphocytes (1.2 - 3.4 /CUMM) 0.8 L Lymphocytes (20.5 - 51.1 %) 7 L Monocytes (1.7 - 9.3 %) 6 Absolute Monocytes (0.10 - 0.60 /CUMM) 0.9 H Eosinophils (0 - 5.0 %) 3 Absolute Eosinophils (0.0 - 0.7 /CUMM) 0.3 Absolute Basophils (0.0 - 0.2 /CUMM) 0.1 Platelet Estimate (ADEQUATE) ADEQUATE Polychromasia 1+ Hypochromic-Microcytic 1+ Poikilocytosis 1+ Ovalocytes 1+ PUBS MCHC (33.0 - 37.0 G/DL) 32.7 L Other Body Source Fld Total RBCs Counted (%) 100 06/15 06/14 0430 1200 Chemistry Sodium (137 - 145 mmol/L) 140 Potassium (3.5 - 5.1 mmol/L) 3.6 Chloride (98 - 107 mmol/L) 109 H Carbon Dioxide (22 - 30 mmol/L) 19 L Anion Gap (5 - 16) 11 BUN (9 - 20 mg/dL) 40 H Creatinine (0.7 - 1.2 mg/dL) 2.0 H Estimated GFR (>60 ml/min) 33 L Glucose (65 - 99 mg/dL) 169 H Calcium (8.4 - 10.2 mg/dL) 6.5 L Phosphorus (2.5 - 4.5 mg/dL) 4.5 Magnesium (1.6 - 2.3 mg/dL) 1.6 Total Bilirubin (0.2 - 1.3 mg/dL) 1.8 H AST (17 - 59 U/L) 107 H ALT (21 - 72 U/L) 57 Albumin (3.5 - 5.0 g/dL) 1.9 L Cortisol AM Sample (4.46 - 22.7 ug/dL) 27.2 H Hematology CBC w Diff MAN DIFF ORDERED WBC (4.8 - 10.8 /CUMM) 13.7 H RBC (4.70 - 6.10 /CUMM) 3.34 L Hgb (14.0 - 18.0 G/DL) 9.3 L Hct (42 - 52 %) 28.5 L MCV (80.0 - 94.0 FL) 85.2 MCH (27.0 - 31.0 PG) 27.9 RDW (11.5 - 14.5 %) 18.1 H Plt Count (130 - 400 /CUMM) 169 MPV (7.4 - 10.4 FL) 8.8 Segmented Neutrophils (42.2 - 75.2 %) 80 H Band Neutrophils (0.0 - 5.0 %) 8 H Lymphocytes (20.5 - 51.1 %) 7 L Monocytes (1.7 - 9.3 %) 4 Eosinophils (0 - 5.0 %) 1 Platelet Estimate (ADEQUATE) ADEQUATE Polychromasia 1+ Hypochromic-Microcytic 1+ Poikilocytosis 1+ Ovalocytes 1+ PUBS MCHC (33.0 - 37.0 G/DL) 32.7 L Other Body Source Fld Total RBCs Counted (%) 100 Urines Urinalysis MOD H Urine Color (YEL,AMB,STR) KING Urine Clarity (CLEAR) CLDY H Urine pH (5.0 - 8.0) 5.5 Ur Specific [place] (1.001 - 1.035) >= 1.030 Urine Protein (NEG,<30 MG/DL) 30 H Urine Ketones (NEG) TRACE H Urine Nitrite (NEG) NEG Urine Bilirubin (NEG) NEG Urine Urobilinogen (0.1 - 1.0 EU/dl) 0.2 Ur Leukocyte Esterase (NEG) SMALL H Ur Microscopic SEDIMENT EXAMINED Urine RBC (0 - 5 /HPF) 1-3 Urine WBC (0 - 2 /HPF) 1-3 H Ur Epithelial Cells (NONE,FEW) MOD H Urine Bacteria (NEG/NONE) FEW H Hyaline Casts (0/LPF) 1-3 H Urine Mucus (FEW,NONE) RARE Urine Hemoglobin (NEG) MOD H Urine Glucose (N MG/DL) NEG 12/25 1145 Coagulation PT (9.4 - 12.5 SEC) 26.9 H INR (0.90 - 1.17) 2.59 H Hematology CBC w Diff MAN DIFF ORDERED WBC (4.8 - 10.8 /CUMM) 15.8 H RBC (4.70 - 6.10 /CUMM) 3.33 L Hgb (14.0 - 18.0 G/DL) 9.3 L Hct (42 - 52 %) 28.7 L MCV (80.0 - 94.0 FL) 86.3 MCH (27.0 - 31.0 PG) 28.0 RDW (11.5 - 14.5 %) 17.3 H Plt Count (130 - 400 /CUMM) 166 MPV (7.4 - 10.4 FL) 9.5 Gran % (42.2 - 75.2 %) 86.6 H Lymphocytes % (20.5 - 51.1 %) 5.1 L Monocytes % (1.7 - 9.3 %) 6.6 Eosinophils % (0 - 5 %) 1.6 Basophils % (0.0 - 2.0 %) 0.1 Absolute Granulocytes (1.4 - 6.5 /CUMM) 13.7 H Segmented Neutrophils (42.2 - 75.2 %) 69 Band Neutrophils (0.0 - 5.0 %) 20 H Absolute Lymphocytes (1.2 - 3.4 /CUMM) 0.8 L Lymphocytes (20.5 - 51.1 %) 4 L Monocytes (1.7 - 9.3 %) 5 Absolute Monocytes (0.10 - 0.60 /CUMM) 1.0 H Eosinophils (0 - 5.0 %) 2 Absolute Eosinophils (0.0 - 0.7 /CUMM) 0.2 Absolute Basophils (0.0 - 0.2 /CUMM) 0 Platelet Estimate (ADEQUATE) VERIFIED BY SMEAR Polychromasia 1+ Poikilocytosis 1+ Anisocytosis 1+ PUBS MCHC (33.0 - 37.0 G/DL) 32.5 L Assessment/Plan Assessment/Plan PRESSURE ULCERS SACRAL AND PERINEAL/SCROTUM RESPONDING WELL TO LOCAL CARES. NO SURGICAL INTERVENTION NECESSARY
[2016-12-27 16:00] VITALS: BP 104/75
[2016-12-28] VITALS: BP 90/60
--- NOTE | 2016-12-28 | NUR ---
PATIENT ALERT AND ORIENTED. MONITOR SINUS RHYTHM AT RATE OF 95. BP=90/60 WITH LEVOPHED DRIP AT 8 MCG/MIN.NASAL O2 ON AT 2L. ORZ=514%. NO DYSPNEA NOTED.
[2016-12-28 05:27] LABS: ABSOLUTE BASOPHIL COUNT 0.1 /CUMM (0.0-0.2); ABSOLUTE EOSINOPHIL COUNT 0.5 /CUMM (0.0-0.7); ABSOLUTE GRANULOCYTE CT 11.1 /CUMM (1.4-6.5); ABSOLUTE MONOCYTE COUNT 0.8 /CUMM (0.10-0.60); BASOPHIL % 0.5 % (0.0-2.0); EOSINOPHIL % 4.1 % (0-5); GRANULOCYTE % 82.6 % (42.2-75.2); HEMATOCRIT 29.5 % (42-52); MEAN CORPUSCULAR HGB 28.2 PG (27.0-31.0); MEAN CORPUSCULAR HGB CONC 32.8 G/DL (33.0-37.0); MEAN CORPUSCULAR VOLUME 85.9 FL (80.0-94.0); MEAN PLATELET VOLUME 8.7 FL (7.4-10.4); PLATELET COUNT 152 /CUMM (130-400); RED BLOOD CELL CT 3.44 /CUMM (4.70-6.10); WHITE BLOOD CELL COUNT 13.5 /CUMM (4.8-10.8)
[2016-12-28 08:00] VITALS: BP 86/50
--- NOTE | 2016-12-28 10:17 | PN- CRCU ---
Subjective HPI/Critical Care Issues: pt seen and examined remains hypotensive on levophed and adding vasopressin Objective Current Medications: Current Medications Sig/Brennon Start time Last Medication Dose Route Stop Time Status Admin Acetaminophen 650 MG Q6 PRN 12/24 2100 AC PO Albuterol Sulfate 2 PUF Q4P PRN 12/24 1930 AC INH Finasteride 5 MG DAILY 12/25 1000 AC 12/28 PO 0945 Glycerin/Mineral Oil 1 MEHUL TIDPRN PRN 12/27 1430 AC TOP Insulin Human Regular 2 UNITS .STK-MED ONE 12/27 2356 DC IV 12/27 2357 Insulin Human Regular 4 UNITS .STK-MED ONE 12/27 1809 DC IV 12/27 1810 Insulin Human Regular 0 Q6 12/25 1247 AC 12/28 SC 0631 Magnesium Sulfate 1 GM Q2H 12/27 0900 DC 12/27 Dextrose/Water 100 ML IV 12/27 1259 1253 Norepinephrine 4 MG Q4H 12/25 1000 AC 12/28 Sodium Chloride 250 ML IV 0944 Potassium Chloride 10 MEQ Q1H 12/27 0900 DC 12/27 IV 12/27 1101 1531 Sodium Chloride 1,000 ML Q10H 12/25 0845 AC 12/28 IV 0944 Tramadol HCl 50 MG Q6 PRN 12/24 2245 AC 12/27 PO 1951 Vasopressin 40 UNITS Q16H 12/28 1015 AC Sodium Chloride 100 ML IV Vital Signs & I&O Last 24 Hrs of Vitals and I&O: Vital Signs Date Time Temp Pulse Resp B/P B/P Pulse O2 O2 Flow FiO2 Mean Ox Delivery Rate 12/28 0944 106 78/44 12/28 0800 98 Nasal 2.0L Cannula 12/28 0800 97.4 108 24 86/50 98 Nasal 2.0L Cannula 12/28 0623 110 20 90/50 12/28 0016 96.7 96 20 92/60 12/28 0000 96.7 95 20 90/60 100 Nasal 2.0L Cannula 12/28 0000 100 Nasal 2.0L Cannula 12/27 2000 97 Nasal 2.0L Cannula 12/27 1643 100 90/50 12/27 1600 96 Nasal 2.0L Cannula 12/27 1600 97.8 100 20 104/75 96 Nasal 2.0L Cannula 12/27 1519 Nasal 2.0L Cannula 12/27 1200 96 Nasal 2.0L Cannula Intake & Output 12/28 1600 12/28 0800 12/28 0000 Intake Total 1171 1357 Output Total 135 365 Balance 1036 992 Intake, IV 1071 947 Intake, Oral 100 410 Output, Urine 135 365 Exam Other Physical Findings: gen awake and alert heent ncat cvs s1, s2 lungs rare rhonchi abd soft, obese ext edematous skin scaling Results Last 24 Hrs of Lab Results: Laboratory Tests 12/28/16 0500: Anion Gap 8, Estimated GFR 42 L, Glucose 139 H, Calcium 7.8 L, Phosphorus 3.3 , Magnesium 1.9, Total Bilirubin 2.8 H, AST 65 H, ALT 43, Albumin 1.7 L, CBC w Diff NO MAN DIFF REQ, RBC 3.44 L, MCV 85.9, MCH 28.2, RDW 19.0 H, MPV 8.7, Gran % 82.6 H, Lymphocytes % 7.1 L, Monocytes % 5.7, Eosinophils % 4.1, Basophils % 0.5, Absolute Granulocytes 11.1 H, Absolute Lymphocytes 1.0 L, Absolute Monocytes 0.8 H, Absolute Eosinophils 0.5, Absolute Basophils 0.1, PUBS MCHC 32.8 L Impression/Plan Impression/Plan Impression/Plan: Impression 76 year old man * remains in shock - unclear etiology - differential third spacing/volume loss, infectious etiology * colon ca * anemia - chronic, stable Plan -add vasopressin to levophed -titrate to map of 65 -f/u surgery consultant recommendations -will ask ID if abx should be re-instated -repeat CXR today, consider re-imaging chest/abd/pelvis -repeat lactate -will d/w pt goals of care DVT prophylaxis at all times - ALPS for now TTS 40 min
--- NOTE | 2016-12-28 10:30 | PN- Resident CRCU ---
Subjective HPI/CRCU Issues: Afebrile, hypotensive on Levophed set 18 MCG/h. Patient feels lightheaded. He denies chest pain, palpitation or shortness breath. Objective Vital Signs & I&O Last 8 Hrs of Vitals and I&O: Vital Signs Date Time Temp Pulse Resp B/P B/P Pulse O2 O2 Flow FiO2 Mean Ox Delivery Rate 12/28 1623 84 102/46 12/28 1600 100 Nasal 2.0L Cannula 12/28 1600 97.0 90 24 100/58 100 Nasal 2.0L Cannula 12/28 1200 96 Nasal 2.0L Cannula 12/28 0944 106 78/44 12/28 0800 98 Nasal 2.0L Cannula 12/28 0800 97.4 108 24 86/50 98 Nasal 2.0L Cannula 12/28 0623 110 20 90/50 12/28 0016 96.7 96 20 92/60 12/28 0000 96.7 95 20 90/60 100 Nasal 2.0L Cannula 12/28 0000 100 Nasal 2.0L Cannula 12/27 2000 97 Nasal 2.0L Cannula Intake & Output 12/28 1600 12/28 0800 12/28 0000 Intake Total 1620 1171 1357 Output Total 175 135 365 Balance 1445 1036 992 Intake, IV 1220 1071 947 Intake, Oral 400 100 410 Output, Urine 175 135 365 Intake & Output 12/28 1600 Intake Total 1620 Output Total 175 Balance 1445 Intake, IV 1220 Intake, Oral 400 Output, Urine 175 Exam General Appearance: no apparent distress, alert, awake, comfortable, obese Head: atraumatic, normal appearance Respiratory: chest non-tender, no respiratory distress, bilateral scattered rhonchi Cardiovascular: regular rate/rhythm Gastrointestinal: soft, non-tender Extremities: Edema Current Medications: Current Medications Sig/Brennon Start time Last Medication Dose Route Stop Time Status Admin Acetaminophen 650 MG Q6 PRN 12/24 2100 AC PO Albuterol Sulfate 2 PUF Q4P PRN 12/24 1930 AC INH Finasteride 5 MG DAILY 12/25 1000 AC 12/28 PO 0945 Glycerin/Mineral Oil 1 MEHUL TIDPRN PRN 12/27 1430 AC TOP Insulin Human Regular 4 UNITS .STK-MED ONE 12/28 0630 DC IV 12/28 0631 Insulin Human Regular 2 UNITS .STK-MED ONE 12/27 2356 DC IV 12/27 2357 Insulin Human Regular 0 Q6 12/25 1247 AC 12/28 SC 1258 Norepinephrine 4 MG Q4H 12/25 1000 12/28 Sodium Chloride 250 ML IV 1623 Potassium Chloride 40 MEQ ONCE ONE 12/28 1415 DC 12/28 PO 12/28 1416 1739 Sodium Chloride 500 ML BOLUS ONE 12/28 1600 DC 12/28 IV 12/28 1659 1623 Sodium Chloride 1,000 ML Q10H 12/25 0845 12/28 IV 0944 Tramadol HCl 50 MG Q6 PRN 12/24 2245 12/27 PO 1951 Vasopressin 40 UNITS Q16H 12/28 1015 12/28 Sodium Chloride 100 ML IV 1010 Impression/Plan Impression/Problem List Impression: 76-year-old male with PMH of 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 At admission patient's vitals were remarkable for hypotension and tachycardia with labs showing lactic acidosis. His worsening of his chronic sacral and testicular ulcers were thought to be the most likely source of his septic condition. Patient was also found to have acute drop in his H/H. Was started on vancomycin and Unasyn, 1 unit PRBC transfused, and fluid resuscitation of 6 L of normal saline. Patient had persistent hypotension despite the aggressive fluid resuscitation and was therefore transferred to ICU for pressor support. Impression and plan #Hypotension of unclear etiology(shock) -Still hypotensive even the max dose of Levothroid. -Vasopressor was started this morning -No source of infection can be identified, however lactic acid is high. -Echo showed normal EF. -Xray chest shows No focal pneumonia. * We will give 500 normal saline bolus * We will trend lactic acid * We will discuss with ID the need for the imaging and antibiotic * Growth care discussion was initiated by Dr. Ford this a.m. #Normocytic anemia with elevated RDW -Stable H&H -Status post 2 units of PRBC on admission. -Last anemia blood work we have in the system was done in 2012 * We will do iron study, B12, and folic acid. #Skin ulcerations -He has multiple stage III decubitus ulcer, and some skin maceration of the scrotum (all present on admission) -Wound consult recommended [employer], . -No surgical intervention recommended by surgery -Scrotal ultrasound did not reveal any pathology #History of colorectal cancer with metastasis -As per oncologist Overall-the patient has a very poor prognosis -Goal of care was discussion was initiated by Dr. Ford this a.m. Nothing by mouth as patient isn't to pressors and elevated lactic acid DVT prophylaxis with Alps Full code Problem List: 1. Colon cancer metastasized to liver Pain Ratin Tomorrow's Labs & Rationales: CBC, bep, Iron study, b12 and folic acid Plan DVT/Prophylaxis: mechanical, pharmacological
--- NOTE | 2016-12-28 10:58 | Event Note ---
Event Note Event Note: Goals of care discussion was initiated. Patient is currently full code. He is re -evaluating this in the next few days. We will continue to encourage shared decision making.
--- NOTE | 2016-12-28 12:27 | RADIOLOGY REPORT ---
EXAMINATION: XR PORTABLE CHEST CLINICAL INFORMATION: Unexplained hypotension. Presumptive diagnosis of pneumonia. COMPARISON: Chest x-ray dated 12/26/2016. TECHNIQUE: Portable semierect view of the chest was obtained. FINDINGS: The cardiomediastinal silhouette is within normal limits in size. Lungs bilaterally are symmetrically hypoexpanded. There is some increased opacity in the lung bases, right greater than left, most likely related to crowding of bronchovascular lung markings and subsegmental atelectasis. Lungs otherwise clear. No effusion or pneumothorax is seen. Multiple EKG leads overlie the chest. A right subclavian Port-A-Cath is again seen with its midsegment coiled within the lower neck and tip extending inferiorly into the mid SVC level. Bony structures are unremarkable. IMPRESSION: 1. No change in appearance of the right subclavian Port-A-Cath with coiling of the mid segment in the lower neck and tip in the mid SVC. 2. Low lung volumes with bibasilar subsegmental atelectasis. No focal pneumonia.
[2016-12-28 16:00] VITALS: BP 100/58
--- NOTE | 2016-12-28 18:42 | NUR ---
Received patient alert and oriented x3. Pleasant/follows commands. ST in the am 100s, down to 70s-90s by this evening r/t blood pressure. Blood pressure decreasing in the am from 90s-100s to 70s-80s. Levophed titrated up and maxed out per EMAR. Vasopressin started at 0.04 units/min through RCW implanted port w/ improvement to blood pressure up to 100s-110s. Started to titrate levo down. Lactic acid checked to be 2.5 and increased to 2.9 by the afternoon. 500 ml bolus of normal saline given per Dr. Ford. Standing order of NS @ 100 mls/hr to continue throughout the day and after bolus. Patient only complaining of some light headedness when pressure originally dropped after breakfast. Blood cultures done, urine culture sent, and full set of labs done at 1745. Patient denies nausea but does complain of some bloating this evening. If patient is to have episode of nausea, no zofran to be given and abdominal CXR to be completed. Patient made NPO after lactic of 2.9 came back. Abdomen is distended/firm but not hard with normoactive bowel sounds. No BM today to guiac. Tolerating ice chips. +1-+2 lower ext. edema and +1 scrotal edema w/ bleeding/weeping excoriation. Dressing to coccyx/bilateral buttocks intact. SKin is generalized dry/flakey w/ lubriderm applied. Cabrera repositioned/in place, patient having occasional spasms around cabrera depending on positioning. Scant-moderate cloudy-clear janelle urine noted. Dr. Ballesteros aware of low output (15-25 cc/hr), patient has some renal insufficiency and is now on more pressors. Patient given emotional reassurance and repositioned for comfort.
[2016-12-28 19:05] LABS: ABSOLUTE BASOPHIL COUNT 0 /CUMM (0.0-0.2); ABSOLUTE EOSINOPHIL COUNT 0.3 /CUMM (0.0-0.7); ABSOLUTE GRANULOCYTE CT 14.6 /CUMM (1.4-6.5); ABSOLUTE MONOCYTE COUNT 0.9 /CUMM (0.10-0.60); BASOPHIL % 0.1 % (0.0-2.0); GRANULOCYTE % 86.8 % (42.2-75.2); MEAN CORPUSCULAR HGB 27.7 PG (27.0-31.0); MEAN CORPUSCULAR HGB CONC 31.9 G/DL (33.0-37.0); MEAN CORPUSCULAR VOLUME 86.8 FL (80.0-94.0); PLATELET COUNT 178 /CUMM (130-400); RBC DISTRIBUTION WIDTH 19.6 % (11.5-14.5); RED BLOOD CELL CT 3.95 /CUMM (4.70-6.10); WHITE BLOOD CELL COUNT 16.9 /CUMM (4.8-10.8)
[2016-12-28 19:07] LABS: HEMATOCRIT 34.3 % (42-52)
[2016-12-29] VITALS: BP 118/60
--- NOTE | 2016-12-29 00:55 | NUR ---
PT ALERT AND ORIENTED, DENIES PAIN AT THIS TIME. NSR 90'S MANUAL BP 118/60. TITRATING LEVOPHED DOWN, SEE FREQUENT VS SHEET. NPO FOR NOW, NO NAUSEA NOR VOMITTING NOTED. SATURATION 97% ON 2L O2, LUNGS SOUND CLEAR. PERDOMO IN PLACE, ADEQUATE UO NOTED. VASOPRESSIN ON AT 0.04UNITS/H. BLE AND SCROTUM EDEMATOUS. RIGHT AND LEFT DRESSING DRY AND INTACT.
[2016-12-29 04:44] LABS: ABSOLUTE BASOPHIL COUNT 0 /CUMM (0.0-0.2); ABSOLUTE EOSINOPHIL COUNT 0.1 /CUMM (0.0-0.7); ABSOLUTE GRANULOCYTE CT 11.4 /CUMM (1.4-6.5); ABSOLUTE LYMPH COUNT 0.7 /CUMM (1.2-3.4); ABSOLUTE MONOCYTE COUNT 0.9 /CUMM (0.10-0.60); BASOPHIL % 0.1 % (0.0-2.0); GRANULOCYTE % 86.6 % (42.2-75.2); HEMATOCRIT 29.5 % (42-52); MEAN CORPUSCULAR HGB 28.1 PG (27.0-31.0); MEAN CORPUSCULAR HGB CONC 32.3 G/DL (33.0-37.0); MEAN PLATELET VOLUME 8.9 FL (7.4-10.4); PLATELET COUNT 134 /CUMM (130-400); RBC DISTRIBUTION WIDTH 20.1 % (11.5-14.5); WHITE BLOOD CELL COUNT 13.2 /CUMM (4.8-10.8)
[2016-12-29 08:00] VITALS: BP 90/50
--- NOTE | 2016-12-29 09:24 | PN- Resident CRCU ---
Impression/Plan Impression/Problem List Impression: This is a 76-year-old very pleasant gentleman with a medical history significant for 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 At admission patient's vitals were remarkable for hypertension and tachycardia with labs showing lactic acidosis. His worsening of his chronic sacral and testicular ulcers were thought to be the most likely source of his septic condition. Patient was also found to have acute drop in his H/H. Was started on vancomycin and Unasyn, 1 unit PRBC transfused, and fluid resuscitation of 6 L of normal saline. Patient had persistent hypotension despite the aggressive fluid resuscitation and was therefore transferred to ICU for pressor support. Impression and plan # shock Interval improvement in BP compared to yesterday resulting in tapering off Levophed from 18 g per hour to 8 g per hour. Patient reported today that at baseline his systolic is around early 90. Etiology still not clear, most likely cause is probably hypovolemia. Septic shock was initially entertained however, no source of infection was later identified, blood cultures were negative, skin temperature was normal, and patient condition did not escalate once antibiotics were stopped. Less likely to be cardiogenic, echo showed normal EF. Acute on chronic anemia. Status post 2 units of PRBC during admission date. Stable today. Very possibly secondary to acute blood loss as reported by patient's home nurse that the sacral and scrotum area recently were noted to be oozing blood. His anemia is also multifactorial with malignancy and iron deficiency(noncompliant with therapy) being contributory. #Hypomagnesemia Patient is noted to have a history of hyperglycemia with his chemotherapy the possible cause. We'll continue to replenish and keep at all of 2 and above. #Skin ulcerations Patient has multiple stage III decubitus ulcer, and some skin maceration of the scrotum all present on admission. Wound consult was obtained and recommended Elementumel Ag, . Surgery was consulted and did not recommend any emergent intervention because the affected area did not have any evidence of necrosis or deep infection. Will await scrotal ultrasound results. Nutrition assessment on board will provide adequate nutrition to increase albumin levels as this is crucial in wound healing, #History of colorectal cancer with metastasis Oncology was contacted, recommended to continue with the current medical plan. Plan DVT/Prophylaxis: mechanical, pharmacological
--- NOTE | 2016-12-29 09:25 | PN- Resident CRCU ---
Subjective HPI/CRCU Issues: Shock Acute blood loss 24 Hour Events: Patient is seen and examined at bedside. Still requiring 2 pressors Levophed and vasopressin. He does not endorse any acute complaints including chest pain, palpitation, shortness of breath, fever, chills, focal neurological deficit, abdominal pain or dysuria. No acute overnight event reported by nursing staff. Objective Vital Signs & I&O Last 8 Hrs of Vitals and I&O: Intake & Output 12/29 1600 Intake Total 1120 Output Total 125 Balance 995 Intake, IV 1020 Intake, Oral 100 Output, Urine 125 Exam General Appearance: alert, awake, SLIGHTLY ANXIOUS TODAY COMPARED TO PREVIOUS DAYS Other Physical Findings: Head: atraumatic, normal appearance Respiratory: normal breath sounds, chest non-tender, no respiratory distress, lungs clear Cardiovascular: regular rate/rhythm Gastrointestinal: soft, non-tender Extremities: no edema Current Medications: Current Medications Sig/Brennon Start time Last Medication Dose Route Stop Time Status Admin Acetaminophen 650 MG Q6 PRN 12/24 2100 AC PO Albuterol Sulfate 2 PUF Q4P PRN 12/24 1930 AC INH Finasteride 5 MG DAILY 12/25 1000 AC 12/29 PO 1100 Fluconazole 600 MG DAILY 12/30 1000 AC PO Fluconazole 800 MG ONCE ONE 12/29 1130 DC 12/29 PO 12/29 1131 1417 Glycerin/Mineral Oil 1 MEHUL TIDPRN PRN 12/27 1430 AC 12/28 TOP 0600 Insulin Human Regular 1 UNITS .STK-MED ONE 12/29 0618 DC IV 12/29 0619 Insulin Human Regular 1 UNITS .STK-MED ONE 12/29 0023 DC IV 12/29 0024 Insulin Human Regular 2 UNITS .STK-MED ONE 12/28 1829 DC IV 12/28 1830 Insulin Human Regular 0 Q6 12/25 1247 AC 12/29 SC 1248 Magnesium Sulfate 1 GM Q2H 12/29 0930 DC 12/29 Dextrose/Water 100 ML IV 12/29 1329 1248 Morphine Sulfate 1 MG ONCE ONE 12/29 1445 CAN IV 12/29 1446 Norepinephrine 4 MG Q4H 12/25 1000 AC 12/29 Sodium Chloride 250 ML IV 1103 Sodium Chloride 500 ML BOLUS ONE 12/29 1530 AC IV 12/29 1629 Sodium Chloride 1,000 ML BOLUS ONE 12/28 1945 DC 12/28 IV 12/28 Sodium Chloride 500 ML BOLUS ONE 12/28 1600 DC 12/28 IV 12/28 1659 1623 Sodium Chloride 1,000 ML Q10H 12/25 0845 AC 12/29 IV 0800 Tramadol HCl 50 MG Q6 PRN 12/24 2245 12/29 PO 1248 Vasopressin 40 UNITS Q16H 12/28 1015 12/28 Sodium Chloride 100 ML IV 2150 Impression/Plan Impression/Problem List Impression: This is a 76-year-old very pleasant gentleman with a medical history significant for 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 At admission patient's vitals were remarkable for hypertension and tachycardia with labs showing lactic acidosis. His worsening of his chronic sacral and testicular ulcers were thought to be the most likely source of his septic condition. Patient was also found to have acute drop in his H/H. Was started on vancomycin and Unasyn, 1 unit PRBC transfused, and fluid resuscitation of 6 L of normal saline. Patient had persistent hypotension despite the aggressive fluid resuscitation and was therefore transferred to ICU for pressor support. Impression and plan 76-year-old male with PMH of 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 At admission patient's vitals were remarkable for hypotension and tachycardia with labs showing lactic acidosis. His worsening of his chronic sacral and testicular ulcers were thought to be the most likely source of his septic condition. Patient was also found to have acute drop in his H/H. Was started on vancomycin and Unasyn, 1 unit PRBC transfused, and fluid resuscitation of 6 L of normal saline. Patient had persistent hypotension despite the aggressive fluid resuscitation and was therefore transferred to ICU for pressor support. Impression and plan #Hypotension of unclear etiology(shock) Still requires Levophed and vasopressin -No source of infection can be identified, however lactic acid is high. -Urine cabrera cultures remarkable for 10,000 colonies of yeast, which is probably colonization. However low threshold for suspicion of disseminated candidiasis in the setting of compromised patient with persistent unexplained hypotension. We'll therefore start fluconazole 800 mg today and switched to 600 from tomorrow per ID recommendations (appreciated) -Echo showed normal EF and does not show any clinical signs of cardiogenic shock.. -Xray chest shows No focal pneumonia. Lactic acidosis continues, will bolus a liter today in addition to the 100 mls/hr maintenance. Goals of care discussion was initiated by Dr. Ford yesterday morning #Normocytic anemia with elevated RDW -Stable H&H -Status post 2 units of PRBC on admission. -Last anemia blood work we have in the system was done in 2012 * We will do iron study, B12, and folic acid. #Skin ulcerations -He has multiple stage III decubitus ulcer, and some skin maceration of the scrotum (all present on admission) -Wound consult recommended [facility], . -No surgical intervention recommended by surgery -Scrotal ultrasound did not reveal any pathology #History of colorectal cancer with metastasis -As per oncologist Overall-the patient has a very poor prognosis -Goal of care was discussion was initiated by Dr. Ford this a.m. Problem List: 1. Shock 2. Open wound of scrotum 3. Acute renal failure Pain Ratin Pain Location: ABDOMEN/SCROTUM Tomorrow's Labs & Rationales: ICU BUNDLE Plan DVT/Prophylaxis: mechanical, pharmacological
--- NOTE | 2016-12-29 09:27 | PN- CRCU ---
Subjective HPI/Critical Care Issues: pt seen and examined wbc improved to 13.2 lactate resolved to 2.1 with hydration Objective Current Medications: Current Medications Sig/Brennon Start time Last Medication Dose Route Stop Time Status Admin Acetaminophen 650 MG Q6 PRN 12/24 2100 AC PO Albuterol Sulfate 2 PUF Q4P PRN 12/24 1930 AC INH Finasteride 5 MG DAILY 12/25 1000 AC 12/28 PO 0945 Glycerin/Mineral Oil 1 MEHUL TIDPRN PRN 12/27 1430 12/28 TOP 0600 Insulin Human Regular 1 UNITS .STK-MED ONE 12/29 0023 DC IV 12/29 0024 Insulin Human Regular 2 UNITS .STK-MED ONE 12/28 1829 DC IV 12/28 1830 Insulin Human Regular 4 UNITS .STK-MED ONE 12/28 1245 DC IV 12/28 1246 Insulin Human Regular 0 Q6 12/25 1247 12/29 SC 0621 Magnesium Sulfate 1 GM Q2H 12/29 0930 UNVr Dextrose/Water 100 ML IV 12/29 1329 Norepinephrine 4 MG Q4H 12/25 1000 12/29 Sodium Chloride 250 ML IV 0621 Potassium Chloride 40 MEQ ONCE ONE 12/28 1415 DC 12/28 PO 12/28 1416 1739 Sodium Chloride 1,000 ML BOLUS ONE 12/28 1945 DC 12/28 IV 12/28 2044 2000 Sodium Chloride 500 ML BOLUS ONE 12/28 1600 DC 12/28 IV 12/28 1659 1623 Sodium Chloride 1,000 ML Q10H 12/25 0845 12/29 IV 0222 Tramadol HCl 50 MG Q6 PRN 12/24 2245 AC 12/28 PO 2226 Vasopressin 40 UNITS Q16H 12/28 1015 AC 12/28 Sodium Chloride 100 ML IV 2150 Vital Signs & I&O Last 24 Hrs of Vitals and I&O: Vital Signs Date Time Temp Pulse Resp B/P B/P Pulse O2 O2 Flow FiO2 Mean Ox Delivery Rate 12/29 0800 98 Nasal 2.0L Cannula 12/29 0800 97.4 112 24 90/50 94 Nasal 2.0L Cannula 12/29 0621 101 28 99/54 12/29 0400 95 Nasal 2.0L Cannula 12/29 0222 922 95/56 12/29 0000 97 Nasal 2.0L Cannula 12/29 0000 96.0 92 22 118/60 97 Nasal 2.0L Cannula 12/28 2229 91 20 136/78 12/28 2000 95 Nasal 2.0L Cannula 12/28 1831 92 95/44 12/28 1623 84 102/46 12/28 1600 100 Nasal 2.0L Cannula 12/28 1600 97.0 90 24 100/58 100 Nasal 2.0L Cannula 12/28 1200 96 Nasal 2.0L Cannula 12/28 0944 106 78/44 Intake & Output 12/29 1600 12/29 0800 12/29 0000 Intake Total 948 2713 Output Total 160 165 Balance 788 2548 Intake, IV 948 2713 Output, Urine 160 165 Exam Other Physical Findings: gen awake and alert heent ncat cvs s1, s2 lungs rare rhonchi abd soft, obese ext edematous skin scaling Results Last 24 Hrs of Lab Results: Laboratory Tests 12/29/16 0336: Anion Gap 7, Estimated GFR 54 L, Glucose 81, Calcium 7.7 L, Phosphorus 4.4, Magnesium 1.6, Iron 42 L, TIBC 126 L, Ferritin 2410.0 H, Total Bilirubin 4.4 H, AST 642 H, ALT 108 H, Albumin 1.7 L, Vitamin B12 892, Folate 4.4, CBC w Diff MAN DIFF ORDERED, RBC 3.40 L, MCV 87.0, MCH 28.1, RDW 20.1 H, MPV 8.9, Gran % 86.6 H, Lymphocytes % 5.5 L, Monocytes % 6.8, Eosinophils % 1.0, Basophils % 0.1, Absolute Granulocytes 11.4 H, Segmented Neutrophils 75, Band Neutrophils 15 H, Absolute Lymphocytes 0.7 L, Lymphocytes 9 L, Monocytes 1 L , Absolute Monocytes 0.9 H, Absolute Eosinophils 0.1, Absolute Basophils 0, Platelet Estimate DECREASED, Hypochromic-Microcytic 1+, Poikilocytosis 1+, Anisocytosis 2+, Target Cells RARE, [place] Cells FEW, PUBS MCHC 32.3 L 12/28/16 2230: Lactic Acid 2.1 12/28/16 1750: Anion Gap 12, Estimated GFR 46 L, Glucose 103 H, Lactic Acid 3.6 H, Calcium 8.2 L, Phosphorus 3.4, Magnesium 1.9, Total Bilirubin 4.7 H, Direct Bilirubin 4.1 H, AST 122 H, ALT 53, Albumin 2.1 L, CBC w Diff NO MAN DIFF REQ, RBC 3.95 L, MCV 86.8, MCH 27.7, RDW 19.6 H, MPV 9.0, Gran % 86.8 H, Lymphocytes % 5.8 L, Monocytes % 5.3, Eosinophils % 2.0, Basophils % 0.1, Absolute Granulocytes 14.6 H, Absolute Lymphocytes 1.0 L, Absolute Monocytes 0.9 H, Absolute Eosinophils 0.3, Absolute Basophils 0, PUBS MCHC 31.9 L 12/28/16 1455: Lactic Acid 2.9 H 12/28/16 1130: Lactic Acid 2.5 H Impression/Plan Impression/Plan Impression/Plan: Impression 76 year old man * remains in shock - unclear etiology - differential third spacing/volume loss, infectious etiology * colon ca * anemia - chronic, stable Plan -titrate vasopressors, goal map of 65 -f/u railroad 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
--- NOTE | 2016-12-29 09:30 | PN- Infect Dx ---
See Addendum Subjective Subjective: Remains afebrile. His blood pressure remains low, requiring the addition of a second pressor. He complains of a dry mouth but denies any pain. His scrotal discomfort has improved. He did note nausea yesterday but had no vomiting or abdominal discomfort. He has not had any significant bowel movements. Objective Last 24 Hrs of Vital Signs/I&O Vital Signs Date Time Temp Pulse Resp B/P B/P Pulse O2 O2 Flow FiO2 Mean Ox Delivery Rate 12/29 0800 98 Nasal 2.0L Cannula 12/29 0800 97.4 112 24 90/50 94 Nasal 2.0L Cannula 12/29 0621 101 28 99/54 12/29 0400 95 Nasal 2.0L Cannula 12/29 0222 922 95/56 12/29 0000 97 Nasal 2.0L Cannula 12/29 0000 96.0 92 22 118/60 97 Nasal 2.0L Cannula 12/28 2229 91 20 136/78 12/28 2000 95 Nasal 2.0L Cannula 12/28 1831 92 95/44 12/28 1623 84 102/46 12/28 1600 100 Nasal 2.0L Cannula 12/28 1600 97.0 90 24 100/58 100 Nasal 2.0L Cannula 12/28 1200 96 Nasal 2.0L Cannula 12/28 0944 106 78/44 Intake & Output 12/29 1600 12/29 0800 12/29 0000 Intake Total 948 2713 Output Total 160 165 Balance 788 2548 Intake, IV 948 2713 Output, Urine 160 165 Physical Exam Other Physical Findings: He appears chronically ill but in no acute distress Skin scaly psoriatic lesions persist Chest Port-A-Cath in the right upper chest with no inflammation at the site Lungs are clear Heart regular rhythm with no murmur Abdomen is obese, soft, tender on palpation of the right upper quadrant, with no guarding or rebound, positive bowel sounds Extremities 1+ edema both lower extremities scrotal erythema and tenderness persist; Fiore catheter remains in place Results Last 24 Hours of Lab Results: Laboratory Tests 12/29 12/28 0336 2230 Chemistry Sodium (137 - 145 mmol/L) 143 Potassium (3.5 - 5.1 mmol/L) 4.7 Chloride (98 - 107 mmol/L) 120 H Carbon Dioxide (22 - 30 mmol/L) 16 L Anion Gap (5 - 16) 7 BUN (9 - 20 mg/dL) 38 H Creatinine (0.7 - 1.2 mg/dL) 1.3 H Estimated GFR (>60 ml/min) 54 L Glucose (65 - 99 mg/dL) 81 Lactic Acid (0.7 - 2.1 mmol/L) 2.1 Calcium (8.4 - 10.2 mg/dL) 7.7 L Phosphorus (2.5 - 4.5 mg/dL) 4.4 Magnesium (1.6 - 2.3 mg/dL) 1.6 Iron (49 - 181 ug/dL) 42 L TIBC (261 - 462 ug/dL) 126 L Ferritin (17.9 - 464 ng/mL) 2410.0 H Total Bilirubin (0.2 - 1.3 mg/dL) 4.4 H AST (17 - 59 U/L) 642 H ALT (21 - 72 U/L) 108 H Albumin (3.5 - 5.0 g/dL) 1.7 L Vitamin B12 (239 - 931 pg/mL) 892 Folate (2.76 - 20.0 ng/mL) 4.4 Hematology CBC w Diff MAN DIFF ORDERED WBC (4.8 - 10.8 /CUMM) 13.2 H RBC (4.70 - 6.10 /CUMM) 3.40 L Hgb (14.0 - 18.0 G/DL) 9.6 L Hct (42 - 52 %) 29.5 L MCV (80.0 - 94.0 FL) 87.0 MCH (27.0 - 31.0 PG) 28.1 RDW (11.5 - 14.5 %) 20.1 H Plt Count (130 - 400 /CUMM) 134 MPV (7.4 - 10.4 FL) 8.9 Gran % (42.2 - 75.2 %) 86.6 H Lymphocytes % (20.5 - 51.1 %) 5.5 L Monocytes % (1.7 - 9.3 %) 6.8 Eosinophils % (0 - 5 %) 1.0 Basophils % (0.0 - 2.0 %) 0.1 Absolute Granulocytes (1.4 - 6.5 /CUMM) 11.4 H Segmented Neutrophils (42.2 - 75.2 %) 75 Band Neutrophils (0.0 - 5.0 %) 15 H Absolute Lymphocytes (1.2 - 3.4 /CUMM) 0.7 L Lymphocytes (20.5 - 51.1 %) 9 L Monocytes (1.7 - 9.3 %) 1 L Absolute Monocytes (0.10 - 0.60 /CUMM) 0.9 H Absolute Eosinophils (0.0 - 0.7 /CUMM) 0.1 Absolute Basophils (0.0 - 0.2 /CUMM) 0 Platelet Estimate (ADEQUATE) DECREASED Hypochromic-Microcytic 1+ Poikilocytosis 1+ Anisocytosis 2+ Target Cells RARE [place] Cells FEW PUBS MCHC (33.0 - 37.0 G/DL) 32.3 L 12/28 12/28 12/28 1750 1455 1130 Chemistry Sodium (137 - 145 mmol/L) 143 Potassium (3.5 - 5.1 mmol/L) 4.1 Chloride (98 - 107 mmol/L) 113 H Carbon Dioxide (22 - 30 mmol/L) 18 L Anion Gap (5 - 16) 12 BUN (9 - 20 mg/dL) 38 H Creatinine (0.7 - 1.2 mg/dL) 1.5 H Estimated GFR (>60 ml/min) 46 L Glucose (65 - 99 mg/dL) 103 H Lactic Acid (0.7 - 2.1 mmol/L) 3.6 H 2.9 H 2.5 H Calcium (8.4 - 10.2 mg/dL) 8.2 L Phosphorus (2.5 - 4.5 mg/dL) 3.4 Magnesium (1.6 - 2.3 mg/dL) 1.9 Total Bilirubin (0.2 - 1.3 mg/dL) 4.7 H Direct Bilirubin (< 0.4 mg/dL) 4.1 H AST (17 - 59 U/L) 122 H ALT (21 - 72 U/L) 53 Albumin (3.5 - 5.0 g/dL) 2.1 L Hematology CBC w Diff NO MAN DIFF REQ WBC (4.8 - 10.8 /CUMM) 16.9 H RBC (4.70 - 6.10 /CUMM) 3.95 L Hgb (14.0 - 18.0 G/DL) 10.9 L Hct (42 - 52 %) 34.3 L MCV (80.0 - 94.0 FL) 86.8 MCH (27.0 - 31.0 PG) 27.7 RDW (11.5 - 14.5 %) 19.6 H Plt Count (130 - 400 /CUMM) 178 MPV (7.4 - 10.4 FL) 9.0 Gran % (42.2 - 75.2 %) 86.8 H Lymphocytes % (20.5 - 51.1 %) 5.8 L Monocytes % (1.7 - 9.3 %) 5.3 Eosinophils % (0 - 5 %) 2.0 Basophils % (0.0 - 2.0 %) 0.1 Absolute Granulocytes (1.4 - 6.5 /CUMM) 14.6 H Absolute Lymphocytes (1.2 - 3.4 /CUMM) 1.0 L Absolute Monocytes (0.10 - 0.60 /CUMM) 0.9 H Absolute Eosinophils (0.0 - 0.7 /CUMM) 0.3 Absolute Basophils (0.0 - 0.2 /CUMM) 0 PUBS MCHC (33.0 - 37.0 G/DL) 31.9 L Last 24 Hours of [place] Results: Blood cultures 2 December 28 negative Urine culture December 28 pending Recent Imaging Studies: Chest x-ray December 28, personally reviewed, reveals bibasilar atelectasis Assessment/Plan Impression: Remains hypotensive, now on 2 pressors, with improvement in his renal function and with temperatures remaining normal off antibiotics with recent blood cultures negative. His white blood cell count did increase yesterday, though it is decreased today, although with increased bands, which were seen on his initial CBC as well. His lactic acid increased yesterday, though it has also decreased today. His liver enzymes are increasing and, with right upper quadrant tenderness, could suggest a biliary process or, perhaps, ischemic hepatitis, given his hypotension, though he does have known liver metastases and his gallbladder on the recent CT scan was negative. His scrotal and buttock wounds appear to be responding to local therapy, with no evidence for superinfection. Suggestion: 1. Right upper quadrant ultrasound 2. Continue local wound care of his scrotal and buttock wounds per Surgery 3. Follow-up recent cultures 4. Continue to follow off antibiotics pending above
--- NOTE | 2016-12-29 11:41 | RADIOLOGY REPORT ---
EXAMINATION: XR PORTABLE CHEST CLINICAL INFORMATION: Hypotensive, requiring two pressors. Shock. Evaluate for acute respiratory infection versus effusion. COMPARISON: Multiple prior chest x-rays, most recent of which is dated 12/28/2016. CT scan of the abdomen and pelvis dated 12/24/2016. TECHNIQUE: Portable AP semierect view of the chest was obtained. FINDINGS: Multiple EKG wires overlie the chest. No change in positioning of the right subclavian Port-A-Cath is seen with coiling of the tubing in region of the lower neck. Port-A-Cath tip remains in the mid SVC. The cardiac mediastinal silhouette is enlarged, likely due to a combination of small pericardial effusion and prominent epicardiac fat as seen on recent CT scan. Low lung volumes are seen with bibasilar opacities, most consistent with subsegmental atelectasis. Appearance is unchanged from prior exam. No significant pleural effusion or pneumothorax is seen. Bony structures are unremarkable. IMPRESSION: 1. Bibasilar opacities are again seen, unchanged, most consistent with subsegmental atelectasis in the setting of low lung volumes. Subtle pneumonia cannot be entirely excluded but is felt to be less likely. Close clinical correlation requested. 2. No significant pleural effusion seen.
[2016-12-29 16:00] VITALS: BP 104/56
--- NOTE | 2016-12-29 18:30 | NUR ---
Received patient @ 0800 lethargic but easily arousable and oriented to person and place. Patient becoming increasingly lethargic/restless/forgetful/difficult w/ care throughout the day ST on the property assessment monitor 100s, SBP=80s-90s and levo titrated per emar to 5mcgs/min or 18.8 mls/hr through RCW implanted port along with normal saline at 100 mls/hr and vasopressin at 0.04 u/min or 6 mls/hr. Lactic acid checked at 1345 - 3.0 and at 1730 - 4.0. 500 ml boluses of NS ordered/given per Dr. Cormier @ 1530, 1700, and 2000. + pedal and radial pulses bilaterally. +2 lower ext edema, +1 scrotal edema, and +2 upper emilee area edema. Skin generalized dry/flaking, lubriderm applied. Patient has known stage III's to bilateral upper buttocks, excoriated weeping scrotum, and moisture/yeast to inner groin folds. Patient refusing to be turned and repositioned throughout the day when prompted. Patient did not like to have the head of the bed touched too quickly or cabrera tube moved. Informed Dr. Cormier of patient's difficulty with care and Dr. Frieda Kent aware of patient refusing alps. When finally turned at 1800, patient still refused but took much persuasion/compromise including having three people to complete the repositioning. Bleeding noted from buttocks wounds and scrotum with aquacel/abd pad applied. Open bleeding/excoriation noted to scrotum w/ yellow drainage - elevated on pads. Nystatin ordered and to be applied. Educated patient on the importance of turning in the bed for his skin/strength and met with continued resistance. Clinitron bed ordered per Dr. Cormier. Abdomen is distended/firm/round and increasing in size throughout the day. Patient denies pain and nausea but notes some bloating. No BM noted today. Cabrera in place, draining 10-25 cc of clear janelle urine w/ orange sediment. Yeast noted in tube directly coming from penis. Cabrera flushed and patient bladder scanned for 0 cc. Penile skin is also swollen/retracted/weeping.
--- NOTE | 2016-12-29 20:45 | NUR ---
AFTER EXTENSIVE DISVUSSION WITH DR MALDONADO PT AGREED TO TRY BIPAP. PT SL CONFUSED TO TREATMENT MODALITIES BUT IS WILLING TO TRY BIPAP INSTEAD OF INTUBATION. B/W DONE, IV FLUID BOLUS ORDERED. MS 1MG GIVEN FOR COMFORT. NURSE REMAINS AT BEDSIDE TO MONITOR COMPLIENCE, TOLERATING BIPAP WELL.
[2016-12-30 00:30] VITALS: BP 99/47
[2016-12-30 04:55] LABS: ABSOLUTE BASOPHIL COUNT 0 /CUMM (0.0-0.2); ABSOLUTE EOSINOPHIL COUNT 0 /CUMM (0.0-0.7); ABSOLUTE GRANULOCYTE CT 8.8 /CUMM (1.4-6.5); ABSOLUTE LYMPH COUNT 0.6 /CUMM (1.2-3.4); ABSOLUTE MONOCYTE COUNT 0.6 /CUMM (0.10-0.60); BASOPHIL % 0 % (0.0-2.0); EOSINOPHIL % 0.2 % (0-5); GRANULOCYTE % 87.6 % (42.2-75.2); HEMATOCRIT 27.9 % (42-52); MEAN CORPUSCULAR HGB 28.2 PG (27.0-31.0); MEAN CORPUSCULAR HGB CONC 32.5 G/DL (33.0-37.0); MEAN CORPUSCULAR VOLUME 86.6 FL (80.0-94.0); MEAN PLATELET VOLUME 9.1 FL (7.4-10.4); PLATELET COUNT 129 /CUMM (130-400); RBC DISTRIBUTION WIDTH 20.9 % (11.5-14.5); RED BLOOD CELL CT 3.22 /CUMM (4.70-6.10)
--- NOTE | 2016-12-30 07:37 | PN- Oncology ---
Subjective Subjective: Offensive weekend reviewed, patient wearing mask, verbally slow to respond Review of Systems: 12 point review of systems unobtainable Objective Vital Signs and I&Os Vital Signs Date Time Temp Pulse Resp B/P B/P Pulse O2 O2 Flow FiO2 Mean Ox Delivery Rate 12/30 0653 82 102/55 12/30 0526 89 100 12/30 0400 100 BIPAP 30% 12/30 0300 90 100 12/30 0229 86 105/53 12/30 0030 98.4 96 28 99/47 99 BIPAP 30% 12/30 0029 98 100 12/30 0003 99 BIPAP 30% 12/29 2233 97 99 12/29 2156 99 93/59 12/30 1999 99 BIPAP 30% 12/30 1999 113 95 12/29 1740 111 97/64 12/29 1600 99 Nasal 2.0L Cannula 12/29 1600 98.2 110 34 104/56 99 Nasal 2.0L Cannula 12/29 1400 109 97/64 12/29 1200 98 Nasal 2.0L Cannula 12/29 1103 110 93/57 12/29 0800 98 Nasal 2.0L Cannula 12/29 0800 97.4 112 24 90/50 94 Nasal 2.0L Cannula Intake & Output 12/30 0800 12/30 0000 12/29 1600 12/29 0800 12/29 0000 12/28 1600 Intake Total 998 2398 6730 752 4365 1620 Output Total 75 65 125 160 165 175 Balance 923 2333 762 220 0842 1445 Intake, IV 998 2348 5533 531 5956 1220 Intake, Oral 50 100 400 Output, Urine 75 65 125 160 165 175 Gen.: in NAD ENT: Sclera anicteric Chest: Increased respiratory effort, decreased breath sounds Cor: RRR, no extra sounds Abdomen: Soft, bowel sounds present, marked increased distention, no tenderness, no rebound Extremities: Without clubbing, cyanosis, or asymmetric edema Neurology: Awake, sluggish, moves all 4 extremities Skin: No rashes Current Medications: Current Medications Sig/Brennon Start time Last Medication Dose Route Stop Time Status Admin Acetaminophen 650 MG Q6 PRN 12/24 2100 AC PO Albuterol Sulfate 2 PUF Q4P PRN 12/24 1930 AC INH Finasteride 5 MG DAILY 12/25 1000 AC 12/29 PO 1100 Fluconazole 600 MG DAILY 12/30 1000 AC PO Fluconazole 800 MG ONCE ONE 12/29 1130 DC 12/29 PO 12/29 1131 1417 Glycerin/Mineral Oil 1 MEHUL TIDPRN PRN 12/27 1430 12/28 TOP 0600 Heparin Sodium 5,000 UNIT Q8 12/29 2200 CAN (Porcine) SC Insulin Human Regular 2 UNITS .STK-MED ONE 12/29 1737 DC IV 12/29 1738 Insulin Human Regular 1 UNITS .STK-MED ONE 12/29 1244 DC IV 12/29 1245 Insulin Human Regular 0 Q6 12/25 1247 12/30 SC 0651 Magnesium Sulfate 1 GM Q2H 12/29 0930 DC 12/29 Dextrose/Water 100 ML IV 12/29 1329 1248 Morphine Sulfate 1 MG ONCE ONE 12/29 1830 DC 12/29 IV 12/29 1831 2040 Morphine Sulfate 1 MG ONCE ONE 12/29 1445 CAN IV 12/29 1446 Norepinephrine 4 MG Q4H 12/25 1000 12/30 Sodium Chloride 250 ML IV 0653 Nystatin 1 MEHUL TID 12/29 1829 TOP Sodium Chloride 500 ML BOLUS ONE 12/29 2000 DC 12/29 IV 12/29 2059 2036 Sodium Chloride 500 ML BOLUS ONE 12/29 1845 DC IV 12/29 1944 Sodium Chloride 500 ML BOLUS ONE 12/29 1530 DC 12/29 IV 12/29 1629 1545 Sodium Chloride 1,000 ML Q10H 12/25 0845 AC 12/29 IV 2157 Tramadol HCl 50 MG Q6 PRN 12/24 2245 12/29 PO 1248 Vasopressin 40 UNITS Q16H 12/28 1015 12/29 Sodium Chloride 100 ML IV 1738 Results Last 24 Hours of Lab Results: Laboratory Tests 12/30 12/30 0535 0420 Blood Gas pH (7.35 - 7.45 PH) 7.25 *L pCO2 (35 - 45 TORR) 24 L pO2 (80 - 100 TORR) 126 H HCO3 (21 - 28 MEQ/L) 10 L ABG O2 Sat (Measured) (>96.0 %) 98.0 P-50 (Temp Corrected) N Carboxyhemoglobin (1.5 - 5.0 %) 0.1 L O2 Concentration % .30 Respiration Rate (BPM) 26 O2 Delivery Method BIPAP Vent Mode ST Expiratory Pressure (CM H2O P) 6 Inspiratory Pressure (CM H2O P) 12 Chemistry Lactic Acid (0.7 - 2.1 mmol/L) 2.7 H Miscellaneous Phlebotomy Draw Site RIGHT BRACHIAL 12/30 12/29 0420 2310 Chemistry Sodium (137 - 145 mmol/L) 145 Potassium (3.5 - 5.1 mmol/L) 5.1 Chloride (98 - 107 mmol/L) 120 H Carbon Dioxide (22 - 30 mmol/L) 14 L Anion Gap (5 - 16) 11 BUN (9 - 20 mg/dL) 43 H Creatinine (0.7 - 1.2 mg/dL) 1.7 H Estimated GFR (>60 ml/min) 40 L Glucose (65 - 99 mg/dL) 124 H Lactic Acid (0.7 - 2.1 mmol/L) 3.2 H Calcium (8.4 - 10.2 mg/dL) 7.9 L Phosphorus (2.5 - 4.5 mg/dL) 6.3 H Magnesium (1.6 - 2.3 mg/dL) 2.1 Total Bilirubin (0.2 - 1.3 mg/dL) 3.9 H AST (17 - 59 U/L) 709 H ALT (21 - 72 U/L) 141 H Albumin (3.5 - 5.0 g/dL) 1.7 L Hematology CBC w Diff MAN DIFF ORDERED WBC (4.8 - 10.8 /CUMM) 10.0 RBC (4.70 - 6.10 /CUMM) 3.22 L Hgb (14.0 - 18.0 G/DL) 9.1 L Hct (42 - 52 %) 27.9 L MCV (80.0 - 94.0 FL) 86.6 MCH (27.0 - 31.0 PG) 28.2 RDW (11.5 - 14.5 %) 20.9 H Plt Count (130 - 400 /CUMM) 129 L MPV (7.4 - 10.4 FL) 9.1 Gran % (42.2 - 75.2 %) 87.6 H Lymphocytes % (20.5 - 51.1 %) 6.4 L Monocytes % (1.7 - 9.3 %) 5.8 Eosinophils % (0 - 5 %) 0.2 Basophils % (0.0 - 2.0 %) 0 L Absolute Granulocytes (1.4 - 6.5 /CUMM) 8.8 H Segmented Neutrophils (42.2 - 75.2 %) 80 H Band Neutrophils (0.0 - 5.0 %) 11 H Absolute Lymphocytes (1.2 - 3.4 /CUMM) 0.6 L Lymphocytes (20.5 - 51.1 %) 6 L Monocytes (1.7 - 9.3 %) 3 Absolute Monocytes (0.10 - 0.60 /CUMM) 0.6 Absolute Eosinophils (0.0 - 0.7 /CUMM) 0 Absolute Basophils (0.0 - 0.2 /CUMM) 0 Nucleated RBCs (0.0 - 0.0 /100WBC) 2 H Platelet Estimate (ADEQUATE) ADEQUATE Polychromasia 1+ Hypochromic-Microcytic 1+ Poikilocytosis 1+ Ovalocytes 1+ PUBS MCHC (33.0 - 37.0 G/DL) 32.5 L Other Body Source Fld Total RBCs Counted (%) 100 12/29 12/29 12/29 12/29 2211999 191 1730 Blood Gas pH (7.35 - 7.45 PH) 7.22 *L 7.19 *L pCO2 (35 - 45 TORR) 26 L 25 L pO2 (80 - 100 TORR) 117 H 103 H HCO3 (21 - 28 MEQ/L) 11 L 9 L ABG O2 Sat (Measured) (>96.0 %) 97.0 96.0 P-50 (Temp Corrected) N N Carboxyhemoglobin (1.5 - 5.0 %) 0.5 L 0.5 L O2 Concentration % 30% 2L Temperature (97.0 - 100.0 FARH) 97.4 97.0 Respiration Rate (BPM) 26 O2 Delivery Method FFM N/C Vent Mode ST Expiratory Pressure (CM H2O P) 6 Inspiratory Pressure (CM H2O P) 12 Chemistry Lactic Acid (0.7 - 2.1 mmol/L) 4.8 H 4.0 H Miscellaneous Phlebotomy Draw Site RIGHT BRACHIAL RIGHT BRACHIAL 12/29 1345 Chemistry Lactic Acid (0.7 - 2.1 mmol/L) 3.0 H Assessment/Plan Assessment/Recommendations: 1. Hypotension/metabolic acidosis-patient now on antifungal antibiotics, at this point-unclear etiology for hypotension and acidosis, doubt hepatic failure the presence of metastatic disease given his liver function tests, ??? Recommend- As per ICU team ?? Empiric broad spectrum antibiotics 2. Stage IV rectal cancer-systemic therapy on hold Overall prognosis-grim
--- NOTE | 2016-12-30 07:42 | Cons- CRCU ---
General Information and HPI Consulting Request Date of Consult: 12/31/16 Requested By: RAY History of Present Illness: ND Allergies/Medications Allergies: Coded Allergies: chlorhexidine (Severe, RASH, SWELLING 09/09/16) Home Med List: Albuterol Sulfate (Proair Hfa) 90 MCG HFA.AER.AD 2 PUF INH AD PRN RESPIRATORY (Reported) Calcium Carbonate/Vitamin D3 (Oyster Shell 500 MG + Vit D Tb) 500 MG-200 TABLET 1 TAB PO TID SUPPLEMENT (Reported) Emollient Combination No.92 (Lubriderm Daily Moisture) 177 ML LOTION 1 MEHUL TOP PRN SKIN (Reported) Ferrous Sulfate 325 MG TABLET 1 TAB PO BID VITAMIN SUPPORT (Reported) Finasteride 5 MG TABLET 1 TAB PO DAILY PROSTATE (Reported) Magnesium Oxide (Magox 400) 400 MG TABLET 3 TAB PO BID SUPPLEMENT (Reported) Metformin HCl 1,000 MG TABLET 1 TAB PO BID DIABETES (Reported) Pioglitazone HCl (Actos) 30 MG TABLET 1 TAB PO DAILY DIABETES (Reported) Potassium Chloride (K-Tab ER) 10 MEQ TABLET.ER 1 TAB PO DAILY DEHYDRATION ( Reported) Tamsulosin HCl (Flomax) 0.4 MG CAP.ER.24H 1 CAP PO DAILY UNKNOWN (Reported) Telmisartan (Micardis) 40 MG TABLET 1 TAB PO DAILY HEART HEALTH (Reported) Past History Travel History Traveled to [place] past 21 day No Medical History Blood Transfusion Hx: No Neurological: NONE EENT: NONE Cardiovascular: hypertension, hyperlipidemia Respiratory: NONE Gastrointestinal: rectal cancer Hepatic: NONE Renal: benign prost hyperplasia Musculoskeletal: NONE Psychiatric: NONE Endocrine: diabetes Blood Disorders: anemia Cancer(s): colon/rectal cancer 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 Extended Care Facility Who Do You Live With? self Services at Home: Nursing Primary Language: Tajik Smoking Status: Former Smoker ETOH Use: denies use Illicit Drug Use: denies illicit drug use Functional Ability ADLs Independent: dressing, eating, toileting, bathing. 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 At admission patient's vitals were remarkable for hypertension and tachycardia with labs showing lactic acidosis. His worsening of his chronic sacral and testicular ulcers were thought to be the most likely source of his septic condition. Patient was also found to have acute drop in his H/H. Was started on vancomycin and Unasyn, 1 unit PRBC transfused, and fluid resuscitation of 6 L of normal saline. Patient had persistent hypotension despite the aggressive fluid resuscitation and was therefore transferred to ICU for pressor support. Impression and plan #Septic shock Refractory to about 6 L of normal saline requiring initiation of Levophed. currently running at 16mcg per hour with MAP at goal > 65. Started on vancomycin and Unasyn for possible skin infection around the sacral and scrotal area as the source of infection. His CXR unremarkable, blood cultures and UA pending. Examination of the skin area today, does not appear to be infected, however the scrotal area is tender on movement, will await ultrasound findings. Will defer to ID on the changes to antibiotic regimen and identification of source of infection (appreciated). #Acute on chronic anemia Very possibly secondary to acute blood loss as reported by patient's home nurse that the sacral and scrotum area recently were noted to be oozing blood. His anemia is also multifactorial with malignancy and iron deficiency(noncompliant with therapy) being contributory. Will receive a total of 2 units of PRBC will trend CBC. #Hypomagnesemia Patient is noted to have a history of hyperglycemia with his chemotherapy the possible cause. We'll continue to replenish and keep at all of 2 and above. #Skin ulcerations Patient has multiple stage III decubitus ulcer, and some skin maceration of the scrotum all present on admission. Wound consult was obtained and recommended Flowboxel Ag, . Surgery was consulted and did not recommend any emergent intervention because the affected area did not have any evidence of necrosis or deep infection. Will await scrotal ultrasound results. #History of colorectal cancer with metastasis Oncology was contacted, recommended to continue with the current medical plan. Consult Acknowledgment - Thank you for your consult request.
[2016-12-30 08:00] VITALS: BP 116/64
--- NOTE | 2016-12-30 08:08 | Event Note ---
Event Note Event Note: Situation: Discussion of goals of care. Brief Assesment: Dr Ford and I had a discussion with patient about his medical condition. He understood his current medical condition He was informed abuut the possibility of CPR and Intubation in the event he develops cardiac arrest, benefits and risks of CPR were discussed. . Pt expressed his wishes and stated "I want to be happy and not in pain, dont hurt me". Pt opted to not go through aggressive measures of CPR or intubation. He is in full agreement. He also at this time is acceptin BiPAP, however, he stated he may later decline. Plan Code status was changed from FC to DNR/DNI.
--- NOTE | 2016-12-30 08:55 | PN- CRCU ---
Subjective HPI/Critical Care Issues: pt seen and examined on vasopressors bipap awake but sluggish clearly states that he wants to change code status to DNR/DNI Objective Current Medications: Current Medications Sig/Brennon Start time Last Medication Dose Route Stop Time Status Admin Acetaminophen 650 MG Q6 PRN 12/24 2100 AC PO Albuterol Sulfate 2 PUF Q4P PRN 12/24 1930 AC INH Finasteride 5 MG DAILY 12/25 1000 AC 12/29 PO 1100 Fluconazole 600 MG DAILY 12/30 1000 AC PO Fluconazole 800 MG ONCE ONE 12/29 1130 DC 12/29 PO 12/29 1131 1417 Glycerin/Mineral Oil 1 MEHUL TIDPRN PRN 12/27 1430 AC 12/28 TOP 0600 Heparin Sodium 5,000 UNIT Q8 12/29 2200 CAN (Porcine) SC Insulin Human Regular 1 UNITS .STK-MED ONE 12/29 2344 DC IV 12/29 2345 Insulin Human Regular 2 UNITS .STK-MED ONE 12/29 1737 DC IV 12/29 1738 Insulin Human Regular 1 UNITS .STK-MED ONE 12/29 1244 DC IV 12/29 1245 Insulin Human Regular 0 Q6 12/25 1247 AC 12/30 SC 0651 Magnesium Sulfate 1 GM Q2H 12/29 0930 DC 12/29 Dextrose/Water 100 ML IV 12/29 1329 1248 Morphine Sulfate 1 MG ONCE ONE 12/29 1830 DC 12/29 IV 12/29 1831 2040 Morphine Sulfate 1 MG ONCE ONE 12/29 1445 CAN IV 12/29 1446 Norepinephrine 4 MG Q4H 12/25 1000 AC 12/30 Sodium Chloride 250 ML IV 0653 Nystatin 1 MEHUL TID 12/29 1829 AC TOP Sodium Chloride 500 ML BOLUS ONE 12/30 0745 DC IV 12/30 0844 Sodium Chloride 500 ML BOLUS ONE 12/29 2000 DC 12/29 IV 12/29 2059 2036 Sodium Chloride 500 ML BOLUS ONE 12/29 1845 DC IV 12/29 1944 Sodium Chloride 500 ML BOLUS ONE 12/29 1530 DC 12/29 IV 12/29 1629 1545 Sodium Chloride 1,000 ML Q10H 12/25 0845 AC 12/29 IV 2157 Tramadol HCl 50 MG Q6 PRN 12/24 2245 AC 12/29 PO 1248 Vasopressin 40 UNITS Q16H 12/28 1015 AC 12/29 Sodium Chloride 100 ML IV 1738 Vital Signs & I&O Last 24 Hrs of Vitals and I&O: Vital Signs Date Time Temp Pulse Resp B/P B/P Pulse O2 O2 Flow FiO2 Mean Ox Delivery Rate 12/30 0742 98 95 12/30 0653 82 102/55 12/30 0526 89 100 12/30 0400 100 BIPAP 30% 12/30 0300 90 100 12/30 0229 86 105/53 12/30 0030 98.4 96 28 99/47 99 BIPAP 30% 12/30 0029 98 100 12/30 0003 99 BIPAP 30% 12/29 2233 97 99 12/29 2156 99 93/59 12/30 1999 99 BIPAP 30% 12/30 1999 113 95 12/29 1740 111 97/64 12/29 1600 99 Nasal 2.0L Cannula 12/29 1600 98.2 110 34 104/56 99 Nasal 2.0L Cannula 12/29 1400 109 97/64 12/29 1200 98 Nasal 2.0L Cannula 12/29 1103 110 93/57 Intake & Output 12/30 1600 12/30 0800 12/30 0000 Intake Total 998 2398 Output Total 75 65 Balance 923 2333 Intake, IV 998 2348 Intake, Oral 50 Output, Urine 75 65 Exam Other Physical Findings: gen awake and alert heent ncat cvs s1, s2 lungs rare rhonchi abd soft, obese ext edematous skin scaling Results Last 24 Hrs of Lab Results: Laboratory Tests 12/30/16 0535: pH 7.25 *L, pCO2 24 L, pO2 126 H, HCO3 10 L, ABG O2 Sat (Measured) 98.0, P-50 (Temp Corrected) N, Carboxyhemoglobin 0.1 L, O2 Concentration % .30, Respiration Rate 26, O2 Delivery Method BIPAP, Vent Mode ST, Expiratory Pressure 6, Inspiratory Pressure 12, Phlebotomy Draw Site RIGHT BRACHIAL 12/30/16 0500: Procalcitonin Pending 12/30/16 0420: Lactic Acid 2.7 H 12/30/16 0420: Anion Gap 11, Estimated GFR 40 L, Glucose 124 H, Calcium 7.9 L, Phosphorus 6.3 H, Magnesium 2.1, Total Bilirubin 3.9 H, AST 709 H, ALT 141 H, Troponin I < 0.01, Albumin 1.7 L, TSH 1.360, Free T4 1.13, CBC w Diff MAN DIFF ORDERED, RBC 3.22 L, MCV 86.6, MCH 28.2, RDW 20.9 H, MPV 9.1, Gran % 87.6 H, Lymphocytes % 6.4 L, Monocytes % 5.8, Eosinophils % 0.2, Basophils % 0 L, Absolute Granulocytes 8.8 H, Segmented Neutrophils 80 H, Band Neutrophils 11 H, Absolute Lymphocytes 0.6 L, Lymphocytes 6 L, Monocytes 3, Absolute Monocytes 0.6, Absolute Eosinophils 0, Absolute Basophils 0, Nucleated RBCs 2 H , Platelet Estimate ADEQUATE, Polychromasia 1+, Hypochromic-Microcytic 1+, Poikilocytosis 1+, Ovalocytes 1+, PUBS MCHC 32.5 L, Fld Total RBCs Counted 100 12/29/16 2310: Lactic Acid 3.2 H 12/29/16 2215: pH 7.22 *L, pCO2 26 L, pO2 117 H, HCO3 11 L, ABG O2 Sat (Measured) 97.0, P-50 (Temp Corrected) N, Carboxyhemoglobin 0.5 L, O2 Concentration % 30%, Temperature 97.4, Respiration Rate 26, O2 Delivery Method FFM, Vent Mode ST, Expiratory Pressure 6, Inspiratory Pressure 12, Phlebotomy Draw Site RIGHT BRACHIAL 12/29/161999: Lactic Acid 4.8 H 12/29/16 1910: pH 7.19 *L, pCO2 25 L, pO2 103 H, HCO3 9 L, ABG O2 Sat (Measured) 96.0, P-50 (Temp Corrected) N, Carboxyhemoglobin 0.5 L, O2 Concentration % 2L, Temperature 97.0, O2 Delivery Method N/C, Phlebotomy Draw Site RIGHT BRACHIAL 12/29/16 1730: Lactic Acid 4.0 H 12/29/16 1345: Lactic Acid 3.0 H Impression/Plan Impression/Plan Impression/Plan: Impression 76 year old man * remains in shock - unclear etiology - differential third spacing/volume loss, infectious etiology * colon ca * anemia - chronic, stable Plan -titrate vasopressors, goal map of 65 -f/u financial planning consultant recommendations, broaden abx if okay with ID -cont bipap for reduction of wob -DNR/DNI see addendum for discussion DVT prophylaxis at all times - ALPS for now TTS 35 min
--- NOTE | 2016-12-30 08:57 | NUR ---
DR BELL AT BEDSIDE TO DISCUSS POC WITH PT. PT CODE STATUS CHANGED TO DNR/DNI. PT REMAINS DROWSY/AROUSABLE, ABLE TO EXPRESS NEEDS, FOLLOW COMMANDS. ON BIPAP 30% SAT 92%. LUNGS DIMINISHED WITH FINE CRACKLES. NSR-ST 90-110'S, BP 110'S REMAINS ON LEVOPHED 5MCG AND VASOPRESSIN FLUID BOLUS OF NS 500 ML INITATIATED. URINARY OUT PUT IS SCANT, DARK [place]. 30ML COLLECTED FOR URINALYSIS. PT HAS BLE/SCROTAL/DEPENDENT EDEMA +4/ANASARCA. PT REFUSES TO BE TURNED OR HAVE ALPS ON AT THIS TIME. MD DICKERSON.
--- NOTE | 2016-12-30 09:56 | PN- Infect Dx ---
Subjective Subjective: Afebrile. He required BiPAP overnight because of worsening respiratory status, with metabolic acidosis and compensating respiratory alkalosis with secondary fatigue. He is less responsive and unable to provide a reliable history. Objective Last 24 Hrs of Vital Signs/I&O Vital Signs Date Time Temp Pulse Resp B/P B/P Pulse O2 O2 Flow FiO2 Mean Ox Delivery Rate 12/30 0800 93 BIPAP 30% 12/30 0800 97.6 104 30 116/64 92 BIPAP 30% 12/30 0742 98 95 12/30 0653 82 102/55 12/30 0526 89 100 12/30 0400 100 BIPAP 30% 12/30 0300 90 100 12/30 0229 86 105/53 12/30 0030 98.4 96 28 99/47 99 BIPAP 30% 12/30 0029 98 100 12/30 0003 99 BIPAP 30% 12/29 2233 97 99 12/29 2156 99 93/59 12/30 1999 99 BIPAP 30% 12/30 1999 113 95 12/29 1740 111 97/64 12/29 1600 99 Nasal 2.0L Cannula 12/29 1600 98.2 110 34 104/56 99 Nasal 2.0L Cannula 12/29 1400 109 97/64 12/29 1200 98 Nasal 2.0L Cannula 12/29 1103 110 93/57 Intake & Output 12/30 1600 12/30 0800 12/30 0000 Intake Total 998 2398 Output Total 75 65 Balance 923 2333 Intake, IV 998 2348 Intake, Oral 50 Output, Urine 75 65 Physical Exam Other Physical Findings: He is lethargic and less responsive on BiPAP. His blood pressure is requiring 2 pressors Lungs decreased breath sounds bilaterally Chest Port-A-Cath in the right upper chest with no inflammation at the site Heart regular rhythm with no murmur Abdomen is obese, soft, with no obvious tenderness Extremities 1+ edema both lower extremities Fiore catheter remains in place Results Last 24 Hours of Lab Results: Laboratory Tests 12/30 12/30 12/30 0535 0500 0420 Blood Gas pH (7.35 - 7.45 PH) 7.25 *L pCO2 (35 - 45 TORR) 24 L pO2 (80 - 100 TORR) 126 H HCO3 (21 - 28 MEQ/L) 10 L ABG O2 Sat (Measured) (>96.0 %) 98.0 P-50 (Temp Corrected) N Carboxyhemoglobin (1.5 - 5.0 %) 0.1 L O2 Concentration % .30 Respiration Rate (BPM) 26 O2 Delivery Method BIPAP Vent Mode ST Expiratory Pressure (CM H2O P) 6 Inspiratory Pressure (CM H2O P) 12 Chemistry Lactic Acid (0.7 - 2.1 mmol/L) 2.7 H Procalcitonin Pending Miscellaneous Phlebotomy Draw Site RIGHT BRACHIAL 12/30 12/29 0420 2310 Chemistry Sodium (137 - 145 mmol/L) 145 Potassium (3.5 - 5.1 mmol/L) 5.1 Chloride (98 - 107 mmol/L) 120 H Carbon Dioxide (22 - 30 mmol/L) 14 L Anion Gap (5 - 16) 11 BUN (9 - 20 mg/dL) 43 H Creatinine (0.7 - 1.2 mg/dL) 1.7 H Estimated GFR (>60 ml/min) 40 L Glucose (65 - 99 mg/dL) 124 H Lactic Acid (0.7 - 2.1 mmol/L) 3.2 H Calcium (8.4 - 10.2 mg/dL) 7.9 L Phosphorus (2.5 - 4.5 mg/dL) 6.3 H Magnesium (1.6 - 2.3 mg/dL) 2.1 Total Bilirubin (0.2 - 1.3 mg/dL) 3.9 H AST (17 - 59 U/L) 709 H ALT (21 - 72 U/L) 141 H Troponin I (<0.11 ng/ml) < 0.01 Albumin (3.5 - 5.0 g/dL) 1.7 L TSH (0.270 - 4.200 uIU/mL) 1.360 Free T4 (0.78 - 2.44 ng/dL) 1.13 Hematology CBC w Diff MAN DIFF ORDERED WBC (4.8 - 10.8 /CUMM) 10.0 RBC (4.70 - 6.10 /CUMM) 3.22 L Hgb (14.0 - 18.0 G/DL) 9.1 L Hct (42 - 52 %) 27.9 L MCV (80.0 - 94.0 FL) 86.6 MCH (27.0 - 31.0 PG) 28.2 RDW (11.5 - 14.5 %) 20.9 H Plt Count (130 - 400 /CUMM) 129 L MPV (7.4 - 10.4 FL) 9.1 Gran % (42.2 - 75.2 %) 87.6 H Lymphocytes % (20.5 - 51.1 %) 6.4 L Monocytes % (1.7 - 9.3 %) 5.8 Eosinophils % (0 - 5 %) 0.2 Basophils % (0.0 - 2.0 %) 0 L Absolute Granulocytes (1.4 - 6.5 /CUMM) 8.8 H Segmented Neutrophils (42.2 - 75.2 %) 80 H Band Neutrophils (0.0 - 5.0 %) 11 H Absolute Lymphocytes (1.2 - 3.4 /CUMM) 0.6 L Lymphocytes (20.5 - 51.1 %) 6 L Monocytes (1.7 - 9.3 %) 3 Absolute Monocytes (0.10 - 0.60 /CUMM) 0.6 Absolute Eosinophils (0.0 - 0.7 /CUMM) 0 Absolute Basophils (0.0 - 0.2 /CUMM) 0 Nucleated RBCs (0.0 - 0.0 /100WBC) 2 H Platelet Estimate (ADEQUATE) ADEQUATE Polychromasia 1+ Hypochromic-Microcytic 1+ Poikilocytosis 1+ Ovalocytes 1+ PUBS MCHC (33.0 - 37.0 G/DL) 32.5 L Other Body Source Fld Total RBCs Counted (%) 100 12/29 12/29 12/29 12/29 2215 1999 1910 1730 Blood Gas pH (7.35 - 7.45 PH) 7.22 *L 7.19 *L pCO2 (35 - 45 TORR) 26 L 25 L pO2 (80 - 100 TORR) 117 H 103 H HCO3 (21 - 28 MEQ/L) 11 L 9 L ABG O2 Sat (Measured) (>96.0 %) 97.0 96.0 P-50 (Temp Corrected) N N Carboxyhemoglobin (1.5 - 5.0 %) 0.5 L 0.5 L O2 Concentration % 30% 2L Temperature (97.0 - 100.0 FARH) 97.4 97.0 Respiration Rate (BPM) 26 O2 Delivery Method FFM N/C Vent Mode ST Expiratory Pressure (CM H2O P) 6 Inspiratory Pressure (CM H2O P) 12 Chemistry Lactic Acid (0.7 - 2.1 mmol/L) 4.8 H 4.0 H Miscellaneous Phlebotomy Draw Site RIGHT BRACHIAL RIGHT BRACHIAL 12/29 1345 Chemistry Lactic Acid (0.7 - 2.1 mmol/L) 3.0 H Last 24 Hours of [place] Results: Blood cultures 2 December 28 negative Urine culture December 28 greater than 100,000 colonies of yeast Recent Imaging Studies: Chest x-ray December 29, personally reviewed, reveals bibasilar opacities most suggestive of atelectasis Assessment/Plan Impression: Condition has deteriorated with persistent hypotension, requiring 2 pressors, and worsening respiratory status, now on BiPAP, with increasing lethargy. He remains afebrile with white blood cell count decreased now on Fluconazole, begun yesterday for candiduria, though the significance of this is unclear. His liver enzymes continue to increase, raising concern for a biliary process, though they could be secondary to ischemic hepatitis or to his known progressive metastatic disease to the liver. His creatinine has increased today, possibly secondary to hypoperfusion versus sepsis. His recent blood cultures remain negative, but, given his poor condition, he can be covered empirically for possible sepsis pending further evaluation. His scrotal and buttock wounds appear to be responding to local therapy, with no evidence for superinfection. His overall prognosis is quite poor and the change in his status to DNR/DNI is noted. Suggestion: 1. Right upper quadrant ultrasound 2. Further evaluation, for example HIDA scan, based on above 3. Repeat blood cultures 2 4. Continue local wound care of his scrotal and buttock wounds per Surgery 5. Begin Vancomycin 1.5 g IV every 24 and Ceftazidime 1 g IV every 12 hours pending above 6. Continue Fluconazole but decrease to 600 mg po every 48 hours
--- NOTE | 2016-12-30 10:31 | NUR ---
ONLY ABLE TO COLLECT FIRST SET OF BLOOD CULTURES. MADE MD'S DR LOWE AND CAMILLA AWARE. TO WAIT TO START ABX UNTIL 2ND SET IS COLLECTED PER MD'S. MARLENE Francisco IV RN NOTIFIED FOR ASSISTANCE. US TECH AT BEDSIDE OBTAINING ABDOMINAL STUDY.
--- NOTE | 2016-12-30 10:34 | NUR ---
PT NOT ABLE TO SWALLOW AM MEDS. DR LOWE NOTIFIED. CHANGING MEDS TO IV.
--- NOTE | 2016-12-30 11:22 | ULTRASOUND REPORT ---
EXAMINATION: US ABDOMEN LIMITED CLINICAL INFORMATION: Sepsis. Elevated alkaline phosphatase.. COMPARISON: CT abdomen and pelvis dated 12/24/2016 TECHNIQUE: Real-time imaging of the right upper quadrant abdominal viscera. FINDINGS: PANCREAS: Partly obscured by overlying bowel gas. Visualized portions are unremarkable. LIVER: Hepatomegaly. Heterogeneous increased overall echogenicity. Slightly nodular hepatic margin raising the possibility of hepatic cirrhosis. Lesion seen on the CT scan are not well visualized.. GALLBLADDER: Normal. The gallbladder is physiologically distended without evidence of stones, sludge, polyps, wall thickening or pericholecystic fluid. COMMON BILE DUCT: Normal in caliber measuring 0.3 cm in diameter. RIGHT KIDNEY: Cortical thinning. No evidence of hydronephrosis. Nonobstructing calculus upper to mid right kidney measuring 0.6 cm. The kidney measures 10 cm in maximum dimension. FREE FLUID: Trace perihepatic ascites IMPRESSION: 1. Hepatomegaly with heterogeneous hepatic echogenicity and nodular margin suspicious for hepatic cirrhosis. 2. No discrete focal abnormality is appreciated corresponding to CT images. 3. Trace ascites. 4. Nonobstructing calculus right kidney.
--- NOTE | 2016-12-30 12:15 | PN- Resident CRCU ---
Subjective HPI/CRCU Issues: Shock Symptomatic anemia 24 Hour Events: Patient is seen and examined at bedside. Early in the morning he appears less lethargic compared to last evening. Still on BiPAP due to tachypnea from compensatory respiration due to metabolic acidosis. ABG is obtained today show an improvement of acidosis compared to yesterday. Objective Vital Signs & I&O Last 8 Hrs of Vitals and I&O: Intake & Output 12/30 1600 12/30 0800 12/30 0000 Intake Total 998 2398 Output Total 75 65 Balance 923 2333 Intake, IV 998 2348 Intake, Oral 50 Output, Urine 75 65 Exam General Appearance: alert, awake Other Physical Findings: Head: atraumatic, normal appearance Respiratory: normal breath sounds, chest non-tender, no respiratory distress, lungs clear Cardiovascular: regular rate/rhythm Gastrointestinal: soft, non-tender Extremities: no edema Current Medications: Current Medications Sig/Brennon Start time Last Medication Dose Route Stop Time Status Admin Acetaminophen 650 MG Q6 PRN 12/24 2100 AC PO Albuterol Sulfate 2 PUF Q4P PRN 12/24 1930 AC INH Ceftazidime 1,000 MG Q12 12/30 1000 AC 12/30 IV 2219 Finasteride 5 MG DAILY 12/25 1000 AC 12/29 PO 1100 Fluconazole 400 MG Q48 12/30 1100 AC 12/30 Sodium Chloride 200 ML IV 1414 Fluconazole 200 MG Q48 12/30 1100 AC 12/30 Sodium Chloride 100 ML IV 1415 Fluconazole 600 MG .[QOD] 12/30 1030 CAN IV Fluconazole 600 MG DAILY 12/30 1000 DC PO Glycerin/Mineral Oil 1 MEHUL TIDPRN PRN 12/27 1430 12/30 TOP 1029 Insulin Human Regular 4 UNITS .STK-MED ONE 12/30 1743 DC IV 12/30 1744 Insulin Human Regular 0 Q6 12/25 1247 12/31 SC 0622 Morphine Sulfate 1 MG ONCE ONE 12/30 1415 DC 12/30 IV 12/30 1416 1413 Norepinephrine 4 MG Q4H 12/25 1000 AC 12/31 Sodium Chloride 250 ML IV 0516 Nystatin 1 MEHUL TID 12/29 1829 12/30 TOP 2218 Phenylephrine HCl 40 MG Q24H 12/30 2330 DC Sodium Chloride 250 ML IV Phytonadione 10 MG ONCE ONE 12/30 2014 DC 12/30 UT 12/30 Sodium Bicarbonate 50 MEQ ONCE ONE 12/31 0545 DC 12/31 IV 12/31 0546 0627 Sodium Bicarbonate 150 MEQ Q10H 12/31 0545 AC 12/31 Dextrose/Water 1,000 ML IV 0623 Sodium Chloride 500 ML BOLUS ONE 12/30 2200 DC 12/30 IV 12/30 2259 2217 Sodium Chloride 500 ML BOLUS ONE 12/30 1845 DC 12/30 IV 12/30 1944 1844 Sodium Chloride 500 ML BOLUS ONE 12/30 0745 DC 12/30 IV 12/30 0844 0745 Sodium Chloride 1,000 ML Q10H 12/25 0845 DC 12/30 IV 204 Tramadol HCl 50 MG Q6 PRN 12/24 2245 AC 12/30 PO 1005 Vancomycin HCl 1,500 MG DAILY 12/30 1000 DC 12/30 Sodium Chloride 250 ML IV 12/30 1129 1133 Vancomycin HCl 1,500 MG ONCE 12/30 0930 CAN IV 12/30 1030 Vasopressin 40 UNITS Q16H 12/28 1015 AC 12/31 Sodium Chloride 100 ML IV 0432 Impression/Plan Impression/Problem List Impression: This is a 76-year-old very pleasant gentleman with a medical history significant for 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 At admission patient's vitals were remarkable for hypertension and tachycardia with labs showing lactic acidosis. His worsening of his chronic sacral and testicular ulcers were thought to be the most likely source of his septic condition. Patient was also found to have acute drop in his H/H. Was started on vancomycin and Unasyn, 1 unit PRBC transfused, and fluid resuscitation of 6 L of normal saline. Patient had persistent hypotension despite the aggressive fluid resuscitation and was therefore transferred to ICU for pressor support. Impression and plan 76-year-old male with PMH of 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 At admission patient's vitals were remarkable for hypotension and tachycardia with labs showing lactic acidosis. His worsening of his chronic sacral and testicular ulcers were thought to be the most likely source of his septic condition. Patient was also found to have acute drop in his H/H. Was started on vancomycin and Unasyn, 1 unit PRBC transfused, and fluid resuscitation of 6 L of normal saline. Patient had persistent hypotension despite the aggressive fluid resuscitation and was therefore transferred to ICU for pressor support. Impression and plan #Hypotension of unclear etiology(shock) Still requires Levophed and vasopressin -No source of infection can be identified, however lactic acid is high. -Urine cabrera cultures remarkable for 10,000 colonies of yeast, which is probably colonization. However low threshold for suspicion of disseminated candidiasis in the setting of compromised patient with persistent unexplained hypotension. We'll therefore start fluconazole 800 mg today and switched to 600 from tomorrow per ID recommendations (appreciated) -Added Vanc and Ceftriaxone for possble biliary etiology (abdominal pain, elevated bili, tranamainits). -Echo showed normal EF and does not show any clinical signs of cardiogenic shock.. -Xray chest shows No focal pneumonia. Lactic acidosis continues, will contiue to bolus a liter today in addition to the 100 mls/hr maintenance. Goals of care discussion was initiated and patient opted for DNR/DNI #Normocytic anemia with elevated RDW -Stable H&H -Status post 2 units of PRBC on admission. -Last anemia blood work we have in the system was done in 2012 * We will do iron study, B12, and folic acid. #Skin ulcerations -He has multiple stage III decubitus ulcer, and some skin maceration of the scrotum (all present on admission) -Wound consult recommended [facility], . -No surgical intervention recommended by surgery -Scrotal ultrasound did not reveal any pathology #History of colorectal cancer with metastasis -As per oncologist Overall-the patient has a very poor prognosis -Goal of care was discussion was initiated by Dr. Ford this a.m. Problem List: 1. Shock 2. Open wound of scrotum Pain Ratin Pain Location: BACK/ABDOMEN Tomorrow's Labs & Rationales: ICU BUNDLE Plan DVT/Prophylaxis: mechanical, pharmacological
--- NOTE | 2016-12-30 15:10 | NUR ---
PT TRANSFERED TO [facility] . VALENTINA WOGIANCARLO CONSULTED FOR BLEEDING ULCERS TO BUTTOCKS AREA EVALUATION AND DRESSING CHANGE. DR HILTON CALLED TO BEDSIDE FOR EVALUATION. SURGICAL CONSULTED WELL. PT PREMEDICATED W MSO4 1 MG.
[2016-12-30 16:00] VITALS: BP 90/50
--- NOTE | 2016-12-30 16:36 | NUR ---
PT HAD 100 ML, [place] URINE/ [address] LOWE. TRIALING PT OFF VASOPRESSIN PER .
--- NOTE | 2016-12-30 19:08 | NUR ---
LAB CALLED TO REPORT THAT FDP/PTT BLOOD SPECIMENS X 2 HAVE QUESTIONABLE RESULTS. LAB UP TO REDRAW FDP/PTT.
[2016-12-30 19:19] LABS: PTT 61 SEC (25-37)
[2016-12-30 20:00] LABS: PT > 103.0 SEC (9.4-12.5)
--- NOTE | 2016-12-30 20:32 | NUR ---
PT LETHARGIC, AROUSABLE TO PAINFUL STIMULI. PT MOVES MNIMALLY. PT HAS 4+ GENERALIZED EDEMA. PT HAS DOPPLAR PLUSES TO LOWER EXTREMETIES AND FAINT PULSES RADIALLY. PT WARM AND DRY. PT REMAINS MAXED OUT ON LEVOPHEN AND VASO BP 92/50 MANUALLY. PT NSR TO SINUS TACH 88-106 WITH OCCASSIONAL PVC. ALPS IN PLACE. PT ON CLINITRON BED FOR SKIN. WILL CONTINUE TO MONITOR
--- NOTE | 2016-12-30 21:30 | NUR ---
PT BP 76/DOPPLAR. PT URINE OUTPUT 5MLS OVER PAST HOUR. DR. MATSON NOTIFIED. NS BOLUS INTITIATED PER MD ORDER. URINE CONCENTRATED AND WITH SEDIMENT, PERDOMO IRRIGATED, URINE SLIGHTLY PINK. VITAMIN K GIVEN PER MD ORDER. ALL LABS REPORTED TO
--- NOTE | 2016-12-30 22:50 | NUR ---
PT URINE OUTPUT FOR SHIFT 38 MLS DESPITE NS BOLUSES. MD AWARE, WILL CONITNUE TO MONITOR.
[2016-12-31] VITALS: BP 104/00
[2016-12-31 04:27] LABS: ABSOLUTE BASOPHIL COUNT 0 /CUMM (0.0-0.2); ABSOLUTE EOSINOPHIL COUNT 0.2 /CUMM (0.0-0.7); ABSOLUTE GRANULOCYTE CT 12.1 /CUMM (1.4-6.5); ABSOLUTE LYMPH COUNT 1.2 /CUMM (1.2-3.4); ABSOLUTE MONOCYTE COUNT 0.4 /CUMM (0.10-0.60); BASOPHIL % 0 % (0.0-2.0); EOSINOPHIL % 1.1 % (0-5); GRANULOCYTE % 87.6 % (42.2-75.2); HEMATOCRIT 27.8 % (42-52); MEAN CORPUSCULAR HGB 28.1 PG (27.0-31.0); MEAN CORPUSCULAR VOLUME 87.8 FL (80.0-94.0); MEAN PLATELET VOLUME 8.5 FL (7.4-10.4); PLATELET COUNT 139 /CUMM (130-400); RBC DISTRIBUTION WIDTH 21.5 % (11.5-14.5); RED BLOOD CELL CT 3.16 /CUMM (4.70-6.10); WHITE BLOOD CELL COUNT 13.8 /CUMM (4.8-10.8)
[2016-12-31 04:49] LABS: PT > 103.0 SEC (9.4-12.5)
[2016-12-31 06:09] LABS: PTT 51 SEC (25-37)
--- NOTE | 2016-12-31 07:18 | PN- Oncology ---
Subjective Subjective: Patient remains minimally responsive Review of Systems: Unobtainable Objective Vital Signs and I&Os Vital Signs Date Time Temp Pulse Resp B/P B/P Pulse O2 O2 Flow FiO2 Mean Ox Delivery Rate 12/31 0607 84 94 12/31 0516 88 94/60 12/31 0400 98 BIPAP 30% 12/31 0256 84 94 12/31 0146 88 98/00 12/31 0031 85 98 12/31 0000 97 BIPAP 30% 12/31 0000 98.1 80 26 104/00 97 BIPAP 30% 12/30 2217 88 102/49 12/30 2214 98 99 12/30 2000 99 BIPAP 30% 12/30 1906 103 98 12/30 1844 111 67/37 12/30 1623 111 81/57 12/30 1619 110 97 12/30 1600 94 BIPAP 30% 12/30 1600 99.0 110 36 90/50 94 BIPAP 30% 12/30 1452 123 96 12/30 1200 93 BIPAP 30% 12/30 1159 95 12/30 1004 107 86/49 12/30 0800 93 BIPAP 30% 12/30 0800 97.6 104 30 116/64 92 BIPAP 30% 12/30 0742 98 95 Intake & Output 12/31 0800 12/31 0000 12/30 1600 12/30 0800 12/30 0000 12/29 1600 Intake Total 1436 1931 6943 169 2885 1120 Output Total 55 38 100 75 65 125 Balance 1381 1893 1667 045 8256 995 Intake, IV 1436 1931 8384 719 0404 1020 Intake, Oral 0 50 100 Number 0 Bowel Movements Output, Stool 0 Output, Urine 55 38 100 75 65 125 Gen.: in NAD, very lethargic ENT: Sclera anicteric Chest: Normal respiratory effort, decreased breath sounds Cor: RRR, no extra sounds Abdomen: Soft, bowel sounds present, distended Extremities: Without clubbing, cyanosis, or asymmetric edema Neurology: Nonresponsive, moves all 4 extremities Current Medications: Current Medications Sig/Brennon Start time Last Medication Dose Route Stop Time Status Admin Acetaminophen 650 MG Q6 PRN 12/24 2100 AC PO Albuterol Sulfate 2 PUF Q4P PRN 12/24 1930 AC INH Ceftazidime 1,000 MG Q12 12/30 1000 AC 12/30 IV 2219 Finasteride 5 MG DAILY 12/25 1000 AC 12/29 PO 1100 Fluconazole 400 MG Q48 12/30 1100 AC 12/30 Sodium Chloride 200 ML IV 1414 Fluconazole 200 MG Q48 12/30 1100 AC 12/30 Sodium Chloride 100 ML IV 1415 Fluconazole 600 MG .[QOD] 12/30 1030 CAN IV Fluconazole 600 MG DAILY 12/30 1000 DC PO Glycerin/Mineral Oil 1 MEHUL TIDPRN PRN 12/27 1430 12/30 TOP 1029 Insulin Human Regular 4 UNITS .STK-MED ONE 12/30 1743 DC IV 12/30 1744 Insulin Human Regular 0 Q6 12/25 1247 12/31 SC 0622 Morphine Sulfate 1 MG ONCE ONE 12/30 1415 DC 12/30 IV 12/30 1416 1413 Norepinephrine 4 MG Q4H 12/25 1000 12/31 Sodium Chloride 250 ML IV 0516 Nystatin 1 MEHUL TID 12/29 1829 12/30 TOP 2218 Phenylephrine HCl 40 MG Q24H 12/30 2330 DC Sodium Chloride 250 ML IV Phytonadione 10 MG ONCE ONE 12/30 2014 DC 12/30 SC 12/30 2016 204 Sodium Bicarbonate 50 MEQ ONCE ONE 12/31 0545 DC 12/31 IV 12/31 0546 0627 Sodium Bicarbonate 150 MEQ Q10H 12/31 0545 12/31 Dextrose/Water 1,000 ML IV 0623 Sodium Chloride 500 ML BOLUS ONE 12/30 2200 DC 12/30 IV 12/30 2259 2217 Sodium Chloride 500 ML BOLUS ONE 12/30 1845 DC 12/30 IV 12/30 1944 1844 Sodium Chloride 500 ML BOLUS ONE 12/30 0745 DC 12/30 IV 12/30 0844 0745 Sodium Chloride 1,000 ML Q10H 12/25 0845 OK 12/30 IV 2042 Tramadol HCl 50 MG Q6 PRN 12/24 2245 12/30 PO 1005 Vancomycin HCl 1,500 MG DAILY 12/30 1000 DC 12/30 Sodium Chloride 250 ML IV 12/30 1129 1133 Vancomycin HCl 1,500 MG ONCE 12/30 0930 CAN IV 12/30 1030 Vasopressin 40 UNITS Q16H 12/28 1015 12/31 Sodium Chloride 100 ML IV 0432 Results Last 24 Hours of Lab Results: Laboratory Tests 12/31 12/30 0400 1845 Chemistry Sodium (137 - 145 mmol/L) 147 H Potassium (3.5 - 5.1 mmol/L) 5.1 Chloride (98 - 107 mmol/L) 124 H Carbon Dioxide (22 - 30 mmol/L) 11 L Anion Gap (5 - 16) 13 BUN (9 - 20 mg/dL) 51 H Creatinine (0.7 - 1.2 mg/dL) 2.0 H Estimated GFR (>60 ml/min) 33 L Glucose (65 - 99 mg/dL) 125 H Calcium (8.4 - 10.2 mg/dL) 7.4 L Phosphorus (2.5 - 4.5 mg/dL) 6.8 H Magnesium (1.6 - 2.3 mg/dL) 2.0 Total Bilirubin (0.2 - 1.3 mg/dL) 3.4 H AST (17 - 59 U/L) 291 H ALT (21 - 72 U/L) 102 H Albumin (3.5 - 5.0 g/dL) 1.6 L Coagulation PT (9.4 - 12.5 SEC) > 103.0 *H > 103.0 *H INR (0.90 - 1.17) > 10.0 *H > 10.0 *H APTT (25 - 37 SEC) 51 H 61 H Fibrinogen Activity (200 - 393 MG/DL) 392 400 H Fibrin Degrad Products (< 10 ug/ml) > 40 ug/ml H Hematology CBC w Diff MAN DIFF ORDERED WBC (4.8 - 10.8 /CUMM) 13.8 H RBC (4.70 - 6.10 /CUMM) 3.16 L Hgb (14.0 - 18.0 G/DL) 8.9 L Hct (42 - 52 %) 27.8 L MCV (80.0 - 94.0 FL) 87.8 MCH (27.0 - 31.0 PG) 28.1 RDW (11.5 - 14.5 %) 21.5 H Plt Count (130 - 400 /CUMM) 139 MPV (7.4 - 10.4 FL) 8.5 Gran % (42.2 - 75.2 %) 87.6 H Lymphocytes % (20.5 - 51.1 %) 8.5 L Monocytes % (1.7 - 9.3 %) 2.8 Eosinophils % (0 - 5 %) 1.1 Basophils % (0.0 - 2.0 %) 0 L Absolute Granulocytes (1.4 - 6.5 /CUMM) 12.1 H Segmented Neutrophils (42.2 - 75.2 %) 60 Band Neutrophils (0.0 - 5.0 %) 28 H Absolute Lymphocytes (1.2 - 3.4 /CUMM) 1.2 Lymphocytes (20.5 - 51.1 %) 8 L Monocytes (1.7 - 9.3 %) 2 Absolute Monocytes (0.10 - 0.60 /CUMM) 0.4 Absolute Eosinophils (0.0 - 0.7 /CUMM) 0.2 Absolute Basophils (0.0 - 0.2 /CUMM) 0 Metamyelocytes (0.0 - 1.0 %) 2 H Nucleated RBCs (0.0 - 0.0 /100WBC) 1 H Platelet Estimate (ADEQUATE) DECREASED Polychromasia 1+ Hypochromic-Microcytic 1+ PUBS MCHC (33.0 - 37.0 G/DL) 32.0 L 12/30 12/30 0930 0830 Urines Urinalysis MOD H Urine Color (YEL,AMB,STR) BLDY H Urine Clarity (CLEAR) CLDY H Urine pH (5.0 - 8.0) 5.5 Ur Specific [place] (1.001 - 1.035) >= 1.030 Urine Protein (NEG,<30 MG/DL) 100 H Urine Ketones (NEG) TRACE H Urine Nitrite (NEG) NEG Urine Bilirubin (NEG) POS@ICTO H Urine Urobilinogen (0.1 - 1.0 EU/dl) 1.0 Ur Leukocyte Esterase (NEG) MOD H Ur Microscopic SEDIMENT EXAMINED Urine RBC (0 - 5 /HPF) PACKD H Urine WBC (0 - 2 /HPF) 15-25 H Ur Epithelial Cells (NONE,FEW) RARE Urine Bacteria (NEG/NONE) MOD H Granular Casts (NONE /LPF) FEW H Micro UA Comment BUDDING YEAST H Urine Hemoglobin (NEG) LARGE H Ur Random Creatinine (mg/dL) 137.3 Ur Random Sodium (30 - 90 mmol/L) 34 Ur Random Potassium (mmol/L) 46.6 Fraction Sodium Excret (<1% %) 0.3 Urine Glucose (N MG/DL) NEG Assessment/Plan Assessment/Recommendations: 1. Shock-significant change in status despite reinstitution of antibiotics, etiology remains obscure, given coagulopathy hepatic failure a possibility 2. Stage IV rectal cancer 3. Coagulopathy-would repeat if drawn through central line, would begin empiric vitamin K and FFP if bleeding, doubt DIC given lab results and stable platelet count Prognosis-grave
--- NOTE | 2016-12-31 07:44 | PN- Resident CRCU ---
Subjective HPI/CRCU Issues: Shock Acute anemia secondary to acute blood loss 24 Hour Events: Seen and examined at bedside. Patient continues to be in a lethargic state and intermittently altered, but responds t command. still on BiPAP. Overnight event of continuous lactic acidosis initiation of bicarbonate by is noted. Still requiring Levophed and vasopressin, very poor urine output . Objective Vital Signs & I&O Last 8 Hrs of Vitals and I&O: Vital Signs Date Time Temp Pulse Resp B/P B/P Pulse O2 O2 Flow FiO2 Mean Ox Delivery Rate 12/31 1219 122 100/0 12/31 1107 107 94 12/31 0830 103 104/54 12/31 0820 110 97 12/31 0800 990 BIPAP 30% 12/31 0800 96.8 90 26 90/0 90 BIPAP 30% 12/31 0607 84 94 12/31 0516 88 94/60 12/31 0400 98 BIPAP 30% 12/31 0256 84 94 12/31 0146 88 98/00 12/31 0031 85 98 12/31 0000 97 BIPAP 30% 12/31 0000 98.1 80 26 104/00 97 BIPAP 30% 12/30 2217 88 102/49 12/30 2214 98 99 12/30 2000 99 BIPAP 30% 12/30 1906 103 98 12/30 1844 111 67/37 12/30 1623 111 81/57 12/30 1619 110 97 12/30 1600 94 BIPAP 30% 12/30 1600 99.0 110 36 90/50 94 BIPAP 30% 12/30 1452 123 96 Intake & Output 12/31 1600 12/31 0800 12/31 0000 Intake Total 1436 1931 Output Total 55 38 Balance 1381 1893 Intake, IV 1436 1931 Intake, Oral 0 Number 0 Bowel Movements Output, Urine 55 38 Exam General Appearance: lethargic state, altered mental status Head: BIPAP in place and intact Respiratory: decreased breath sounds Cardiovascular: regular rate/rhythm Gastrointestinal: Distended abdomen Extremities: +2 edema Current Medications: Current Medications Sig/Brennon Start time Last Medication Dose Route Stop Time Status Admin Acetaminophen 650 MG Q6 PRN 12/24 2100 AC PO Albuterol Sulfate 2 PUF Q4P PRN 12/24 1930 AC INH Ceftazidime 1,000 MG Q12 12/30 1000 AC 12/31 IV 1038 Finasteride 5 MG DAILY 12/25 1000 AC 12/29 PO 1100 Fluconazole 400 MG Q48 12/30 1100 AC 12/30 Sodium Chloride 200 ML IV 1414 Fluconazole 200 MG Q48 12/30 1100 AC 12/30 Sodium Chloride 100 ML IV 1415 Glycerin/Mineral Oil 1 MEHUL TIDPRN PRN 12/27 1430 AC 12/30 TOP 1029 Insulin Human Regular 2 UNITS .STK-MED ONE 12/31 0623 DC IV 12/31 0624 Insulin Human Regular 2 UNITS .STK-MED ONE 12/31 0045 DC IV 12/31 0046 Insulin Human Regular 4 UNITS .STK-MED ONE 12/30 1743 DC IV 12/30 1744 Insulin Human Regular 0 Q6 12/25 1247 12/31 SC 1219 Norepinephrine 4 MG Q4H 12/25 1000 AC 12/31 Sodium Chloride 250 ML IV 1219 Nystatin 1 MEHUL TID 12/29 1829 AC 12/31 TOP 1038 Phenylephrine HCl 40 MG Q24H 12/30 2330 DC Sodium Chloride 250 ML IV Phytonadione 10 MG ONCE ONE 12/30 2014 DC 12/30 SC 12/31 2015 204 Sodium Bicarbonate 50 MEQ ONCE ONE 12/31 0545 DC 12/31 IV 12/31 0546 0627 Sodium Bicarbonate 150 MEQ Q10H 12/31 0545 DC 12/31 Dextrose/Water 1,000 ML IV 0623 Sodium Chloride 500 ML BOLUS ONE 12/31 1030 DC 12/31 IV 12/31 1129 1038 Sodium Chloride 500 ML BOLUS ONE 12/30 2200 DC 12/30 IV 12/30 2259 2217 Sodium Chloride 500 ML BOLUS ONE 12/30 1845 DC 12/30 IV 12/30 1944 1844 Sodium Chloride 1,000 ML Q10H 12/25 0845 DC 12/30 IV 2042 Tramadol HCl 50 MG Q6 PRN 12/24 2245 12/30 PO 1005 Vancomycin HCl 1,500 MG DAILY 12/31 1000 CAN Sodium Chloride 250 ML IV Vasopressin 40 UNITS Q16H 12/28 1015 AC 12/31 Sodium Chloride 100 ML IV 0432 Impression/Plan Impression/Problem List Impression: This is a 76-year-old very pleasant gentleman with a medical history significant for 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 At admission patient's vitals were remarkable for hypertension and tachycardia with labs showing lactic acidosis. His worsening of his chronic sacral and testicular ulcers were thought to be the most likely source of his septic condition. Patient was also found to have acute drop in his H/H. Was started on vancomycin and Unasyn, 1 unit PRBC transfused, and fluid resuscitation of 6 L of normal saline. Patient had persistent hypotension despite the aggressive fluid resuscitation and was therefore transferred to ICU for pressor support. Impression and plan 76-year-old male with PMH of 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 At admission patient's vitals were remarkable for hypotension and tachycardia with labs showing lactic acidosis. His worsening of his chronic sacral and testicular ulcers were thought to be the most likely source of his septic condition. Patient was also found to have acute drop in his H/H. Was started on vancomycin and Unasyn, 1 unit PRBC transfused, and fluid resuscitation of 6 L of normal saline. Patient had persistent hypotension despite the aggressive fluid resuscitation and was therefore transferred to ICU for pressor support. Impression and plan #Hypotension of unclear etiology(shock) Still requires Levophed and vasopressin -No source of infection can be identified, however lactic acid is high. -Started on Ceptaz Vanco yesterday for possible biliary infectious etiology (due to abdominal pain and elevated enzymes, however ultrasound was unremarkable). Vanco stopped today due to worsening renal function. Still on fluconazole 600 every other day, because of low threshold in suspecting possible disseminated candidemia cyst in a immunocompromised patient with persistent hypotension and lactic acidosis with growth of yeast in urine. -Echo showed normal EF and does not show any clinical signs of cardiogenic shock.. -Xray chest shows No focal pneumonia. Lactic acidosis continues, will bolus 500 MLStoday in addition to the 100 mls/hr maintenance. We'll stop bicarb as pH7.2 and preferably not indicated in this patient's with lactic acidosis. #Normocytic anemia with elevated RDW -Stable H&H -Status post 2 units of PRBC on admission. #Elevated INR This post 10 mg of subcutaneous vitamin K secondary to INR of above 10. DIC panel showed elevated profile with the exception of fibrinogen therefore cannot diagnose this as DIC. #Skin ulcerations -He has multiple stage III decubitus ulcer, and some skin maceration of the scrotum (all present on admission) -Wound consult recommended [facility], . -No surgical intervention recommended by surgery -Scrotal ultrasound did not reveal any pathology #History of colorectal cancer with metastasis -As per oncologist Overall-the patient has a very poor prognosis Goals of care were discussed with patient's 2 cousins one of them being the POA (Jessica) together the house staff team. Jessica fully understood the patient condition and prognosis, she is planning to meet with the other family mebers today to discuss the next step of care. Problem List: 1. Shock Pain Ratin Tomorrow's Labs & Rationales: ICU BUNDLE Plan DVT/Prophylaxis: mechanical, pharmacological
[2016-12-31 08:00] VITALS: BP 90/0
--- NOTE | 2016-12-31 08:24 | PN- Wound Care ---
Subjective Subjective: Patient's clinical status has deteriorated. Bilateral buttock ulcers remain unchanged as dosed scrotal ulcer there is dramatically increased scrotal edema Objective Vital Signs and I&Os Vital Signs Result Date Time Pulse Ox 94 12/31 0607 Pulse 84 12/31 0607 B/P 94/60 12/31 0516 O2 Delivery BIPAP 12/31 0400 O2 Flow Rate 30% 12/31 0400 Temp 98.1 12/31 0000 Resp 26 12/31 0000 Intake & Output 12/31 0000 12/30 1600 12/30 0800 Intake Total 193 1568 998 Output Total 38 100 75 Balance 1893 1468 923 Intake, IV 193 1568 998 Intake, Oral 0 Number 0 Bowel Movements Output, Stool 0 Output, Urine 38 100 75 Bilateral buttock ulcers have clean red fill there is serosanguineous drainage extensive scrotal ulcers are unchanged with marked increase in scrotal edema Impression/Plan Impression/Plan Impression/Plan: 76-year-old with progressive metastatic colon cancer admitted with acute anemia and suspected sepsis of uncertain origin. He has multiple stage III pressure ulcers present on admission. Aquacel Ag appears to be sticking to his wound would DC and begin nonadherent dressing with Xeroform
--- NOTE | 2016-12-31 08:30 | PN- CRCU ---
CEDRIC PANDEY,Sd JUSTIN 12/31/16 0818: Subjective HPI/Critical Care Issues: The patient remains on BiPAP and is somnolent. He is able to follow commands. He remains on 2 pressors as he is hemodynamically unstable. He has minimal urine output. The patient is not able to offer complaints. Objective Current Medications: Current Medications Sig/Brennon Start time Last Medication Dose Route Stop Time Status Admin Acetaminophen 650 MG Q6 PRN 12/24 2100 AC PO Albuterol Sulfate 2 PUF Q4P PRN 12/24 1930 AC INH Ceftazidime 1,000 MG Q12 12/30 1000 AC 12/30 IV 2219 Finasteride 5 MG DAILY 12/25 1000 AC 12/29 PO 1100 Fluconazole 400 MG Q48 12/30 1100 AC 12/30 Sodium Chloride 200 ML IV 1414 Fluconazole 200 MG Q48 12/30 1100 AC 12/30 Sodium Chloride 100 ML IV 1415 Fluconazole 600 MG .[QOD] 12/30 1030 CAN IV Fluconazole 600 MG DAILY 12/30 1000 DC PO Glycerin/Mineral Oil 1 MEHUL TIDPRN PRN 12/27 1430 12/30 TOP 1029 Insulin Human Regular 4 UNITS .STK-MED ONE 12/30 1743 DC IV 12/30 1744 Insulin Human Regular 0 Q6 12/25 1247 12/31 SC 0622 Morphine Sulfate 1 MG ONCE ONE 12/30 1415 DC 12/30 IV 12/30 1416 1413 Norepinephrine 4 MG Q4H 12/25 1000 AC 12/31 Sodium Chloride 250 ML IV 0516 Nystatin 1 MEHUL TID 12/29 1829 12/30 TOP 2218 Phenylephrine HCl 40 MG Q24H 12/30 2330 DC Sodium Chloride 250 ML IV Phytonadione 10 MG ONCE ONE 12/30 2014 DC 12/30 SC 12/30 2016 204 Sodium Bicarbonate 50 MEQ ONCE ONE 12/31 0545 TN 12/31 IV 12/31 0546 0627 Sodium Bicarbonate 150 MEQ Q10H 12/31 0545 12/31 Dextrose/Water 1,000 ML IV 0623 Sodium Chloride 500 ML BOLUS ONE 12/30 2200 DC 12/30 IV 12/30 2259 2217 Sodium Chloride 500 ML BOLUS ONE 12/30 1845 DC 12/30 IV 12/30 1944 1844 Sodium Chloride 500 ML BOLUS ONE 12/30 0745 DC 12/30 IV 12/30 0844 0745 Sodium Chloride 1,000 ML Q10H 12/25 0845 DC 12/30 IV 2042 Tramadol HCl 50 MG Q6 PRN 12/24 2245 AC 12/30 PO 1005 Vancomycin HCl 1,500 MG DAILY 12/31 1000 UNVr Sodium Chloride 250 ML IV Vancomycin HCl 1,500 MG DAILY 12/30 1000 DC 12/30 Sodium Chloride 250 ML IV 12/30 1129 1133 Vancomycin HCl 1,500 MG ONCE 12/30 0930 CAN IV 12/30 1030 Vasopressin 40 UNITS Q16H 12/28 1015 AC 12/31 Sodium Chloride 100 ML IV 0432 Vital Signs & I&O Last 24 Hrs of Vitals and I&O: Vital Signs Date Time Temp Pulse Resp B/P B/P Pulse O2 O2 Flow FiO2 Mean Ox Delivery Rate 12/31 0607 84 94 12/31 0516 88 94/60 12/31 0400 98 BIPAP 30% 12/31 0256 84 94 12/31 0146 88 98/00 12/31 0031 85 98 12/31 0000 97 BIPAP 30% 12/31 0000 98.1 80 26 104/00 97 BIPAP 30% 12/30 2217 88 102/49 12/30 2214 98 99 12/30 2000 99 BIPAP 30% 12/30 1906 103 98 12/30 1844 111 67/37 12/30 1623 111 81/57 12/30 1619 110 97 12/30 1600 94 BIPAP 30% 12/30 1600 99.0 110 36 90/50 94 BIPAP 30% 12/30 1452 123 96 12/30 1200 93 BIPAP 30% 12/30 1159 95 12/30 1004 107 86/49 Intake & Output 12/31 1600 12/31 0800 12/31 0000 Intake Total 1436 1931 Output Total 55 38 Balance 1381 1893 Intake, IV 1436 1931 Intake, Oral 0 Number 0 Bowel Movements Output, Urine 55 38 Exam General Appearance: arousable but somnolent, using accessory muscles for breathing on BiPAP Head: atraumatic, normal appearance Neck: supple Respiratory: few anterior scattered rhonchi Cardiovascular: S1 and S2 heard, heart sounds distant Abdomen: soft, distended but not tense Extremities: bilateral edema, skin scaling Results Last 24 Hrs of Lab Results: Laboratory Tests 12/31/16 0400: Anion Gap 13, Estimated GFR 33 L, Glucose 125 H, Calcium 7.4 L, Phosphorus 6.8 H, Magnesium 2.0, Total Bilirubin 3.4 H, AST 291 H, ALT 102 H, Albumin 1.6 L, PT > 103.0 *H, INR > 10.0 *H, APTT 51 H, Fibrinogen Activity 392, CBC w Diff MAN DIFF ORDERED, RBC 3.16 L, MCV 87.8, MCH 28.1, RDW 21.5 H, MPV 8.5, Gran % 87.6 H, Lymphocytes % 8.5 L, Monocytes % 2.8, Eosinophils % 1.1, Basophils % 0 L, Absolute Granulocytes 12.1 H, Segmented Neutrophils 60, Band Neutrophils 28 H, Absolute Lymphocytes 1.2, Lymphocytes 8 L, Monocytes 2, Absolute Monocytes 0.4, Absolute Eosinophils 0.2, Absolute Basophils 0, Metamyelocytes 2 H, Nucleated RBCs 1 H, Platelet Estimate DECREASED, Polychromasia 1+, Hypochromic-Microcytic 1+, PUBS MCHC 32.0 L 12/30/16 1845: PT > 103.0 *H, INR > 10.0 *H, APTT 61 H, Fibrinogen Activity 400 H, Fibrin Degrad Products > 40 ug/ml H 12/30/16 0930: Ur Random Creatinine 137.3, Ur Random Sodium 34, Ur Random Potassium 46.6, Fraction Sodium Excret 0.3 12/30/16 0830: Urinalysis MOD H, Urine Color BLDY H, Urine Clarity CLDY H, Urine pH 5.5, Ur Specific [place] >= 1.030, Urine Protein 100 H, Urine Ketones TRACE H, Urine Nitrite NEG, Urine Bilirubin POS@ICTO H, Urine Urobilinogen 1.0, Ur Leukocyte Esterase MOD H, Ur Microscopic SEDIMENT EXAMINED, Urine RBC PACKD H, Urine WBC 15-25 H, Ur Epithelial Cells RARE, Urine Bacteria MOD H, Granular Casts FEW H , Micro UA Comment BUDDING YEAST H, Urine Hemoglobin LARGE H, Urine Glucose NEG Impression/Plan Impression/Plan Impression/Plan: 1. Ongoing shock, unclear etiology. 2. Metastatic colon cancer. 3. Chronic anemia. Recommendations: * Continue vasopressors for a goal mean arterial pressure greater than 65 mmHg. * Continue antibiotics as per ID. * Continue BiPAP for reduction of work of breathing. * Continue IV bicarbonate. * Insulin sliding scale, cover blood sugars. * Avoid all sedating medications. * Continue all supportive care. CHRISSY PANDEY,AMARA 12/31/16 1406: Objective Current Medications: Current Medications Sig/Brennon Start time Last Medication Dose Route Stop Time Status Admin Acetaminophen 650 MG Q6 PRN 12/24 2100 AC PO Albuterol Sulfate 2 PUF Q4P PRN 12/24 1930 AC INH Ceftazidime 1,000 MG Q12 12/30 1000 AC 12/31 IV 1038 Finasteride 5 MG DAILY 12/25 1000 AC 12/29 PO 1100 Fluconazole 400 MG Q48 12/30 1100 AC 12/30 Sodium Chloride 200 ML IV 1414 Fluconazole 200 MG Q48 12/30 1100 AC 12/30 Sodium Chloride 100 ML IV 1415 Glycerin/Mineral Oil 1 MEHUL TIDPRN PRN 12/27 1430 12/30 TOP 1029 Insulin Human Regular 2 UNITS .STK-MED ONE 12/31 0045 DC IV 12/31 0046 Insulin Human Regular 4 UNITS .STK-MED ONE 12/30 1743 DC IV 12/30 1744 Insulin Human Regular 0 Q6 12/25 1247 12/31 WA 1219 Morphine Sulfate 1 MG ONCE ONE 12/30 1415 DC 12/30 IV 12/30 1416 1413 Norepinephrine 4 MG Q4H 12/25 1000 12/31 Sodium Chloride 250 ML IV 1219 Nystatin 1 MEHUL TID 12/29 1829 12/31 TOP 1038 Phenylephrine HCl 40 MG Q24H 12/30 2330 DC Sodium Chloride 250 ML IV Phytonadione 10 MG ONCE ONE 12/30 2014 DC 12/30 WA 12/30 Sodium Bicarbonate 50 MEQ ONCE ONE 12/31 0545 TN 12/31 IV 12/31 0546 0627 Sodium Bicarbonate 150 MEQ Q10H 12/31 0545 TN 12/31 Dextrose/Water 1,000 ML IV 0623 Sodium Chloride 500 ML BOLUS ONE 12/31 1030 TN 12/31 IV 12/31 1129 1038 Sodium Chloride 500 ML BOLUS ONE 12/30 2200 DC 12/30 IV 12/30 2259 2217 Sodium Chloride 500 ML BOLUS ONE 12/30 1845 DC 12/30 IV 12/30 1944 1844 Sodium Chloride 1,000 ML Q10H 12/25 0845 TN 12/30 IV 204 Tramadol HCl 50 MG Q6 PRN 12/24 2245 12/30 PO 1005 Vancomycin HCl 1,500 MG DAILY 12/31 1000 CAN Sodium Chloride 250 ML IV Vasopressin 40 UNITS Q16H 12/28 1015 AC 12/31 Sodium Chloride 100 ML IV 0432
--- NOTE | 2016-12-31 08:30 | NUR ---
PT REMAINS LETHARGIC, PATEL WEAKLY AND EQUALLY, PULSES DIMINSHED. BP 90/DOPPLER SUPPORTED BY LEVOPHED AT 20MCG AND VASOPRESSIN. SODIUM BICARB IS INFUSING WELL. PT ON BIPAP AT 30%, RR 28-30'S. ST 100'S AT CURRENT. ABDOMEN DISTENDED, ASCITES PRESENT W SACRAL/SCROTAL/BLE +4 EDEMA, WEEPING TO L ARM PRESENT. HYPOACTIVE BS, NPO. PERDOMO INSITU W DARK KING URINE W SEDIMENT PRESENT. AM LACTIC ACID OBTAINED AND SENT.
--- NOTE | 2016-12-31 09:25 | NUR ---
DR GUAN TO BEDSIDE TO EVALUATE WOUND TO BUTTOCKS. MADE SUGGESTIONS FOR DRESSING CHANGE.
--- NOTE | 2016-12-31 10:06 | PN- Infect Dx ---
Subjective Subjective: Afebrile. He is unable to provide any history. His blood pressure remains low on 2 pressors, with poor urine output. He was also noted to have bleeding from his buttock wounds and hematuria, with an elevated INR over 10. Objective Last 24 Hrs of Vital Signs/I&O Vital Signs Date Time Temp Pulse Resp B/P B/P Pulse O2 O2 Flow FiO2 Mean Ox Delivery Rate 12/31 0830 103 104/54 12/31 0820 110 97 12/31 0800 990 BIPAP 30% 12/31 0800 96.8 90 26 90/0 90 BIPAP 30% 12/31 0607 84 94 12/31 0516 88 94/60 12/31 0400 98 BIPAP 30% 12/31 0256 84 94 12/31 0146 88 98/00 12/31 0031 85 98 12/31 0000 97 BIPAP 30% 12/31 0000 98.1 80 26 104/00 97 BIPAP 30% 12/30 2217 88 102/49 12/30 2214 98 99 12/30 2000 99 BIPAP 30% 12/30 1906 103 98 12/30 1844 111 67/37 12/30 1623 111 81/57 12/30 1619 110 97 12/30 1600 94 BIPAP 30% 12/30 1600 99.0 110 36 90/50 94 BIPAP 30% 12/30 1452 123 96 12/30 1200 93 BIPAP 30% 12/30 1159 95 12/30 1004 107 86/49 Intake & Output 12/31 1600 12/31 0800 12/31 0000 Intake Total 1436 1931 Output Total 55 38 Balance 1381 1893 Intake, IV 1436 1931 Intake, Oral 0 Number 0 Bowel Movements Output, Urine 55 38 Physical Exam Other Physical Findings: He is lethargic and minimally responsive on BiPAP Chest Port-A-Cath in the right upper chest with no inflammation at the site Lungs are clear Heart regular rhythm with no murmur Abdomen is obese, soft, with no obvious tenderness, positive bowel sounds Fiore catheter remains in place Results Last 24 Hours of Lab Results: Laboratory Tests 12/31 12/31 0840 0400 Chemistry Sodium (137 - 145 mmol/L) 147 H Potassium (3.5 - 5.1 mmol/L) 5.1 Chloride (98 - 107 mmol/L) 124 H Carbon Dioxide (22 - 30 mmol/L) 11 L Anion Gap (5 - 16) 13 BUN (9 - 20 mg/dL) 51 H Creatinine (0.7 - 1.2 mg/dL) 2.0 H Estimated GFR (>60 ml/min) 33 L Glucose (65 - 99 mg/dL) 125 H Lactic Acid Pending Calcium (8.4 - 10.2 mg/dL) 7.4 L Phosphorus (2.5 - 4.5 mg/dL) 6.8 H Magnesium (1.6 - 2.3 mg/dL) 2.0 Total Bilirubin (0.2 - 1.3 mg/dL) 3.4 H AST (17 - 59 U/L) 291 H ALT (21 - 72 U/L) 102 H Albumin (3.5 - 5.0 g/dL) 1.6 L Coagulation PT (9.4 - 12.5 SEC) > 103.0 *H INR (0.90 - 1.17) > 10.0 *H APTT (25 - 37 SEC) 51 H Fibrinogen Activity (200 - 393 MG/DL) 392 Hematology CBC w Diff MAN DIFF ORDERED WBC (4.8 - 10.8 /CUMM) 13.8 H RBC (4.70 - 6.10 /CUMM) 3.16 L Hgb (14.0 - 18.0 G/DL) 8.9 L Hct (42 - 52 %) 27.8 L MCV (80.0 - 94.0 FL) 87.8 MCH (27.0 - 31.0 PG) 28.1 RDW (11.5 - 14.5 %) 21.5 H Plt Count (130 - 400 /CUMM) 139 MPV (7.4 - 10.4 FL) 8.5 Gran % (42.2 - 75.2 %) 87.6 H Lymphocytes % (20.5 - 51.1 %) 8.5 L Monocytes % (1.7 - 9.3 %) 2.8 Eosinophils % (0 - 5 %) 1.1 Basophils % (0.0 - 2.0 %) 0 L Absolute Granulocytes (1.4 - 6.5 /CUMM) 12.1 H Segmented Neutrophils (42.2 - 75.2 %) 60 Band Neutrophils (0.0 - 5.0 %) 28 H Absolute Lymphocytes (1.2 - 3.4 /CUMM) 1.2 Lymphocytes (20.5 - 51.1 %) 8 L Monocytes (1.7 - 9.3 %) 2 Absolute Monocytes (0.10 - 0.60 /CUMM) 0.4 Absolute Eosinophils (0.0 - 0.7 /CUMM) 0.2 Absolute Basophils (0.0 - 0.2 /CUMM) 0 Metamyelocytes (0.0 - 1.0 %) 2 H Nucleated RBCs (0.0 - 0.0 /100WBC) 1 H Platelet Estimate (ADEQUATE) DECREASED Polychromasia 1+ Hypochromic-Microcytic 1+ PUBS MCHC (33.0 - 37.0 G/DL) 32.0 L 12/30 184 Coagulation PT (9.4 - 12.5 SEC) > 103.0 *H INR (0.90 - 1.17) > 10.0 *H APTT (25 - 37 SEC) 61 H Fibrinogen Activity (200 - 393 MG/DL) 400 H Fibrin Degrad Products (< 10 ug/ml) > 40 ug/ml H Last 24 Hours of [place] Results: Blood cultures December 28 negative Blood cultures December 30 negative Urine culture December 28 greater than 100,000 colonies of Adelina albicans Recent Imaging Studies: Right upper quadrant ultrasound December 30 reveals hepatomegaly with increased overall echogenicity and slightly nodular hepatic margin; the gallbladder is physiologically distended with no evidence of stones, sludge, polyps, wall thickening or pericholecystic fluid; nonobstructing calculus right kidney Assessment/Plan Impression: Condition has further deteriorated with persistent hypotension, requiring 2 pressors, worsening renal failure, with minimal urine output, ongoing respiratory failure, requiring BiPAP, coagulopathy of unclear etiology and worsening mental status. He remains afebrile but white blood cell count has increased with increased bands suggesting possible sepsis, though he has no obvious source and his recent blood cultures remain negative. He remains on Fluconazole Day 2 of treatment for candiduria, though the significance of this is unclear with the indwelling Fiore catheter. His liver enzymes are decreasing and his right upper quadrant ultrasound was negative for any biliary process. His overall prognosis is quite poor, with little hope for recovery at this time. Suggestion: 1. Continue local wound care of his scrotal and buttock wounds per Surgery 2. Continue supportive measures 3. Follow-up recent cultures 4. Would add a Vancomycin random level to this morning's labs 5. Discontinue Vancomycin pending above with further dosing based on above 6. Continue Ceftazidime and Fluconazole
--- NOTE | 2016-12-31 11:25 | NUR ---
BLOOD PRESSURE CONTUNES TO BE LOW/LABILE. DISCCUSSED W DR LOWE. 500 NS BOLUS GIVEN. BP CURRENTLY 96/52, ALSO SUPPORTED BY LEVO 20MCG AND VASOPRESSIN.
--- NOTE | 2016-12-31 15:50 | NUR ---
BICARB DC'D. NS BOLUS OF 500ML GIVEN TO SUPPORT BP. MSO4 1MG GIVEN FOR PERCIEVED PAIN/LABORED BREATHING/TACHYCARDIA. PT REMAINS MINIMALLY RESPONSIVE. URINARY OUTPUT, DARK TEA COLORED, 25ML/8HR. MD AWARE. PT FAMILY DISCUSSING POC/GOALS OF CARE WITH . VANCO IV HELD AND TROUGH DRAWN.
[2016-12-31 16:00] VITALS: BP 90/0
--- NOTE | 2016-12-31 16:43 | NUR ---
PT PORT A CATH NEEDLE DUE TO BE CHANGE OUT TODAY. DUE TO PORT A CATH USE FOR 2 PRESSORS AND PT'S BP LABILITY, CONCERNS WERE DISCUSSED WITH DR BRANDT. WROTE A NURSING MISC ORDER TO RE-ACCESS ABILITY TO REPLACE PORT A CATH NEEDLE TOMORROW AND TO HOLD OFF TODAY.
--- NOTE | 2016-12-31 19:28 | NUR ---
PT HAS HAD MINIMAL URINARY OUTPUT/[address] BRANDT AWARE.
[2016-12-31 19:50] VITALS: BP 60/00
--- NOTE | 2016-12-31 21:22 | Event Note ---
Event Note Event Note: After A family discussion with Ellen Lewis and couple of other family members. It was decided to make the code stastus comfort care for the patient. we will keep the patient on BIPAP if needed with ativan and morphine prn. off pressures a IV fluids. time 21 PM update Around 10:40 pm I was notified by nursing staff,that patient pulse rate is around 40 and rapidly decreasing. I examined the patient. On exam the patient did not respond to verbal or physical stimuli. Absent heart and breath sounds . Absent peripheral pulses. Pupils are fixed and dilated. Patient pronounced at 22:[address] Dutton and Dr. Higginbotham were notified. family were at bedside.spiritual care was provided. Autopsy was declined by the family.
--- NOTE | 2016-12-31 22:45 | NUR ---
SHIFT NOTE- 1999PM- BP 60/dopp, Dr. Rachel notified. 1L ns bolus ordered and given. 2100- After NS bolus, repeat BP is 38/dopp. Dr. Rachel notified and speaking with family about plan of care. Decision is made to make patient comfortable but the family is requesting Last rights before shutting off supportive care. Pastoral care is contacted and horse groomer is called in. 2214- Welder at bedside to perform Last Rights with family. 2224- Levo gtt and Vaso gtt discontinued at this time. Morphine and ativan given for comfort at this time, per family request and MD order. Will cont to monitor.
--- NOTE | 2016-12-31 23:16 | Event Note ---
Event Note Event Note: around 10:40 pm I was notified by nursing staff,that patient pulse rate is around 40 and rapidly decreasing. I examined the patient.
--- NOTE | 2016-12-31 23:53 | NUR ---
2250- Patient is pronounced by Dr. Gracy Rachel. Time of - 2250pm. Family at bedside. Organ Bank notified.
--- NOTE | 2017-01-01 08:56 | Discharge Summary ---
Visit Information Visit Dates Admission Date: 12/24/16 Discharge Date: 12/31/16 Hospital Course Course Attending Physician: Cherie Dutton Roman Primary Care Physician: BRIGID BALLARD MD Hospital Course: Mr. Cormier is a 76 YO Male with past medical history of MRSA bacteremia with line sepsis in the past, hypertension, hyperlipidemia, iron deficiency anemia, adenocarcinoma of the colon - stage IV with metastatic lesions to the liver status post palliative sigmoid resection in September 2013 and status post chemotherapy(PRETTY), following with Dr. Alvarado As OP came in on 12/24/2016 with generalized weakness 3 weeks prior to admission, peeling and bleeding from the scrotal and groin area, where he was having decubitus ulcers with sacral wound accompanied with shortness of breath. He was afebrile on admission, tachycardic at 113, respiratory rate was 24, blood pressure was 84/56, he was saturating 99% on room air. He had a white count of 16.1, no bands, H/H of 10.9/24, platelet of 173, electrolytes were mostly within normal limit however her bicarbonate was low at 19, anion gap is 14, he had a creatinine of 2.7, lactic acid was elevated at 4.5 , liver function test AST was elevated at 220, creatinine kinase 255. He was admitted to the general medicine floor for sepsis along with hypotension that resolved intially with Fluid resuscitation, subsequently tranferred to ICU within 24 hours of admission with continued hypotensino requiring pressors. Problem List along with assessment and plan. Problem #1 Septic shock, with unknown source, possible secondary to stage IV rectal cancer with extensive metastasis itself or sepsis of unknwon origine #2 stage III Decubitus ulcers with some skin maceration of the scrotum and the sacral area. Problem #3 Acute on chronic blood loss anemia possibly secondary to acute blood loss from the decubitus ulcer and the metastatic disease itself. Problem #4 Hypomagnesemia with continuous repletion. Problem #5 History of hypertension. Problem #6 History of hyperlipidemia. Problem #7 Coagulopathy as complication of the septic shock. * Initially on admission he was started on adequate hydration for possible sepsis, blood cultures were sent, he was started on IV Unasyn, lactic acid was trended, CT abdomen was negative for acute finding, necrotizing fasciitis of the ulcer wounds at the sacrum was ruled out. * He was also found to have accompanying hypomagnesemia, acute kidney injury, chronic anemia, transaminitis on admission. He was also given 1 dose of vancomycin on admission and continued on vancomycin and unasyn. * On the night of admission, around 3:30 AM on 12/25/2016, he was found to be hypotensive with blood pressure 60/40, his H/H had dropped to 6.7/20.9, he was given 1 unit of blood at that point, he was transferred to ICU for septic shock. * He was started on the pressors, levophed, subsequently another pressor was added as one pressor was not adequate to maintain his blood pressure. * He was continued on vancomycin and Unasyn, infectious disease consult was obtained. * Possible source of sepsis were thought to be the sacral/decubitus ulcer, however they had been the same as they were and did not look infected, other sources that we consider were gallbladder and biliary tract, however an ultrasound was done and infection of the biliary tract was ruled out. This was considered because patient had elevated LFTs and bilirubin on admission which subsequently came down after hydration however again during the hospital course they went up. Right upper quadrant ultrasound ruled out any possible gallbladder/bili tract infection. * As there was no source, the antibiotics were discontinued for few days, however due to his persistent hypotension, which could not be attributed to any other cause, and with the chronic ulcer wounds, positive lactic acid, elevated white count with bands, they were restarted with empiric coverage with vancomycin and ceftazidime. * Chest x-ray initially as well as repeated were negative. * The other possible cause was the cancer with metastasis itself causing the hypotension. * He also continued to actively lose blood from his sacral and scrotal area from the pressure ulcers and wounds. * He had multiple stage III decubitus ulcer with some skin maceration, wound care was on board. * As regards to his cancer, his most recent therapy was vectibix, thar had been complicated with conjunctivitis, MRSA sepsis, PET scan revealed progression of the disease with increased hepatic and pulmonary metastatic disease. * Overall prognosis was very grim due to the extensive metastatic stage IV rectal Cancer. * His condition continued to worsen in spite of of being on pressors, antibiotics, a third pressor was added intermittently, however he continued to deteriorate and his CODE STATUS was changed to DNR/DNI, subsequently made comfort measures, after which he unfortunately succumbed couple of hours after being made comfort measures. * A discussion was held with Ellen Cummings and couple of other the family members, was decided to change the CODE STATUS to comfort care on 12/31/2016, about 1-1/2 hour after switching him to comfort care, the patient's pulse rate continue to drop, he had fixed dilated pupils, absent peripheral pulses, absent heart and breath sounds and was pronounced at 2250 on 12/31/2016, with Sd Dutton MD and Dr. Higginbotham notified. * Autopsy was declined by family and all the family was at bedside.November his soul rest in peace. Complications: Septic shock with subsequent Coagulopathy Allergies: Coded Allergies: chlorhexidine (Severe, RASH, SWELLING 09/09/16) Significant Procedures: SERVICE DATE: 12/24/16-1521 EXAM TYPE: CAT - CT ABD & PELVIS W/O IV CONTRAST IMPRESSION: 1. The bilateral buttocks are included in the [id number]. However, the most caudal extent of the bilateral scrota are excluded from the [id number]. There is a moderate amount of subcutaneous edema, soft tissue swelling and skin thickening involving the imaged portions of the bilateral scrota. There are no visible scattered foci of subcutaneous emphysema. There are no visible organizing fluid collections within the imaged portions of the scrota or within the bilateral buttocks. 2. Interval development of multiple pulmonary nodules within the bilateral lung bases, suspicious for pulmonary metastases given the patient's history of metastatic colon cancer. 3. Diffuse heterogeneity of the liver parenchyma, notably the left hepatic lobe, suspicious for liver metastases. Interval development of ill-defined hypoattenuating lesions within the right hepatic lobe, suspicious for worsening metastatic disease within the liver. 4. Moderate to large bilateral fat-containing inguinal hernias. Small fat-containing umbilical hernia. SERVICE DATE: 12/25/16- EXAM TYPE: RAD - XRY-PORTABLE CHEST XRAY IMPRESSION: 1. The lungs are hypoexpanded bilaterally. 2. There are are no acute cardiopulmonary findings. 3. The right central venous catheter has a portion which appears to be coiled in the right supraclavicular region. SERVICE DATE: 12/25/16- EXAM TYPE: US - US-TESTICULAR IMPRESSION: 1. The testes appear normal bilaterally. 2. There is diffuse thickening of the scrotal wall without discrete fluid collections. SERVICE DATE: 12/26/16- EXAM TYPE: RAD - XRY-PORTABLE CHEST XRAY IMPRESSION: 1. No interval change in the coiled appearance of the mid segment of the right Port-A-Cath in the lower neck. The tip of the catheter remains at the cavoatrial junction. 2. Low lung volumes with mild bibasilar subsegmental atelectasis. 3. Possible loose bodies within the right shoulder joint. SERVICE DATE: 12/26/16- EXAM TYPE: CARD - ECHOCARDIOGRAM CONCLUSIONS Normal left and right ventricular systolic function. No significant valvular abnormalities noted. SERVICE DATE: 12/30/16 EXAM TYPE: US - US-LIMITED ABDOMEN IMPRESSION: 1. Hepatomegaly with heterogeneous hepatic echogenicity and nodular margin suspicious for hepatic cirrhosis. 2. No discrete focal abnormality is appreciated corresponding to CT images. 3. Trace ascites. 4. Nonobstructing calculus right kidney. Disposition Summary Disposition Principal Diagnosis: #1 Septic shock, Source unknown #2 Stage 4 colorectal Adenocarcinoma with lung and liver metastasis #3 Acute on chronic blood loss anemia 2/2 to decubitus/sacral and scrotal ulcer and metastatic cancer itself. #4 Electrolytes abnormalitis #5 Coagulapathy as complication of sepsis Additional Diagnosis: # H/o HTN # H/o Hyperlipidemia # H/o DM Discharge Disposition: Discharge Instructions General Discharge Information Code Status: Comfort Care Only Patient's Diet: regular Patient's Activity: .. Follow-Up Instructions/Appts: Rest in peace Copies To: NIKA PANDEY,[facility]; NANCI PANDEY,KELSI Aguilera; ALEXEY PANDEY,VINOD Wheeler; NELLIE PANDEY,BRIGID Bone Attending MD Review Statement Documenting Attending: Sd DUTTON MD
== END 2016-12-31 22:50 | disposition expired | DRG 871 ==
LOC: ERH 14:53 → ERHI 17:37 → CRI 17:37 → ENRESERV 18:25 → ENTRNSPT 19:58 → CRI 20:27 → CMPTRNSPT 20:57 → 2NA 21:09 → CRI 12-25 07:20
PROVIDERS: Internal Medicine; Physician Assistant Medical; Student in an Organized Health Care Education/Training Program; ADMIT Internal Medicine
PROC: 30233N1 Transfusion of Nonautologous Red Blood Cells into Peripheral Vein, Percutaneous Approach (ICD-10-PCS; principal; 2016-12-25)
DX: A41.9 Sepsis, unspecified organism (principal); R65.21 Severe sepsis with septic shock; N17.9 Acute kidney failure, unspecified; L89.313 Pressure ulcer of right buttock, stage 3; E87.2 Acidosis; C78.00 Secondary malignant neoplasm of unspecified lung; D68.9 Coagulation defect, unspecified; L89.893 Pressure ulcer of other site, stage 3; L89.323 Pressure ulcer of left buttock, stage 3; C78.7 Secondary malignant neoplasm of liver and intrahepatic bile duct; D62 Acute posthemorrhagic anemia; C20 Malignant neoplasm of rectum; C19 Malignant neoplasm of rectosigmoid junction; E66.9 Obesity, unspecified; Z68.39 Body mass index [BMI] 39.0-39.9, adult; E78.5 Hyperlipidemia, unspecified; I10 Essential (primary) hypertension; D50.8 Other iron deficiency anemias; Z92.21 Personal history of antineoplastic chemotherapy; E83.42 Hypomagnesemia; R74.0 Nonspecific elevation of levels of transaminase and lactic acid dehydrogenase [LDH]; Z66 Do not resuscitate; Z51.5 Encounter for palliative care; E11.9 Type 2 diabetes mellitus without complications; N40.0 Benign prostatic hyperplasia without lower urinary tract symptoms; Z87.891 Personal history of nicotine dependence; N49.3 Fournier gangrene; H10.89 Other conjunctivitis; L40.9 Psoriasis, unspecified; L30.9 Dermatitis, unspecified
CPT/HCPCS: 2NAP; 84133; 84145; 84300; CCU; 36415; 74176; 81001; 82436; 82570; 86920; 87040; 87086; 87088; 93005; 93010; 93306; 96361; 96374; 96375; 99291; J0713; J1450; J1644; J1815; J2060; J2270; J3370; J3490; J7040; J7060; P9016